=== PATIENT | female | born 1935 | race Caucasian/White ===

== ENCOUNTER 2016-11-14 15:38 | Emergency (ER) | payer MEDICARE ==
[2016-11-14] MEDS ORDERED: NS 0.9% 1000 ML* 1,000 ML IV SCH (16:15)
--- NOTE | 2016-11-14 16:54 | RAD ---
Indication: Speech disturbance. Code shrestha. Comparison: No relevant prior exams available on the [facility] PACS for comparison. Technique: Noncontrast CT vertex of skull through foramen magnum. Report: The sulci, ventricles, and basal cisterns are mildly prominent reflecting involutional change. Lambert matter white matter differentiation is preserved without evidence for edema. Decreased density in the periventricular and subcortical white matter while non-specific is most likely due to chronic microangiopathy. No intra or extra axial hemorrhage, mass, or fluid collection detected. Unremarkable visualized orbital contents. Unremarkable calvarium and skull base. Unremarkable scalp. Mild mucosal thickening at the partially visualized LEFT maxillary sinus. Complete opacification of the LEFT sphenoid sinus. Clear mastoid air spaces. IMPRESSION: 1. Mild involutional change and stigmata of chronic small vessel ischemic disease. 2. No acute intracranial process evident. 3. Paranasal sinus disease without compelling stigmata of acute sinusitis. Results discussed with Dr. Kowalski 11/14/2016 4:50 PM EDT
[2016-11-14] MEDS: Aspirin TAB* 325 MG PO ONE ×2 (16:58→17:00)
[2016-11-14 17:05] LABS: Hematocrit 45 % (35-47); Hemoglobin 14.8 g/dl (12.0-16.0); Mean Corpuscular HGB Conc 33 g/dl (31-36); Mean Corpuscular Hemoglobin 30 pg (27-31); Mean Corpuscular Volume 92 fL (80-97); Mean Platelet Volume 9 um3 (7.4-10.4); Red Blood Count 4.86 10^6/ul (4.0-5.4); Red Cell Distribution Width 13 % (10.5-15)
[2016-11-14 17:19] LABS: Albumin 3.9 g/dL (3.2-5.2); BUN/Creatinine Ratio 15.5 (8-20); C Reactive Protein 4.82 mg/L (< 5.00); Calcium 9.3 mg/dL (8.6-10.3); EGFR African American 65.8 (>60); EGFR Non-African American 51.2 (>60); Globulin 3.4 g/dL (2-4); Magnesium 2.2 mg/dL (1.9-2.7); Potassium 3.7 mmol/L (3.5-5.0); Total Bilirubin 0.8 mg/dL (0.2-1.0); Total Protein 7.3 g/dL (6.4-8.9)
[2016-11-14 17:21] LABS: Troponin I 0.01 ng/mL (<0.04)
[2016-11-14] MEDS ORDERED: Labetalol IV* 5 MG/ML 20 ML VIAL IV PUSH ONE (17:50)
--- NOTE | 2016-11-14 18:30 | RAD ---
Indication: Altered mental status. Code shrestha. Hypertensive. Comparison: No relevant prior exams available on the [facility] [place] for comparison. Technique: Upright AP 1735 hours Report: Accounting for superimposed soft tissues with large body habitus the lungs and pleural spaces are clear. Negative for pneumothorax. Upper normal heart size accounting for AP technique. Unremarkable central pulmonary vasculature. Mildly tortuous descending thoracic aorta. IMPRESSION: No evidence for acute intrathoracic disease.
--- NOTE | 2016-11-14 20:42 | ED ---
Vijay Dennis Auryana, scribed for Guzman Kowalski MD on 11/14/16 at 1618 . Neurological HPI - HPI Summary HPI Summary: 81 year old female presents with head discomfort starting at 03:30 today. Patient reports that she was with her friends, sitting when her symptoms started : friends state that her face became red and she had difficulty with speech lasting 2-3 minutes. Patient reports that she has discomfort around the occipital lobe/posterior head and reports that she felt like there was a "gloss over both eyes". She currently c/o a pressure at the roof of her mouth. She denies any chest pain, confusion, or any problems with extremity problems or movement. She has had similar episodes of head pain over the last month but denies any previous episodes of difficult with speech. Also over the last month , she reports blurriness in the left eye, and bilateral ear pressure. PMHx is significant for HTN, and HLD. FHx is significant for stoke and cancer. - History of Current Complaint Chief Complaint: EDGeneral Stated Complaint: HIGH BLOOD PRESSURE/UPSET STOMACH Time Seen by Provider: 11/14/16 16:03 Hx Obtained From: Patient Hx Last Menstrual Period: N/A Onset/Duration: Sudden Onset Timing: Intermittent Episodes Lasting: Onset Severity: Moderate Current Severity: None Headache Location: Occipital (Right), Occipital (Left) Pain Intensity: 0 Pain Scale Used: 0-10 Numeric Character: Impaired Speech, Visual Changes - " felt like a gloss over both eyes " Associated Signs and Symptoms: Positive: Visual Changes, Headache. Negative: Confusion, Fever - Allergy/Home Medications Allergies/Adverse Reactions: Allergies Allergy/AdvReac Type Severity Reaction Status Date / Time Aspirin Allergy Abdominal Verified 11/14/16 16:58 Pain Home Medications: Home Medications Acetaminophen TAB* [Tylenol TAB*] 325 mg PO Q6H PRN 11/14/16 [History Confirmed 11/14/16] Atenolol TAB* [Tenormin TAB* 50 MG] 50 mg PO DAILY 11/14/16 [History Confirmed 11/14/16] Calcium Carbonate CHEW TAB* [Tums*] 500 mg PO BID PRN 11/14/16 [History Confirmed 11/14/16] Cholecalciferol [Vitamin D3] 50,000 unit PO WEEKLY 11/14/16 [History Confirmed 11/14/16] amLODIPine TAB* [Norvasc 5 mg TAB*] 2.5 mg PO DAILY 11/14/16 [History Confirmed 11/14/16] PMH/Surg Hx/FS Hx/Imm Hx Cardiovascular History: Reports: Hx Coronary Artery Disease - CHOLESTEROL CONTROL WITH MEDICATION, Hx Hypertension - CONTROL WITH MEDICATION GI History: Reports: Hx Gastroesophageal Reflux Disease - ACID REFLUX OCCASIONALLY, USES TUMS Musculoskeletal History: Reports: Hx Arthritis - GENERALIZED Sensory History: Reports: Hx Cataracts - BILATERAL, Hx Contacts or Glasses - GLASSES - READING Denies: Hx Hearing Aid Opthamlomology History: Reports: Hx Cataracts - BILATERAL, Hx Contacts or Glasses - GLASSES - READING - Cancer History Hx Chemotherapy: No Hx Radiation Therapy: No Infectious Disease History: No Infectious Disease History: Denies: Traveled Outside the [place] in Last 30 Days - Family History Known Family History: Positive: Other - stroke and cancer - Social History Alcohol Use: None Substance Use Type: Reports: None Review of Systems Constitutional: Negative Negative: Fever Positive: Other - "gloss go over both eyes" Positive: Other - pressure at roof of mouth Cardiovascular: Negative Negative: Chest Pain Respiratory: Negative Gastrointestinal: Negative Genitourinary: Negative Positive: Other - head discomfort Skin: Negative Neurological: Other - speech trouble Psychological: Normal All Other Systems Reviewed And Are Negative: Yes Physical Exam - Summary Physical Exam Summary: General: well-appearing, no pain distress Skin: warm, color reflects adequate perfusion, dry Head: normal Eyes: EOMI, RADHA ENT: normal Neck: supple, nontender Respiratory: CTA, breath sounds present Cardiovascular: RRR Abdomen: soft, nontender Bowel: present Musculoskeletal: normal, strength/ROM intact Neurological: normal, sensory/motor intact, A&O x3; GCS 15. Psychological: affect/mood appropriate Triage Information Reviewed: Yes Vital Signs On Initial Exam: Initial Vitals Temp Pulse Resp BP Pulse Ox 97.4 F 64 20 214/72 94 11/14/16 15:44 11/14/16 15:44 11/14/16 15:44 11/14/16 15:44 11/14/16 15:44 Vital Signs Reviewed: Yes Diagnostics - Vital Signs Vital Signs Temp Pulse Resp BP Pulse Ox 11/14/16 16:05 97.3 F 60 20 167/96 92 11/14/16 15:44 97.4 F 64 20 214/72 94 - Laboratory Lab Results: Lab Results 11/14/16 11/14/16 11/14/16 Range/Units 16:43 16:46 16:46 WBC (3.5-10.8) 10^3/ul RBC (4.0-5.4) 10^6/ul Hgb (12.0-16.0) g/dl Hct (35-47) % MCV (80-97) fL MCH (27-31) pg MCHC (31-36) g/dl RDW (10.5-15) % Plt Count (150-450) 10^3/ul MPV (7.4-10.4) um3 Neut % (Auto) (38-83) % Lymph % (Auto) (25-47) % [place] % (Auto) (1-9) % Eos % (Auto) (0-6) % Baso % (Auto) (0-2) % Absolute Neuts (auto) (1.5-7.7) 10^3/ul Absolute Lymphs (auto) (1.0-4.8) 10^3/ul Absolute Monos (auto) (0-0.8) 10^3/ul Absolute Eos (auto) (0-0.6) 10^3/ul Absolute Basos (auto) (0-0.2) 10^3/ul Absolute Nucleated RBC 10^3/ul Nucleated RBC % INR (Anticoag Therapy) 0.92 (0.89-1.11) APTT 25.8 L (26.0-36.3) seconds Sodium 136 (133-145) mmol/L Potassium 3.7 (3.5-5.0) mmol/L Chloride 103 (101-111) mmol/L Carbon Dioxide 23 (22-32) mmol/L Anion Gap 10 (2-11) mmol/L BUN 16 (6-24) mg/dL Creatinine 1.03 H (0.51-0.95) mg/dL Est GFR ( Amer) 65.8 (>60) Est GFR (Non-Af Amer) 51.2 (>60) BUN/Creatinine Ratio 15.5 (8-20) Glucose 126 H (70-100) mg/dL POC Glucose (mg/dL) 119 H (74-106) mg/dL Lactic Acid (0.5-2.0) mmol/L Calcium 9.3 (8.6-10.3) mg/dL Magnesium 2.2 (1.9-2.7) mg/dL Total Bilirubin 0.80 (0.2-1.0) mg/dL AST 23 (13-39) U/L ALT 14 (7-52) U/L Alkaline Phosphatase 64 (34-104) U/L Troponin I 0.01 (<0.04) ng/mL C-Reactive Protein 4.82 (< 5.00) mg/L Total Protein 7.3 (6.4-8.9) g/dL Albumin 3.9 (3.2-5.2) g/dL Globulin 3.4 (2-4) g/dL Albumin/Globulin Ratio 1.1 (1-3) TSH (0.34-5.60) mcIU/mL 11/14/16 11/14/16 11/14/16 Range/Units 17:00 17:00 17:00 WBC 11.0 H (3.5-10.8) 10^3/ul RBC 4.86 (4.0-5.4) 10^6/ul Hgb 14.8 (12.0-16.0) g/dl Hct 45 (35-47) % MCV 92 (80-97) fL MCH 30 (27-31) pg MCHC 33 (31-36) g/dl RDW 13 (10.5-15) % Plt Count 254 (150-450) 10^3/ul MPV 9 (7.4-10.4) um3 Neut % (Auto) 62.8 (38-83) % Lymph % (Auto) 26.4 (25-47) % [place] % (Auto) 8.1 (1-9) % Eos % (Auto) 1.8 (0-6) % Baso % (Auto) 0.9 (0-2) % Absolute Neuts (auto) 6.9 (1.5-7.7) 10^3/ul Absolute Lymphs (auto) 2.9 (1.0-4.8) 10^3/ul Absolute Monos (auto) 0.9 H (0-0.8) 10^3/ul Absolute Eos (auto) 0.2 (0-0.6) 10^3/ul Absolute Basos (auto) 0.1 (0-0.2) 10^3/ul Absolute Nucleated RBC 0.01 10^3/ul Nucleated RBC % 0.1 INR (Anticoag Therapy) (0.89-1.11) APTT (26.0-36.3) seconds Sodium (133-145) mmol/L Potassium (3.5-5.0) mmol/L Chloride (101-111) mmol/L Carbon Dioxide (22-32) mmol/L Anion Gap (2-11) mmol/L BUN (6-24) mg/dL Creatinine (0.51-0.95) mg/dL Est GFR ( Amer) (>60) Est GFR (Non-Af Amer) (>60) BUN/Creatinine Ratio (8-20) Glucose (70-100) mg/dL POC Glucose (mg/dL) (74-106) mg/dL Lactic Acid 2.6 H* (0.5-2.0) mmol/L Calcium (8.6-10.3) mg/dL Magnesium (1.9-2.7) mg/dL Total Bilirubin (0.2-1.0) mg/dL AST (13-39) U/L ALT (7-52) U/L Alkaline Phosphatase (34-104) U/L Troponin I (<0.04) ng/mL C-Reactive Protein (< 5.00) mg/L Total Protein (6.4-8.9) g/dL Albumin (3.2-5.2) g/dL Globulin (2-4) g/dL Albumin/Globulin Ratio (1-3) TSH 6.53 H (0.34-5.60) mcIU/mL Result Diagrams: 11/14/16 17:00 11/14/16 16:46 Lab Statement: Any lab studies that have been ordered have been reviewed, and results considered in the medical decision making process. - Radiology CXR Xray Interpretation: No Acute Changes Radiology Interpretation Completed By: Radiologist - CT BRAIN CT Interpretation: Positive (See Comments) - IMPRESSION: 1. Mild involutional change and stigmata of chronic small vessel ischemic disease. 2. No acute intracranial process evident. 3. Paranasal sinus disease without compelling stigmata of acute sinusitis. Results discussed with Dr. Kowalski 4:[address] Interpretation Completed By: Radiologist - EKG 16:46 Ectopy: None EKG Interpretation: nsr @ 61 BPM, ST depressions in the anteriolateral leads. no ectopy NIH Scale - NIH Scale Level of Consciousness: Alert/Keenly Responsive Ask Patient the Month and His/Her Age: Both Correct Ask Pt to Open/Close Eyes and Fan Mail Clerk/Release Non-Paretic Hand: Both Correctly Best Gaze (Only Horizontal Eye Movement): Normal Visual Field Testing: No Visual Loss Facial Paresis-Pt to Smile & Close Eyes or Grimace Symmetry: Normal/Symmetrical Motor Function - Right Arm: No Drift-Holds 10 Seconds Motor Function - Left Arm: No Drift-Holds 10 Seconds Motor Function - Right Leg: No Drift-Holds 10 Seconds Motor Function - Left Leg: No Drift-Holds 10 Seconds Limb Ataxia-Must be out of Proportion to Weakness Present: Absent Sensory (Use Pinprick to Test Arms/Legs/Trunk/Face): Normal Best Language (Describe Picture, Name Items): No Aphasia Dysarthria (Read Several Words): Normal Course/Dx - Course Course Of Treatment: NO CRITICAL CARE TIME. PATIENT SEEN BY NEUROLOGY, DR ORELLANA, IN ED. AMS EPISODE MOST PROBABLY DUE TO HYPERTENSION. PATIENT HAS A NEW BP RX HER DOCTOR HAS PRESCRIBED. IT IS AT THE PHARMACY NOW AND CAN BE PICKED UP TOMORROW. DISCUSSED RESULTS WITH PT. NO AMS IN ED. BP IMPROVED IN ED. - Diagnoses Provider Diagnoses: Altered mental status, Hypertension During the Visit The Following Alert/Code Occurred: Code Lambert - 16:18 - Physician Notifications Discussed Care Of Patient With: Lucas Orellana Time Discussed With Above Provider: 17:14 Discharge - Discharge Plan Condition: Stable Disposition: HOME Patient Education Materials: Hypertension (ED), Altered Mental Status (ED) Referrals: Yadi Cline MD [Primary Care Provider] - Additional Instructions: FOLLOW UP WITH YOUR DOCTOR. START YOUR NEW BLOOD PRESSURE MEDICATION DIRECTED TOMORROW. RETURN TO THE EMERGENCY DEPARTMENT FOR ANY WORSENING OF YOUR CONDITION OR QUESTIONS OR CONCERNS. The documentation as recorded by the Vijay mosley Auryana accurately reflects the service I personally performed and the decisions made by me, Guzman Kowalski MD.
[2016-11-14 20:53] VITALS: BP 157/66
--- NOTE | 2016-11-14 22:36 | CONS ---
NEUROLOGY CONSULTATION: DATE OF CONSULTATION: 11/14/16 REFERRING PHYSICIAN: Dr. Kowalski. PRIMARY CARE PHYSICIAN: Dr. Rivas. LOCATION: She is in the emergency room. CHIEF COMPLAINT: Headache, sweats, confusion. HISTORY OF PRESENT ILLNESS: Bronwyn Tan is an 81-year-old right-handed woman accompanied by her daughter and her niece. She has been having some headaches on and off for a couple of weeks. They went to a [employer] lunch today and she drove the first time in about a month. When she came out, she "just didn't feel well" and asked her daughter to drive home. She went home and rested. After that, she was with her daughter and said again that she did not feel well and then became very flushed and sweaty and said that "I am hot" and started to take off her sweater. Her daughter and niece said that she looked "beet red." She started to mumble a bit and did not make any sense for perhaps a minute or less. She was like that for a couple of minutes and decided she should be evaluated and brought her to the emergency room. In the emergency room, she was hypertensive with initial blood pressure 214/72. She at this point feels better. She still has a dull bifrontal and bioccipital headache, which is mild. She had some nausea earlier when she felt ill and reported that to her daughters, but did not vomit. She has not been feeling well for some time and has had what sounds to be uncontrolled hypertension. She has been to Dr. Rivas and was supposed to increase her atenolol, but failed to do so as she felt that it was "too much." She has had another medicine called in for her blood pressure that she has not filled yet. Checking pharmacy records, there is a prescription apparently for amlodipine as well as atenolol 50 mg a day. She states the only medicine she takes is vitamin D3 and atenolol. PAST MEDICAL HISTORY: Basically notable for hypertension, hyperlipidemia, low back pain, cataract extractions. MEDICATIONS: The only medications that she states she is taking is atenolol 50 mg tablet once per day and vitamin D. ALLERGIES: She is listed as having an ASPIRIN allergy. Computer records indicate that it was abdominal pain rather than an allergy. REVIEW OF SYSTEMS: Notable for episodic blurring of vision. She feels episodically unsteady on her feet but no falls. She has not had any problems eating or swallowing. Up to today, she did not have any problems with confusion or speech and currently, she feels that is cleared. She had some nausea and some belly pain earlier today, which resolved. She denies any history of diabetes or heart disease. SOCIAL HISTORY: She is a nonsmoker and does not drink alcohol. FAMILY HISTORY: Noncontributory. PHYSICAL EXAMINATION: She is obese. Most recent blood pressure on the monitor is 209/107, heart rate is in the 70's and sinus on the monitor and respirations 16. Oxygen saturation is 96% on room air. Lungs are clear bilaterally. Heart is in a regular rhythm with a grade 2/6 early systolic murmur second right interspace. Carotid pulses are weakly felt. There are no bruits. Oral mucosa is moist and atraumatic. Neck is supple. Neurological exam: Pupils react equally from 3 to 2 mm. Eye movements are normal. Funduscopic exam revealed sharp discs with arterial narrowing and silver wiring, but no hemorrhages. Visual veloz are full to confrontation. There is no ptosis. Facial musculature is symmetric. Facial sensation to light touch is intact. She is hearing impaired and has a hearing aid in the left ear. Neck strength is normal for age. Motor exam reveals normal muscle tone and strength in the limbs for age and overall condition. There is no drift of any of the limbs. [id number] maneuver is normal bilaterally. Finger taps are normal bilaterally. Sensory exam to vibration and light touch is intact in upper and lower extremities. Reflexes are intact and could not trace ankle reflexes. Left plantar flexor and right is equivocal. She is alert and a pretty good historian. Memory seems preserved other than for perhaps a moment or two around when she felt ill. Language is fluent. Attention, concentration, and fund of knowledge are all adequate. DIAGNOSTIC STUDIES/LABORATORY DATA: Includes a CT scan of the brain, which I reviewed and reveals patchy hypodensity in the deep white matter consistent with chronic ischemic changes. There is no evidence of hemorrhages or acute infarctions. Other laboratory data is notable for CBC with borderline elevated white blood count at 11.0 and otherwise a normal CBC. INR is normal and PTT is borderline low at 25.8. Chemistry profile is normal but lactic acid is mildly elevated at 2.6. Nonfasting glucose is elevated at 126 and looking at prior glucoses, she has had several elevations over the years. The rest of her chemistry profile is unremarkable. Troponin is 0.01. Cholesterol measured last March was 256 , LDL 154. IMPRESSION: Hypertensive urgency. She does not really describe any focal signs or symptoms, but headache and nausea and some brief confusion. Her blood pressure was quite elevated when she presented and is still elevated. It sounds as though she has been somewhat less than compliant with recommendations regarding treatment of her hypertension. I recommend treating her hypertension at this point. Recommend adding hemoglobin A1c given her blood glucose and complaints of polyuria. Unless she has further neurological symptoms and provided that her blood pressure is brought under control, I do not think she needs further workup for cerebrovascular disease. [id number]/[facility] #: [id number] [place]
== END 2016-11-14 20:53 | disposition home or self-care (01) ==
LOC: ED 15:38
DX: R41.82 Altered mental status, unspecified (principal); I10 Essential (primary) hypertension
CPT/HCPCS: 36415; 70450; 71010; 80053; 83605; 83735; 84443; 84484; 85025; 85610; 85730; 86140; 93005; 96374; 99285

== ENCOUNTER 2017-08-04 00:38 | Emergency (ER) | payer MEDICARE ==
[2017-08-04] MEDS ORDERED: hydrALAZINE IV* 20 MG/ML VIAL IV SLOW PU ONE (01:32)
[2017-08-04 02:49] LABS: ABS Basophils 0.1 10^3/ul (0-0.2); ABS Eosinophils 0.2 10^3/ul (0-0.6); ABS Lymphocytes 2.6 10^3/ul (1.0-4.8); ABS Monocytes 0.9 10^3/ul (0-0.8); ABS Neutrophils 7.8 10^3/ul (1.5-7.7); ABS Nucleated RBC 0 10^3/ul; Eosinophil % 1.4 % (0-6); Hematocrit 44 % (35-47); Lymphocyte % 22.5 % (25-47); Mean Corpuscular HGB Conc 34 g/dl (31-36); Mean Corpuscular Hemoglobin 31 pg (27-31); Mean Corpuscular Volume 89 fL (80-97); Nucleated Red Blood Cells % 0.1; Platelet Count 281 10^3/ul (150-450); Red Blood Count 4.89 10^6/ul (4.0-5.4); Red Cell Distribution Width 14 % (10.5-15); White Blood Count 11.5 10^3/ul (3.5-10.8)
[2017-08-04 03:01] LABS: EGFR Non-African American 58.9 (>60)
[2017-08-04 03:02] LABS: INR 0.98 (0.77-1.02)
[2017-08-04 03:25] LABS: Urine Appearance Clear; Urine Blood 1+ (Negative); Urine Color Straw; Urine Ketones Negative (Negative); Urine Protein Negative (Negative); Urine Specific Gravity 1.005 (1.010-1.030); Urine Urobilinogen Negative (Negative)
[2017-08-04] MEDS ORDERED: diPHENhydraMINE IV* 50 MG/ML 1 ml VIAL (BENADRYL) IV ONE (03:40)
[2017-08-04 04:44] VITALS: BP 160/78
--- NOTE | 2017-08-04 08:13 | RAD ---
INDICATION: Ataxia and hypertension COMPARISON: CT of the brain November 14, 2016 TECHNIQUE: Contiguous axial sections of the brain were obtained from the skull base to the vertex without contrast. FINDINGS: The ventricles, cisterns and sulci exhibit symmetrical involutional changes similar in appearance to the previous CT of the brain. There is stable encephalomalacia at the posterior right parietal lobe. There is mild to moderate periventricular and subcortical white matter hypoattenuation most consistent with chronic microvascular disease that is also similar in appearance to the previous CT of the brain. Otherwise the shrestha-white matter differentiation is adequately maintained and there is no sulcal effacement. No significant focal abnormality or mass effect is present. There is no evidence for intracranial hemorrhage. No significant focal osseous abnormality is present. There is complete opacification of the dominant left sphenoid sinus unchanged from the previous CT the brain. The mastoid air cells are well aerated bilaterally. IMPRESSION: No CT apparent acute intracranial abnormality.
--- NOTE | 2017-08-05 10:52 | ED ---
Donaldo Dennis Rebecca, scribed for Nirmal Thompson MD on 08/04/17 at 0121 . Complex/Multi-Sys Presentation - HPI Summary HPI Summary: Pt is an 82 y/o F BIBA who presents to ED c/o elevated BP. Reports that her BP is usually about 180 systolic, though it was elevated tonight and she became concerned about a stroke. Additionally c/o bilateral LE numbness which is acute on chronic. Denies CP, SOB, fever. PMHx HTN - has tried multiple medications to lower her BP and is currently taking atenolol. - History Of Current Complaint Chief Complaint: EDHypertension Hx Obtained From: Patient, Family/Industrial Controller - Daughter Onset/Duration: Still Present Severity Initially: Mild - 2/10 Aggravating Factor(s): Nothing Alleviating Factor(s): Nothing Associated Signs And Symptoms: Positive: Other - Elevated BP - Allergies/Home Medications Allergies/Adverse Reactions: Allergies Allergy/AdvReac Type Severity Reaction Status Date / Time MS Aspirin Allergy Abdominal Verified 12/05/16 08:44 Pain MS Lisinopril [Lisinopril] Allergy SEVERE Verified 12/05/16 08:44 HORSE COUGH Home Medications: Home Medications Losartan TAB* [Cozaar TAB*] 25 mg PO DAILY 08/04/17 [History Confirmed 08/04/17] PMH/Surg Hx/FS Hx/Imm Hx Endocrine/Hematology History: Denies: Hx Diabetes Cardiovascular History: Reports: Hx Coronary Artery Disease - CHOLESTEROL CONTROL WITH MEDICATION, Hx Hypertension - CONTROL WITH MEDICATION Denies: Hx Pacemaker/ICD GI History: Reports: Hx Gastroesophageal Reflux Disease - ACID REFLUX OCCASIONALLY, USES TUMS History: Denies: Hx Renal Disease Musculoskeletal History: Reports: Hx Arthritis - GENERALIZED Sensory History: Reports: Hx Cataracts - BILATERAL, Hx Contacts or Glasses - GLASSES - READING Denies: Hx Hearing Aid - DOESN'T WEAR Opthamlomology History: Reports: Hx Cataracts - BILATERAL, Hx Contacts or Glasses - GLASSES - READING Psychiatric History: Denies: Hx Panic Disorder - Cancer History Hx Chemotherapy: No Hx Radiation Therapy: No - Surgical History Surgery Procedure, Year, and Place: CATARACTS - [facility] Infectious Disease History: No Infectious Disease History: Denies: Traveled Outside the [place] in Last 30 Days - Family History Known Family History: Positive: Other - stroke and cancer - Social History Alcohol Use: None Substance Use Type: Reports: None Smoking Status (MU): Never Smoked Tobacco Review of Systems Positive: Other - Elevated BP. Negative: Fever Negative: Chest Pain Negative: Shortness Of Breath Positive: Numbness - Bilateral LE numbness All Other Systems Reviewed And Are Negative: Yes Physical Exam - Summary Physical Exam Summary: Appearance: Well appearing, no pain distress Skin: warm, dry, reflects adequate perfusion Head/face: normal Eyes: EOMI, RADHA ENT: normal Neck: supple, non-tender Respiratory: CTA, breath sounds present Cardiovascular: RRR, pulses symmetrical Abdomen: non-tender, soft Bowel Sounds: present Musculoskeletal: normal, strength/ROM intact Neuro: normal, sensory motor intact, A&Ox3, CN II-XII intact GCS: 15 Triage Information Reviewed: Yes Vital Signs On Initial Exam: Initial Vitals Temp Pulse Resp BP Pulse Ox 97.8 F 73 20 192/100 95 08/04/17 00:54 08/04/17 00:54 08/04/17 00:54 08/04/17 00:54 08/04/17 00:54 Vital Signs Reviewed: Yes Diagnostics - Vital Signs Vital Signs Temp Pulse Resp BP Pulse Ox 08/04/17 00:54 97.8 F 73 20 192/100 95 - Laboratory Lab Results: Lab Results 08/04/17 08/04/17 08/04/17 Range/Units 02:35 02:35 02:35 WBC 11.5 H (3.5-10.8) 10^3/ul RBC 4.89 (4.0-5.4) 10^6/ul Hgb 15.0 (12.0-16.0) g/dl Hct 44 (35-47) % MCV 89 (80-97) fL MCH 31 (27-31) pg MCHC 34 (31-36) g/dl RDW 14 (10.5-15) % Plt Count 281 (150-450) 10^3/ul MPV 9.0 (7.4-10.4) um3 Neut % (Auto) 67.4 (38-83) % Lymph % (Auto) 22.5 L (25-47) % [place] % (Auto) 7.9 H (0-7) % Eos % (Auto) 1.4 (0-6) % Baso % (Auto) 0.8 (0-2) % Absolute Neuts (auto) 7.8 H (1.5-7.7) 10^3/ul Absolute Lymphs (auto) 2.6 (1.0-4.8) 10^3/ul Absolute Monos (auto) 0.9 H (0-0.8) 10^3/ul Absolute Eos (auto) 0.2 (0-0.6) 10^3/ul Absolute Basos (auto) 0.1 (0-0.2) 10^3/ul Absolute Nucleated RBC 0 10^3/ul Nucleated RBC % 0.1 INR (Anticoag Therapy) 0.98 (0.77-1.02) Sodium 140 (139-145) mmol/L Potassium 3.8 (3.5-5.0) mmol/L Chloride 105 (101-111) mmol/L Carbon Dioxide 25 (22-32) mmol/L Anion Gap 10 (2-11) mmol/L BUN 12 (6-24) mg/dL Creatinine 0.91 (0.51-0.95) mg/dL Est GFR ( Amer) 75.7 (>60) Est GFR (Non-Af Amer) 58.9 (>60) BUN/Creatinine Ratio 13.2 (8-20) Glucose 110 H (70-100) mg/dL Calcium 9.8 (8.6-10.3) mg/dL Total Bilirubin 0.80 (0.2-1.0) mg/dL AST 15 (13-39) U/L ALT 12 (7-52) U/L Alkaline Phosphatase 70 (34-104) U/L Troponin I 0.02 (<0.04) ng/mL C-Reactive Protein 6.21 H (< 5.00) mg/L Total Protein 7.7 (6.4-8.9) g/dL Albumin 4.2 (3.2-5.2) g/dL Globulin 3.5 (2-4) g/dL Albumin/Globulin Ratio 1.2 (1-3) Urine Color Urine Appearance Urine pH (5-9) Ur Specific [place] (1.010-1.030) Urine Protein (Negative) Urine Ketones (Negative) Urine Blood (Negative) Urine Nitrate (Negative) Urine Bilirubin (Negative) Urine Urobilinogen (Negative) Ur Leukocyte Esterase (Negative) Urine WBC (Auto) (Absent) Urine RBC (Auto) (Absent) Urine Bacteria (Absent) Urine Glucose (Negative) 08/04/17 Range/Units 03:00 WBC (3.5-10.8) 10^3/ul RBC (4.0-5.4) 10^6/ul Hgb (12.0-16.0) g/dl Hct (35-47) % MCV (80-97) fL MCH (27-31) pg MCHC (31-36) g/dl RDW (10.5-15) % Plt Count (150-450) 10^3/ul MPV (7.4-10.4) um3 Neut % (Auto) (38-83) % Lymph % (Auto) (25-47) % [place] % (Auto) (0-7) % Eos % (Auto) (0-6) % Baso % (Auto) (0-2) % Absolute Neuts (auto) (1.5-7.7) 10^3/ul Absolute Lymphs (auto) (1.0-4.8) 10^3/ul Absolute Monos (auto) (0-0.8) 10^3/ul Absolute Eos (auto) (0-0.6) 10^3/ul Absolute Basos (auto) (0-0.2) 10^3/ul Absolute Nucleated RBC 10^3/ul Nucleated RBC % INR (Anticoag Therapy) (0.77-1.02) Sodium (139-145) mmol/L Potassium (3.5-5.0) mmol/L Chloride (101-111) mmol/L Carbon Dioxide (22-32) mmol/L Anion Gap (2-11) mmol/L BUN (6-24) mg/dL Creatinine (0.51-0.95) mg/dL Est GFR ( Amer) (>60) Est GFR (Non-Af Amer) (>60) BUN/Creatinine Ratio (8-20) Glucose (70-100) mg/dL Calcium (8.6-10.3) mg/dL Total Bilirubin (0.2-1.0) mg/dL AST (13-39) U/L ALT (7-52) U/L Alkaline Phosphatase (34-104) U/L Troponin I (<0.04) ng/mL C-Reactive Protein (< 5.00) mg/L Total Protein (6.4-8.9) g/dL Albumin (3.2-5.2) g/dL Globulin (2-4) g/dL Albumin/Globulin Ratio (1-3) Urine Color Straw Urine Appearance Clear Urine pH 8.0 (5-9) Ur Specific [place] 1.005 L (1.010-1.030) Urine Protein Negative (Negative) Urine Ketones Negative (Negative) Urine Blood 1+ A (Negative) Urine Nitrate Negative (Negative) Urine Bilirubin Negative (Negative) Urine Urobilinogen Negative (Negative) Ur Leukocyte Esterase 3+ A (Negative) Urine WBC (Auto) 3+(>20/hpf) A (Absent) Urine RBC (Auto) Trace(0-2/hpf) (Absent) Urine Bacteria Absent (Absent) Urine Glucose Negative (Negative) Result Diagrams: 08/04/17 02:35 08/04/17 02:35 Lab Statement: Any lab studies that have been ordered have been reviewed, and results considered in the medical decision making process. - CT Brain CT CT Interpretation: No Acute Changes - No evidence of acute pathology. ED physician reviewed this radiology report. CT Interpretation Completed By: Radiologist - EKG 0136 Cardiac Rate: NL - [address] Segment: Non-Specific EKG Interpretation: 1st degree AVB, normal axis, LVH criteria, Q waves in V2-V5 National Institutes Of Health - NIH Scale Level of Consciousness: Alert/Keenly Responsive Ask Patient the Month and His/Her Age: Both Correct Ask Pt to Open/Close Eyes and Telephone Clerks Supervisor/Release Non-Paretic Hand: Both Correctly Best Gaze (Only Horizontal Eye Movement): Normal Visual Field Testing: No Visual Loss Facial Paresis-Pt to Smile & Close Eyes or Grimace Symmetry: Normal/Symmetrical Motor Function - Right Arm: No Drift-Holds 10 Seconds Motor Function - Left Arm: No Drift-Holds 10 Seconds Motor Function - Right Leg: No Drift-Holds 10 Seconds Motor Function - Left Leg: No Drift-Holds 10 Seconds Limb Ataxia-Must be out of Proportion to Weakness Present: Absent Sensory (Use Pinprick to Test Arms/Legs/Trunk/Face): Normal Best Language (Describe Picture, Name Items): No Aphasia Dysarthria (Read Several Words): Normal Extinction and Inattention: No Abnormality Total Score: 0 Re-Evaluation - Re-Evaluation First Eval Re-Evaluation Time: 03:08 Comment: Walked well with walker, BP now 163 and she wishes to go home. Second Eval Re-Evaluation Time: 04:17 Comment: Talked with pt and her daughter, as the pt is now unsure whether she would like to be D/C Complex Multi-Symp Course/Dx Course Of Treatment: Pt presents for exacerbation of her chronically uncontrolled HTN and for her chronic numbness/restlessness of her legs. She has no focal deficit or weakness. Its unknown if she took her BP med stonight. Her "normal" is approximately 180 systolic. BPs were controlled into the 160s with IV hydralazine. Head CT, labs showed no acute findings. Pt was up and walking with a walker independently. She seemed hesitant to go home despite acute findings -- I offered her admission but she wished to go home. She then had restlessness of her legs and began acting strangely including stuttering speech and refusal to weight bear. She seemed to be focused on the possibility of having a stroke, so I explained that there was no evidence of this today. As she calmed she again got up and walked well and her other symptoms seemed to amie. I wrote for a home walker, oral hydralazine and put in a consult for home health/PT. - Diagnoses Provider Diagnoses: Malignant hypertension, Gait instability, Leg numbness Discharge - Sign-Out/Discharge Documenting (check all that apply): Discharge - Discharge - Discharge Plan Condition: Improved Disposition: HOME Prescriptions: hydrALAZINE TAB* [Apresoline TAB*] 100 mg PO BID #60 tab Patient Education Materials: Chronic Hypertension (ED), Paresthesia (ED) Referrals: Yadi Cline MD [Primary Care Provider] - Additional Instructions: Call your doctor to be seen tomorrow. You may need MRI of your back for the numbness in your legs. Use walker. Return if worse or other concerns. - Billing Disposition and Condition Condition: IMPROVED Disposition: HOME The documentation as recorded by the Donaldo mosley Rebecca accurately reflects the service I personally performed and the decisions made by me, Nirmal Thompson MD.
--- NOTE | 2017-08-08 09:00 | PN ---
Progress Note - Progress Note Date of Service: 08/04/17 Note: Pt. seen in the ER 08/04/17 for high blood pressure. Urine culture was obtained at that time. Urine culture 08/07/17 is growing 75-100,000 enterobacter. I called and spoke with pt. today at 0855 and informed her of results. Pt. states she has not been having any urinary symptoms or fever. She has a scheduled apt. with her PCP tomorrow. Recommend repeat u/a and culture. Will not treat at this time. Pt. understands and agrees with plan.
== END 2017-08-04 04:44 | disposition home or self-care (01) ==
LOC: ED 00:38
DX: I10 Essential (primary) hypertension (principal); R26.81 Unsteadiness on feet; R20.0 Anesthesia of skin; I44.0 Atrioventricular block, first degree; I25.10 Atherosclerotic heart disease of native coronary artery without angina pectoris; K21.9 Gastro-esophageal reflux disease without esophagitis; Z88.6 Allergy status to analgesic agent; Z88.8 Allergy status to other drugs, medicaments and biological substances
CPT/HCPCS: 36415; 70450; 80053; 81003; 81015; 84484; 85025; 85610; 86140; 87077; 87086; 87186; 93005; 96374; 96375; 99283; J0360; J1200

== ENCOUNTER 2017-09-08 15:02 | Inpatient (IN) | payer MEDICARE ==
[2017-09-08] MEDS ORDERED: Albuterol/Ipratropium NEB.SOL* Albuterol 2.5 MG/Ipratropium 0.5 MG 3 ML INH ONE (15:26)
[2017-09-08] MEDS ORDERED: methylPREDNISolone 125 MG* 2 ML VIAL IV ONE (15:26)
[2017-09-08 16:12] LABS: ABS Basophils 0.1 10^3/ul (0-0.2); ABS Eosinophils 0.3 10^3/ul (0-0.6); ABS Lymphocytes 2.1 10^3/ul (1.0-4.8); ABS Monocytes 1.3 10^3/ul (0-0.8); ABS Neutrophils 10.6 10^3/ul (1.5-7.7); ABS Nucleated RBC 0 10^3/ul; Eosinophil % 2.3 % (0-6); Hematocrit 37 % (35-47); Hemoglobin 12.5 g/dl (12.0-16.0); Lymphocyte % 14.5 % (25-47); Mean Corpuscular HGB Conc 34 g/dl (31-36); Mean Corpuscular Hemoglobin 30 pg (27-31); Mean Corpuscular Volume 90 fL (80-97); Mean Platelet Volume 9.7 um3 (7.4-10.4); Nucleated Red Blood Cells % 0.1; Platelet Count 304 10^3/ul (150-450); Red Blood Count 4.11 10^6/ul (4.0-5.4); Red Cell Distribution Width 14 % (10.5-15); White Blood Count 14.5 10^3/ul (3.5-10.8)
[2017-09-08 16:23] LABS: EGFR Non-African American 50.5 (>60)
[2017-09-08] MEDS ORDERED: Levofloxacin 750 MG IVPREMIX(* 750 MG/150 ML BAG IVPB ONE (16:30)
--- NOTE | 2017-09-08 16:48 | RAD ---
HISTORY: Productive cough COMPARISONS: November 14, 2016 VIEWS: 2: Frontal and lateral views of the chest. FINDINGS: CARDIOMEDIASTINAL SILHOUETTE: There is a vascular shadow overlying the right upper chest. This is stable from previous examination. DARREL: The darrel are normal. PLEURA: The costophrenic angles are sharp. No pleural abnormalities are noted. LUNG PARENCHYMA: The lung volumes are low. There is patchy ABDOMEN: The upper abdomen is clear. There is no subphrenic gas. BONES AND SOFT TISSUES: Degenerative changes are noted of the shoulders and spine. OTHER: None. IMPRESSION: LOW LUNG VOLUMES. NO ACTIVE CARDIOPULMONARY DISEASE.
[2017-09-08] MEDS ORDERED: Albuterol 2.5 MG/3 ML NEB.SOL* (0.083%) INH PRN (17:41)
[2017-09-08] MEDS ORDERED: Benzonatate CAP* 100 MG PO PRN (18:03)
[2017-09-08] MEDS ORDERED: Acetaminophen TAB* 325 MG PO PRN (18:05)
[2017-09-08] MEDS ORDERED: NS 0.9% 500 ML* 500 ML IV ONE (18:05)
--- NOTE | 2017-09-08 18:19 | ED ---
Eriberto Dennis Gabriel, scribed for Figueroa Martell MD on 09/08/17 at 1528 . Shortness of Breath - HPI Summary HPI Summary: This patient is a 82 year old F BIBA to [facility] accompanied by her family with a chief complaint of intermittent SOB that began a week ago and is worse today. The patient rates the pain 0/10 in severity. Symptoms aggravated by movement. Patient reports cough. Pt was 87% on room air for EMS and was given duoneb which alleviated symptoms. - History of Current Complaint Chief Complaint: EDShortnessOfBreath Time Seen by Provider: 09/08/17 15:23 Hx Obtained From: Patient Onset/Duration: Lasting Weeks, Still Present, Worse Since Timing: Constant Current Severity: Moderate Dyspnea At: Rest Associated Signs & Symptoms: Cough (Productive) - Allergy/Home Medications Allergies/Adverse Reactions: Allergies Allergy/AdvReac Type Severity Reaction Status Date / Time aspirin Allergy Abdominal Verified 09/08/17 15:23 Pain lisinopril Allergy Coughing Verified 09/08/17 15:23 Home Medications: Home Medications Atenolol TAB* [Tenormin TAB* 50 MG] 50 mg PO DAILY 09/08/17 [History Confirmed 09/08/17] Cholecalciferol (Vitamin D3) [Vitamin D3] 1,000 unit PO DAILY 09/08/17 [History Confirmed 09/08/17] Clopidogrel TAB* [Plavix TAB*] 75 mg PO DAILY 09/08/17 [History Confirmed ] Losartan TAB* [Cozaar TAB*] 50 mg PO BID 09/08/17 [History Confirmed 09/08/17] PMH/Surg Hx/FS Hx/Imm Hx Endocrine/Hematology History: Denies: Hx Diabetes Cardiovascular History: Reports: Hx Coronary Artery Disease - CHOLESTEROL CONTROL WITH MEDICATION, Hx Hypertension - CONTROL WITH MEDICATION Denies: Hx Pacemaker/ICD GI History: Reports: Hx Gastroesophageal Reflux Disease - ACID REFLUX OCCASIONALLY, USES TUMS History: Denies: Hx Renal Disease Musculoskeletal History: Reports: Hx Arthritis - GENERALIZED Sensory History: Reports: Hx Cataracts - BILATERAL, Hx Contacts or Glasses - GLASSES - READING Denies: Hx Hearing Aid - DOESN'T WEAR Opthamlomology History: Reports: Hx Cataracts - BILATERAL, Hx Contacts or Glasses - GLASSES - READING Psychiatric History: Denies: Hx Panic Disorder - Cancer History Hx Chemotherapy: No Hx Radiation Therapy: No - Surgical History Surgery Procedure, Year, and Place: CATARACTS - [facility] Infectious Disease History: No Infectious Disease History: Denies: Traveled Outside the [place] in Last 30 Days - Family History Known Family History: Positive: Other - stroke and cancer - Social History Alcohol Use: None Substance Use Type: Reports: None Smoking Status (MU): Never Smoked Tobacco Review of Systems All Other Systems Reviewed And Are Negative: Yes Physical Exam - Summary Physical Exam Summary: VITAL SIGNS: Reviewed. GENERAL: Patient is a well-developed and nourished female who is lying comfortable in the stretcher. Patient is not in any acute respiratory distress. HEAD AND FACE: No signs of trauma. No ecchymosis, hematomas or skull depressions. No sinus tenderness. EYES: PERRLA, EOMI x 2, No injected conjunctiva, no nystagmus. EARS: Hearing grossly intact. Ear canals and tympanic membranes are within normal limits. MOUTH: Oropharynx within normal limits. NECK: Supple, trachea is midline, no adenopathy, no JVD, no carotid bruit, no c- spine tenderness, neck with full ROM. CHEST: Symmetric, no tenderness at palpation LUNGS: bilateral wheeze and decreased breath sounds CVS: Regular rate and rhythm, S1 and S2 present, no murmurs or gallops appreciated. ABDOMEN: Soft, non-tender. No signs of distention. No rebound no guarding, and no masses palpated. Bowel sounds are normal. EXTREMITIES: FROM in all major joints, no edema, no cyanosis or clubbing. NEURO: Alert and oriented x 3. No acute neurological deficits. Speech is normal and follows commands. SKIN: Dry and warm Triage Information Reviewed: Yes Vital Signs On Initial Exam: Initial Vitals Temp Pulse Resp BP Pulse Ox 99.4 F 80 26 117/81 97 09/08/17 15:18 09/08/17 15:18 09/08/17 15:18 09/08/17 15:18 09/08/17 15:18 Vital Signs Reviewed: Yes Diagnostics - Vital Signs Vital Signs Temp Pulse Resp BP Pulse Ox 09/08/17 15:18 99.4 F 80 26 117/81 97 - Laboratory Lab Results: Lab Results 09/08/17 09/08/17 09/08/17 Range/Units 15:53 15:53 15:53 WBC 14.5 H (3.5-10.8) 10^3/ul RBC 4.11 (4.0-5.4) 10^6/ul Hgb 12.5 (12.0-16.0) g/dl Hct 37 (35-47) % MCV 90 (80-97) fL MCH 30 (27-31) pg MCHC 34 (31-36) g/dl RDW 14 (10.5-15) % Plt Count 304 (150-450) 10^3/ul MPV 9.7 (7.4-10.4) um3 Neut % (Auto) 73.5 (38-83) % Lymph % (Auto) 14.5 L (25-47) % [place] % (Auto) 8.8 H (0-7) % Eos % (Auto) 2.3 (0-6) % Baso % (Auto) 0.9 (0-2) % Absolute Neuts (auto) 10.6 H (1.5-7.7) 10^3/ul Absolute Lymphs (auto) 2.1 (1.0-4.8) 10^3/ul Absolute Monos (auto) 1.3 H (0-0.8) 10^3/ul Absolute Eos (auto) 0.3 (0-0.6) 10^3/ul Absolute Basos (auto) 0.1 (0-0.2) 10^3/ul Absolute Nucleated RBC 0 10^3/ul Nucleated RBC % 0.1 Sodium 134 L (139-145) mmol/L Potassium TNP Chloride 101 (101-111) mmol/L Carbon Dioxide 25 (22-32) mmol/L Anion Gap 8 (2-11) mmol/L BUN 16 (6-24) mg/dL Creatinine 1.04 H (0.51-0.95) mg/dL Est GFR ( Amer) 64.9 (>60) Est GFR (Non-Af Amer) 50.5 (>60) BUN/Creatinine Ratio 15.4 (8-20) Glucose 104 H (70-100) mg/dL Lactic Acid 1.0 (0.5-2.0) mmol/L Calcium 9.2 (8.6-10.3) mg/dL Total Bilirubin 0.80 (0.2-1.0) mg/dL AST TNP ALT 27 (7-52) U/L Alkaline Phosphatase 124 H (34-104) U/L Total Creatine Kinase 239 H (10-223) U/L Troponin I 0.01 (<0.04) ng/mL C-Reactive Protein 125.84 H (< 5.00) mg/L B-Natriuretic Peptide ( - 100) pg/mL Total Protein 7.3 (6.4-8.9) g/dL Albumin 3.7 (3.2-5.2) g/dL Globulin 3.6 (2-4) g/dL Albumin/Globulin Ratio 1.0 (1-3) 09/08/17 09/08/17 Range/Units 15:53 17:09 WBC (3.5-10.8) 10^3/ul RBC (4.0-5.4) 10^6/ul Hgb (12.0-16.0) g/dl Hct (35-47) % MCV (80-97) fL MCH (27-31) pg MCHC (31-36) g/dl RDW (10.5-15) % Plt Count (150-450) 10^3/ul MPV (7.4-10.4) um3 Neut % (Auto) (38-83) % Lymph % (Auto) (25-47) % [place] % (Auto) (0-7) % Eos % (Auto) (0-6) % Baso % (Auto) (0-2) % Absolute Neuts (auto) (1.5-7.7) 10^3/ul Absolute Lymphs (auto) (1.0-4.8) 10^3/ul Absolute Monos (auto) (0-0.8) 10^3/ul Absolute Eos (auto) (0-0.6) 10^3/ul Absolute Basos (auto) (0-0.2) 10^3/ul Absolute Nucleated RBC 10^3/ul Nucleated RBC % Sodium (139-145) mmol/L Potassium 4.1 Chloride (101-111) mmol/L Carbon Dioxide (22-32) mmol/L Anion Gap (2-11) mmol/L BUN (6-24) mg/dL Creatinine (0.51-0.95) mg/dL Est GFR ( Amer) (>60) Est GFR (Non-Af Amer) (>60) BUN/Creatinine Ratio (8-20) Glucose (70-100) mg/dL Lactic Acid (0.5-2.0) mmol/L Calcium (8.6-10.3) mg/dL Total Bilirubin (0.2-1.0) mg/dL AST 28 ALT (7-52) U/L Alkaline Phosphatase (34-104) U/L Total Creatine Kinase (10-223) U/L Troponin I (<0.04) ng/mL C-Reactive Protein (< 5.00) mg/L B-Natriuretic Peptide 221 H ( - 100) pg/mL Total Protein (6.4-8.9) g/dL Albumin (3.2-5.2) g/dL Globulin (2-4) g/dL Albumin/Globulin Ratio (1-3) Result Diagrams: 09/08/17 15:53 09/08/17 17:09 Lab Statement: Any lab studies that have been ordered have been reviewed, and results considered in the medical decision making process. - Radiology CXR Radiology Interpretation Completed By: Radiologist - LOW LUNG VOLUMES. NO ACTIVE CARDIOPULMONARY DISEASE. ED physician has reviewed this radiology report. - EKG 1545 Cardiac Rate: NL EKG Rhythm: Sinus Rhythm - at 62 BPM EKG Interpretation: No ST elevations Course/Dx - Course Assessment/Plan: Patient is an 82-year-old female who presents to the emergency room complaining of shortness of breath for the last couple days. The patient also has productive cough and she denies any history of COPD or asthma. She denies any chest pain, denies any palpitations, denies any headache, denies any fevers or chills. Results shows what also count of 14.5, sodium 134, creatinine 1.04, glucose 104,. CPK 239, CRP of 125 and BMP 21. Chest x-ray is read as no pneumonia however the patient has clinical pneumonia with fever wheezing and productive cough with yellowish and greenish phlegm. Therefore the patient was given Levaquin. The patient also was given 2 nebs and Solu-Medrol for the wheezing and decreased breath sounds. At this time I discussed my physical exam findings with Dr. Rice from the hospitalist services and she agreed to admit. The patient desaturates when she is out of oxygen. Otherwise the patient is hemodynamically stable. - Diagnoses Differential Diagnosis/HQI/PQRI: Positive: Asthma, Bronchitis, CHF, COPD Exacerbation, Pneumonia Provider Diagnoses: Pneumonia, Hypoxia, Wheezing - Physician Notifications Discussed Care of Patient With: Annabella Rice Time Discussed With Above Provider: 17:30 Instructed by Provider To: Admit As Inpatient Discharge - Sign-Out/Discharge Documenting (check all that apply): Discharge/Admit/Transfer - admitted to Dr. Rice - Discharge Plan Condition: Fair Disposition: ADMITTED TO [facility] Referrals: Yadi Cline MD [Primary Care Provider] - - Billing Disposition and Condition Condition: FAIR Disposition: [facility] [place] The documentation as recorded by the Eriberto mosley Gabriel accurately reflects the service I personally performed and the decisions made by Jasbir eaton Walter, MD.
--- NOTE | 2017-09-08 20:41 | HP ---
CC: Dr. Rivas * ADMISSION HISTORY AND PHYSICAL: DATE OF ADMISSION: 09/08/17 PRIMARY CARE PHYSICIAN: Dr. Yadi Rivas. MY ATTENDING FOR TODAY: Dr. Annabella Rice.* (DICTATED BY ANGELIC MENJIVAR NP) HISTORY OF PRESENT ILLNESS: This is a very pleasant 82-year-old female patient , who was brought in by her family with a report of 2 days of general malaise, some upper respiratory symptoms, productive cough, feeling fatigued, and then started having some shortness of breath today. The patient states she had taken Tylenol last night and again about 3 o'clock in the morning, was not feeling any better and then when she became short of breath, family brought her into the emergency department for evaluation. In the ER, the patient had a chest x-ray, which does not reveal any infiltrate or any COPD, so her chest x- ray looks clear. She does on her lab work though has some leukocytosis and does appear to be intravascularly dry. Her creatinine is mildly elevated as well as her CRP. The patient had several breathing treatments and a dose of Solu-Medrol. Initially, she was feeling much improved. However, when they retested her oxygen saturation off O2, she de- sated to approximately 87% at rest. For these reasons, emergency department requested us to evaluate the patient for admission for her persistent hypoxemia. PAST MEDICAL HISTORY: Significant for hypertension, urinary tract infection, and history of CVA/TIA x2. PAST SURGICAL HISTORY: None. MEDICATIONS AT HOME: Include: 1. Atenolol 50 mg daily. 2. Vitamin D3 1000 units daily. 3. Plavix 75 mg daily. 4. Losartan 50 mg 2 times a day. 5. Hydralazine 100 mg 2 times daily. ALLERGIES: The patient has allergy to ASPIRIN and LISINOPRIL. SOCIAL HISTORY: The patient does not smoke, does not drink alcohol, and denies any illicit drug use. Her healthcare proxy is her daughter, who is at the bedside. REVIEW OF SYSTEMS: Ten-point review of systems is negative except as noted in the HPI. PHYSICAL EXAMINATION GENERAL: The patient is awake, alert, well appearing. VITAL SIGNS: Currently blood pressure 117/81, heart rate 80, temperature 99.4, respiratory rate 26, O2 saturation 97% on 3 L nasal cannula. HEENT: The patient is atraumatic, normocephalic. She has PERRLA with nonicteric sclerae. She has a significant amount of yellow green discharge from the right eye, both in the inner canthus and the lateral canthus. Does not appear that her sclera is reddened. The patient states the drainage started when she woke up this morning with her concurrent upper respiratory symptoms. NECK: Supple. Nontender. No JVD noted. No carotid bruit auscultated. No thyromegaly appreciated. LUNGS: Clear bilaterally to auscultation. She does have some decreased air entry. However, I do not appreciate any rhonchi or rales or wheezing at this time. CARDIOVASCULAR: S1, S2 are present. Rate and rhythm are regular. No murmurs, gallops, or rubs. ABDOMEN: Soft, nontender, nondistended. No organomegaly noted. : Deferred. MUSCULOSKELETAL: There is no clubbing and no cyanosis. She has trace bipedal edema, very mild +1. She has good pulses, brisk cap refill. The patient's family states she is steady on her feet; however, I did not examine her while she was ambulating. NEUROLOGIC: She is grossly intact with no focal deficits. She is alert and oriented x3. PSYCHIATRIC: She is cooperative and appropriate. DIAGNOSTIC STUDIES/LAB DATA: WBCs 14.5, RBCs 4.11, hemoglobin 12.5, hematocrit 37, platelets 304, lymphocytes 14.5, monocytes 8.8, absolute neutrophils 10.6, absolute monos 1.3. Sodium 134, potassium 4.1, chloride 101, CO2 25, BUN 16, creatinine 1.04, GFR 50.5, glucose 104, lactic acid 1.0, calcium 9.2. Total bilirubin 0.80, AST 28, ALT 27, alk phos 124. Total creatine kinase 239. Troponin is negative at 0.01. CRP is 125.84. BNP is 221. Albumin 3.7, globulin 3.6. Chest x-ray shows low lung volumes with no active cardiopulmonary disease. Her EKG shows sinus rhythm with some mild left ventricular hypertrophy, no acute ST- segment changes or ectopy noted. IMPRESSION: This is an 82-year-old female patient with a 2-day history of upper respiratory symptoms, some cough, shortness of breath, and exertional dyspnea, brought to the emergency room by family, found to have persistent hypoxemia despite nebulizers and oxygen treatment. PLAN: The patient has been admitted to medical service. DIAGNOSES: 1. Shortness of breath with hypoxemia, likely viral in nature. At this point, her chest x-ray is not impressive for any kind of pneumonia; however, given her advanced age, it could be that she is having some viral illness that may have some underlying pneumonia brewing. She has already received 1 dose of Levaquin in the emergency department and some breathing treatments. She currently is on 3 L oxygen. I think I am going to switch her to ceftriaxone given her advanced age and her elevated renal function and take her off Levaquin and see how she tolerates this. If her leukocytosis begins to resolve and she remains afebrile , we may be able to discontinue antibiotics. 2. Urinary tract infection. So, the patient has had persistent urinary tract infections in the past. Her most recent culture shows Enterobacter cloacae with susceptibility also to ceftriaxone. Again, this is part of my choice for giving her ceftriaxone for her chest as well, which should cover her urinary tract infection too. She does appear to be pretty intravascularly dry right now and with the infection, she has received some fluids in the ER, we will give her another gentle bonus of 500 mL now and then continue her on normal saline at maintenance after. 3. For her hypertension, we will continue her atenolol, losartan, and her hydralazine. Her blood pressure is currently a little on the low side right now , so this would be with holding parameters. 4. For her history of cerebrovascular accident, the patient has no overt deficits. Her cerebrovascular accident/transient ischemic attacks were mild in nature, one in December and one in earlier this year. She does see Dr. Aguilar for this and was due to see him on Saturday. We will continue her on her Plavix. She does not take aspirin as she was not able to tolerate it. Again, we will keep her with supportive care with oxygen, try to wean the oxygen as we can. Keep her hydrated. 5. She also has a bit of infection in the eye. This is probably secondary to her viral illness right now. She does not seem to have any issues with vision and she does not appear to have conjunctivitis. Again, supportive care with some saline washes and wipes to keep her eye clear. We will check her labs in the morning to make sure her kidney function is coming back to baseline and her white cell count is resolving. The rest of patient's course would be determined by further diagnostics, laboratories, and any other input from other providers as warranted during this admission. We will continue to watch the patient closely and update Dr. Rivas on any acute changes. 6. DVT prophylaxis. Heparin subcutaneously. 7. The patient is a full code. TIME SPENT: I have spent approximately 60 minutes interviewing the patient and her family, examining the patient, and reviewing previous records. ANGELIC MENJIVAR, OFFICE EMPLOYEE [id number]/[facility] #: [id number] [place]
[2017-09-08] MEDS: Losartan TAB* 25 MG PO SCH (21:39)
[2017-09-08] MEDS: cefTRIAXone(*) 1 GM in NS 0.9% 50 ML* 50 ML IVPB SCH (21:39)
[2017-09-08] MEDS: Heparin VIAL(*) 5000 UNITS/ML VIAL (FIVE THOUSAND) SUBCUT SCH (21:40)
[2017-09-08] MEDS: hydrALAZINE TAB* 100 MG ** ONE HUNDRED PO SCH (21:40)
[2017-09-08] MEDS: guaiFENesin ER TAB 600 MG PO SCH (21:40)
[2017-09-09 05:40] LABS: ABS Basophils 0 10^3/ul (0-0.2); ABS Eosinophils 0 10^3/ul (0-0.6); ABS Lymphocytes 0.9 10^3/ul (1.0-4.8); ABS Monocytes 0.1 10^3/ul (0-0.8); ABS Neutrophils 8.8 10^3/ul (1.5-7.7); ABS Nucleated RBC 0 10^3/ul; Eosinophil % 0.1 % (0-6); Hematocrit 36 % (35-47); Lymphocyte % 8.7 % (25-47); Mean Corpuscular HGB Conc 34 g/dl (31-36); Mean Corpuscular Hemoglobin 30 pg (27-31); Mean Corpuscular Volume 90 fL (80-97); Mean Platelet Volume 9.5 um3 (7.4-10.4); Nucleated Red Blood Cells % 0; Platelet Count 290 10^3/ul (150-450); Red Cell Distribution Width 14 % (10.5-15); White Blood Count 9.8 10^3/ul (3.5-10.8)
[2017-09-09 05:56] LABS: EGFR Non-African American 54.7 (>60)
[2017-09-09] MEDS ORDERED: Azithromycin IV(*) 500 MG in NS 0.9% 250 ML* 250 ML IVPB SCH ×2 (06:00→19:30)
[2017-09-09] MEDS: Heparin VIAL(*) 5000 UNITS/ML VIAL (FIVE THOUSAND) SUBCUT SCH ×3 (06:24→21:12)
[2017-09-09] MEDS: Clopidogrel TAB* 75 MG PO SCH (08:51)
[2017-09-09] MEDS: Losartan TAB* 25 MG PO SCH ×2 (08:51→21:11)
[2017-09-09] MEDS: Cholecalciferol TAB* 1000 UNITS PO SCH (08:51)
[2017-09-09] MEDS: guaiFENesin ER TAB 600 MG PO SCH ×2 (08:51→21:12)
[2017-09-09] MEDS: Atenolol TAB* 50 MG PO SCH (08:51)
[2017-09-09] MEDS: hydrALAZINE TAB* 100 MG ** ONE HUNDRED PO SCH ×2 (08:51→21:12)
--- NOTE | 2017-09-09 11:15 | PN ---
Subjective Date of Service: 09/09/17 Interval History: Patient was seen and examined at bedside. Reports feeling better this AM. Still has a little dyspnea with minimal exertion, however, able to ambulate with her walker and using the bathroom. Denies chest pain, dyspnea at rest, wheezing, fever or chills. No headaches, dizziness, weakness or visual changes. She has no new complaints today. Family History: Unchanged from Admission Social History: Unchanged from Admission Past Medical History: Unchanged from Admission Objective Active Medications: Acetaminophen (Tylenol Tab*) 650 mg PO Q6H PRN PRN Reason: FEVER/HEADACHE Albuterol (Ventolin 2.5 Mg/3 Ml Neb.Taylor*) 2.5 mg INH Q4H PRN PRN Reason: SOB/WHEEZING Last Admin: 09/09/17 00:33 Dose: 2.5 mg Atenolol (Tenormin Tab*) 50 mg PO DAILY [facility] Last Admin: 09/09/17 08:51 Dose: 50 mg Benzonatate (Tessalon Cap*) 100 mg PO BID PRN PRN Reason: COUGH Cholecalciferol (Vitamin D Tab*) 1,000 units PO DAILY [facility] Last Admin: 09/09/17 08:51 Dose: 1,000 units Clopidogrel Bisulfate (Plavix Tab*) 75 mg PO DAILY [facility] Last Admin: 09/09/17 08:51 Dose: 75 mg Guaifenesin (Mucinex*) 600 mg PO BID [facility] Last Admin: 09/09/17 08:51 Dose: 600 mg Heparin Sodium (Porcine) (Heparin Vial(*)) 5,000 units SUBCUT Q8HR [facility] Last Admin: 09/09/17 06:24 Dose: 5,000 units Hydralazine HCl (Apresoline Tab*) 100 mg PO BID [facility] Last Admin: 09/09/17 08:51 Dose: 100 mg Ceftriaxone Sodium 1 gm/ (Sodium Chloride) 50 mls @ 200 mls/hr IVPB Q24H [facility] Last Admin: 09/08/17 21:39 Dose: 200 mls/hr Losartan Potassium (Cozaar Tab*) 50 mg PO BID [facility] Last Admin: 09/09/17 08:51 Dose: 50 mg Vital Signs - 8 hr 09/09/17 09/09/17 09/09/17 03:41 07:27 07:58 Temperature 98.6 F 97.9 F Pulse Rate 92 82 Respiratory 16 16 20 Rate Blood Pressure 136/66 154/69 (mmHg) O2 Sat by Pulse 92 91 Oximetry Oxygen Devices in Use Now: None Appearance: Appears tired, but comfortable on her chair and in NAD Eyes: No Scleral Icterus, PERRLA Ears/Nose/Mouth/Throat: Clear Oropharnyx, Mucous Membranes Moist Neck: NL Appearance and Movements; NL JVP, Trachea Midline Respiratory: Symmetrical Chest Expansion and Respiratory Effort, - - Mild bibasilar wheezes noted. No rales. Cardiovascular: NL Sounds; No Murmurs; No JVD, RRR Abdominal: NL Sounds; No Tenderness; No Distention Extremities: No Edema, No Clubbing, Cyanosis Skin: No Rash or Ulcers Neurological: Alert and Oriented x 3, NL Sensation, NL Muscle Strength and Tone Nutrition: Taking PO's Result Diagrams: 09/09/17 05:19 09/09/17 05:19 Additional Lab and Data: Lab Results 09/08/17 09/08/17 09/08/17 Range/Units 15:53 15:53 15:53 WBC 14.5 H (3.5-10.8) 10^3/ul RBC 4.11 (4.0-5.4) 10^6/ul Hgb 12.5 (12.0-16.0) g/dl Hct 37 (35-47) % MCV 90 (80-97) fL MCH 30 (27-31) pg MCHC 34 (31-36) g/dl RDW 14 (10.5-15) % Plt Count 304 (150-450) 10^3/ul MPV 9.7 (7.4-10.4) um3 Neut % (Auto) 73.5 (38-83) % Lymph % (Auto) 14.5 L (25-47) % [place] % (Auto) 8.8 H (0-7) % Eos % (Auto) 2.3 (0-6) % Baso % (Auto) 0.9 (0-2) % Absolute Neuts (auto) 10.6 H (1.5-7.7) 10^3/ul Absolute Lymphs (auto) 2.1 (1.0-4.8) 10^3/ul Absolute Monos (auto) 1.3 H (0-0.8) 10^3/ul Absolute Eos (auto) 0.3 (0-0.6) 10^3/ul Absolute Basos (auto) 0.1 (0-0.2) 10^3/ul Absolute Nucleated RBC 0 10^3/ul Nucleated RBC % 0.1 Sodium 134 L (139-145) mmol/L Potassium TNP Chloride 101 (101-111) mmol/L Carbon Dioxide 25 (22-32) mmol/L Anion Gap 8 (2-11) mmol/L BUN 16 (6-24) mg/dL Creatinine 1.04 H (0.51-0.95) mg/dL Est GFR ( Amer) 64.9 (>60) Est GFR (Non-Af Amer) 50.5 (>60) BUN/Creatinine Ratio 15.4 (8-20) Glucose 104 H (70-100) mg/dL Lactic Acid 1.0 (0.5-2.0) mmol/L Calcium 9.2 (8.6-10.3) mg/dL Total Bilirubin 0.80 (0.2-1.0) mg/dL AST TNP ALT 27 (7-52) U/L Alkaline Phosphatase 124 H (34-104) U/L Total Creatine Kinase 239 H (10-223) U/L Troponin I 0.01 (<0.04) ng/mL C-Reactive Protein 125.84 H (< 5.00) mg/L B-Natriuretic Peptide ( - 100) pg/mL Total Protein 7.3 (6.4-8.9) g/dL Albumin 3.7 (3.2-5.2) g/dL Globulin 3.6 (2-4) g/dL Albumin/Globulin Ratio 1.0 (1-3) 09/08/17 09/08/17 Range/Units 15:53 17:09 WBC (3.5-10.8) 10^3/ul RBC (4.0-5.4) 10^6/ul Hgb (12.0-16.0) g/dl Hct (35-47) % MCV (80-97) fL MCH (27-31) pg MCHC (31-36) g/dl RDW (10.5-15) % Plt Count (150-450) 10^3/ul MPV (7.4-10.4) um3 Neut % (Auto) (38-83) % Lymph % (Auto) (25-47) % [place] % (Auto) (0-7) % Eos % (Auto) (0-6) % Baso % (Auto) (0-2) % Absolute Neuts (auto) (1.5-7.7) 10^3/ul Absolute Lymphs (auto) (1.0-4.8) 10^3/ul Absolute Monos (auto) (0-0.8) 10^3/ul Absolute Eos (auto) (0-0.6) 10^3/ul Absolute Basos (auto) (0-0.2) 10^3/ul Absolute Nucleated RBC 10^3/ul Nucleated RBC % Sodium (139-145) mmol/L Potassium 4.1 Chloride (101-111) mmol/L Carbon Dioxide (22-32) mmol/L Anion Gap (2-11) mmol/L BUN (6-24) mg/dL Creatinine (0.51-0.95) mg/dL Est GFR ( Amer) (>60) Est GFR (Non-Af Amer) (>60) BUN/Creatinine Ratio (8-20) Glucose (70-100) mg/dL Lactic Acid (0.5-2.0) mmol/L Calcium (8.6-10.3) mg/dL Total Bilirubin (0.2-1.0) mg/dL AST 28 ALT (7-52) U/L Alkaline Phosphatase (34-104) U/L Total Creatine Kinase (10-223) U/L Troponin I (<0.04) ng/mL C-Reactive Protein (< 5.00) mg/L B-Natriuretic Peptide 221 H ( - 100) pg/mL Total Protein (6.4-8.9) g/dL Albumin (3.2-5.2) g/dL Globulin (2-4) g/dL Albumin/Globulin Ratio (1-3) Microbiology and Other Data: Microbiology 09/09/17 00:00 Nasal Screen MRSA (PCR)(FRANCHESKA) - Final Nasal Mrsa Not Detected RUN DATE: 09/09/17 [facility] LAB LIVE PAGE 1 RUN TIME: [id number], [place], [place] [address] Specimen Inquiry Name: JAVIER BOBO : [address]: Robin Fritz MD Acct: [id number] Unit: [id number] AGE: 82 Location: [place] [address] Re09/08/17 SEX: F Status: ADM IN SPEC: [id number] WILDA: 09/08/[address]: Figueroa Martell MD REQ: [id number] RECD: 09/08/17 _ STATUS: RES OTHR DR: Yadi Rivas MD SOURCE: SPUTUM SPDESC: ORDERED: Sputum Cult/GS Procedure Result Reported Site Sputum Smear Final 09/09/17- 0654 ML 4+ Neutrophils 2+ Epithelial Cells 4+ Gram Positive Cocci in Clusters, resembling Staph 3+ Gram Negative Coccobacilli Sputum Culture PENDING * ML - Main Lab Diagnostic Imaging: Patient Name: JAVIER BOBO Medical Record#: [id number] Ordering Physician: Figueroa Martell MD Acct.#: [id number] : 1935 Age: 82 Sex: F Location: EMERGENCY DEPARTMENT Exam Date: 09/08/17 1526 ADM Status: REG ER Order Information: CHEST PA & LAT 2 VWS Accession Number: [id number] CPT: 56529 HISTORY: Productive cough COMPARISONS: November 14, 2016 VIEWS: 2: Frontal and lateral views of the chest. IMPRESSION: LOW LUNG VOLUMES. NO ACTIVE CARDIOPULMONARY DISEASE. <Electronically signed by Thompson Camacho MD in OV> 09/08/171644 Dictated By: Thompson Camacho MD Dictated Date/Time: 09/08/171644 EKG Data: EKG INTERPRETATION ECG Report Patient Name JAVIER BOBO Birthdate 1935 Sex F Order Number [id number] Date of ECG 09/08/2017 15:45:09 Interpretation Sinus rhythm.normal P axis, V-rate 60- 99 RSR' in V1 or V2, probably normal variant.small R' only Left ventricular hypertrophy.multiple voltage criteria - ABNORMAL ECG - ECG NEEDS E-SIGNING Assess/Plan/Problems-Billing Assessment: An 82 y/o female with brought to ED by family, with 2-days hx worsening upper respiratory symptoms, including cough and dyspnea with minimal exertion, who continued to be hypoxic despite nebulizers and oxygen supplementation. - Patient Problems (1) Shortness of breath Current Visit: Yes Status: Acute Priority: High Comment: - Likely viral in nature - CXR with no evidence of pneumonia; however, given her age and persistent hypoxia, she will be covered with IV Ceftriaxone. - Nebulizer treatments as needed - Supplemental oxygen (2) Hypoxia Current Visit: Yes Status: Acute Comment: - Appear to be comfortable at rest, gets SOB with exertion - Oxygen and nebs as above - Tele monitoring (3) UTI (urinary tract infection) Current Visit: Yes Status: Chronic Comment: - Apperars to a chronic issue - Last cultures grew Enterobacter, should have a good coverage with Ceftriaxone on borad (4) Hypertension Current Visit: Yes Status: Acute Comment: - Continue Atenolol, Losartan and Hydralazine (5) History of CVA (cerebrovascular accident) Current Visit: Yes Status: Chronic Comment: - No acute issues - Scheduled to F/U with Dr. Aguilar this Saturday, will call him if patient still in hospital. - Continue Plavix (6) DVT prophylaxis Current Visit: Yes Status: Acute Comment: - SubQ Heparin (7) DNR (do not resuscitate) Current Visit: Yes Status: Acute Status and Disposition: Inpatient. Anticipate discharge when medically stable.
[2017-09-09] MEDS ORDERED: Albuterol/Ipratropium NEB.SOL* Albuterol 2.5 MG/Ipratropium 0.5 MG 3 ML INH ONE (14:21)
[2017-09-09] MEDS: cefTRIAXone(*) 1 GM in NS 0.9% 50 ML* 50 ML IVPB SCH (18:36)
[2017-09-09] MEDS: SYSTANE ULTRA BOTH EYES PRN (21:12)
[2017-09-10] MEDS: Heparin VIAL(*) 5000 UNITS/ML VIAL (FIVE THOUSAND) SUBCUT SCH ×2 (06:12→13:39)
[2017-09-10] MEDS: Atenolol TAB* 50 MG PO SCH (08:56)
[2017-09-10] MEDS: guaiFENesin ER TAB 600 MG PO SCH (08:56)
[2017-09-10] MEDS: Cholecalciferol TAB* 1000 UNITS PO SCH (08:56)
[2017-09-10] MEDS: hydrALAZINE TAB* 100 MG ** ONE HUNDRED PO SCH (08:56)
[2017-09-10] MEDS: Clopidogrel TAB* 75 MG PO SCH (08:56)
[2017-09-10] MEDS: Losartan TAB* 25 MG PO SCH (08:56)
[2017-09-10] MEDS ORDERED: predniSONE TAB* 50 MG PO SCH (09:00)
[2017-09-10] MEDS: SYSTANE ULTRA BOTH EYES PRN (10:35)
[2017-09-10 16:19] VITALS: BP 144/70
--- NOTE | 2017-09-11 08:10 | DS ---
CC: Dr. Yadi Rivas * DISCHARGE SUMMARY: DATE OF ADMISSION: 09/08/17 DATE OF DISCHARGE: 09/10/17 ADMITTING PHYSICIAN: Dr. Annabella Rice. ATTENDING HOSPITALIST: Dr. Chevy Walker.* (DICTATED BY NO SAM) ADMISSION DIAGNOSES: 1. Shortness of breath. 2. Dry cough. 3. Hypertension. 4. Urinary tract infection. 5. History of cerebrovascular accident and transient ischemic attacks x2. DISCHARGE DIAGNOSES: 1. Shortness of breath. 2. Dry cough. 3. Hypertension. 4. Urinary tract infection. 5. History of cerebrovascular accident and transient ischemic attacks x2. 6. Acute bronchitis and upper respiratory tract infection. CONSULTATIONS: None. PROCEDURES: None. HISTORY OF PRESENT ILLNESS: Ms. Tan is a pleasant 82-year-old female who was brought to the emergency room by her family members with complaints of 2 days' history of generalized malaise, upper respiratory symptoms, productive cough, and feeling fatigued. The patient notes that she started having some shortness of breath today, it felt like she was having a normal cold and progressively has gotten worse. She had taken some Tylenol at home about 3 o' clock last night, but she was not feeling any better this morning. She became increasingly short of breath when she was trying to go to the bathroom, she was brought to the emergency room for further evaluation. During her ER visit, she had a chest x-ray that did not reveal any significant infiltrates or COPD exacerbations. She had laboratory workup that revealed a very mild leukocytosis. She also appeared to have some mild dehydration with her creatinine being mildly elevated as well as her CRP. The patient had nebulizer treatment and a dose of Solu-Medrol in the ED and when she was re-tested for oxygen saturation, she desatted to approximately 87% at rest with some audible wheezing. Given her ongoing symptoms, a decision was made for her to be admitted to the telemetry unit for observation. HOSPITAL COURSE: The patient was admitted on 09/08/17 under hospitalist services. She was started prophylactically on Rocephin and then azithromycin was added on the following day. She had some improvement of her respiratory distress and she was able to maintain good oxygen saturation on room air. She experienced some episode of wheezing on the following day that was resolved with DuoNeb treatment. She continued to improve slowly and as a routine, her blood culture and sputum culture was obtained. Her sputum culture grew some Haemophilus influenzae that likely could be mucosal césar contaminant; however, we will plan on discharging her home with antibiotic. The patient was afebrile during her stay in the telemetry unit. She was ambulatory, out of bed. On exam today, she was comfortable and breathing with no use of accessory external muscles. Her lungs were clear to auscultation with no wheezing, rales , or rhonchi. Her heart was regular rate and rhythm without gallops, rubs, or murmurs. She was stable to be discharged home and able to maintain oxygen saturation on room air and with exertion. She is going to plan to follow up with her primary care physician next week. DISCHARGE MEDICATIONS: Include: 1. Tylenol 650 mg p.o. q.6 hours as needed for fever or pain. 2. Albuterol inhaler MDI 2 puffs inhaled q.4 hours as needed for shortness of breath. 3. Amoxicillin 500 mg b.i.d. x7 days. 4. Atenolol 50 mg p.o. daily. 5. Tessalon tabs 100 mg p.o. b.i.d. as needed for cough. 6. Calcium with vitamin D3 1000 units p.o. daily. 7. Plavix 75 mg p.o. daily. 8. Hydralazine tablets 100 mg p.o. b.i.d. 9. Cozaar 50 mg p.o. b.i.d. 10. Prednisone 40 mg p.o. daily x5 days. NO SAM [id number]/[facility] #: [id number] MTDGregory
== END 2017-09-10 17:10 | disposition home or self-care (01) | DRG 202 ==
LOC: ED 15:02 → MEDTELE 17:39
PROVIDERS: ADMIT Internal Medicine; ATTEND Internal Medicine
DX: J20.9 Acute bronchitis, unspecified (principal); N39.0 Urinary tract infection, site not specified; H44.001 Unspecified purulent endophthalmitis, right eye; I25.10 Atherosclerotic heart disease of native coronary artery without angina pectoris; I10 Essential (primary) hypertension; K21.9 Gastro-esophageal reflux disease without esophagitis; R09.02 Hypoxemia; E78.00 Pure hypercholesterolemia, unspecified; M15.0 Primary generalized (osteo)arthritis; J06.9 Acute upper respiratory infection, unspecified; E86.0 Dehydration; Z66 Do not resuscitate; Z88.6 Allergy status to analgesic agent; Z88.8 Allergy status to other drugs, medicaments and biological substances; Z98.42 Cataract extraction status, left eye; Z98.41 Cataract extraction status, right eye; Z82.3 Family history of stroke; Z80.9 Family history of malignant neoplasm, unspecified; Z86.73 Personal history of transient ischemic attack (TIA), and cerebral infarction without residual deficits; Z79.02 Long term (current) use of antithrombotics/antiplatelets; Z79.52 Long term (current) use of systemic steroids
CPT/HCPCS: 36415; 71046; 80048; 80053; 82550; 83605; 83880; 84484; 85025; 86140; 87040; 87070; 87077; 87185; 87205; 87641; 93005; 94640; 99283; A9270-GY; J0456; J0696; J1644; J2930; J7512

== ENCOUNTER 2018-05-11 17:31 | Observation (INO) | payer MEDICARE ==
--- OUTSIDE RECORDS SUMMARY | 2018-05-11 17:54 | XMS REPORT | Continuity of Care Document ---
:1935 External Reference #:[id number] Author Name Fransisco Sanchez MD Address [address] [place] [address] Care Team Providers Name Role Phone Yadi Rivas M.D., R.D. Care Team Information Paid Search Analyst Unavailable Payers Type Date Identification Numbers Payment Provider Subscriber Expires: Policy Number: [id number] Medicare - [facility] Javier Del Rio Dominick 2012 PayID: [id number] [address] [place] [address] Effective: 2006 Policy Number: [facility] Javier Bobo [id number] Options Expires: 2012 [address] [place] [address] Expires: 2006 Policy Number: [id number] [facility] Javier Bobo Group Number: [id number] [address] [place] [address] Effective: 2012 Policy Number: [facility] [employer] Javier Del Rio Dominick [id number] [employer] Group Number: [id number] [address] [address] PayID: [id number] [place] [address] Advance Directives Description No Information Available Problems Date Description Provider Status Onset: 04/11/2011 Pure hypercholesterolemia Yadi Rivas M.D., R.D. Active Onset: 04/11/2011 Essential hypertension Yadi Rivas M.D., R.D. Active Onset: 04/11/2011 Urinary incontinence Yadi Rivas M.D., R.D. Active Onset: 04/11/2011 Obesity Yadi Rivas M.D., R.Gregory. Active Onset: 04/11/2011 Lichen Yadi Rivas M.D., RAlcides. Active Onset: 04/11/2011 Carpal tunnel syndrome Yadi Rivas M.D., R.Gregory. Active Onset: 04/11/2011 Low back pain Yadi Rivas M.D., R.Gregory. Active Onset: 04/11/2011 Gastroesophageal reflux disease Yadi Rivas M.D., R.Gregory. Active Onset: 04/11/2011 Midline cystocele Tito Bee M.D. Active Onset: 08/05/2017 Osteoarthritis of multiple joints Yadi Rivas M.D., R.Gregory. Active Family History Date Family Member(s) Problem(s) Comments First Daughter Diabetes Second Daughter Diabetes : (2013) First Sister due to age 93 Social History Type Date Description Comments Sex Unknown Diet Healthy, Well Balanced Diet . Weakness for sweets Eats well during the so tries to stay away week. Cereal and from these. banana and OJ/coffee of bkfst. Lunch has fruit and an Ensure. Dinner is whatever she finds b/c too tired to get a proper dinner after working. As of 03/2012, she is eating better. Her daughter has been diagnosed with borderline DM so they are both trying to eat more healthy. Dtr. lives next door so they eat together often. As of 03/2013, eats same bkfst, lunch varies and eats with dtr at night. As of 2013, one Pepsi daily and one cup of coffee. Some chocolate. Has cut down. 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 Walks. Used to have No exercise as of Type/Frequency treadmill but it broke. 03/2012. As of 03/2013, does stretching in AM b/c stiff. Busy with work. Allergies, Adverse Reactions, Alerts Date Description Reaction Status Severity Comments 01/23/2017 Aspirin Active GI distress 04/29/2017 Amlodipine Active rash, ankle swelling 04/29/2017 Lisinopril Active Cough 06/05/2017 Atorvastatin Active 06/05/2017 Statins Active 06/29/2004 NKDA Inactive Medications Medication Date Status Form Strength Qnty SIG Indications Ordering Provider Tramadol HCL 05/09 Active Tablets 50mg 14tab 1 tab by M54.5 s mouth Heetderks MD alanna times a day as needed pain Nystatin 04/07 Active Cream [id number] 30gm apply R10.2 t/GM three Rob times a M.DBisi, day to R.D. affected area for 2 weeks Macrobid 01/20 Active Capsules 100mg 20cap please s fill jocelyne Rivas M.D., y 1 by R.DBisi mouth twice a day for 10 days Fluticasone 01/14 Active Suspension 50mcg/Act 16uni inhale two J30.9 ts sprays in Rob, eri Green, nostril R.D. every day Losartan 08/16 Active Tablets 50mg 180ta 1 by mouth I10 Yadi bs bid Peter Rivas, R.D. Plavix 08/09 Active Tablets 75mg 90tab 1 by mouth s every day Peter Rivas, R.D. Hydralazine HCL 08/09 Active Tablets 100mg 120ta /2 by bs mouth in Claritza Rivas, morning R.D. and 1/2 pill at night Atenolol 03/11 Active Tablets 50mg 90tab Take 1 s Tablet By Rohith Rivas M.D., Daily R.D. Tylenol 04/13 Active Capsules 325mg prn Peter Rivas, R.D. Eye Drops 04/13 Active Solution Peter Rivas, R.D. Vitamin D 400 04/02 Active Chewtabs 400Unit 2 po qd Peter Rivas, R.D. Amoxicillin 02/26 Hx Tablets 875mg 10tab 1 by mouth s twice a Rob, - bryan Flowers.Yodit, 04/07 R.D. /2018 Sulfamethoxazole/ 10/01 Hx Tablets 800-160mg 14tab 1 by mouth N39.0 Hardeep Trimethoprim s twice a [place] - day x 7 III, 10/15 days [employer] Ventolin HFA 09/13 Hx Aerosol 108(90Bas 54uni inhale two e) ts puffs by Rob, Anne mcg/Act mouth M.DBisi, 09/23 every 4 R.D. /2017 hours as needed Hydrochlorothiazi 06/21 Hx Tablets 25mg 30tab 1 by mouth Yadi de s every day Anne Rivas M.D., 08/09 R.D. Diflucan 06/20 Hx Tablets 150mg 1tabs 1 by mouth Yadi x 1 Anne iRvas M.D., 09/23 R.D. /2017 Losartan 06/05 Hx Tablets 25mg 90tab 2 by mouth I10 Yadi Potassium s every day Anne Rivas M.D., 08/16 R.D. /2017 Atorvastatin 04/17 Hx Tablets 10mg 90tab 1 by mouth E78.00 Yadi Calcium s at at [facility], - bedtime M.D., 06/05 R.D. /2017 Lipitor 04/08 Hx Tablets 10mg 90tab 1 by mouth E78.00 Yadi s at at [facility], - bedtime M.D., 04/17 R.D. /2016 Synthroid 01/24 Hx Tablets 25mcg 30tab take one s tablet by Rob, - mouth M.DBisi, 04/05 every day R.D. take 2 hours before eating or before taking other pills Metoprolol 12/29 Hx Tablets ER 50mg 30tab 1 by mouth Yadi Succinate ER 24HR s every day Anne Rivas M.D., 04/29 R.D. Aspirin 11/29 Hx Chewtabs 81mg 1 by mouth Kendal every day P. - with food Blegen, 12/03 for stroke M.D. /2016 prevention Amlodipine 11/21 Hx Tablets 5mg 30tab 1 by mouth Yadi Besylate s every day Rob, - for blood M.D., 04/29 pressure R.D. /2017 Amlodipine 11/12 Hx Tablets 2.5mg 30tab 2 by mouth Yadi s every day Anne Rivas.DBisi, 11/21 R.D. Cipro 04/20 Hx Tablets 250mg 10tab 1 by mouth s twice a Rob, - day M.D., 05/07 R.D. Vitamin D3 04/20 Hx Capsules [id number] 12cap 1 by mouth s every week Rob, - for 12 M.D., 01/23 weeks R.D. /2016 Hydrochlorothiazi 11/24 Hx Capsules 12.5mg 90cap 1 by mouth Yadi s every day Anne Rivas.DBisi, 04/13 R.D. Levofloxacin 04/01 Hx Tablets 250mg 6tabs 1 po bid N39.0 Anne Rivas M.D., 09/11 R.D. Prednisone 01/28 Hx Tablets 2.5mg 30tab 1 by mouth s every Rob, - other day M.D., 04/13 (alternate R.D. /2015 with 2 tabs by mouth every other day) Prednisone 10/07 Hx Tablets 5mg 90tab 1.5 pills s by mouth Rob, - every M.D., 01/28 other day R.D. or as directed Prednisone 07/26 Hx Tablets 20mg 20tab take 1 po s qd for 5 Rob, - days, then M.D., 07/26 as R.D. /2014 directed Prednisone 07/26 Hx Tablets 10mg 60tab 2 by mouth s every day Rob, - for 5 M.D., 10/07 days, then R.D. as directed Cipro HC 02/09 Hx Suspension 0.2-1% QS 5 drops in 380. each ear Rob, - bid for M.D., 02/09 5-7 days R.D. Cortisporin-TC 02/09 Hx Suspension 3.3-3-10- 10ml 5 drops to 0.5mg/ml left ear Anne Rivas tid for 1 M.DBisi, 04/02 week R.D. /2012 Bactrim DS 05/07 Hx Tablets 800-160mg 14tab 1 po bid s Anne Rivas M.D., 02/09 R.D. Ciprofloxacin HCL 04/07 Hx Tablets 250mg 14tab 1 bid x 7 599.0 s Anne Gibson M.D., 02/09 R.D. Tums 04/02 Hx Chewtabs 500mg bid for Calcium Anne Rivas M.D., 03/22 R.D. /2013 Azithromycin 08/01 Hx Tablets 250mg 6tabs 2 po today 466.0 then 1 po Jay. Santino, - daily for [employer] 08/11 4 Albuterol HFA 08/01 Hx 90mcg/Inh 1Inhl 2 inh q4-6 466.0 r hrs prn RBisi De, - shortness [employer] 05/05 of breath, cough, wheeze Lipitor 04/05 Hx Tablets 20mg 90tab 1 po qhs s Anne Rivas M.D., 09/11 R.D. /2015 Atenolol 04/05 Hx Tablets 50mg 90tab Take 1 s tablet by Anne Rivas M.D., 12/31 every day R.D. /2016 shortage, switched to metoprolol 12/29/16 Ciprofloxacin HCL 08/15 Hx Tablets 250mg 28tab 1 bid x 14 599.0 s Anne Gibson M.D., 04/05 R.D. Oxytrol 04/05 Hx Patches 3.9mg/24H 1 patch Biweek R Anne Dewitt weekly Peter, 04/02 R.D. /2010 Oxybutynin 06/22 Hx Tablets ER 5mg 20tab 1 qd Tito Chloride 24HR divya Rodríguez M.D. 04/05 Premarin 05/19 Hx Cream 0.625mg/G 1Tube Apply Tito W/Applicator /2007 M Externally Cristal - With , MAmanda 04/05 Daily Clobetasol 05/19 Hx Cream 0.05% 45gm apply qd Yadi prn Anne RivasDBisi, 04/02 R.D. /2012 Vitamin D 03/31 Hx Capsules 400Unit 1 qd Tito Cristal Rodríguez M.D. 04/05 Albuterol 06/24 Hx Aerosol 90mcg/Dos 1unit 2 Puffs Q Tito e s 4HRS prn Cristal - Wheezing , MBisiDBisi 07/24 Or Cough Medical Clearance 04/03 Hx She Is Tito Medically Lessinger - Clear For , M.D. 03/31 Hearing Eval Physical Therapy 06/29 Hx Evaluate 724.5 Tito And Rx as Lessinger - Indicated , MBisiDBisi 03/31 For Left Arm And Shoulder Strain. Modalities as Indicated, Up To 8 Visits. Flexeril 06/29 Hx Tablets 10mg 20tab 1 po tid 724.5 Fide /2004 s A. - Elizabeth, 06/29 [facility] Bextra 06/29 Hx Tablets 10mg 30tab I PO qd 724.5 Fide /2004 s A. - Elizabeth, 07/11 [facility] Physical Therapy 04/21 Hx low back Tito pain--eval Cristal - and rx as , MBisiDBisi 03/31 indicated up to 8 visits Atenolol 02/10 Hx Tablets 25mg 90tab take one s tablet Anne Rivas daily M.DBisi, 04/05 R.D. /2009 Lipitor 11/06 Hx Tablets 10mg 90tab one qd s Anne RivasDBisi, 04/05 R.D. /2009 Prempro 03/25 Hx Tablets .625/2.5 5tabs One Daily Tito Cristal Rodríguez M.D. 07/30 Lisinopril Hx Tablets 10mg Unknown /0000 - 09/11 Amlodipine 00/00 Hx Tablets 10mg Unknown Besylate /0000 - 09/11 Ciprofloxacin HCL 00/00 Hx Tablets 500mg Unknown /0000 - 04/01 Oxybutynin 00/00 Hx Tablets ER 5mg Unknown Chloride ER /0000 24HR - 04/01 Ciprofloxacin HCL 00/00 Hx Tablets 500mg Unknown /0000 - 09/11 Oxybutynin 00/00 Hx Tablets ER 5mg Unknown Chloride ER /0000 24HR - 09/11 Amoxicillin /00 Hx Capsules 500mg Unknown / - 09/23 Prednisone 00/00 Hx Tablets 20mg Unknown /0000 - 09/23 Proair HFA / Hx Aerosol 108(90Bas Unknown /0000 e) - mcg/Act 09/13 Immunizations CPT Code Status Date Vaccine Lot # [id number] Given 08/03/2009 Td Age 7 to adult Decavac, Tenivac, [employer] [id number] Refused 11/16/2016 Influenza Virus Vaccine, Quadrivalent, 3 Yr > Quad , Preserv Free Vital Signs Date Vital Result Comment 05/09/2018 4:05pm Weight 163.00 lb Weight 73.937 kg BP Systolic 148 mmHg BP Diastolic 86 mmHg Heart Rate 66 /min Body Temperature 99.0 F Respiratory Rate 18 /min Height 57.5 inches 4'9.50" BMI (Body Mass Index) 34.7 kg/m2 O2 % BldC Oximetry 94 % 04/07/2018 1:50pm Weight 165.00 lb Weight 74.844 kg BP Systolic 130 mmHg BP Diastolic 60 mmHg Heart Rate 61 /min Body Temperature 97.2 F Height 58 inches 4'10" BMI (Body Mass Index) 34.5 kg/m2 O2 % BldC Oximetry 94 % 02/24/2018 3:17pm Weight 167.00 lb Weight 75.751 kg BP Systolic 118 mmHg BP Diastolic 64 mmHg Heart Rate 55 /min Body Temperature 98.6 F Respiratory Rate 16 /min Height 58.5 inches 4'10.50" BMI (Body Mass Index) 34.3 kg/m2 O2 % BldC Oximetry 95 % 01/14/2018 2:29pm Weight 167.00 lb Weight 75.751 kg BP Systolic 142 mmHg BP Diastolic 80 mmHg Heart Rate 56 /min Body Temperature 98.0 F Respiratory Rate 16 /min 10/14/2017 10:25am Weight 163.00 lb Weight 73.937 kg BP Systolic 140 mmHg BP Diastolic 64 mmHg Heart Rate 56 /min Body Temperature 97.1 F Respiratory Rate 20 /min Height 59 inches 4'11" BMI (Body Mass Index) 32.9 kg/m2 O2 % BldC Oximetry 93 % 10/01/2017 11:20am Weight 165.00 lb Weight 74.844 kg BP Systolic 180 mmHg recheck 140/78 BP Diastolic 92 mmHg recheck 140/78 Heart Rate 62 /min Body Temperature 98.2 F Respiratory Rate 20 /min O2 % BldC Oximetry 95 % 09/23/2017 10:21am Weight 162.00 lb Weight 73.483 kg BP Systolic 132 mmHg BP Diastolic 64 mmHg Heart Rate 53 /min Body Temperature 96.5 F Respiratory Rate 18 /min O2 % BldC Oximetry 96 % 09/13/2017 11:12am Weight 165.12 lb Weight 74.901 kg BP Systolic 155 mmHg BP Diastolic 80 mmHg Heart Rate 68 /min Body Temperature 98.8 F O2 % BldC Oximetry 93 % 08/16/2017 10:32am Weight 164.00 lb Weight 74.390 kg BP Systolic 142 mmHg BP Diastolic 76 mmHg Heart Rate 56 /min Body Temperature 97.1 F Respiratory Rate 18 /min O2 % BldC Oximetry 96 % 08/09/2017 11:02am BP Systolic 190 mmHg BP Diastolic 82 mmHg Heart Rate 58 /min Body Temperature 97.1 F Respiratory Rate 18 /min 08/05/2017 3:47pm Weight 163.00 lb Weight 73.937 kg BP Systolic 200 mmHg BP Diastolic 100 mmHg Heart Rate 56 /min Body Temperature 97.3 F Respiratory Rate 20 /min O2 % BldC Oximetry 93 % 06/05/2017 3:57pm Weight 163.00 lb Weight 73.937 kg BP Systolic 166 mmHg BP Diastolic 88 mmHg Heart Rate 50 /min Body Temperature 97.9 F Respiratory Rate 19 /min O2 % BldC Oximetry 96 % 04/05/2017 10:43am Weight 165.00 lb Weight 74.844 kg BP Systolic 130 mmHg BP Diastolic 70 mmHg Body Temperature 97.1 F Respiratory Rate 16 /min Height 58 inches 4'10" BMI (Body Mass Index) 34.5 kg/m2 03/02/2017 9:12am Weight 163.00 lb Weight 73.937 kg BP Systolic 140 mmHg BP Diastolic 66 mmHg Heart Rate 73 /min Body Temperature 98.2 F 01/23/2017 11:19am Weight 162.00 lb Weight 73.483 kg BP Systolic 132 mmHg BP Diastolic 78 mmHg Heart Rate 68 /min Body Temperature 97.4 F Respiratory Rate 20 /min Height 58 inches 4'10" BMI (Body Mass Index) 33.9 kg/m2 11/21/2016 3:42pm Weight 162.00 lb Weight 73.483 kg BP Systolic 142 mmHg BP Diastolic 70 mmHg Heart Rate 64 /min Body Temperature 98.0 F Respiratory Rate 20 /min 11/16/2016 2:06pm Weight 162.00 lb Weight 73.483 kg BP Systolic 174 mmHg BP Diastolic 94 mmHg Heart Rate 60 /min Body Temperature 98.4 F Respiratory Rate 20 /min O2 % BldC Oximetry 95 % 10/22/2016 11:53am Weight 162.00 lb Weight 73.483 kg BP Systolic 200 mmHg BP Diastolic 100 mmHg Heart Rate 56 /min 05/07/2016 4:40pm Weight 163.00 lb Weight 73.937 kg BP Systolic 142 mmHg BP Diastolic 90 mmHg Heart Rate 52 /min O2 % BldC Oximetry 94 % 04/13/2016 9:28am Weight 161.00 lb Weight 73.030 kg BP Systolic 152 mmHg BP Diastolic 94 mmHg Heart Rate 53 /min Body Temperature 98.7 F Respiratory Rate 16 /min Height 58.5 inches 4'10.50" BMI (Body Mass Index) 33.1 kg/m2 O2 % BldC Oximetry 94 % 09/12/2015 10:39am Weight 159.00 lb Weight 72.122 kg BP Systolic 140 mmHg BP Diastolic 72 mmHg Heart Rate 54 /min O2 % BldC Oximetry 96 % 04/01/2015 10:33am Weight 156.00 lb Weight 70.762 kg BP Systolic 148 mmHg BP Diastolic 72 mmHg Heart Rate 64 /min Height 59 inches 4'11" BMI (Body Mass Index) 31.5 kg/m2 03/23/2015 3:56pm Weight 155.00 lb Weight 70.308 kg BP Systolic 140 mmHg BP Diastolic 70 mmHg Heart Rate 60 /min 02/17/2015 10:50am Weight 157.00 lb Weight 71.215 kg BP Systolic 120 mmHg BP Diastolic 70 mmHg Heart Rate 62 /min Body Temperature 98.7 F 11/08/2014 1:40pm Weight 154.00 lb Weight 69.854 kg BP Systolic 130 mmHg BP Diastolic 62 mmHg Heart Rate 56 /min 09/22/2014 10:34am Weight 151.00 lb Weight 68.494 kg BP Systolic 160 mmHg BP Diastolic 80 mmHg Heart Rate 52 /min 08/09/2014 10:31am Weight 149.00 lb Weight 67.586 kg BP Systolic 120 mmHg BP Diastolic 60 mmHg Heart Rate 52 /min 07/21/2014 3:18pm Weight 149.00 lb Weight 67.586 kg BP Systolic 140 mmHg BP Diastolic 70 mmHg Heart Rate 52 /min 03/22/2014 12:55pm Weight 153.00 lb Weight 69.401 kg BP Systolic 150 mmHg BP Diastolic 70 mmHg Heart Rate 88 /min Height 59 inches 4'11" BMI (Body Mass Index) 30.9 kg/m2 05/06/2013 12:00pm Weight 167.00 lb Weight 75.751 kg BP Systolic 150 mmHg BP Diastolic 84 mmHg Heart Rate 62 /min Body Temperature 97.5 F 04/02/2013 11:38am Weight 166.00 lb Weight 75.298 kg BP Systolic 126 mmHg BP Diastolic 76 mmHg Heart Rate 64 /min Height 57.25 inches 4'9.25" BMI (Body Mass Index) 35.6 kg/m2 02/09/2013 3:02pm Weight 166.00 lb Weight 75.298 kg BP Systolic 140 mmHg BP Diastolic 88 mmHg Heart Rate 60 /min Body Temperature 97.5 F 05/05/2012 2:48pm Weight 164.00 lb Weight 74.390 kg BP Systolic 146 mmHg BP Diastolic 72 mmHg Heart Rate 60 /min Height 59 inches 4'11" BMI (Body Mass Index) 33.1 kg/m2 04/07/2012 1:54pm Weight 166.00 lb Weight 75.298 kg BP Systolic 144 mmHg BP Diastolic 74 mmHg Heart Rate 76 /min Height 59 inches 4'11" BMI (Body Mass Index) 33.5 kg/m2 04/02/2011 3:30pm Weight 161.00 lb Weight 73.030 kg BP Systolic 140 mmHg BP Diastolic 86 mmHg Heart Rate 64 /min Height 58.5 inches 4'10.50" BMI (Body Mass Index) 33.1 kg/m2 10/09/2010 3:01pm Weight 160.00 lb Weight 72.576 kg BP Systolic 120 mmHg BP Diastolic 68 mmHg Heart Rate 64 /min 09/06/2010 8:05am BP Systolic 172 mmHg BP Diastolic 88 mmHg 08/01/2010 8:09am Weight 158.00 lb Weight 71.669 kg BP Systolic 144 mmHg BP Diastolic 84 mmHg Heart Rate 60 /min Body Temperature 96.6 F O2 % BldC Oximetry 93 % 07/05/2010 8:03am BP Systolic 132 mmHg BP Diastolic 86 mmHg 04/05/2010 8:28am Weight 160.00 lb Weight 72.576 kg BP Systolic 174 mmHg BP Diastolic 80 mmHg Heart Rate 66 /min Height 59 inches 4'11" BMI (Body Mass Index) 32.3 kg/m2 O2 % BldC Oximetry 97 % 08/15/2009 3:09pm Weight 154.00 lb Weight 69.854 kg BP Systolic 160 mmHg BP Diastolic 90 mmHg Heart Rate 68 /min 04/06/2009 8:25am Weight 159.00 lb Weight 72.122 kg BP Systolic 150 mmHg BP Diastolic 86 mmHg Heart Rate 72 /min Height 58.75 inches 4'10.75" BMI (Body Mass Index) 32.4 kg/m2 04/05/2008 1:46pm Weight 152.00 lb Weight 68.947 kg BP Systolic 122 mmHg BP Diastolic 70 mmHg Heart Rate 64 /min Height 59. inches 4'11" BMI (Body Mass Index) 30.7 kg/m2 06/23/2007 4:18pm Weight 151.00 lb Weight 68.494 kg BP Systolic 146 mmHg BP Diastolic 66 mmHg Heart Rate 56 /min Body Temperature 97.1 F Height 59. inches 4'11" BMI (Body Mass Index) 30.5 kg/m2 05/19/2007 2:38pm Weight 151.00 lb Weight 68.494 kg BP Systolic 152 mmHg BP Diastolic 80 mmHg Heart Rate 60 /min Body Temperature 97.0 F Height 59. inches 4'11" BMI (Body Mass Index) 30.5 kg/m2 03/31/2007 1:40pm Weight 148.00 lb Weight 67.133 kg BP Systolic 120 mmHg BP Diastolic 56 mmHg Heart Rate 50 /min Height 59. inches 4'11" BMI (Body Mass Index) 29.9 kg/m2 06/24/2006 1:55pm Weight 162.00 lb Weight 73.483 kg BP Systolic 150 mmHg BP Diastolic 90 mmHg Heart Rate 60 /min Body Temperature 97.1 F Height 59. inches 4'11" BMI (Body Mass Index) 32.7 kg/m2 04/03/2006 12:35pm Weight 162.00 lb Weight 73.483 kg BP Systolic 134 mmHg BP Diastolic 74 mmHg Heart Rate 72 /min Height 59. inches 4'11" BMI (Body Mass Index) 32.7 kg/m2 08/27/2005 2:47pm Weight 153.00 lb Weight 69.401 kg BP Systolic 118 mmHg BP Diastolic 80 mmHg Height 59.5 inches 4'11.50" BMI (Body Mass Index) 30.4 kg/m2 03/28/2005 1:56pm Weight 159.00 lb Weight 72.122 kg BP Systolic 130 mmHg BP Diastolic 80 mmHg Heart Rate 82 /min Respiratory Rate 18 /min Height 59.5 inches 4'11.50" BMI (Body Mass Index) 31.6 kg/m2 06/29/2004 12:26pm Weight 155.00 lb Weight 70.308 kg BP Systolic 130 mmHg BP Diastolic 78 mmHg Heart Rate 72 /min Body Temperature 98.2 F Height 59.5 inches 4'11.50" BMI (Body Mass Index) 30.8 kg/m2 03/22/2004 3:05pm Weight 153.00 lb Weight 69.401 kg BP Systolic 130 mmHg BP Diastolic 80 mmHg Heart Rate 76 /min Respiratory Rate 18 /min Height 59.5 inches 4'11.50" BMI (Body Mass Index) 30.4 kg/m2 04/21/2003 2:34pm Weight 152.00 lb Weight 68.947 kg BP Systolic 108 mmHg BP Diastolic 70 mmHg Heart Rate 64 /min Height 59.5 inches BMI (Body Mass Index) 30.2 kg/m2 07/30/2002 12:46pm Weight 151.00 lb Weight 68.494 kg BP Systolic 126 mmHg BP Diastolic 84 mmHg Heart Rate 68 /min 03/02/2002 1:40pm Weight 153.00 lb Weight 69.400 kg BP Systolic 120 mmHg BP Diastolic 80 mmHg Heart Rate 76 /min Respiratory Rate 18 /min Height 58.5 inches BMI (Body Mass Index) 31.4 kg/m2 08/26/2001 9:30am Weight 153.00 lb BP Systolic 110 mmHg BP Diastolic 80 mmHg Heart Rate 68 /min Respiratory Rate 18 /min Results Test Date Facility Test Result H/L Range Note Urine Culture And 04/09/2018 [facility] Urine Culture SEE RESULT 1 Sensitivities [phone] BELOW Urine DIP 04/09/2018 [facility] Leukocytes ++ Neg (607)- - Urine Nitrites pos Neg Urobilinogen neg Norm Total Protein, Urine ++ Neg Urine pH 8 High 5-6 Urine Blood trace Neg Specific [place] 1.005 Low 1.01-1.02 Urine Ketones neg Neg Urine Bilirubin neg Neg Urine Glucose neg Norm Lipid Profile 04/07/2018 [facility] Triglycerides 459 mg/dL 2 (Trig/Chol/HDL) [phone] Cholesterol 243 mg/dL 3 HDL Cholesterol 37.1 mg/dL 4 Laboratory test 04/07/2018 [facility] LDL Cholesterol 139 mg/dL 5 finding [phone] Direct Urine Culture And 02/24/2018 [facility] Urine Culture SEE RESULT 6 Sensitivities [phone] BELOW Urine DIP 02/24/2018 [facility] Leukocytes 1+ High Neg (607)- - Urine Nitrites NEG Neg Urobilinogen NEG Norm Total Protein, Urine TRACE Neg Urine pH 6 5-6 Urine Blood TRACE Neg Specific [place] 1.015 1.01-1.02 Urine Ketones NEG Neg Urine Bilirubin NEG Neg Urine Glucose NORM Norm Urine Culture And 01/14/2018 [facility] Urine Culture SEE RESULT 7 Sensitivities [phone] BELOW Urine DIP 01/14/2018 [facility] Leukocytes ++ Neg (607)- - Urine Nitrites Neg Neg Urobilinogen Norm Norm Total Protein, Urine + Neg Urine pH 6 5-6 Urine Blood 50 High Neg Specific [place] 1.005 Low 1.01-1.02 Urine Ketones Neg Neg Urine Bilirubin Neg Neg Urine Glucose Norm Norm Urine Culture And 10/01/2017 [facility] Urine Culture SEE RESULT 8 Sensitivities [phone] BELOW Urine DIP 10/01/2017 [facility] House Lab Leukocytes ++ Neg (607)- - Urine Nitrites pos Neg Urobilinogen norm Norm Total Protein, Urine trace Neg Urine pH 7 High 5-6 Urine Blood neg Neg Specific [place] 1.005 Low 1.01-1.02 Urine Ketones neg Neg Urine Bilirubin neg Neg Urine Glucose norm Norm Sputum Culture & 09/08/2017 [facility] Sputum Culture SEE RESULT 9 Sensitiv [phone] Gram Stain BELOW Laboratory test 09/08/2017 [facility] Potassium 4.1 mmol/L N 3.5-5. 10 finding [phone] Redraw 0 Ast Redraw 28 U/L N 13-39 CBC Auto 09/08/2017 [facility] White Blood 14.5 10^3/ uL High 3.5-10.8 Diff [phone] Count Red Blood Count 4.11 10^6/uL N 4.0-5.4 Hemoglobin 12.5 g/dL N 12.0-16.0 Hematocrit 37 % N 35-47 Mean Corpuscular Volume 90 fL N 80-97 Mean Corpuscular Hemoglobin 30 pg N 27-31 Mean Corpuscular HGB Conc 34 g/dL N 31-36 Red Cell Distribution Width 14 % N 10.5-15 Platelet Count 304 10^3/uL N 150-450 Mean Platelet Volume 9.7 um3 N 7.4-10.4 Abs Neutrophils 10.6 10^3/uL High 1.5-7.7 Abs Lymphocytes 2.1 10^3/uL N 1.0-4.8 Abs Monocytes 1.3 10^3/uL High 0-0.8 Abs Eosinophils 0.3 10^3/uL N 0-0.6 Abs Basophils 0.1 10^3/uL N 0-0.2 Abs Nucleated RBC 0 10^3/uL Granulocyte % 73.5 % N 38-83 Lymphocyte % 14.5 % Low 25-47 Monocyte % 8.8 % High 0-7 Eosinophil % 2.3 % N 0-6 Basophil % 0.9 % N 0-2 Nucleated Red Blood Cells % 0.1 Laboratory test 09/08/2017 [facility] B-Type 221 pg/ mL High 11 finding [phone] Natriuretic Peptide BNP Comp Metabolic 09/08/2017 [facility] Sodium 134 mmol/ L Low 139-1 Panel [phone] Chloride 101 mmol/L N 101-111 Co2 Carbon Dioxide 25 mmol/L N 22-32 Glucose 104 mg/dL High 70-100 Blood Urea Nitrogen 16 mg/dL N 6-24 Creatinine 1.04 mg/dL High 0.51-0.95 BUN/Creatinine Ratio 15.4 N 8-20 Calcium 9.2 mg/dL N 8.6-10.3 Total Protein 7.3 g/dL N 6.4-8.9 Albumin 3.7 g/dL N 3.2-5.2 Globulin 3.6 g/dL N 2-4 Albumin/Globulin Ratio 1.0 N 1-3 Total Bilirubin 0.80 mg/dL N 0.2-1.0 Alkaline Phosphatase 124 U/L High 34-104 Alt 27 U/L N 7-52 Egfr Non- 50.5 >60 Egfr 64.9 >60 12 Potassium TNP mmol/L 3.5-5.0 13 Anion Gap 8 mmol/L N 2-11 Ast TNP U/L 13-39 14 Laboratory test 09/08/2017 [facility] Creatine 239 U/ L High 10-223 finding [phone] Kinase C Reactive Protein 125.84 mg/L High < 5.00 15 Troponin-I (TnI) 0.01 ng/mL <0.04 Lactic Acid 1.0 mmol/L N 0.5-2.0 16 Blood Culture SEE RESULT BELOW 17 Urinalysis Profile 08/04/2017 [facility] Urine Color Straw [phone] Urine Appearance Clear Urine Specific [place] 1.005 Low 1.010-1.030 Urine pH 8.0 N 5-9 Urine Urobilinogen Negative Negative Urine Ketones Negative Negative Urine Protein Negative Negative Urine Leukocytes 3+ Abnormal Negative Urine Blood 1+ Abnormal Negative Urine Nitrite Negative Negative Urine Bilirubin Negative Negative Urine Glucose Negative Negative Urine White Blood Cell 3+(>20/hpf) Abnormal Absent Urine Red Blood Cell Trace(0-2/hpf) Absent Urine Bacteria Absent Absent Urine Culture And 08/04/2017 [facility] Urine SEE RESULT 18 Sensitivities [phone] Culture BELOW CBC Auto Diff 08/04/2017 [facility] White Blood 11.5 High 3.5-7 [phone] Count 10^3/uL 0.8 Red Blood Count 4.89 10^6/uL N 4.0-5.4 Hemoglobin 15.0 g/dL N 12.0-16.0 Hematocrit 44 % N 35-47 Mean Corpuscular Volume 89 fL N 80-97 Mean Corpuscular Hemoglobin 31 pg N 27-31 Mean Corpuscular HGB Conc 34 g/dL N 31-36 Red Cell Distribution Width 14 % N 10.5-15 Platelet Count 281 10^3/uL N 150-450 Mean Platelet Volume 9.0 um3 N 7.4-10.4 Abs Neutrophils 7.8 10^3/uL High 1.5-7.7 Abs Lymphocytes 2.6 10^3/uL N 1.0-4.8 Abs Monocytes 0.9 10^3/uL High 0-0.8 Abs Eosinophils 0.2 10^3/uL N 0-0.6 Abs Basophils 0.1 10^3/uL N 0-0.2 Abs Nucleated RBC 0 10^3/uL Granulocyte % 67.4 % N 38-83 Lymphocyte % 22.5 % Low 25-47 Monocyte % 7.9 % High 0-7 Eosinophil % 1.4 % N 0-6 Basophil % 0.8 % N 0-2 Nucleated Red Blood Cells % 0.1 Inr/Protime 08/04/2017 [facility] Inr 0.98 N 0.77- 1.02 [phone] Comp Metabolic Panel 08/04/2017 [facility] Sodium 140 mmol/L N 139-145 [phone] Potassium 3.8 mmol/L N 3.5-5.0 Chloride 105 mmol/L N 101-111 Co2 Carbon Dioxide 25 mmol/L N 22-32 Anion Gap 10 mmol/L N 2-11 Glucose 110 mg/dL High 70-100 Blood Urea Nitrogen 12 mg/dL N 6-24 Creatinine 0.91 mg/dL N 0.51-0.95 BUN/Creatinine Ratio 13.2 N 8-20 Calcium 9.8 mg/dL N 8.6-10.3 Total Protein 7.7 g/dL N 6.4-8.9 Albumin 4.2 g/dL N 3.2-5.2 Globulin 3.5 g/dL N 2-4 Albumin/Globulin Ratio 1.2 N 1-3 Total Bilirubin 0.80 mg/dL N 0.2-1.0 Alkaline Phosphatase 70 U/L N 34-104 Alt 12 U/L N 7-52 Ast 15 U/L N 13-39 Egfr Non- 58.9 >60 Egfr 75.7 >60 19 Laboratory test 08/04/2017 [facility] C Reactive 6.21 mg/L High < 5.00 20 finding [phone] Protein Troponin-I (TnI) 0.02 ng/mL <0.04 Laboratory test 04/05/2017 [facility] TSH (Thyroid 3.77 mcIU/mL N 0.34-5.60 21 finding [phone] Stim Horm) T3 Total 0.86 ng/mL Low 0.87-1.78 22 Free T4 (Free Thyroxine) 0.77 ng/dL N 0.61-1.12 23 Lipid Profile 04/05/2017 [facility] Triglycerides 338 mg/dL 24 (Trig/Chol/HDL) [phone] Cholesterol 255 mg/dL 25 HDL Cholesterol 41.6 mg/dL 26 LDL Cholesterol 146 mg/dL 27 Laboratory test 01/23/2017 [facility] Vitamin D 26.8 ng/mL N 20-50 28 finding [phone] Total 25(Oh) TSH (Thyroid Stim Horm) 8.52 mcIU/mL High 0.34-5.60 29 T3 Total 0.98 ng/mL N 0.87-1.78 30 Free T4 (Free Thyroxine) 0.74 ng/dL N 0.61-1.12 31 Laboratory test 11/21/2016 [facility] C Reactive 4.07 mg/L N < 5.00 32 finding [phone] Protein Erythrocyte Sed Rate 31 mm/Hr N 0-40 33 Laboratory 11/16/2016 [facility] TSH (Thyroid 5.22 N 0.34-5.60 34, 35 test finding [phone] Stim Horm) mcIU/mL T3 Total 0.83 ng/mL Low 0.87-1.78 36 Free T4 (Free Thyroxine) 0.79 ng/dL N 0.61-1.12 37 Laboratory test 10/22/2016 [facility] Vitamin D 26.6 ng/mL Low 30-50 38 finding [phone] Total 25(Oh) Erythrocyte Sed Rate 40 mm/Hr N 0-40 39 TSH (Thyroid Stim Horm) 4.48 mcIU/mL N 0.34-5.60 40 Comp Metabolic Panel 10/22/2016 [facility] Sodium 140 mmol/L N 133-145 [phone] Potassium 4.8 mmol/L N 3.5-5.0 Chloride 104 mmol/L N 101-111 Co2 Carbon Dioxide 30 mmol/L N 22-32 Anion Gap 6 mmol/L N 2-11 Glucose 101 mg/dL High 70-100 Blood Urea Nitrogen 13 mg/dL N 6-24 Creatinine 1.03 mg/dL High 0.51-0.95 BUN/Creatinine Ratio 12.6 N 8-20 Calcium 9.7 mg/dL N 8.6-10.3 Total Protein 7.0 g/dL N 6.4-8.9 Albumin 3.9 g/dL N 3.2-5.2 Globulin 3.1 g/dL N 2-4 Albumin/Globulin Ratio 1.3 N 1-3 Total Bilirubin 0.70 mg/dL N 0.2-1.0 Alkaline Phosphatase 79 U/L N 34-104 Alt 10 U/L N 7-52 Ast 14 U/L N 13-39 Egfr Non- 51.2 N >60 Egfr 65.8 N >60 41 CBC Auto Diff 10/22/2016 [facility] White Blood 9.5 10^3/uL N 3.5-10.8 [phone] Count Red Blood Count 4.85 10^6/uL N 4.0-5.4 Hemoglobin 14.9 g/dL N 12.0-16.0 Hematocrit 45 % N 35-47 Mean Corpuscular Volume 93 fL N 80-97 Mean Corpuscular Hemoglobin 31 pg N 27-31 Mean Corpuscular HGB Conc 33 g/dL N 31-36 Red Cell Distribution Width 14 % N 10.5-15 Platelet Count 272 10^3/uL N 150-450 Mean Platelet Volume 9 um3 N 7.4-10.4 Abs Neutrophils 5.6 10^3/uL N 1.5-7.7 Abs Lymphocytes 2.9 10^3/uL N 1.0-4.8 Abs Monocytes 0.7 10^3/uL N 0-0.8 Abs Eosinophils 0.2 10^3/uL N 0-0.6 Abs Basophils 0.1 10^3/uL N 0-0.2 Abs Nucleated RBC 0.02 10^3/uL N Granulocyte % 58.9 % N 38-83 Lymphocyte % 30.5 % N 25-47 Monocyte % 7.8 % N 1-9 Eosinophil % 2.2 % N 0-6 Basophil % 0.6 % N 0-2 Nucleated Red Blood Cells % 0.2 N Laboratory test 07/11/2016 [facility] Vitamin D 37.4 ng/mL N 30-50 42 finding [phone] Total 25(Oh) Hemoccult 04/26/2016 [facility] House [facility] Stool-Occult NEG 04/22/16 Neg (607)- - Blood #1 Stool-Occult Blood #2 NEG 04/23/16 Neg Stool-Occult Blood #3 NEG 04/25/16 Neg Laboratory test 04/13/2016 [facility] Urine Culture And SEE RESULT 43 finding [phone] Sensitivities BELOW Urine DIP 04/13/2016 [facility] House [facility] Leukocytes ++ Neg (607)- - Urine Nitrites POS Neg Urobilinogen NORM Norm Total Protein, Urine 30 High Neg Urine pH 6 5-6 Urine Blood 250 High Neg Specific [place] 1.02 1.01-1.02 Urine Ketones NEG Neg Urine Bilirubin NEG Neg Urine Glucose NORM Norm Laboratory test 04/13/2016 [facility] Vitamin D Total 23.8 Low 30-50 44 finding [phone] 25(Oh) ng/mL Lipid Profile 04/13/2016 [facility] Triglycerides 333 mg/dL N 45 (Trig/Chol/HDL) [phone] Cholesterol 256 mg/dL N 46 HDL Cholesterol 35.5 mg/dL N 47 LDL Cholesterol 154 mg/dL N 48 Comp Metabolic Panel 04/13/2016 [facility] Sodium 136 mmol/L N 133-145 [phone] Potassium 4.7 mmol/L N 3.5-5.0 Chloride 105 mmol/L N 101-111 Co2 Carbon Dioxide 25 mmol/L N 22-32 Anion Gap 6 mmol/L N 2-11 Glucose 88 mg/dL N 70-100 Blood Urea Nitrogen 16 mg/dL N 6-24 Creatinine 0.98 mg/dL High 0.51-0.95 BUN/Creatinine Ratio 16.3 N 8-20 Calcium 10.1 mg/dL N 8.6-10.3 Total Protein 7.4 g/dL N 6.4-8.9 Albumin 4.2 g/dL N 3.2-5.2 Globulin 3.2 g/dL N 2-4 Albumin/Globulin Ratio 1.3 N 1-3 Total Bilirubin 1.00 mg/dL N 0.2-1.0 Alkaline Phosphatase 81 U/L N 34-104 Alt 10 U/L N 7-52 Ast 15 U/L N 13-39 Egfr Non- 54.3 N >60 Egfr 69.9 N >60 49 Laboratory test 09/12/2015 [facility] Cyclic <15.6 U N 50 finding [phone] Citrullinated Pep Igg Lyme Western 09/12/2015 [facility] Lyme Disease IgG Negative N Negative Blot [phone] Ab WB Lyme Disease IgG Bands Present p41, kDa N Lyme Disease IgM Ab WB Negative N Negative Lyme Disease IgM Bands Present No bands detecte <SEE NOTE> kDa N 51 Lyme Disease Interpretation See Comment N 52 Laboratory test 09/12/2015 [facility] Rheumatoid Factor <15 IU/mL N <15 53 finding [phone] Erythrocyte Sed Rate 83 mm/Hr High 0-40 54 C Reactive Protein 15.09 mg/L High < 5.00 55 CBC Auto Diff 09/12/2015 [facility] White Blood 8.6 10^3/uL N 3.5-10.8 [phone] Count Red Blood Count 4.78 10^6/uL N 4.0-5.4 Hemoglobin 13.9 g/dL N 12.0-16.0 Hematocrit 42 % N 35-47 Mean Corpuscular Volume 88 fL N 80-97 Mean Corpuscular Hemoglobin 29 pg N 27-31 Mean Corpuscular HGB Conc 33 g/dL N 31-36 Red Cell Distribution Width 15 % N 10.5-15 Platelet Count 326 10^3/uL N 150-450 Mean Platelet Volume 10 um3 N 7.4-10.4 Abs Neutrophils 4.8 10^3/uL N 1.5-7.7 Abs Lymphocytes 2.7 10^3/uL N 1.0-4.8 Abs Monocytes 0.8 10^3/uL N 0-0.8 Abs Eosinophils 0.2 10^3/uL N 0-0.6 Abs Basophils 0.1 10^3/uL N 0-0.2 Abs Nucleated RBC 0.01 10^3/uL N Granulocyte % 55.8 % N 38-83 Lymphocyte % 31.4 % N 25-47 Monocyte % 9.8 % High 1-9 Eosinophil % 2.3 % N 0-6 Basophil % 0.7 % N 0-2 Nucleated Red Blood Cells % 0.1 N Comp Metabolic Panel 04/25/2015 [facility] Sodium 135 mmol/L N 133-145 [phone] Potassium 4.1 mmol/L N 3.5-5.0 Chloride 101 mmol/L N 101-111 Co2 Carbon Dioxide 25 mmol/L N 22-32 Anion Gap 9 mmol/L N 2-11 Glucose 126 mg/dL High 70-100 Blood Urea Nitrogen 14 mg/dL N 6-24 Creatinine 0.88 mg/dL N 0.51-0.95 BUN/Creatinine Ratio 15.9 N 8-20 Calcium 9.5 mg/dL N 8.6-10.3 Total Protein 6.7 g/dL N 6.4-8.9 Albumin 3.6 g/dL N 3.2-5.2 Globulin 3.1 g/dL N 2-4 Albumin/Globulin Ratio 1.2 N 1-3 Total Bilirubin 0.70 mg/dL N 0.2-1.0 Alkaline Phosphatase 87 U/L N 34-104 Alt 8 U/L N 7-52 Ast 11 U/L Low 13-39 Egfr Non- 61.7 N >60 Egfr 79.3 N >60 56 CBC Auto Diff 04/25/2015 [facility] White Blood 9.8 10^3/uL N 3.5-10.8 [phone] Count Red Blood Count 4.41 10^6/uL N 4.0-5.4 Hemoglobin 12.6 g/dL N 12.0-16.0 Hematocrit 39 % N 35-47 Mean Corpuscular Volume 88 fL N 80-97 Mean Corpuscular Hemoglobin 29 pg N 27-31 Mean Corpuscular HGB Conc 33 g/dL N 31-36 Red Cell Distribution Width 15 % N 10.5-15 Platelet Count 354 10^3/uL N 150-450 Mean Platelet Volume 9 um3 N 7.4-10.4 Abs Neutrophils 6.7 10^3/uL N 1.5-7.7 Abs Lymphocytes 2.1 10^3/uL N 1.0-4.8 Abs Monocytes 0.9 10^3/uL High 0-0.8 Abs Eosinophils 0.2 10^3/uL N 0-0.6 Abs Basophils 0.1 10^3/uL N 0-0.2 Abs Nucleated RBC 0 10^3/uL N Granulocyte % 67.6 % N 38-83 Lymphocyte % 21.3 % Low 25-47 Monocyte % 8.9 % N 1-9 Eosinophil % 1.6 % N 0-6 Basophil % 0.6 % N 0-2 Nucleated Red Blood Cells % 0 N Laboratory test 04/25/2015 [facility] C Reactive 33.96 mg/L High < 5.00 57 finding [phone] Protein Erythrocyte Sed Rate 100 mm/Hr High 0-40 Laboratory test 04/01/2015 [facility] Urine Culture And SEE RESULT 58 finding [phone] Sensitivities BELOW Comp Metabolic 04/01/2015 [facility] Sodium 136 mmol/ L N 133-1 Panel [phone] Potassium 4.7 mmol/L N 3.5-5.0 Chloride 100 mmol/L Low 101-111 Co2 Carbon Dioxide 28 mmol/L N 22-32 Anion Gap 8 mmol/L N 2-11 Glucose 84 mg/dL N 70-100 Blood Urea Nitrogen 16 mg/dL N 6-24 Creatinine 0.89 mg/dL N 0.51-0.95 BUN/Creatinine Ratio 18.0 N 8-20 Calcium 10.0 mg/dL N 8.6-10.3 Total Protein 7.1 g/dL N 6.4-8.9 Albumin 3.5 g/dL N 3.2-5.2 Globulin 3.6 g/dL N 2-4 Albumin/Globulin Ratio 1.0 N 1-3 Total Bilirubin 0.70 mg/dL N 0.2-1.0 Alkaline Phosphatase 86 U/L N 34-104 Alt 7 U/L N 7-52 Ast 10 U/L Low 13-39 Egfr Non- 60.9 N >60 Egfr 78.3 N >60 59 Lipid Profile 04/01/2015 [facility] Triglycerides 145 mg/dL N 60 (Trig/Chol/HDL) [phone] Cholesterol 202 mg/dL N 61 HDL Cholesterol 36.2 mg/dL N 62 LDL Cholesterol 137 mg/dL N 63 Laboratory test 04/01/2015 [facility] CRP High 64.90 mg/L N 64 finding [phone] Sensitivity Erythrocyte Sed Rate 110 mm/Hr High 0-40 Urine DIP 04/01/2015 [facility] House [facility] Leukocytes 500 High Neg (607)- - Urine Nitrites + Neg Urobilinogen NEG Norm Total Protein, Urine 30 High Neg Urine pH 6.5 High 5-6 Urine Blood ++ Neg Specific [place] 1.020 1.01-1.02 Urine Ketones NEG Neg Urine Bilirubin 1 High Neg Urine Glucose NORM Norm Laboratory test 09/22/2014 [facility] Erythrocyte Sed 48 mm/Hr High 0-40 finding [phone] Rate C Reactive Protein 16.81 mg/L High < 5.00 65 Rheumatoid Factor <15 IU/mL N <15 66 Jazmin (Antinuclear Antibodies) Negative N Negative Laboratory test 08/09/2014 [facility] Erythrocyte Sed 38 mm/Hr N 0-40 finding [phone] Rate Laboratory test 07/21/2014 [facility] TSH (Thyroid 3.46 IU/mL N 0.34-5.60 finding [phone] Stimulating Horm) Rheumatoid Factor <15 IU/mL N <15 67 Jazmin (Anti-Nuclear AB) Screen Negative N Negative Erythrocyte Sed Rate 104 mm/Hr High 0-40 C Reactive Protein 72.48 mg/L High < 5.00 68 Creatine Kinase 37 U/L N 10-223 Urine Culture And 07/21/2014 [facility] Urine Culture (SEE NOTE) 69 Sensitivities [phone] Urine Culture And 03/22/2014 [facility] Urine Culture (SEE NOTE) 70 Sensitivities [phone] Urine DIP 03/22/2014 [facility] House Lab Specific 1.015 1.01- (607)- - [place] 1.02 Urine pH 5 5-6 Leukocytes ++ High Neg Urine Nitrites POS High Neg Total Protein, Urine 30+ High Neg Urine Glucose NORM Norm Urine Ketones NEG Neg Urobilinogen NORM Norm Urine Bilirubin NEG Neg Urine Blood 50 High Neg Lipid Profile 03/16/2014 [facility] Triglycerides 207 mg/dL N 71, 72 (Trig/Chol/HDL) [phone] Cholesterol 151 mg/dL N 73 HDL Cholesterol 38.7 mg/dL N 74 LDL Cholesterol 71 mg/dL N 75 Comp Metabolic Panel 03/16/2014 [facility] Sodium 139 mmol/L N 133-145 [phone] Potassium 3.9 mmol/L N 3.5-5.0 76 Chloride 104 mmol/L N 101-111 Co2 Carbon Dioxide 29 mmol/L N 22-32 Anion Gap 6 mmol/L N 2-11 Glucose 94 mg/dL N 70-100 Blood Urea Nitrogen 15 mg/dL N 6-24 Creatinine 0.93 mg/dL N 0.51-0.95 BUN/Creatinine Ratio 16.1 N 8-20 Calcium 9.3 mg/dL N 8.6-10.3 Total Protein 6.9 g/dL N 6.4-8.9 Albumin 4.1 g/dL N 3.2-5.2 Globulin 2.8 g/dL N 2-4 Albumin/Globulin Ratio 1.5 N 1-3 Total Bilirubin 1.30 mg/dL High 0.2-1.0 Alkaline Phosphatase 80 U/L N 34-104 Alt 12 U/L N 7-52 Ast 14 U/L N 13-39 Egfr Non- 58.0 N >60 Egfr 74.6 N >60 77 CBC Auto 03/16/2014 [facility] White Blood 11.1 10^3/ uL High 4.8-10.8 Diff [phone] Count Red Blood Count 4.86 10^6/uL N 4.0-5.4 Hemoglobin 14.7 g/dL N 12.0-16.0 Hematocrit 44 % N 35-47 Mean Corpuscular Volume 91 fL N 80-97 Mean Corpuscular Hemoglobin 30 pg N 27-31 Mean Corpuscular HGB Conc 33 g/dL N 31-36 Red Cell Distribution Width 13 % N 10.5-15 Platelet Count 253 10^3/uL N 150-450 Mean Platelet Volume 10 um3 N 7.4-10.4 Abs Neutrophils 7.3 10^3/uL N 1.5-7.7 Abs Lymphocytes 2.7 10^3/uL N 1.0-4.8 Abs Monocytes 0.8 10^3/uL N 0-0.8 Abs Eosinophils 0.2 10^3/uL N 0-0.6 Abs Basophils 0.1 10^3/uL N 0-0.2 Abs Nucleated RBC 0 10^3/uL N Granulocyte % 65.5 % N 38-83 Lymphocyte % 24.3 % Low 25-47 Monocyte % 7.3 % N 1-9 Eosinophil % 2.0 % N 0-6 Basophil % 0.9 % N 0-2 Nucleated Red Blood Cells % 0 N Laboratory test 03/16/2014 [facility] Creatine Kinase 67 U/L N 10-223 78 finding [phone] Vitamin D, 25 03/16/2014 [facility] 25-Hydroxy <4.0 N Hydroxy [phone] Vitamin D2 ng/mL 25-Hydroxy Vitamin D3 25 ng/mL N 25-Hydroxy Vitamin D Total 25 ng/mL N 79 Urine DIP 04/02/2013 [facility] House Lab Leukocytes NEG Neg (607)- - Urine Nitrites NEG Neg Urine pH 5 5-6 Total Protein, Urine NEG Neg Urine Glucose NORM Norm Urine Ketones NEG Neg Urobilinogen NORM Norm Urine Bilirubin NEG Neg Urine Blood NEG Neg Specific [place] 1.000 Low 1.01-1.02 Lipid Profile 03/26/2013 [facility] Triglycerides 279 mg/dL High 40-200 (Trig/Chol/HDL) [phone] Cholesterol 183 mg/dL Less than 200 HDL Cholesterol 40 mg/dL 40-60 80 Cholesterol/HDL Ratio 4.6 Average High 1-4.44 LDL Cholesterol 87.2 Less Than 100 81 Vitamin D, 25 03/26/2013 [facility] 25-Hydroxy Vitamin <4.0 ng/mL Hydroxy [phone] D2 25-Hydroxy Vitamin D3 28 ng/mL 25-Hydroxy Vitamin D Total 28 ng/mL 82 Laboratory test 03/26/2013 [facility] Creatine 81 U/ L 0-200 83 finding [phone] Kinase Comp Metabolic 03/26/2013 [facility] Sodium 138 133-145 Panel [phone] mmol/L Potassium 4.4 mmol/L 3.5-5.0 Chloride 103 mmol/L 101-111 Co2 Carbon Dioxide 26.0 mmol/L 22-32 Anion Gap 9.0 mmol/L 2-11 Glucose 104 mg/dL High 70-100 Blood Urea Nitrogen 15 mg/dL 6-24 Creatinine 1.00 mg/dL 0.50-1.40 BUN/Creatinine Ratio 15.0 8-20 Calcium 9.7 mg/dL 8.1-9.9 Total Protein 6.9 g/dL 6.2-8.1 Albumin 4.0 g/dL 3.2-5.2 Globulin 2.9 g/dL 2-4 Albumin/Globulin Ratio 1.4 1-3 Total Bilirubin 1.3 mg/dL 0.4-1.5 Alkaline Phosphatase 94 U/L 30-110 Alt 20 U/L 14-54 Ast 26 U/L 12-42 Egfr Non- 53.5 >60 Egfr 68.8 >60 84 Wound Culture/Sensi 02/09/2013 [facility] Wound/Misc (SEE NOTE) 85 [phone] Culture-Gram Stain Urine Culture And 05/05/2012 [facility] Urine Culture (SEE NOTE) 86 Sensitivities [phone] Urine DIP 04/07/2012 [facility] House Lab Leukocytes ++ Neg (607)- - Urine Nitrites POS Neg Urine pH 5 5-6 Total Protein, Urine TRACE Neg Urine Glucose NORM Norm Urine Ketones NEG Neg Urobilinogen NORM Norm Urine Bilirubin NEG Neg Urine Blood TRACE Neg Specific [place] N/A Low 1.01-1.02 Urine Culture And 04/07/2012 [facility] Urine Culture (SEE NOTE) 87 Sensitivities [phone] Vitamin D, 25 03/31/2012 [facility] 25-Hydroxy <4.0 ng/mL Hydroxy [phone] Vitamin D2 25-Hydroxy Vitamin D3 23 ng/mL 25-Hydroxy Vitamin D Total 23 ng/mL Abnormal 88 Laboratory test 03/31/2012 [facility] Creatine 96 U/ L 0-200 89 finding [phone] Kinase Comp Metabolic 03/31/2012 [facility] Sodium 138 133-145 Panel [phone] mmol/L Potassium 4.1 mmol/L 3.5-5.0 Chloride 104 mmol/L 101-111 Co2 Carbon Dioxide 26.0 mmol/L 22-32 Anion Gap 8.0 mmol/L 2-11 Glucose 93 mg/dL 70-100 Blood Urea Nitrogen 14 mg/dL 6-24 Creatinine 0.90 mg/dL 0.50-1.40 BUN/Creatinine Ratio 15.6 8-20 Calcium 9.4 mg/dL 8.1-9.9 Total Protein 6.4 g/dL 6.2-8.1 Albumin 3.9 g/dL 3.2-5.2 Globulin 2.5 g/dL 2-4 Albumin/Globulin Ratio 1.6 1-3 Total Bilirubin 1.4 mg/dL 0.4-1.5 Alkaline Phosphatase 82 U/L 30-110 Alt 22 U/L 14-54 Ast 22 U/L 12-42 Egfr Non- 60.6 >60 Egfr 77.9 >60 90 Lipid Profile 03/31/2012 [facility] Triglycerides 202 mg/dL High 40-200 (Trig/Chol/HDL) [phone] Cholesterol 156 mg/dL Less than 200 HDL Cholesterol 35 mg/dL Low 40-60 91 Cholesterol/HDL Ratio 4.5 Average High 1-4.44 LDL Cholesterol 80.6 mg/dL Less Than 100 92 Urine DIP 04/02/2011 [facility] House Lab Leukocytes ++ Neg (607)- - Urine Nitrites POS Neg Urine pH 6 5-6 Total Protein, Urine TRACE Neg Urine Glucose NORM Norm Urine Ketones NEG Neg Urobilinogen NORM Norm Urine Bilirubin NEG Neg Urine Blood TRACE Neg Specific [place] NA Low 1.01-1.02 Urine Culture 04/02/2011 [facility] M - 93 & Sensitivi [phone] <SEE NOTE> Lipid Profile 03/26/2011 [facility] Triglyceride 271 mg/dL High 40- (Trig/Chol/HD [phone] 200 L) Cholesterol 165 mg/dL Less Than 200 94 High Density Lipoprotein 37 mg/dL Low 40-60 95 Cholesterol/HDL Ratio 4.46 AVERAGE High 1-4.44 Low Density Lipoprotein 74 mg/dL Less Than 100 96 Laboratory test 03/26/2011 [facility] CPK (Creatine 82 U/L 0-170 finding [phone] Kinase) Comp Metabolic 03/26/2011 [facility] Sodium 138 135-145 Panel [phone] mmol/L Potassium 4.3 mmol/L 3.5-5.0 Chloride 102 mmol/L 101-111 Co2 (Carbon Dioxide) 30.0 mmol/L 22-32 Anion Gap 6.0 mmol/L 2-11 97 Glucose 99 mg/dL 70-100 BUN 13 mg/dL 6-24 Creatinine 1.0 mg/dL 0.50-1.40 One Over Creatinine 1.00 BUN/Creatinine Ratio 13.0 8-20 Calcium 9.4 mg/dL 8.1-9.9 Total Protein 6.8 GM/DL 6.2-8.1 Albumin 3.9 GM/DL 3.2-5.2 Globulin 2.9 GM/DL 2-4 Albumin/Globulin Ratio 1.3 1-3 Bilirubin Total 1.4 mg/dL 0.4-1.5 98 Alkaline Phosphatase 89 U/L 30-110 Alt (SGPT) 26 U/L 14-54 Ast (Sgot) 28 U/L 12-42 eGFR Non- 53.8 > 60 eGFR 69.1 > 60 99 Vitamin D, 25 03/26/2011 [facility] 25-Hydroxy Vitamin <4.0 ng/mL () Hydroxy [phone] D2 25-Hydroxy Vitamin D3 28 ng/mL () 25-Hydroxy Vitamin D Total 28 ng/mL () 100 Laboratory test 03/26/2011 [facility] TSH 2.97 0.34-5.60 finding [phone] MIU/ML Lipid Profile 09/06/2010 [facility] Triglyceride 309 mg/dL High 40-200 (Trig/Chol/HDL) [phone] Cholesterol 172 mg/dL Less Than 200 101 High Density Lipoprotein 37 mg/dL Low 40-60 102 Cholesterol/HDL Ratio 4.65 AVERAGE High 1-4.44 Low Density Lipoprotein 73 mg/dL Less Than 100 103 Liver Function 09/06/2010 [facility] Total Protein 6.6 GM/DL 6.2-8.1 Panel [phone] Albumin 3.9 GM/DL 3.2-5.2 Globulin 2.7 GM/DL 2-4 Albumin/Globulin Ratio 1.4 1-3 Bilirubin Total 2.0 mg/dL High 0.4-1.5 104 Bilirubin Direct 0.2 mg/dL 0.1-0.5 Indirect Bilirubin 1.8 mg/dL High 0.3-1.0 105 Alkaline Phosphatase 77 U/L 30-110 Alt (SGPT) 32 U/L 14-54 Ast (Sgot) 34 U/L 12- Laboratory test 09/06/2010 [facility] CPK (Creatine 109 U/L 0-170 finding [phone] Kinase) Lipid Profile 07/05/2010 [facility] Triglyceride 271 High 40-200 (Trig/Chol/HDL) [phone] mg/dL Cholesterol 173 mg/dL Less Than 200 106 High Density Lipoprotein 38 mg/dL Low 40-60 107 Cholesterol/HDL Ratio 4.55 AVERAGE High 1-4.44 Low Density Lipoprotein 81 mg/dL Less Than 100 108 Urine DIP 04/05/2010 [facility] House Lab Leukocytes 2+ High Neg (607)- - Urine Nitrites NEG Neg Urine pH 5 5-6 Total Protein, Urine NEG Neg Urine Glucose NORM Norm Urine Ketones NEG Neg Urobilinogen NORM Norm Urine Bilirubin NEG Neg Urine Blood NEG Neg Specific [place] NA Low 1.01-1.02 Comp Metabolic Panel 03/29/2010 [facility] Sodium 136 mmol/L 135-145 [phone] Potassium 4.4 mmol/L 3.5-5.0 Chloride 103 mmol/L 101-111 Co2 (Carbon Dioxide) 27.0 mmol/L 22-32 Anion Gap 6.0 mmol/L 2-11 109 Glucose 99 mg/dL 70-100 110 BUN 11 mg/dL 6-24 Creatinine 1.00 mg/dL 0.50-1.40 One Over Creatinine 1.00 BUN/Creatinine Ratio 11.0 8-20 Calcium 9.9 mg/dL 8.1-9.9 Total Protein 7.0 GM/DL 6.2-8.1 Albumin 4.0 GM/DL 3.2-5.2 Globulin 3.0 GM/DL 2-4 Albumin/Globulin Ratio 1.3 1-3 Bilirubin Total 1.5 mg/dL 0.4-1.5 111 Alkaline Phosphatase 75 U/L 30-110 Alt (SGPT) 23 U/L 14-54 Ast (Sgot) 27 U/L 12-42 eGFR Non- 57.3 > 60 eGFR 69.3 > 60 112 Lipid Profile 03/29/2010 [facility] Triglyceride 260 mg/dL High 40-200 (Trig/Chol/HDL) [phone] Cholesterol 187 mg/dL Less Than 200 113 High Density Lipoprotein 38 mg/dL Low 40-60 114 Cholesterol/HDL Ratio 4.92 AVERAGE High 1-4.44 Low Density Lipoprotein 97 mg/dL Less Than 100 115 Laboratory test 03/29/2010 [facility] CPK (Creatine 138 U/L 0-170 finding [phone] Kinase) Hemoglobin A1c 5.8 % Less Than 6.0 116 Laboratory test 08/15/2009 [facility] Urine Culture Escherichia coli 117 finding [phone] Urine DIP 08/15/2009 [facility] Leukocytes ++ Neg (607)- - Urine Nitrites POS Neg Urine pH 5 5-6 Total Protein, Urine NEG Neg Urine Glucose NORM Norm Urine Ketones NEG Neg Urobilinogen NORM Norm Urine Bilirubin NEG Neg Urine Blood 50 High Neg Specific [place] NA Low 1.01-1.02 Urine DIP 04/06/2009 In House Lab Leukocytes ++ Neg (607)- - Urine Nitrites NEG Neg Urine pH 5 5-6 Total Protein, Urine NEG Neg Urine Glucose NORM Norm Urine Ketones NEG Neg Urobilinogen NORM Norm Urine Bilirubin NEG Neg Urine Blood NEG Neg Specific [place] N/A Low 1.01-1.02 Comp Metabolic Panel 03/30/2009 [facility] Sodium 137 mmol/L 135-145 [phone] Potassium 4.5 mmol/L 3.5-5.0 Chloride 100 mmol/L Low 101-111 Co2 (Carbon Dioxide) 30.0 mmol/L 22-32 Anion Gap 7.0 mmol/L 2-11 118 Glucose 104 mg/dL High 70-100 119 BUN 11 mg/dL 6-24 Creatinine 0.90 mg/dL 0.50-1.40 One Over Creatinine 1.10 BUN/Creatinine Ratio 12.2 8-20 Calcium 10.2 mg/dL High 8.1-9.9 120 Total Protein 6.5 GM/DL 6.2-8.1 Albumin 4.1 GM/DL 3.2-5.2 Globulin 2.4 GM/DL 2-4 Albumin/Globulin Ratio 1.7 1-3 Bilirubin Total 1.8 mg/dL High 0.4-1.5 121 Alkaline Phosphatase 84 U/L 30-110 Alt (SGPT) 28 U/L 14-54 Ast (Sgot) 24 U/L 12-42 eGFR Non- 64.9 > 60 eGFR 78.5 > 60 122 CBC With 03/30/2009 [facility] White Blood 8.4 CUMM 4.8-10.8 Electronic Diff [phone] Count Red Cell Count 4.90 CUMM 4.2-5.4 Hemoglobin 15.0 g/dL 12.0-16.0 Hematocrit 44 % 35-47 Mean Corpuscular Volume 90 um3 79-97 Mean Corpuscular Hemoglob 31 pg 27-31 Mean Corpuscular HGB [place] 34 g/dL 32-36 Redcell Distribution WDTH 13 % 10.5-15 Platelet Count 277 CUMM 150-450 Mean Platelet Volume 9.2 um3 7.4-10.4 Gran % 56.2 % 38-83 Lymph % 31.3 % 25-47 Mononuclear % 10.3 % High 1-9 Eosinophil % 1.7 % 0-6 Basophil % 0.5 % 0-2 Abs Lymphs 2.6 1.0-4.8 Abs Mononuclear 0.9 High 0-0.8 Absolute Neutrophil Count 4.7 1.5-7.7 Abs Eosinophils 0.1 0-0.6 Abs Basophils 0 0-0.2 Lipid Profile 03/30/2009 [facility] Triglyceride 272 mg/dL High 40-200 (Trig/Chol/HDL) [phone] Cholesterol 187 mg/dL Less Than 200 123 High Density Lipoprotein 35 mg/dL Low 40-60 124 Cholesterol/HDL Ratio 5.34 AVERAGE High 1-4.44 Low Density Lipoprotein 98 mg/dL Less Than 100 125 Urine DIP 04/05/2008 In House Lab Leukocytes ++ Neg (607)- - Urine Nitrites neg Neg Urine pH 5 5-6 Total Protein, Urine neg Neg Urine Glucose norm Norm Urine Ketones neg Neg Urobilinogen norm Norm Urine Bilirubin neg Neg Urine Blood neg Neg Specific [place] n/a Low 1.01-1.02 CBC With 03/26/2008 [facility] White Blood 8.1 CUMM 4.8-10.8 Electronic Diff [phone] Count Red Cell Count 4.78 CUMM 4.2-5.4 Hemoglobin 14.8 g/dL 12.0-16.0 Hematocrit 43 % 35-47 Mean Corpuscular Volume 89 um3 79-97 Mean Corpuscular Hemoglob 31 pg 27-31 Mean Corpuscular HGB Cone 35 g/dL 32-36 Redcell Distribution WDTH 12 % 10.5-15 Platelet Count 264 CUMM 150-450 Mean Platelet Volume 9.2 um3 7.4-10.4 Gran % 56.4 % 38-83 Lymph % 29.7 % 25-47 Mononuclear % 11.0 % High 1-9 Eosinophil % 2.4 % 0-6 Basophil % 0.5 % 0-2 Abs Lymphs 2.4 1.0-4.8 Abs Mononuclear 0.9 High 0-0.8 Absolute Neutrophil Count 4.6 1.5-7.7 Abs Eosinophils 0.2 0-0.6 Abs Basophils 0 0-0.2 Lipid Profile 03/26/2008 [facility] Triglyceride 236 mg/dL High 40-200 (Trig/Chol/HDL) [phone] Cholesterol 159 mg/dL Less Than 200 126 High Density Lipoprotein 37 mg/dL Low 40-60 127 Cholesterol/HDL Ratio 4.30 AVERAGE 1-4.44 Low Density Lipoprotein 75 mg/dL Less Than 100 128 Comp Metabolic Panel 03/26/2008 [facility] Sodium 140 mmol/L 135-145 [phone] Potassium 4.9 mmol/L 3.5-5.0 Chloride 104 mmol/L 101-111 Co2 (Carbon Dioxide) 32.0 mmol/L 22-32 Anion Gap 4.0 mmol/L 2-11 129 Glucose 90 mg/dL 70-100 130 BUN 14 mg/dL 6-24 Creatinine 0.85 mg/dL 0.50-1.40 One Over Creatinine 1.10 BUN/Creatinine Ratio 16.5 8-20 Calcium 10.0 mg/dL High 8.1-9.9 131 Total Protein 6.9 GM/DL 6.2-8.1 Albumin 4.0 GM/DL 3.2-5.2 Globulin 2.9 GM/DL 2-4 Albumin/Globulin Ratio 1.4 1-3 Bilirubin Total 1.6 mg/dL High 0.4-1.5 Alkaline Phosphatase 73 U/L 30-110 Alt (SGPT) 21 U/L 14-54 Ast (Sgot) 21 U/L 12-42 Laboratory test 03/26/2008 [facility] CPK (Creatine 72 U/L 0-170 finding [phone] Kinase) Urine DIP 06/23/2007 In House Lab Leukocytes 1+ High Neg (607)- - Urine Nitrites NEG Neg Urine pH 5 5-6 Total Protein, Urine NEG Neg Urine Glucose NORM Norm Urine Ketones NEG Neg Urobilinogen NORM Norm Urine Bilirubin NEG Neg Urine Blood NEG Neg Specific [place] NA Low 1.01-1.02 Urine DIP 05/19/2007 In House Lab Leukocytes ++ Neg (607)- - Urine Nitrites NEG Neg Urine pH 5 5-6 Total Protein, Urine NEG Neg Urine Glucose NORM Norm Urine Ketones NEG Neg Urobilinogen NORM Norm Urine Bilirubin NEG Neg Urine Blood ABOUT 50 Neg Specific [place] N/A Low 1.01-1.02 [facility] 03/21/2007 [facility] Lab at [address] Albumin 4.0 Metabolic [address] [place], [place] [id number] [phone] SGPT (Alt) 21 Calcium 9.5 Carbon Dioxide 30.0 Chloride 106 Creatinine 1.1 Glucose 94 Alkaline Phosphatase 74 Potassium 4.5 Protien, Total 6.8 Sodium 140 Sgot (Ast) 21 BUN - Urea Nitrogen 17 Bilirubin Total 1.6 High Lipid Panel 03/21/2007 [facility] Lab at [address] Cholesterol, Total 167 [address] [place], [place] [id number] [phone] Cholesterol/HDL Ratio 4.91 High HDL 34 Low Low Density Lipoprotein 99 Triglycerides 172 [facility] 03/21/2007 [facility] Lab at [address] Creatine Kinase 145 [address] [place], [place] [id number] [phone] Surgical Pathology 05/06/2006 [facility] Surgical --- ------ 132 [phone] Pathology ------- <SEE NOTE> Urine DIP 04/03/2006 In House Lab Leukocytes + Neg (607)- - Urine Nitrites NEG Neg Urine pH 5 5-6 Total Protein, Urine NEG Neg Urine Glucose NORM Norm Urine Ketones NEG Neg Urobilinogen NORM Norm Urine Bilirubin NEG Neg Urine Blood NEG Neg Specific [place] N/A Low 1.01-1.02 Comp Metabolic 03/27/2006 [facility] One Over Creatinine 0.90 Panel [phone] Anion Gap 4.0 mmol/L 2-11 133 Albumin/Globulin Ratio 1.4 1-3 Albumin 4.2 GM/DL 3.2-5.2 Alkaline Phosphatase 87 U/L 30-110 Alt (SGPT) 26 U/L 14-54 Ast (Sgot) 20 U/L 12-42 BUN 19 mg/dL 6-24 Calcium 9.7 mg/dL 8.7-10.2 Chloride 102 mmol/L 101-111 Co2 (Carbon Dioxide) 31.0 mmol/L 22-32 Globulin 2.9 GM/DL 2-4 Glucose 99 mg/dL 70-105 Potassium 4.9 mmol/L 3.5-5.0 Sodium 137 mmol/L 135-145 Bilirubin Total 1.3 mg/dL 0.4-1.5 Total Protein 7.1 GM/DL 6.2-8.1 BUN/Creatinine Ratio 17.3 8-20 Creatinine 1.1 mg/dL 0.5-1.4 Lipid Profile 03/27/2006 [facility] Cholesterol/HDL 5.26 High 1-4.44 (Trig/Chol/HDL) [phone] Ratio AVERAGE Cholesterol 184 mg/dL Less Than 200 134 Triglyceride 231 mg/dL High 40-200 High Density Lipoprotein 35 mg/dL Low 40-60 135 Low Density Lipoprotein 103 mg/dL High Less Than 100 136 Laboratory test 03/27/2006 [facility] CPK (Creatine 107 U/L 0-170 finding [phone] Kinase) CBC With 03/19/2005 [facility] White Blood 8.1 CUMM 4.8-10.8 Electronic Diff [phone] Count Abs Basophils 0 0-0.2 Abs Eosinophils 0.2 0-0.6 Absolute Neutrophil Count 4.9 1.5-7.7 Abs Lymphs 2.3 1.0-4.8 Abs Mononuclear 0.7 0-0.8 Basophil % 0.3 % 0-2 Hematocrit 45 % 35-47 Hemoglobin 15.1 g/dL 12.0-16.0 Eosinophil % 2.0 % 0-6 Gran % 60.8 % 38-83 Lymph % 28.2 % 20-45 Mean Corpuscular HGB Cone 34 g/dL 32-36 Mean Corpuscular Hemoglob 30 pg 27-31 Mean Corpuscular Volume 90 um3 79-97 Mean Platelet Volume 9.6 um3 7.4-10.4 Mononuclear % 8.7 % 1-9 Platelet Count 290 CUMM 150-450 Red Cell Count 4.97 CUMM 4.2-5.4 Redcell Distribution WDTH 13 % 10.5-15 Comp Metabolic 03/19/2005 [facility] One Over Creatinine 1.00 Panel [phone] Anion Gap 7.0 mmol/L 2-11 137 Albumin/Globulin Ratio 1.5 1-3 Albumin 4.1 GM/DL 3.2-5.2 Alkaline Phosphatase 87 U/L 30-110 Alt (SGPT) 27 U/L 14-54 Ast (Sgot) 22 U/L 12-42 BUN 16 mg/dL 6-24 Calcium 10.2 mg/dL 8.7-10.2 Chloride 105 mmol/L 101-111 Co2 (Carbon Dioxide) 27.0 mmol/L 22-32 Globulin 2.8 GM/DL 2-4 Glucose 98 mg/dL 70-105 Potassium 4.4 mmol/L 3.5-5.0 Sodium 139 mmol/L 135-145 Bilirubin Total 1.3 mg/dL 0.4-1.5 Total Protein 6.9 GM/DL 6.2-8.1 BUN/Creatinine Ratio 16.0 8-20 Creatinine 1.0 mg/dL 0.5-1.4 Lipid Profile 03/19/2005 [facility] Cholesterol 178 mg/dL Less 138 (Trig/Chol/HDL) [phone] Than 200 Triglyceride 202 mg/dL High 40-200 High Density Lipoprotein 43 mg/dL 40-60 Low Density Lipoprotein 95 mg/dL Less Than 100 139 Cholesterol/HDL Ratio 4.14 AVERAGE 1-4.44 Urine DIP 06/29/2004 In House Lab Leukocytes 1= High Neg (607)- - Urine Nitrites neg Neg Urine pH 5 5-6 Total Protein, Urine neg Neg Urine Glucose norm Norm Urine Ketones eng Neg Urobolinogen norm Norm Urine Bilirubin neg Neg Urine Blood neg Neg Specific [place] na Low 1.01-1.02 Urine DIP 03/22/2004 In House Lab Leukocytes NEG Neg (607)- - Urine Nitrites NEG Neg Urine pH 5 5-6 Total Protein, Urine NL Neg Urine Glucose NL Norm Urine Ketones NL Neg Urobolinogen NL Norm Urine Bilirubin NL Neg Urine Blood NL Neg Specific [place] N/A Low 1.01-1.02 Urine DIP 04/21/2003 In House Lab Leukocytes 2+ High Neg (607)- - Urine Nitrites NEG Neg Urine pH 5 5-6 Total Protein, Urine NEG Neg Urine Glucose NORM Norm Urine Ketones NEG Neg Urobolinogen NORM Norm Urine Bilirubin NEG Neg Urine Blood 50 High Neg Specific [place] NA Low 1.01-1.02 Urine DIP 03/02/2002 In House Lab Leukocytes NEG Neg (607)- - Urine Nitrites NEG Neg Urine pH 5 5-6 Total Protein, Urine NL Neg Urine Glucose NL Norm Urine Ketones NL Neg Urobolinogen NL Norm Urine Bilirubin NL Neg Urine Blood NL Neg Specific [place] N/A Low 1.01-1.02 1 SEE RESULT BELOW Name: JAVIER BOBO : [address]: Yadi Rivas MD Acct: [id number] Unit: [id number] AGE: 82 Location: [facility] Re04/09/18 SEX: F Status: REG REF SPEC: [id number] WILDA: 04/09/18-1433 [facility] DR: Yadi Rivas MD REQ: [id number] RECD: 04/09/18 STATUS: COMP _ SOURCE: URINE [facility]: ORDERED: Urine Culture COMMENTS: [id number] LBI Urine Source: Random Procedure Result Reported Site Urine Culture Final 04/11/18- 0855 ML Organism 1 KLEBSIELLA OZAENAE [place] Count >100,000 (Many) CFU/ML 1. KLEBSIELLA OZAENAE [facility] RX --------- ------ Ampicillin R Cefazolin <=4 S Cefepime <=1 S Ceftriaxone <=1 S Ciprofloxacin <=0.25 S Gentamicin <=1 S Levofloxacin <=0.12 S Meropenem <=0.25 S Nitrofurantoin 32 S Tetracycline <=1 S Pipercillin/Tazobactam <=4 S Trimethoprim/Sulfamethoxazole <=20 S Amoxicillin/Clavulanic Acid <=2 S Aztreonam <=1 S Contact the Microbiology Department for any additional antibiotic reporting. * ML - Main Lab . END OF REPORT DEPARTMENT OF PATHOLOGY, [address] [place] [address] David Argueta M.D. Director [facility] # [id number] 2 Desirable: <150 Borderline High: 150-199 High: 200-499 Very High: >500 3 Desirable: <200 Borderline High: 200-239 High: >239 4 Low: <40 Desirable: 40-60 High: >60 5 Desirable: <100 Near Optimal: 100-129 Borderline High: 130-159 High: 160-189 Very High: >189 6 SEE RESULT BELOW Name: JAVIER BOBO : [address]: Yadi Rivas MD Acct: [id number] Unit: [id number] AGE: 82 Location: [facility] Re02/24/18 SEX: F Status: REG REF SPEC: [id number] WILDA: 02/24/[address]: Yadi Rivas MD REQ: [id number] RECD: 02/25/18 STATUS: COMP _ SOURCE: URINE SPDESC: ORDERED: Urine Culture Procedure Result Reported Site Urine Culture Final 02/26/18- 1152 ML Organism 1 STREP DYSGALACTIAE (GRP C) [place] Count >100,000 (Many) CFU/ML 1. STREP DYSGALACTIAE (GRP C) [facility].I.[facility]. RX --------- ------ Ampicillin <=0.06 S Penicillin <=0.03 S Cefepime <=0.25 S * Cefotaxime <=0.25 S Ceftriaxone <=0.25 S Levofloxacin 0.5 S Tetracycline <=0.50 S Vancomycin 0.5 S * ML - Main Lab . END OF REPORT DEPARTMENT OF PATHOLOGY, [address] [place] [address] David Argueta M.D. Director [facility] # [id number] 7 SEE RESULT BELOW Name: JAVIER BOBO : [address]: Yadi Rivas MD Acct: [id number] Unit: [id number] AGE: 82 Location: [facility] Re01/14/18 SEX: F Status: REG REF SPEC: [id number] WILDA: 01/14/18-1624 [facility] DR: Yadi Rivas MD REQ: [id number] RECD: 01/15/18 STATUS: COMP _ SOURCE: URINE SPDESC: ORDERED: Urine Culture COMMENTS: [id number] LBI Urine Source: Random Procedure Result Reported Site Urine Culture Final 01/16/18- 820 ML Organism 1 KLEBSIELLA OXYTOCA [place] Count >100,000 (Many) CFU/ML 1. KLEBSIELLA OXYTOCA [facility].I[facility] RX --------- ------ Ampicillin R Cefazolin <=4 S Cefepime <=1 S Ceftriaxone <=1 S Ciprofloxacin <=0.25 S Gentamicin <=1 S Levofloxacin <=0.12 S Meropenem <=0.25 S Nitrofurantoin 32 S Tetracycline <=1 S Pipercillin/Tazobactam <=4 S Trimethoprim/Sulfamethoxazole <=20 S Amoxicillin/Clavulanic Acid <=2 S Aztreonam <=1 S Contact the Microbiology Department for any additional antibiotic reporting. * ML - Main Lab . END OF REPORT DEPARTMENT OF PATHOLOGY, [address] [place] [address] David Argueta M.D. Director [facility] # [id number] 8 SEE RESULT BELOW Name: JAVIER BOBO : [address]: Hardeep Mueller III, NP Acct: [id number] Unit: [id number] AGE: 82 Location: [facility] Re10/01/17 SEX: F Status: REG REF SPEC: [id number] WILDA: 10/01/17-1144 [facility] DR: Hardeep Mueller III, NP REQ: [id number] RECD: 10/01/17 STATUS: COMP _ SOURCE: URINE SPDESC: ORDERED: Urine Culture Procedure Result Reported Site Urine Culture Final 10/03/17- 0807 ML Organism 1 KLEBSIELLA OXYTOCA [place] Count >100,000 (Many) CFU/ML 1. KLEBSIELLA OXYTOCA [facility].I[facility] RX --------- ------ Ampicillin >=32 R Cefazolin 8 S Cefepime <=1 S Ceftriaxone <=1 S Ciprofloxacin <=0.25 S Gentamicin <=1 S Levofloxacin <=0.12 S Meropenem <=0.25 S Nitrofurantoin <=16 S Tetracycline <=1 S Pipercillin/Tazobactam <=4 S Trimethoprim/Sulfamethoxazole <=20 S Amoxicillin/Clavulanic Acid 4 S Aztreonam <=1 S Contact the Microbiology Department for any additional antibiotic reporting. * - Main Lab . END OF REPORT DEPARTMENT OF PATHOLOGY, [address] [place] [address] David Argueta M.D. Director [facility] # [id number] 9 SEE RESULT BELOW Name: JAVIER BOBO Eliane : [address]: Robin Fritz MD Acct: [id number] Unit: [id number] AGE: 82 Location: [place] [address] Re09/08/17 SEX: F Status: ADM IN SPEC: [id number] WILDA: 09/08/17 [facility] DR: Figueroa Martell MD REQ: [id number] RECD: 09/08/17 STATUS: COMP DOUG DR: Yadi Rivas MD _ SOURCE: SPUTUM SPDESC: ORDERED: Sputum Cult/GS Procedure Result Reported Site Sputum Smear Final 09/09/17- 0654 ML 4+ Neutrophils 2+ Epithelial Cells 4+ Gram Positive Cocci in Clusters, resembling Staph 3+ Gram Negative Coccobacilli Sputum Culture Final 09/10/17- 1329 ML Organism 1 HAEMOPHILUS INFLUENZAE Quantity 3+ Beta Lactamase Negative Organism 2 NORMAL MARIJA Quantity 3+ * ML - Main Lab . END OF REPORT DEPARTMENT OF PATHOLOGY, [address] [place] [address] David Argueta M.D. Director [facility] # [id number] 10 REDRAW REQUESTED TO LAUREN IN ED AT 0595 - [id number] 11 >100 to <200 pg/mL: likely compensated congestive heart failure (CHF) 200 to 400 pg/mL: likely moderate CHF >400 pg/mL: likely moderate to severe CHF 12 Because ethnic data is not always readily available, this report includes an eGFR for both -Americans and non- Americans. The National Kidney Disease Education Program (NKDEP) does not endorse the use of the MDRD equation for patients that are not between the ages of 18 and 70, are , have extremes of body size, muscle mass, or nutritional status, or are non- or non-. According to the National Kidney Foundation, irrespective of diagnosis, the stage of the disease is based on the level of kidney function: Stage Description GFR(mL/min/1.73 m(2)) 1 Kidney damage with normal or decreased GFR 90 2 Kidney damage with mild decrease in GFR 60-89 3 Moderate decrease in GFR 30-59 4 Severe decrease in GFR 15-29 5 Kidney failure <15 (or dialysis) 13 Specimen Hemolyzed. Result may not be valid. Unable to report test result due to hemolysis. 14 Unable to report test result due to hemolysis. 15 Acute inflammation: >10.[address] [facility] Severe Sepsis and Septic Shock Management Bundle Measure requires all lactic acids initially measuring >2.0 mmol/L be repeated. 17 SEE RESULT BELOW Name: JAVIER BOBO : [address]: Chevy Walker MD Acct: [id number] Unit: [id number] AGE: 82 Location: [place] [address] Re09/08/17 Dis: 09/10/17 SEX: F Status: DIS IN SPEC: [id number] WILDA: 09/08/17 [facility] DR: Figueroa Martell MD REQ: [id number] RECD: 09/08/17 STATUS: DAVID CAMACHO DR: Yaid Rivas MD _ SOURCE: BLOOD,VENO SPDESC: ORDERED: Blood Cult Procedure Result Reported Site Aerobic Culture Bottle Final 09/13/17- 7 ML No Growth Day 5 Anaerobic Culture Bottle Final 09/13/17- 1627 ML No Growth Day 5 * ML - [facility] . END OF REPORT DEPARTMENT OF PATHOLOGY, [address] [place] [address] David Argueta M.D. Director [facility] # [id number] 18 SEE RESULT BELOW Name: JAVIER BOBO : [address]: Nirmal Thompson MD Acct: [id number] Unit: [id number] AGE: 82 Location: ED Re08/04/17 SEX: F Status: DEP ER SPEC: [id number] WILDA: 08/04/17 [facility] DR: Nirmal Thompson MD REQ: [id number] RECD: 08/04/17 STATUS: DAVID CAMACHO DR: Yadi Rivas MD _ [facility] ORDERED: Urine Culture Procedure Result Reported Site Urine Culture Final 08/06/17- 0750 ML Organism 1 ENTEROBACTER CLOACAE [place] Count 75-100,000 (Many) CFU/ML 1. ENTEROBACTER CLOACAE M.I.C. RX --------- ------ Cefazolin R Cefepime <=1 S Ceftriaxone <=1 S Ciprofloxacin <=0.25 S Gentamicin <=1 S Levofloxacin <=0.12 S Meropenem <=0.25 S Nitrofurantoin 64 I Tetracycline 2 S Trimethoprim/Sulfamethoxazole <=20 S Amoxicillin/Clavulanic Acid R Aztreonam <=1 S Contact the Microbiology Department for any additional antibiotic reporting. * ML - Main Lab . END OF REPORT DEPARTMENT OF PATHOLOGY, [address] [place] [address] David Argueta M.D. Director [facility] # [id number] 19 Because ethnic data is not always readily available, this report includes an eGFR for both -Americans and non- Americans. The National Kidney Disease Education Program (NKDEP) does not endorse the use of the MDRD equation for patients that are not between the ages of 18 and 70, are , have extremes of body size, muscle mass, or nutritional status, or are non- or non-. According to the National Kidney Foundation, irrespective of diagnosis, the stage of the disease is based on the level of kidney function: Stage Description GFR(mL/min/1.73 m(2)) 1 Kidney damage with normal or decreased GFR 90 2 Kidney damage with mild decrease in GFR 60-89 3 Moderate decrease in GFR 30-59 4 Severe decrease in GFR 15-29 5 Kidney failure <15 (or dialysis) 20 Acute inflammation: >10.00 21 [id number] 22 [id number] 23 [id number] 24 Desirable: <150 Borderline High: 150-199 High: 200-499 Very High: >500 25 Desirable: <200 Borderline High: 200-239 High: >239 26 Low: <40 Desirable: 40-60 High: >60 27 Desirable: <100 Near Optimal: 100-129 Borderline High: 130-159 High: 160-189 Very High: >189 28 [id number] 29 [id number] 30 [id number] 31 [id number] 32 Acute inflammation: >10.00 33 [id number] 34 Sed rate done on 11/21. 35 [id number] 36 [id number] 37 [id number] 38 [id number] 39 [id number] 40 [id number] 41 Because ethnic data is not always readily available, this report includes an eGFR for both -Americans and non- Americans. The National Kidney Disease Education Program (NKDEP) does not endorse the use of the MDRD equation for patients that are not between the ages of 18 and 70, are , have extremes of body size, muscle mass, or nutritional status, or are non- or non-. According to the National Kidney Foundation, irrespective of diagnosis, the stage of the disease is based on the level of kidney function: Stage Description GFR(mL/min/1.73 m(2)) 1 Kidney damage with normal or decreased GFR 90 2 Kidney damage with mild decrease in GFR 60-89 3 Moderate decrease in GFR 30-59 4 Severe decrease in GFR 15-29 5 Kidney failure <15 (or dialysis) 42 [id number] 43 SEE RESULT BELOW Name: JAVIER BOBO Eliane : [address]: Yadi Rivas MD Acct: [id number] Unit: [id number] AGE: 80 Location: [facility] Re04/13/16 SEX: F Status: REG REF SPEC: [id number] WILDA: 04/13/16-1218 [facility] DR: Yadi Rivas MD REQ: [id number] RECD: 04/13/164 STATUS: COMP _ SOURCE: URINE [facility]: ORDERED: Urine Culture COMMENTS: [id number] Urine Source: Random Procedure Result Reported Site Urine Culture Final 04/15/16- 1005 ML Organism 1 CITROBACTER FREUNDII [place] Count >100,000 (Many) CFU/ML 1. CITROBACTER FREUNDII M.I.C. RX --------- ------ Cefazolin >=64 R Cefepime <=1 S Ceftriaxone <=1 S Ciprofloxacin <=0.25 S Gentamicin <=1 S Levofloxacin <=0.12 S Meropenem <=0.25 S Nitrofurantoin <=16 S Tetracycline <=1 S Pipercillin/Tazobactam <=4 S Trimethoprim/Sulfamethoxazole <=20 S Amoxicillin/Clavulanic Acid R Aztreonam <=1 S Contact the Microbiology Department for any additional antibiotic reporting. * ML - MAIN LAB ([facility]) . END OF REPORT * ML=Testing performed at Main Lab DEPARTMENT OF PATHOLOGY, [address] [place] [address] David Argueta M.D. Director [facility] # [id number] 45 Desirable <150 Borderline high 150-199 High 200-499 Very High >500 46 Desirable <200 Borderline high 200-239 High >239 47 Low <40 Desirable: 40-60 High: >60 48 Desirable: <100 mg/dL Near Optimal: 100-129 mg/dL Borderline High: 130-159 mg/dL High: 160-189 mg/dL Very High: >189 mg/dL 49 Because ethnic data is not always readily available, this report includes an eGFR for both -Americans and non- Americans. The National Kidney Disease Education Program (NKDEP) does not endorse the use of the MDRD equation for patients that are not between the ages of 18 and 70, are , have extremes of body size, muscle mass, or nutritional status, or are non- or non-. According to the National Kidney Foundation, irrespective of diagnosis, the stage of the disease is based on the level of kidney function: Stage Description GFR(mL/min/1.73 m(2)) 1 Kidney damage with normal or decreased GFR 90 2 Kidney damage with mild decrease in GFR 60-89 3 Moderate decrease in GFR 30-59 4 Severe decrease in GFR 15-29 5 Kidney failure <15 (or dialysis) 50 REFERENCE VALUE <20.0 (Negative) Test Performed by: [place] [address] Patient Service Specialist: Guzman Ivory II, M.D., Ph.D. 51 No bands detected 52 Specific serologic response to B. burgdorferi infection is not detected, but cannot rule out early infection during which low or undetectable antibody levels to B. burgdorferi may be present. If clinically indicated, a new serum specimen should be submitted in 7-14 days. ADDITIONAL INFORMATION CDC criteria require >=5 bands for IgG or >=2 bands for IgM for the Immunoblot to be considered positive. Bands (e.g.,p41) may be detected in patients without Lyme disease, and patterns not meeting the CDC criteria should be interpreted with caution. Immunoblot should be ordered only on specimens that are positive or equivocal by a FDA-licensed Lyme disease antibody screening test (e.g., EIA). Test Performed by: [place] [address] Patient Service Specialist: Guzman Ivory II, M.D., Ph.D. 53 Test Performed by: [place] [address] Patient Service Specialist: Guzman Ivory II, M.D., Ph.D. 54 [id number] 55 Acute inflammation: >10.00 56 Because ethnic data is not always readily available, this report includes an eGFR for both -Americans and non- Americans. The National Kidney Disease Education Program (NKDEP) does not endorse the use of the MDRD equation for patients that are not between the ages of 18 and 70, are , have extremes of body size, muscle mass, or nutritional status, or are non- or non-. According to the National Kidney Foundation, irrespective of diagnosis, the stage of the disease is based on the level of kidney function: Stage Description GFR(mL/min/1.73 m(2)) 1 Kidney damage with normal or decreased GFR 90 2 Kidney damage with mild decrease in GFR 60-89 3 Moderate decrease in GFR 30-59 4 Severe decrease in GFR 15-29 5 Kidney failure <15 (or dialysis) 57 Acute inflammation: >10.00 58 SEE RESULT BELOW Name: JAVIER BBOO : [address]: Yadi Rivas MD Acct: [id number] Unit: [id number] AGE: 79 Location: [facility] Re04/01/15 SEX: F Status: REG REF SPEC: [id number] WILDA: 04/01/15-1157 [facility] DR: Yadi Rivas MD REQ: [id number] RECD: 04/01/15 STATUS: COMP _ SOURCE: URINE SPDESC: ORDERED: Urine Culture Procedure Result Reported Site Urine Culture Final 04/04/15- 818 ML Organism 1 KLEBSIELLA PNEUMONIAE [place] Count >100,000 (Many) CFU/ML 1. KLEBSIELLA PNEUMONIAE [facility].I.C. RX --------- ------ Ampicillin R Cefazolin <=4 S Cefepime <=1 S Ceftriaxone <=1 S Ciprofloxacin <=0.25 S Gentamicin <=1 S Levofloxacin <=0.12 S Meropenem <=0.25 S Nitrofurantoin 32 S Tetracycline <=1 S Pipercillin/Tazobactam <=4 S Trimethoprim/Sulfamethoxazole <=20 S Amoxicillin/Clavulanic Acid <=2 S Aztreonam <=1 S Contact the Microbiology Department for any additional antibiotic reporting. * ML - MAIN LAB ([facility]) . END OF REPORT * ML=Testing performed at Main Lab DEPARTMENT OF PATHOLOGY, [address] [place] [address] David Argueta M.D. Director [facility] # [id number] 59 Because ethnic data is not always readily available, this report includes an eGFR for both -Americans and non- Americans. The National Kidney Disease Education Program (NKDEP) does not endorse the use of the MDRD equation for patients that are not between the ages of 18 and 70, are , have extremes of body size, muscle mass, or nutritional status, or are non- or non-. According to the National Kidney Foundation, irrespective of diagnosis, the stage of the disease is based on the level of kidney function: Stage Description GFR(mL/min/1.73 m(2)) 1 Kidney damage with normal or decreased GFR 90 2 Kidney damage with mild decrease in GFR 60-89 3 Moderate decrease in GFR 30-59 4 Severe decrease in GFR 15-29 5 Kidney failure <15 (or dialysis) 60 Desirable <150 Borderline high 150-199 High 200-499 Very High >500 61 Desirable <200 Borderline high 200-239 High >239 62 Low <40 Desirable: 40-60 High: >60 63 Desirable: <100 mg/dL Near Optimal: 100-129 mg/dL Borderline High: 130-159 mg/dL High: 160-189 mg/dL Very High: >189 mg/dL 64 Low risk: <1.00 Average risk: 1.00-3.00 High risk: >3.00 65 Acute inflammation: >10.00 66 Test Performed by: [address] [address] Patient Service Specialist: Guzman Ivory II, M.D., Ph.D. 67 Test Performed by: [address] [address] Patient Service Specialist: Guzman Ivory II, M.D., Ph.D. 68 Acute inflammation: >10.00 69 RUN DATE: 07/23/14 [facility] LAB LIVE PAGE 1 RUN TIME: [address] [place] [address] Specimen Inquiry Name: JAVIER BOBO : [address]: Yadi Rivas MD Acct: [id number] Unit: [id number] AGE: 79 Location: [facility] Re07/21/14 SEX: F Status: REG REF SPEC: [id number] WILDA: 07/21/14-[address]: Yadi Rivas MD REQ: [id number] RECD: 07/21/14 STATUS: COMP _ SOURCE: URINE SPDESC: ORDERED: Urine Culture QUERIES: Provider Requisition # [id number] Procedure Result Verified Site Urine Culture Final 07/23/14- 841 ML Organism 1 NORMAL MARIJA [place] Count 1-10,000 (Few) CFU/ML * ML - MAIN LAB ([facility]) . END OF REPORT * ML=Testing performed at Main Lab DEPARTMENT OF PATHOLOGY, [facility] [place], [place] [address] David Argueta M.D. Director [facility] # [id number] RUN DATE: 03/24/14 [facility] LAB LIVE PAGE 1 RUN TIME: [address] [facility] [employer] [place], [place] [address] Specimen Inquiry Name: JAVIER BOBO : [address]: Yadi Rivas MD Acct: [id number] Unit: [id number] AGE: 78 Location: [facility] Re03/22/14 SEX: F Status: REG REF SPEC: [id number] WILDA: 03/22/14-[address]: Yadi Rivas MD REQ: [id number] RECD: 03/22/14 STATUS: COMP _ SOURCE: URINE SPDESC: ORDERED: Urine Culture QUERIES: Medent Number [id number] Procedure Result Verified Site Urine Culture Final 03/24/14- 0843 ML Organism 1 ESCHERICHIA COLI [place] Count >100,000 (Many) CFU/ML Organism 2 STREP GROUP B [place] Count 10-25,000 (Moderate) CFU/ML Susceptibility testing of penicillins and other B-lactams approved by FDA for treatment of Streptococcus pyogenes (Group A Strep) and Streptococcus agalactiae (Group B Strep) is not necessary for clinical purposes and need not be done routinely, since as with vancomycin, resistant strains have not been recognized. (CLSI C298-C65;p.66) Positive isolates will be saved for one week. Please call the Microbiology Laboratory if further susceptibility testing is needed. 1. ESCHERICHIA COLI M.I.C. RX --------- ------ Ampicillin <=2 S Cefazolin <=4 S Cefepime <=1 S Ceftriaxone <=1 S Ciprofloxacin <=0.25 S Gentamicin <=1 S Levofloxacin <=0.12 S Meropenem <=0.25 S Nitrofurantoin 32 S Tetracycline <=1 S CONTINUED ON NEXT PAGE * ML=Testing performed at Main Lab DEPARTMENT OF PATHOLOGY, [facility] [place], [place] [address] David Argueta M.D. Director [facility] # [id number] RUN DATE: 03/24/14 [facility] LAB LIVE PAGE 2 RUN TIME: [address] [place] [address] Specimen Inquiry Patient: JAVIER BOBO [id number] (Continued) Specimen: [id number] Collected: 03/22/14 Received: 03/22/14 (Continued) Procedure Result Verified Site Urine Culture Final (continued) 03/24/14842 1. ESCHERICHIA COLI (continued) M.I.C. RX --------- ------ Pipercillin/Tazobactam <=4 S Trimethoprim/Sulfamethoxazole <=20 S Amoxicillin/Clavulanic Acid <=2 S Aztreonam <=1 S Contact the Microbiology Department for any additional antibiotic reporting. END OF REPORT * ML=Testing performed at Main Lab DEPARTMENT OF PATHOLOGY, [address] [place] [address] David Argueta M.D. Director [facility] # [id number] 71 FASTING 72 Desirable <150 Borderline high 150-199 High 200-499 Very High >500 73 Desirable <200 Borderline high 200-239 High >239 74 Low <40 Desirable: 40-60 High: >60 75 Desirable <100 Near Optimal 100-129 Borderline high 130-159 High 160-189 Very High >189 76 Potassium reference range changed effective 02/21/14 77 Because ethnic data is not always readily available, this report includes an eGFR for both -Americans and non- Americans. The National Kidney Disease Education Program (NKDEP) does not endorse the use of the MDRD equation for patients that are not between the ages of 18 and 70, are , have extremes of body size, muscle mass, or nutritional status, or are non- or non-. According to the National Kidney Foundation, irrespective of diagnosis, the stage of the disease is based on the level of kidney function: Stage Description GFR(mL/min/1.73 m(2)) 1 Kidney damage with normal or decreased GFR 90 2 Kidney damage with mild decrease in GFR 60-89 3 Moderate decrease in GFR 30-59 4 Severe decrease in GFR 15-29 5 Kidney failure <15 (or dialysis) 78 FASTING 79 REFERENCE VALUE 25-HYDROXY D TOTAL (D2+D3) Optimum levels in the healthy population are 20-50, patients with bone disease may benefit from higher levels within this range. Test Performed by: [place] [address] Patient Service Specialist: Ezra Connor M.D. 80 HDL Interpretation: Undesirable: High Risk: Less than 40 mg/dL Desirable: Low Risk: Greater than 60 mg/dL 81 LDL Interpretation: Low Risk Optimal Level: LDL Less than 100 mg/dL Near or Above Optimal: LDL 100-129 mg/dL Borderline High Risk: LDL 130-159 mg/dL High Risk: LDL 160-189 mg/dL Very High Risk: LDL Greater than 189 mg/dL 82 -- REFERENCE VALUE -- 25-HYDROXY D TOTAL (D2+D3) Optimum levels in the healthy population are 20-50, patients with bone disease may benefit from higher levels within this range. Test Performed by: [place] [address] Patient Service Specialist: Milo Sinha III, M.D. 83 FASTING 84 Because ethnic data is not always readily available, this report includes an eGFR for both -Americans and non- Americans. The National Kidney Disease Education Program (NKDEP) does not endorse the use of the MDRD equation for patients that are not between the ages of 18 and 70, are , have extremes of body size, muscle mass, or nutritional status, or are non- or non-. According to the National Kidney Foundation, irrespective of diagnosis, the stage of the disease is based on the level of kidney function: Stage Description GFR(mL/min/1.73 m(2)) 1 Kidney damage with normal or decreased GFR 90 2 Kidney damage with mild decrease in GFR 60-89 3 Moderate decrease in GFR 30-59 4 Severe decrease in GFR 15-29 5 Kidney failure <15 (or dialysis) 85 RUN DATE: 02/11/13 [facility] LAB LIVE PAGE 1 RUN TIME: [address] [place], [place] [address] Specimen Inquiry Name: JAVIER BOBO : [address]: Yadi Rivas MD Acct: [id number] Unit: [id number] AGE: 77 Location: [facility] Re02/09/13 SEX: F Status: REG REF SPEC: [id number] WILDA: 02/09/13-[address]: Yadi Rivas MD REQ: [id number] RECD: 02/09/13 STATUS: COMP _ SOURCE: MISC SOURC SPDESC:OTHER ORDERED: Culture Stain COMMENTS: LEFT INNER EAR QUERIES: Medent Number [id number] Specimen Description LEFT INNER EAR Procedure Result Verified Site Wound/Misc Gram Stain Final 02/10/13- 0741 ML 3+ Epithelial Cells No Polys Observed No Organisms Seen Wound/Misc Culture Final 02/11/13- 1209 ML Organism 1 MRSA Quantity 2+ MRSA: Consistent with previous results. 1. MRSA M.I.C. RX --------- ------ Penicillin >=0.5 R Clindamycin <=0.25 S Erythromycin >=8 R Gentamicin <=0.5 S Linezolid 2 S Nitrofurantoin <=16 S Oxacillin >=4 R * Quinupristin/Dalfopristin <=0.25 S Rifampin <=0.5 S Tetracycline <=1 S Doxycycline - Deduced S * Minocycline - Deduced S CONTINUED ON NEXT PAGE * ML=Testing performed at Main Lab DEPARTMENT OF PATHOLOGY, [address] [place] [address] David Argueta M.D. Director [facility] Permit #[id number] RUN DATE: 02/11/13 [facility] LAB LIVE PAGE 2 RUN TIME: [address] [place], [place] [address] Specimen Inquiry Patient: JAVIER BOBO [id number] (Continued) Specimen: [id number] Collected: 02/09/13 Received: 02/09/13 (Continued) Procedure Result Verified Site Wound/Misc Culture Final (continued) 02/11/13- 1203 1. MRSA (continued) M.I.C. RX --------- ------ Trimethoprim/Sulfamethoxazole <=10 S Vancomycin <=0.5 S Imipenem-Deduced R * Ampicillin/Sulbactam-Deduced R Cefazolin-Deduced R * These antibiotics are not available in the [facility] Formulary Contact the Microbiology Department for any additional antibiotic reporting. END OF REPORT * ML=Testing performed at Main Lab DEPARTMENT OF PATHOLOGY, [facility] [place], [place] [address] David Argueta M.D. Director [facility] Permit #[id number] RUN DATE: 05/07/12 [facility] LAB LIVE PAGE 1 RUN TIME: [address] [facility] [employer] [place], [place] [address] Specimen Inquiry Name: JAVIER BOBO : [address]: Rob MILLS,Yadi Jordan Acct: [id number] Unit: [id number] AGE: 77 Location: [facility] Re05/05/12 SEX: F Status: REG REF SPEC: [id number] WILDA: 05/05/12-154 [facility] DR: Rob MILLS, Yadi Jordan REQ: [id number] RECD: 05/05/12 STATUS: COMP _ SOURCE: URINE SPDESC: ORDERED: Urine Culture QUERIES: Medent Number [id number] Procedure Result Verified Site Urine Culture Final 05/07/12- 0943 ML Organism 1 MRSA [place] Count >100,000 (Many) CFU/ML 1. MRSA M.I.C. RX --------- ------ Penicillin >=0.5 R Gentamicin <=0.5 S Linezolid 2 S * Moxifloxacin 1 S Nitrofurantoin <=16 S Oxacillin >=4 R * Quinupristin/Dalfopristin <=0.25 S Rifampin <=0.5 S Tetracycline <=1 S Doxycycline - Deduced S * Minocycline - Deduced S Trimethoprim/Sulfamethoxazole <=10 S Vancomycin 1 S Imipenem-Deduced R Ampicillin/Sulbactam-Deduced R Cefazolin-Deduced R * These antibiotics are not available in the [facility] Formulary Contact the Microbiology Department for any additional antibiotic reporting. END OF REPORT * ML=Testing performed at Main Lab DEPARTMENT OF PATHOLOGY, [facility] [place], [place] [address] David Argueta M.D. Health System Permit #[id number] RUN DATE: 04/09/12 [facility] LAB LIVE PAGE 1 RUN TIME: [address] [facility] [employer] [place], [place] [address] Specimen Inquiry Name: JAVIER BOBO Eliane : [address]: Rob MILLS,Yadi Jordan Acct: [id number] Unit: [id number] AGE: 76 Location: [facility] Re04/07/12 SEX: F Status: REG REF SPEC: [id number] WILDA: 04/07/12-[address]: Rob MILLS, Yadi Jordan REQ: [id number] RECD: 04/07/12 STATUS: COMP _ SOURCE: URINE SPDESC: ORDERED: Urine Culture QUERIES: Medent Number [id number] Procedure Result Verified Site Urine Culture Final 04/09/12- 1027 ML Organism 1 ESCHERICHIA COLI [place] Count >100,000 (Many) CFU/ML 1. ESCHERICHIA COLI M.I.C. RX --------- ------ Amikacin 4 S Ampicillin 4 S * Ampicillin/Sublactam 4 S Cefazolin <=4 S Cefepime <=1 S Cefoxitin <=4 S Ceftazidime <=1 S Ceftriaxone <=1 S Ciprofloxacin <=0.25 S Gentamicin <=1 S Imipenem <=1 S Levofloxacin <=0.12 S Nitrofurantoin <=16 S Piperacillin <=4 S Tigecycline <=0.5 S Trimethoprim/Sulfamethoxazole <=20 S * These antibiotics are not available in the [facility] Formulary Contact the Microbiology Department for any additional antibiotic reporting. END OF REPORT * ML=Testing performed at Main Lab DEPARTMENT OF PATHOLOGY, [address] [place] [address] David Argueta M.D. Director [facility] Permit #[id number] Interpretation: 10-24 (mild to moderate deficiency) -- REFERENCE VALUE -- 25-HYDROXY D TOTAL (D2+D3) Optimum levels in the normal population are 25-80 Test Performed by: [address] [address] Patient Service Specialist: Milo Sinha III, M.D. 89 FASTING 90 Because ethnic data is not always readily available, this report includes an eGFR for both -Americans and non- Americans. The National Kidney Disease Education Program (NKDEP) does not endorse the use of the MDRD equation for patients that are not between the ages of 18 and 70, are , have extremes of body size, muscle mass, or nutritional status, or are non- or non-. According to the National Kidney Foundation, irrespective of diagnosis, the stage of the disease is based on the level of kidney function: Stage Description GFR(mL/min/1.73 m(2)) 1 Kidney damage with normal or decreased GFR 90 2 Kidney damage with mild decrease in GFR 60-89 3 Moderate decrease in GFR 30-59 4 Severe decrease in GFR 15-29 5 Kidney failure <15 (or dialysis) 91 HDL Interpretation: Undesirable: High Risk: Less than 40 MG/DL Desirable: Low Risk: Greater than 60 MG/DL 92 LDL Interpretation: Low Risk Optimal Level: LDL Less than 100 MG/DL Near or Above Optimal: LDL 100-129 MG/DL Borderline High Risk: LDL 130-159 MG/DL High Risk: LDL 160-189 MG/DL Very High Risk: LDL Greater than 189 MG/DL 93 RUN DATE: 04/04/11 [facility] NMI LIVE PAGE 1 RUN TIME: 1035 Specimen Inquiry RUN USER: INTERFACE Name: JAVIER BOBO Status: REG REF Re04/02/11 Age/Sex: 75/F Unit#: [id number] Location: [facility] : [birth year] SPEC #: [id number] WILDA: 04/02/11 STATUS: DAVID REQ #: [id number] RECD: 04/02/11 [facility] DR: Rob MILLS,Yadi Jordan SOURCE: URINE ENTR: 04/02/[address]: ROSY: ORDERED: URINE C S QUERIES: MEDENT REQUISITION # [id number] SPECIMEN DESCRIPTION: URINE, CLEAN CATCH Procedure Result Verified Site > URINE CULTURE SENSITIVI Final 04/04/11- 1034 ML Organism 1 ESCHERICHIA COLI [place] COUNT >100,000 ORGANISMS/ML (MANY) 1. ESCHERICHIA COLI RX M.I.C. ------ --------- AMIKACIN S <=2 LEVOFLOXACIN S <=0.12 AMPICILLIN S 8 CEFAZOLIN S <=4 CEFTRIAXONE S <=1 CIPROFLOXACIN S <=0.25 GENTAMICIN S <=1 TIGECYCLINE S <=0.5 CEFTAZIDIME S <=1 IMIPENEM S <=1 NITROFURANTOIN S <=16 TRIMETH-SULFA S <=20 *These antibiotics are not available in the [facility] Formulary. Contact the Microbiology Department for any additional antibiotic reporting. - [facility] Permit #[id number] [facility] [employer] [place] [address] DEPARTMENT OF PATHOLOGY, [facility] [place] [address] [facility] Permit #[id number] David Argueta M.D. Director Domingo Alva M.D. Helminthologist 94 CHOLESTEROL INTERPRETATION: Desirable: Less than 200 MG/DL Borderline-High Risk: 200-239 MG/DL High-Risk: 240 MG/DL and over 95 HDL INTERPRETATION: Undesirable: High Risk: Less than 40 MG/DL Desirable: Low Risk: Greater than 60 MG/DL 96 LDL INTERPRETATION: Low Risk Optimal Level: LDL Less than 100 MG/DL Near or Above Optimal: LDL 100-129 MG/DL Borderline High Risk: LDL 130-159 MG/DL High Risk: LDL 160-189 MG/DL Very High Risk: LDL Greater than 189 MG/DL 97 Anion gap measurement may be of limited value in the presence of any alkalosis, especially in a combined acid base disorder. . 98 A metabolite of Naproxen, O-desmethylnaproxen, has been shown to interfere with the Jendrassik-Sublimity method for measuring total bilirubin. Samples from patients who have taken Naproxen have shown spurious elevation in total bilirubin levels. 99 Because ethnic data is not always readily available, this report includes an eGFR for both -Americans and non- Americans. The National Kidney Disease Education Program (NKDEP) does not endorse the use of the MDRD equation for patients that are not between the ages of 18 and 70, are , have extremes of body size, muscle mass, or nutritional status, or are non- or non-. According to the National Kidney Foundation, irrespective of diagnosis, the stage of the disease is based on the level of kidney function: Stage Description GFR(mL/min/1.73 m(2)) 1 Kidney damage with normal or decreased GFR 90 2 Kidney damage with mild decrease in GFR 60-89 3 Moderate decrease in GFR 30-59 4 Severe decrease in GFR 15-29 5 Kidney failure <15 (or dialysis) 10 -- REFERENCE VALUE -- 0 25-HYDROXY D TOTAL (D2+D3) Optimum levels in the normal population are 25-80 Test Performed by: [facility] Dpt of Lab Med and Pathology [address] [place], [place] [id number] Patient Service Specialist: Milo Sinha III, M.D. 10 CHOLESTEROL INTERPRETATION: 1 Desirable: Less than 200 MG/DL Borderline-High Risk: 200-239 MG/DL High-Risk: 240 MG/DL and over 10 HDL INTERPRETATION: 2 Undesirable: High Risk: Less than 40 MG/DL Desirable: Low Risk: Greater than 60 MG/DL 10 LDL INTERPRETATION: 3 Low Risk Optimal Level: LDL Less than 100 MG/DL Near or Above Optimal: LDL 100-129 MG/DL Borderline High Risk: LDL 130-159 MG/DL High Risk: LDL 160-189 MG/DL Very High Risk: LDL Greater than 189 MG/DL 10 A metabolite of Naproxen, O-desmethylnaproxen, has been 4 shown to interfere with the Jendrassik-Leah method for measuring total bilirubin. Samples from patients who have taken Naproxen have shown spurious elevation in total bilirubin levels. 10 Please note updated reference range, effective 11/10/09 5 10 CHOLESTEROL INTERPRETATION: 6 Desirable: Less than 200 MG/DL Borderline-High Risk: 200-239 MG/DL High-Risk: 240 MG/DL and over 10 HDL INTERPRETATION: 7 Undesirable: High Risk: Less than 40 MG/DL Desirable: Low Risk: Greater than 60 MG/DL 10 LDL INTERPRETATION: 8 Low Risk Optimal Level: LDL Less than 100 MG/DL Near or Above Optimal: LDL 100-129 MG/DL Borderline High Risk: LDL 130-159 MG/DL High Risk: LDL 160-189 MG/DL Very High Risk: LDL Greater than 189 MG/DL 10 Anion gap measurement may be of limited value in the 9 presence of any alkalosis, especially in a combined acid base disorder. . 11 Note change in reference range as of 12/11/07. The 0 change was based on recommendations from the [place] [employer]. 11 A metabolite of Naproxen, O-desmethylnaproxen, has been 1 shown to interfere with the Jendrassik-Sublimity method for measuring total bilirubin. Samples from patients who have taken Naproxen have shown spurious elevation in total bilirubin levels. 11 Because ethnic data is not always readily available, 2 this report includes an eGFR for both -Americans and non- Americans. The National Kidney Disease Education Program (NKDEP) does not endorse the use of the MDRD equation for patients that are not between the ages of 18 and 70, are , have extremes of body size, muscle mass, or nutritional status, or are non- or non-. According to the National Kidney Foundation, irrespective of diagnosis, the stage of the disease is based on the level of kidney function: Stage Description GFR(mL/min/1.73 m(2)) 1 Kidney damage with normal or decreased GFR 90 2 Kidney damage with mild decrease in GFR 60-89 3 Moderate decrease in GFR 30-59 4 Severe decrease in GFR 15-29 5 Kidney failure <15 (or dialysis) 11 CHOLESTEROL INTERPRETATION: 3 Desirable: Less than 200 MG/DL Borderline-High Risk: 200-239 MG/DL High-Risk: 240 MG/DL and over 11 HDL INTERPRETATION: 4 Undesirable: High Risk: Less than 40 MG/DL Desirable: Low Risk: Greater than 60 MG/DL 11 LDL INTERPRETATION: 5 Low Risk Optimal Level: LDL Less than 100 MG/DL Near or Above Optimal: LDL 100-129 MG/DL Borderline High Risk: LDL 130-159 MG/DL High Risk: LDL 160-189 MG/DL Very High Risk: LDL Greater than 189 MG/DL 11 THERAPEUTIC TARGET FOR THE TREATMENT OF DIABETES 6 MELLITUS PATIENTS IS <7% HBA1C, AND IN SELECTIVE PATIENTS <6.0%. PLEASE REFER TO [place] [employer] DIABETIC CARE GUIDELINES FOR FURTHER INFORMATION. 11 Escherichia coli 7 >100,000 col/ml URINE CULTURE organism 1 Escherichia coli >100,000 col/ml Ertapenem <=0.5 mcg/mL Susceptible Amikacin <=2 mcg/mL Susceptible Amoxicillin/CA 4 mcg/mL Susceptible Ampicillin 8 mcg/mL Susceptible Aztreonam <=1 mcg/mL Susceptible Cefazolin <=4 mcg/mL Susceptible Ciprofloxacin <=0.25 mcg/mL Susceptible Gentamicin <=1 mcg/mL Susceptible Levofloxacin <=0.12 mcg/mL Susceptible Nitrofurantoin 32 mcg/mL Susceptible Piperacillin/tazobactam <=4 mcg/mL Susceptible Tetracycline <=1 mcg/mL Susceptible Trimethoprim/Sulfa <=20 mcg/mL Susceptible 11 Anion gap measurement may be of limited value in the 8 presence of any alkalosis, especially in a combined acid base disorder. . 11 Note change in reference range as of 12/11/07. The 9 change was based on recommendations from the [place] [employer]. 12 Please note change in reference range effective 07 0 . 12 A metabolite of Naproxen, O-desmethylnaproxen, has been 1 shown to interfere with the Jendrassik-Sublimity method for measuring total bilirubin. Samples from patients who have taken Naproxen have shown spurious elevation in total bilirubin levels. 12 Because ethnic data is not always readily available, 2 this report includes an eGFR for both -Americans and non- Americans. The National Kidney Disease Education Program (NKDEP) does not endorse the use of the MDRD equation for patients that are not between the ages of 18 and 70, are , have extremes of body size, muscle mass, or nutritional status, or are non- or non-. According to the National Kidney Foundation, irrespective of diagnosis, the stage of the disease is based on the level of kidney function: Stage Description GFR(mL/min/1.73 m(2)) 1 Kidney damage with normal or decreased GFR 90 2 Kidney damage with mild decrease in GFR 60-89 3 Moderate decrease in GFR 30-59 4 Severe decrease in GFR 15-29 5 Kidney failure <15 (or dialysis) 12 CHOLESTEROL INTERPRETATION: 3 Desirable: Less than 200 MG/DL Borderline-High Risk: 200-239 MG/DL High-Risk: 240 MG/DL and over 12 HDL INTERPRETATION: 4 Undesirable: High Risk: Less than 40 MG/DL Desirable: Low Risk: Greater than 60 MG/DL 12 LDL INTERPRETATION: 5 Low Risk Optimal Level: LDL Less than 100 MG/DL Near or Above Optimal: LDL 100-129 MG/DL Borderline High Risk: LDL 130-159 MG/DL High Risk: LDL 160-189 MG/DL Very High Risk: LDL Greater than 189 MG/DL 12 CHOLESTEROL INTERPRETATION: 6 Desirable: Less than 200 MG/DL Borderline-High Risk: 200-239 MG/DL High-Risk: 240 MG/DL and over 12 HDL INTERPRETATION: 7 Undesirable: High Risk: Less than 40 MG/DL Desirable: Low Risk: Greater than 60 MG/DL 12 LDL INTERPRETATION: 8 Low Risk Optimal Level: LDL Less than 100 MG/DL Near or Above Optimal: LDL 100-129 MG/DL Borderline High Risk: LDL 130-159 MG/DL High Risk: LDL 160-189 MG/DL Very High Risk: LDL Greater than 189 MG/DL 12 Anion gap measurement may be of limited value in the 9 presence of any alkalosis, especially in a combined acid base disorder. . 13 Note change in reference range as of 12/11/07. The 0 change was based on recommendations from the [place] [employer]. 13 Please note change in reference range effective 07 1 . 13 ---- 2 RUN DATE: 05/07/06 [facility] LIVE PAGE 1 RUN TIME: 1450 Specimen Inquiry RUN USER: INTERFACE [id number] JAVIER BOBO 71/F <REG REF 05/03> ([id number]) ERIN Kumar MD, Rajesh sanchez JBisi -- Specimen: [id number] Spec Date: 05/06/[address]: Dwaine Flowers Spec Type: SURGICAL P Received: 05/06/06-1122 Copies to: Tito Bee MD SPECIMEN 1) PERINEUM SKIN BIOPSY 2) VAGINA/INTROITUS SKIN BIOPSY HISTORY PRE-OP DIAGNOSIS: 1) Sebaceous cyst 2) vulvar rash CLINICAL INFORMATION: [age] year old patient with vulvar and alycia neum burning and itching, whitish discoloration of skin GROSS DESCRIPTION 1) The specimen is received in formalin labelled Javier Bobo, Perineum Sebaceous, and consists of skin fragments and long-martinez, soft tissue measuring 0.6 x 0.4 x 0.2 cm. Submitted entirely, one cassette. 2) The specimen is received in formalin labelled Javier Bobo, Vaginal Biopsy, and consists of a long, soft tissue fragment measuring 0.3 x 0.2 x 0.1 cm. Submitted entirely, one cassette. DIAGNOSIS 1) Skin, perineum, biopsy - Epidermal inclusion cyst. 2) Skin, vagina/introitus, biopsy - Lichen sclerosis. Signed Electronically signed DAVID ARGUETA MD 05/07/06 -- -- DEPARTMENT OF PATHOLOGY, [address] [place] [address] [facility] Permit #[id number] Guzman Sands II, M.D. Director Peter Gaspar irector -- 13 Anion gap measurement may be of limited value in the 3 presence of any alkalosis, especially in a combined acid base disorder. . 13 Classification: Desirable 4 . 13 Classification: Low 5 . 13 6 CALCULATED LDL APPROXIMATES THE VALUE OF A DIRECT LDL MEASUREMENT. Classification: Near or above optimal . 13 Anion gap measurement may be of limited value in the 7 presence of any alkalosis, especially in a combined acid base disorder. . 13 Classification: Desirable 8 . 13 9 CALCULATED LDL APPROXIMATES THE VALUE OF A DIRECT LDL MEASUREMENT. Classification: Optimal Level . Procedures Date Code Description Status 11/08/2014 07321 EKG, at Least 12 Leads w/Interpretation and Report Completed 03/28/2005 69166 EKG, at Least 12 Leads w/Interpretation and Report Completed Encounters Type Date Location Provider Dx Diagnosis Office Visit 04/07/2018 Main Office Yadi Rivas, Z00.00 Encntr for general 2:00p Peter, R.DBisi adult medical exam w/o abnormal findings I10 Essential (primary) hypertension R10.2 Pelvic and perineal pain Office Visit 02/24/2018 3:15p Main Office Katiana Kovacs Essential ( primary) Peter, R.DBisi hypertension J30.9 Allergic rhinitis, unspecified R35.0 Frequency of micturition Z86.73 Prsnl hx of TIA (TIA), and cereb infrc w/o resid deficits Office Visit 01/14/2018 2:15p Main Office Yadi Rivas J30.9 Allergic rhinitis, M.Gregory., R.D. unspecified I10 Essential (primary) hypertension M79.603 Pain in arm, unspecified R35.0 Frequency of micturition Office Visit 10/14/2017 10:30a Main Office Katiana Kovacs Essential ( primary) Peter, R.D. hypertension I63.9 Cerebral infarction, unspecified Office Visit 10/01/2017 11:30a [facility] Hardeep Mueller N39.0 Urinary tract III, GMAT INSTRUCTOR-C infection, site not specified I10 Essential (primary) hypertension Office Visit 09/23/2017 10:15a Main Office Corey Kovacs0 Essential ( primary) Peter, R.D. hypertension J18.8 Other pneumonia, unspecified organism K59.00 Constipation, unspecified Office Visit 09/13/2017 11:00a [facility] Katiana Kovacs Essential Peter, R.D. (primary) hypertension J18.8 Other pneumonia, unspecified organism R19.7 Diarrhea, unspecified Office Visit 08/16/2017 10:30a Main Office Corey Kovacs0 Essential ( primary) Peter, R.D. hypertension I63.9 Cerebral infarction, unspecified Office Visit 08/09/2017 11:15a Main Office Corey Kovacs0 Essential ( primary) Peter, R.D. hypertension I63.9 Cerebral infarction, unspecified Office Visit 08/05/2017 3:30p Main Office Yadi Rivas, R20.2 Paresthesia of skin Peter, R.D. I10 Essential (primary) hypertension Office Visit 06/05/2017 4:00p Main Office Corey Kovacs0 Essential ( primary) Peter, R.D. hypertension E78.00 Pure hypercholesterolemia, unspecified G45.9 Transient cerebral ischemic attack, unspecified H53.9 Unspecified visual disturbance K59.00 Constipation, unspecified R32 Unspecified urinary incontinence Office Visit 04/05/2017 10:30a Main Office Yadi Rivas, Z00.00 Encntr for Peter, R.D. general adult medical exam w/o abnormal findings I10 Essential (primary) hypertension E78.00 Pure hypercholesterolemia, unspecified E03.9 Hypothyroidism, unspecified Office Visit 03/02/2017 9:00a Main Office Lucio Gonzalez E03.9 Hypothyroidism, M.DBisi unspecified Office Visit 01/23/2017 11:30a Main Office Yadi Saab Essential (primary) keith Rivas M.D., R.D. G45.9 Transient cerebral ischemic attack,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
--- OUTSIDE RECORDS SUMMARY | 2018-05-11 17:55 | XMS REPORT | Continuity of Care Document ---
:1935 External Reference #:[id number] Author Name Kathleen Yanez O.D. Address [address] [place] [address] Care Team Providers Name Role Phone Yadi Rivas M.D. Primary Care Physician Unavailable Payers Type Date Identification Numbers Payment Provider Subscriber Policy Number: [id number] [employer] Taylor Bronwyn Tan Group Number: [id number] [address] [address] PayID: [id number] [place] [address] Advance Directives Description No Information Available Problems Date Description Provider Status Onset: Decreased hearing Active Onset: Essential hypertension Active Onset: Arthritis Active Onset: Hypercholesterolemia Active Onset: 05/06/2018 Angular blepharoconjunctivitis Kathleen Yanez O.D. Active Onset: 05/01/2017 Abnormal gait Kathleen Yanez O.D. Active Onset: 05/01/2017 Pseudophakia Kathleen Yanez O.D. Active Onset: 10/06/2016 Internal hordeolum Kathleen Yanez O.D. Active Onset: 04/30/2016 Presbyopia Kathleen Yanez O.D. Active Onset: 04/30/2016 Myopia Kathleen Yanez O.D. Active Onset: 04/30/2016 Vitreous degeneration Kathleen Yanez O.D. Active Onset: 10/10/2015 Tear film insufficiency Kathleen Yanez O.D. Active Onset: 09/26/2015 Headache Kathleen Yanez O.D. 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 Atenolol /00/ Active Tablets 50mg Unknown 0000 Vitamin D 00/ Active Tablets 1000Unit every day Unknown 0000 Atorvastatin / Active Tablets 10mg Unknown Calcium 0000 Fluticasone / Active Suspension 50mcg/Act Long Key Two Unknown Propionate 0000 Sprays In Each Nostril Every Day Hydralazine HCL / Active Tablets 100mg Unknown 0000 Clopidogrel / Active Tablets 75mg Unknown Bisulfate 0000 Vitamin D3 / Active Tablets Unknown Complete 0000 Vitamin D2 04/30/ Hx Tablets 1.25mg Kathleen Bartlett 2017 - Beau, 10/05/ O.D. 2017 Prednisone 00/00/ Hx Tablets 5mg take one Unknown 0000 - tab po 02/28/ every 2015 other day, take one half a tab on opposite days Amlodipine // Hx Tablets 5mg Unknown Besylate 0000 - 2017 Levothyroxine / Hx Tablets 25mcg Unknown Sodium 0000 - 2017 Metoprolol /00/ Hx Tablets ER 50mg Unknown Succinate ER 0000 - 24HR 2017 Immunizations Description No Information Available Vital Signs Description No Information Available Results Description No Information Available Procedures Date Code Description Status 05/01/2017 49299 Est Patient Comprehensive Exam Completed 04/30/2016 00301 Determination Of Refractive State Completed 04/30/2016 07128 Est Patient Comprehensive Exam Completed 09/26/2015 92369 Est Patient Intermediate Exam Completed 05/11/2014 40977 Est Patient Comprehensive Exam Completed 05/21/2012 31691 Extracapsular Cataract Extraction W/Intraocular Lens Completed 05/14/2012 03455 Extracapsular Cataract Extraction W/Intraocular Lens Completed 05/06/2012 27020 Ophthalmic Biometry Completed 05/06/2012 74547 Ophthalmic Biometry Completed 04/17/2012 27477 Est Patient Comprehensive Exam Completed Encounters Type Date Location Provider Dx Diagnosis Office Visit 10/06/2016 Kathleen Barron, H04.123 Dry eye syndrome 11:15a , eve Montelongo of bilateral lacrimal glands H00.024 Hordeolum internum left upper eyelid H00.021 Hordeolum internum right upper eyelid Office Visit 10/10/2015 1:45p Brent Campos MD, Kathleen Yanez O.D. 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 If you are a smoker, we strongly recommend that you quit.If you are not a smoker, we strongly recommend that you do not start. You have a Posterior Vitreous Detachment. If you have any changes in your floaters or flashing lights, please contact this office.H04.123 Dry eye syndrome of bilateral lacrimal glandsComments:Both of your eyes appear to be dry. Use artificial tears as directed. You can use the tears more often if you are reading a book or are on the computer, as we tend to blink less, making our eyes dry out more.[facility] offers a few items in our optical department to help alleviate dry eye symptoms.H52.4 PresbyopiaComments:You have presbyopia. This is when the lens in your eye loses the ability to change focus , and happens as we age. A pair of reading glasses will help you see up close.
[2018-05-11] MEDS ORDERED: oxyCODONE/Acetamin 5/325 MG* TAB ONE (18:03)
[2018-05-11] MEDS ORDERED: oxyCODONE/Acetamin 5/325 MG* TAB PO ONE ×2 (18:05)
--- NOTE | 2018-05-11 18:54 | ED ---
Lower Extremity - HPI Summary HPI Summary: A 83 y/o female brought in by ambulance who is accompanied by a friend presents to the ED c/o right hip pain radiating down her legs. As per triage, "BIB EMS due to right hip pain and legs spasms since a fall on 05/07/2018.Pt was seen at this facility yesterday and reports senthomeon painmeds but has had no improvement of pain or spasms. Pt reports inability to lay flat or stay sitted for long since". According to the patient, she fell on Saturday (05/07/18) on her back at her MD's office. The MD's looked at her and stated that she didn't need too much attention and that she was fine. The patient stated that she has been ambulating for 30 minutes after that which led to the pain in her lower back that is radiating down her legs, more so on the right. She stated that she has some hip pain on the right, none on the left. She stated that she walks around her house lots because she lives by herself and she is doing things all day. Patient is moaning in pain distress in the ED room. - History of Current Complaint Chief Complaint: EDExtremityLower Stated Complaint: RT HIP PAIN Time Seen by Provider: 05/11/18 17:52 Hx Obtained From: Patient Hx Last Menstrual Period: N/A Mechanism Of Injury: Fall From A Standing Position Onset of Pain: Minutes - 30 MINUTES Onset/Duration: Still Present Severity Initially: Severe Severity Currently: Severe Pain Intensity: 9 Pain Scale Used: 0-10 Numeric Timing: Constant Location: Radiates To - RIGHT HIP DOWN LEGS, MORE SO ON THE RIGHT Character Of Pain: Aching Associated Signs And Symptoms: Positive: Knee Pain - RIGHT Aggravating Factor(s): Standing, Movement Alleviating Factor(s): Nothing Able to Bear Weight: No - DUE TO PAIN - Allergies/Home Medications Allergies/Adverse Reactions: Allergies Allergy/AdvReac Type Severity Reaction Status Date / Time aspirin Allergy Abdominal Verified 05/11/18 18:25 Pain lisinopril Allergy Coughing Verified 05/11/18 18:25 PMH/Surg Hx/FS Hx/Imm Hx Endocrine/Hematology History: Denies: Hx Diabetes Cardiovascular History: Reports: Hx Coronary Artery Disease - CHOLESTEROL CONTROL WITH MEDICATION, Hx Hypertension - CONTROL WITH MEDICATION Denies: Hx Pacemaker/ICD Respiratory History: Denies: Hx Asthma, Hx Chronic Obstructive Pulmonary Disease (COPD) GI History: Reports: Hx Gastroesophageal Reflux Disease - ACID REFLUX OCCASIONALLY, USES TUMS History: Denies: Hx Renal Disease Musculoskeletal History: Reports: Hx Arthritis - GENERALIZED Sensory History: Reports: Hx Cataracts - BILATERAL, Hx Contacts or Glasses Denies: Hx Hearing Aid Opthamlomology History: Reports: Hx Cataracts - BILATERAL, Hx Contacts or Glasses Psychiatric History: Denies: Hx Panic Disorder - Cancer History Hx Chemotherapy: No Hx Radiation Therapy: No - Surgical History Surgery Procedure, Year, and Place: CATARACTS - [facility] Infectious Disease History: No Infectious Disease History: Denies: Traveled Outside the [place] in Last 30 Days - Family History Known Family History: Positive: Other - stroke and cancer - Social History Alcohol Use: None Substance Use Type: Reports: None Smoking Status (MU): Never Smoked Tobacco Review of Systems Negative: Fever Positive: Other - POSITIVE: RIGHT HIP PAIN RADIATING DOWN HER LEGS, MORE SO RIGHT LEG All Other Systems Reviewed And Are Negative: Yes Physical Exam - Summary Physical Exam Summary: Appearance: Well appearing, Skin: warm, dry, reflects adequate perfusion Head/face: normal Eyes: EOMI, RADHA ENT: normal Neck: supple, non-tender Respiratory: CTA, breath sounds present Cardiovascular: RRR, pulses symmetrical Abdomen: non-tender, soft Musculoskeletal: Spasms in the lumbar spine, tenderness of the right hip and ROM limited secondary to pain. Neuro: A&Ox3 Triage Information Reviewed: Yes Vital Signs On Initial Exam: Initial Vitals Temp Pulse Resp BP Pulse Ox 98.2 F 67 16 155/105 92 05/11/18 17:34 05/11/18 17:34 05/11/18 17:34 05/11/18 17:34 05/11/18 17:34 Vital Signs Reviewed: Yes Diagnostics - Vital Signs Vital Signs Temp Pulse Resp BP Pulse Ox 05/11/18 18:05 22 05/11/18 17:34 98.2 F 67 16 155/105 92 - Laboratory Lab Statement: Any lab studies that have been ordered have been reviewed, and results considered in the medical decision making process. - CT LUMBAR SPINE CT CT Interpretation Completed By: Radiologist Summary of CT Findings: 1. Acute mild compression fracture at superior end plate of L1 vertebral body. 2. Chronic mild compression deformities at T12 and L2 3. Numerous sigmoid diverticula. No diverticulitis. 4. Left renal cyst. ED PHYSICIAN REVIEWED THIS RADIOLOGY REPORT. PELVIS CT CT Interpretation Completed By: Radiologist Summary of CT Findings: 1. No acute fracture. 2. Degenerative change of the hips bilaterally. 3. Sigmoid diverticulosis. No evidence of diverticulitis. ED PHYSICIAN REVIEWED THIS RADIOLOGY REPORT. Lower Extremity Course/Dx - Course Course Of Treatment: A 83 y/o female brought in by ambulance who is accompanied by a friend presents to the ED c/o right hip pain radiating down her legs. According to the patient, she fell on Saturday (05/07/18) on her back at her MD' s office. The MD's looked at her and stated that she didn't need too much attention and that she was fine. The patient stated that she has been ambulating for 30 minutes after that which led to the pain in her lower back that is radiating down her legs, more so on the right. She stated that she has some hip pain on the right, none on the left. Physical examination findings significant for spasms in the lumbar spine, tenderness of the right hip and ROM limited secondary to pain. A Pelvic CT revealed 1. No acute fracture. 2. Degenerative change of the hips bilaterally. 3. Sigmoid diverticulosis. No evidence of diverticulitis. A Lumbar Spine CT revealed 1. Acute mild compression fracture at superior end plate of L1 vertebral body. 2. Chronic mild compression deformities at T12 and L2 3. Numerous sigmoid diverticula. No diverticulitis. 4. Left renal cyst. No laboratory screens were done. In the ED course, the patient received Percocet. Patient care was discussed with hospitalist, Dr. Karla Gilman, who accepts patient for admission. Patient will be admitted with a diagnosis of back pain and unable to ambulate. Patient is agreeable with this plan. - Diagnoses Differential Diagnosis/HQI/PQRI: Positive: Arthritis, Fracture (Closed), Sciatica, Strain Provider Diagnoses: Back pain, Unable to ambulate - Physician Notifications Discussed Care Of Patient With: Karla Gilman Time Discussed With Above Provider: 19:48 Instructed by Provider To: Other - ACCEPTS PATIENT FOR ADMISSION. Discharge - Sign-Out/Discharge Documenting (check all that apply): Patient Departure - ADMIT, Sign-Out Patient - MOVVA Signing out patient TO: Karla Raova Receiving patient FROM: Kg Duran - Discharge Plan Condition: Stable Disposition: ADMITTED TO [facility] Referrals: Blair Sidhu MD [Primary Care Provider] - - Billing Disposition and Condition Condition: STABLE Disposition: Admitted to [facility] - Attestation Statements Document Initiated by Scribe: Yes Documenting Scribe: Ralph Arboleda Provider For Whom Yoandyibzofia is Documenting (Include Credential): Kg Duran MD Scribe Attestation: Ralph Dennis, scribed for Kg Duran MD on 05/11/18 at 2026. Scribe Documentation Reviewed: Yes Provider Attestation: The documentation as recorded by the Ralph mosley accurately reflects the service I personally performed and the decisions made by Kg eaton MD Status of Scribe Document: Viewed
[2018-05-11] MEDS ORDERED: Acetaminophen TAB* 325 MG PO PRN (20:36)
[2018-05-11] MEDS ORDERED: Albuterol HFA INHALER* 8 gm MDI INH PRN (20:57)
[2018-05-11] MEDS ORDERED: hydrALAZINE TAB* 100 MG ** ONE HUNDRED PO SCH ×2 (21:00→22:41)
[2018-05-11] MEDS: Cyclobenzaprine TAB* 10 MG PO PRN (22:20)
[2018-05-11] MEDS: traMADol TAB* 50 MG PO PRN (22:21)
[2018-05-11] MEDS: hydrALAZINE TAB* 25 MG PO SCH (22:53)
[2018-05-11] MEDS: Losartan TAB* 25 MG PO SCH (22:53)
[2018-05-11] MEDS: Morphine VIAL* 4 MG/ML VIAL (1 ml vial) IV PRN (23:24)
--- NOTE | 2018-05-11 23:34 | HP ---
CC: Dr. Valdovinos; Dr. Yadi Rivas * HISTORY AND PHYSICAL: DATE OF ADMISSION: 05/11/18 PRIMARY CARE PROVIDER: Dr. Yadi Rivas. ATTENDING PHYSICIAN WHILE IN THE HOSPITAL: Dr. Gilman * (report dictated by Efraín Mccann NP). CHIEF COMPLAINT: 1. Fall. 2. Back pain. HISTORY OF PRESENT ILLNESS: Ms. Tan is an 83-year-old female patient, has a history of hypertension, history of UTI, history of CVA, and history of TIA x2. She comes into the ER today stating that Saturday last week on 05/07/18, she was at a doctor's appointment office. She says she sustained a fall walking out. She said her leg got caught up on the rug and she fell. She landed on her sacrum and then she fell backwards. She denied any loss of consciousness. She denied having any chest pain with this fall. She denied having any shortness of breath. No recent fevers or chills. No abdominal pain, no vomiting or diarrhea. No recent change in medications. She said that she was evaluated by her primary in the office after the fall. She had an x-ray on , which showed no fracture. However, today, she noted that the pain was getting worse particularly if she lied flat, if she turned in bed, she was having discomfort particularly in the lower spine down the right hip and into the anterior portion of her right hip down into her groin, described as a sharp stabbing pain and also having spasm. She denied any numbness or tingling. She denied any bladder incontinence. She said she always has issues with her bladder because of the frequent UTIs. She denied having any bowel incontinence. She says that she had no new weakness, but she is just concerned because of the pain. She came into the ED today, she underwent a lumbar spine CT, which ultimately showed an acute mild compression fracture of the superior endplate of L1 vertebral body. She also had a pelvis CT, which showed no fractures. There was concern because of the increasing pain; in fact, anytime she went to go stand up, she was having worsening pain and because of this, we were asked to evaluate for admission. PAST MEDICAL HISTORY: Significant for: 1. Hypertension. 2. Frequent UTIs. 3. History of CVA. 4. History of TIA x2. PAST SURGICAL HISTORY: Denied. MEDICATIONS: Home medications include: 1. Hydralazine 100 mg p.o. b.i.d. 2. Cozaar 50 mg p.o. b.i.d. 3. Plavix 75 mg daily. 4. Vitamin D3 1000 units p.o. daily. 5. Tessalon 100 mg p.o. b.i.d. as needed. 6. Atenolol 50 mg p.o. daily. 7. Ventolin 2 puffs inhaled every 4 hours as needed. 8. Tylenol 650 mg every 6 hours as needed. ALLERGIES TO MEDICATIONS: Include ASPIRIN and LISINOPRIL. FAMILY HISTORY: She said her father had a history of throat cancer. SOCIAL HISTORY: She does not smoke, she does not drink. Surrogate decision maker is her daughter. REVIEW OF SYSTEMS: There is no documented fever. She denied having any significant weight change. There was no double vision. There was no ear discharge. She denied having any rhinorrhea. There was no sore throat. No thyroid enlargement. She denied having any chest pain. There is no orthopnea. There was no nocturnal dyspnea. She denied having any abdominal pain. There was no nausea, no vomiting. No dysuria, no frequency. She denied having any seizure, no loss of consciousness. No pruritus and no skin ulceration. Review of 14 systems completed, all others negative. PHYSICAL EXAMINATION GENERAL: At this time, Ms. Tan is an 83-year-old female patient, she is sitting in the ED stretcher. She does not appear to be in any acute distress. She appears to be well-nourished and well-developed. VITAL SIGNS: Blood pressure 160/89, pulse 60, respirations 16, O2 saturation was % on room air, and temperature was 98.2. HEENT: Head: Atraumatic. Eyes: EOMs intact. Sclerae anicteric and not pale. Throat: Oral mucosa appears to be moist, no oropharyngeal erythema. NECK: Supple. LUNGS: Clear to auscultation. There were no wheezes, rales, or rhonchi. HEART: Sounds S1 and S2. She had a regular rate and rhythm. There were no murmurs, rubs, or gallops. ABDOMEN: Soft, flat, and nontender. Bowel sounds were present. EXTREMITIES: She had 5/5 strength in plantar and dorsiflexion at the ankle. She had 5/5 strength at flexion and extension of the knee and she was able to perform hip flexion bilaterally with 5/5 strength. On the right side though flexion was resistant. She was eliciting pain along the L1 dermatome and into her back. NEUROLOGIC: She is awake, she is alert, she is oriented x3. Her speech is clear. Tongue midline. Induction Coordination Engineer are equal. She has proprioception to her big toe bilaterally. She also has pinpoint discrimination along the L1 dermatomes bilaterally and along the dorsi and plantar aspects of her feet. She is able to discriminate between pinpoint and dull sensation, so that is intact. She had good rectal tone as well on exam. No gross focal deficits. She had 2+ reflexes to the patella and ankle. Babinski was not present. SKIN: Intact. DIAGNOSTIC STUDIES/LAB DATA: Labs are pending for today. She did have a pelvic CT obtained today as well, which showed no acute fracture , degenerative changes of the hips bilaterally, sigmoid diverticulosis, no evidence for diverticulitis. CT spine, lumbar, showed acute mild compression fracture at the superior endplate of L1 vertebral body, chronic mild compression deformities at T12 and L2, numerous sigmoid diverticula, no diverticulitis, left renal cyst. Old medical records reviewed. ASSESSMENT AND PLAN: Ms. Tan is an 83-year-old female patient coming into the hospital today with complaints of a fall last week, now found to have an L1 compression fracture. She will be admitted under observation status for: 1. L1 compression fracture. I did touch base with Dr. Valdovinos. He will be evaluating the patient tomorrow. The plan for now will be Lidoderm patch p.r.n. , tramadol p.r.n., Flexeril for spasm. I have left her on bed rest until Neurosurgery sees her tomorrow. Plan though most likely will be to get her moving tomorrow possibly with a brace. We will defer further recommendations to Dr. Valdovinos with PT and OT evaluation. I will continue to follow her for any new symptoms. I will place her on SCDs tonight and will continue to follow. 2. Hypertension. Continue meds as prescribed. 3. History of cerebrovascular accident and transient ischemic attack. Continue secondary prevention. 4. History of urinary tract infection. She has been complaining of having some pressure and she did have some loss of urine before the fall, so I am checking a urinalysis to look for urinary tract infection, so we will continue to follow. 5. DVT prophylaxis. I have ordered SCDs for tonight. Could consider starting heparin tomorrow but we will touch base with Neurosurgery about this. Will have SCDs tonight with possible heparin subcu starting tomorrow. 6. Fluids, electrolytes, and nutrition. She can have a regular diet. TIME SPENT: On the admission is 60 minutes, greater than half the time was spent [id number] with the patient obtaining my history and physical, the other half the time spent going over the plan of care with the patient, implementing the plan of care. I did discuss the plan of care with my attending, Dr. Gilman; she is in agreement. EFRAÍN MCCANN, JAYMIE [id number]/[facility] #: [id number] KAMRON
[2018-05-12 01:12] LABS: Hematocrit 35 % (35-47); Hemoglobin 11.7 g/dl (12.0-16.0); Mean Corpuscular HGB Conc 34 g/dl (31-36); Mean Corpuscular Hemoglobin 30 pg (27-31); Mean Corpuscular Volume 88 fL (80-97); Mean Platelet Volume 9.2 fL (7.4-10.4); Platelet Count 267 10^3/ul (150-450); Red Blood Count 3.95 10^6/ul (4.00-5.40); Red Cell Distribution Width 13 % (10.5-15); White Blood Count 12.1 10^3/ul (3.5-10.8)
[2018-05-12 01:23] LABS: Activated Partial Thrombo Time 29.4 seconds (26.0-36.3); INR 1.08 (0.77-1.02)
[2018-05-12 01:29] LABS: Albumin 3.3 g/dL (3.2-5.2); BUN/Creatinine Ratio 18.5 (8-20); Calcium 9.1 mg/dL (8.6-10.3); EGFR African American 70.2 (>60); Globulin 3.2 g/dL (2-4); Potassium 3.8 mmol/L (3.5-5.0); Total Bilirubin 1.3 mg/dL (0.2-1.0); Total Protein 6.5 g/dL (6.4-8.9)
[2018-05-12 01:41] LABS: ABS Basophils 0.1 10^3/ul (0-0.2); ABS Eosinophils 0.2 10^3/ul (0-0.6); ABS Lymphocytes 1.6 10^3/ul (1.0-4.8); ABS Monocytes 1.6 10^3/ul (0-0.8); ABS Neutrophils 8.7 10^3/ul (1.5-7.7); ABS Nucleated RBC 0 10^3/ul; Eosinophil % 1.7 %; Lymphocyte % 12.9 %; Nucleated Red Blood Cells % 0
[2018-05-12] MEDS: Morphine VIAL* 4 MG/ML VIAL (1 ml vial) IV PRN (05:43)
[2018-05-12 06:02] LABS: ABS Basophils 0.1 10^3/ul (0-0.2); ABS Eosinophils 0.2 10^3/ul (0-0.6); ABS Lymphocytes 1.9 10^3/ul (1.0-4.8); ABS Monocytes 1.4 10^3/ul (0-0.8); ABS Neutrophils 5.1 10^3/ul (1.5-7.7); ABS Nucleated RBC 0 10^3/ul; Eosinophil % 2.6 %; Hematocrit 35 % (35-47); Hemoglobin 11.9 g/dl (12.0-16.0); Lymphocyte % 21.4 %; Mean Corpuscular HGB Conc 34 g/dl (31-36); Mean Corpuscular Hemoglobin 30 pg (27-31); Mean Corpuscular Volume 88 fL (80-97); Mean Platelet Volume 9.1 fL (7.4-10.4); Nucleated Red Blood Cells % 0; Platelet Count 264 10^3/ul (150-450); Red Blood Count 3.98 10^6/ul (4.00-5.40); Red Cell Distribution Width 13 % (10.5-15); White Blood Count 8.6 10^3/ul (3.5-10.8)
[2018-05-12 06:14] LABS: INR 1.1 (0.77-1.02)
[2018-05-12 06:20] LABS: BUN/Creatinine Ratio 17.5 (8-20); Calcium 9.2 mg/dL (8.6-10.3); EGFR Non-African American 54.6 (>60)
--- NOTE | 2018-05-12 08:02 | PN ---
Progress Note - Progress Note Date of Service: 05/12/18 SOAP: Subjective: []Asked to see patient with fall last week Yesterday c/o back pain more severe. Seen in ER where CT suggested compression [id number],L1,L2 Patient has hx of intermittent RLE pain Objective: []Neuro intact CT as above Assessment: [] Stable lumbar compression fractures Plan: []No additional treatment needed from NS standpoint
--- NOTE | 2018-05-12 08:49 | PN ---
Subjective Date of Service: 05/12/18 Interval History: HD #2 on 05/12/18 79 yo F PMH HTN, hx of CVA/TIA who presents with new compression frxr L1 ( chronic at T12), admitted after mechanical fall, no further NS interventions planned Overnight no acute events, neurosurg evaluated without further recommendations. VS 112/90, HR in tyhe 50s, afebrile, satting well This afternoon, still having some back pain, tolerating diet, voiding large amount of urine without any BM at this point. Attempted to work with PT though will need lumbar core support brace. Objective Active Medications: Acetaminophen (Tylenol Tab*) 650 mg PO Q6H PRN PRN Reason: FEVER/HEADACHE Albuterol (Ventolin Hfa Inhaler*) 2 puff INH Q4H PRN PRN Reason: SHORTNESS OF BREATH Atenolol (Tenormin Tab*) 50 mg PO DAILY [facility] Calcitonin [place] (Fortical(Nr)) 200 units ALT NARE DAILY KATIE; Protocol Clopidogrel Bisulfate (Plavix Tab*) 75 mg PO DAILY [facility] Cyclobenzaprine HCl (Flexeril Tab*) 5 mg PO BID PRN PRN Reason: SPASMS Last Admin: 05/11/18 22:20 Dose: 5 mg Hydralazine HCl (Apresoline Tab*) 50 mg PO BID [facility] Last Admin: 05/11/18 22:53 Dose: 50 mg Lidocaine (Lidoderm 5% Patch*) 1 patch TRANSDERM DAILY [facility] Losartan Potassium (Cozaar Tab*) 50 mg PO BID [facility] Last Admin: 05/11/18 22:53 Dose: 50 mg Morphine Sulfate (Morphine Vial*) 1 mg IV Q6H PRN PRN Reason: PAIN Last Admin: 05/12/18 05:43 Dose: 1 mg Pharmacy Profile Note (Lidocaine Patch Remove*) 1 note PATCH OFF 2100 [facility] Tramadol HCl (Ultram*) 50 mg PO Q8H PRN PRN Reason: PAIN Last Admin: 05/11/18 22:21 Dose: 50 mg Vital Signs - 8 hr 05/12/18 05/12/18 05/12/18 03:59 05:43 07:08 Temperature 97.7 F Pulse Rate 66 Respiratory 18 17 16 Rate Blood Pressure 149/62 (mmHg) O2 Sat by Pulse 98 Oximetry 05/12/18 07:55 Temperature 97.1 F Pulse Rate 58 Respiratory 18 Rate Blood Pressure 138/57 (mmHg) O2 Sat by Pulse 94 Oximetry Oxygen Devices in Use Now: Nasal Cannula Appearance: Woman in bed in NAD Ears/Nose/Mouth/Throat: NL Teeth, Lips, Gums, Mucous Membranes Moist Neck: NL Appearance and Movements; NL JVP Respiratory: Symmetrical Chest Expansion and Respiratory Effort, Clear to Auscultation, - - Mild E wheeze Cardiovascular: RRR, - - 3/6 JANICE heard across precordium Abdominal: NL Sounds; No Tenderness; No Distention Lymphatic: No Cervical Adenopathy Extremities: No Edema, - Skin: No Rash or Ulcers Neurological: Alert and Oriented x 3, - - TTP at paraspinal muscels Result Diagrams: 05/12/18 05:27 05/12/18 05:27 Diagnostic Imaging: Lumbar Spine CT: L1 Compression acute, T12 chronic Pelvic CT: No acute fracture, incidental diverticulosis seen Assess/Plan/Problems-Billing Assessment: 79 yo F PMH HTN, hx of CVA/TIA who presents with new compression frxr L1 ( chronic at T12), admitted after mechanical fall, no further NS interventions planned, working on pain control. - Patient Problems (1) Compression fracture of L1 lumbar vertebra Current Visit: Yes Status: Acute Code(s): S32.010A - WEDGE COMPRESSION FRACTURE OF FIRST LUMBAR VERTEBRA, INIT SNOMED Code(s): 859558072 Comment: Acute, chronic T12 -Will need DEXA as outpt, will start Vit D, Calcium -Tramadol/Tylenol/Calcitonin nasal spray/Cyclobenzaprine/Lidocaine for pain control -Lumbar Core Support Brace, discussed with Dr. Valdovinos (2) Right hip pain Current Visit: No Status: Acute Code(s): M25.551 - PAIN IN RIGHT HIP SNOMED Code(s): 02766099 Comment: -S/p fall with no e/o acute fracture, continue MSK pain control (3) Hypertension Current Visit: No Status: Acute Code(s): I10 - ESSENTIAL (PRIMARY) HYPERTENSION SNOMED Code(s): 22609190 Comment: - Continue Atenolol, Losartan and Hydralazine (4) History of CVA (cerebrovascular accident) Current Visit: No Status: Chronic Code(s): Z86.73 - PRSNL HX OF TIA (TIA), AND CEREB INFRC W/O RESID DEFICITS SNOMED Code(s): 925124278 Comment: - Continue Plavix (5) Hyponatremia Current Visit: Yes Status: Acute Code(s): E87.1 - HYPO-OSMOLALITY AND HYPONATREMIA SNOMED Code(s): 66486831 Comment: Hypovolemic, hypoNA -Continue to monitor (6) DVT prophylaxis Current Visit: No Status: Acute Code(s): ABI2026 - SNOMED Code(s): 627624800 Comment: -SQH, start today Status and Disposition: Currently awaiting PT OT for formal recommendations
[2018-05-12] MEDS: Clopidogrel TAB* 75 MG PO SCH (09:10)
[2018-05-12] MEDS: Losartan TAB* 25 MG PO SCH ×2 (09:10→20:58)
[2018-05-12] MEDS: hydrALAZINE TAB* 25 MG PO SCH ×2 (09:11→20:57)
[2018-05-12] MEDS: Cyclobenzaprine TAB* 10 MG PO PRN ×2 (09:11→20:57)
[2018-05-12] MEDS: Atenolol TAB* 50 MG PO SCH (09:12)
[2018-05-12] MEDS: Lidocaine PATCH 5%* 1 PATCH TRANSDERM SCH (09:12)
[2018-05-12] MEDS: Calcitonin NASAL(NF) 200 UNITS/SPRAY NASAL.SPR ALT NARE SCH (10:33)
[2018-05-12] MEDS: traMADol TAB* 50 MG PO PRN ×2 (11:55→20:58)
[2018-05-12] MEDS: Acetaminophen TAB* 325 MG PO PRN (16:28)
--- NOTE | 2018-05-12 17:18 | CONS ---
CONSULTATION REPORT: DATE OF CONSULT: 05/12/18 PRIMARY CARE PHYSICIAN: Dr. Yadi Rivas. ATTENDING ORTHOPEDIC PROVIDER: Dr. Blair Sidhu. CHIEF COMPLAINT: Right hip pain. HISTORY OF PRESENT ILLNESS: Ms. Tan is an 83-year-old female patient with a history of hypertension, UTI, CVA, TIA. She came into the ER on 05/11/18 after sustaining a fall on 05/07/18 as she was exiting her doctor's appointment. She tripped over a rug, landed on her buttock. She was able to immediately get up and bear weight through bilateral lower extremities without any severe pain. X- ray from 05/10/18 reportedly showed no fracture though this image is not currently available to me. Due to worsening pain, the patient presented to the emergency room. She has described pain of her lower spine as well as the right hip. She has since had a CT scan of her pelvis, which showed no acute fracture. Today, the patient states that she has had intermittent right hip pain for 5 years. She has been diagnosed with osteoarthritis. Her pain is no worse than it has been intermittently over the past 5 years. She does at times get sharp pain into her right hip without radiation distally. Since arrival to the hospital, she has been instructed to remain on bedrest. She feels that she could walk if she were allowed. Pain while in the hospital of the right hip has been intermittent, sharp in nature with rolling onto the right hip, relieved by lying still. The patient is otherwise able to move the right hip without any pain whatsoever. She has no numbness or tingling into her right lower extremity. She does have a known mild compression fracture of the superior endplate of L1 vertebral body. PAST MEDICAL HISTORY: Hypertension, frequent UTIs, history of CVA, history of TIA x2. During this hospital stay, identification of superior endplate of L1 vertebral body. PAST SURGICAL HISTORY: No past surgical history. HOME MEDICATIONS: 1. Hydralazine 100 mg p.o. b.i.d. 2. Clopidogrel 75 mg p.o. daily. 3. Losartan 50 mg p.o. b.i.d. 4. Atenolol 50 mg p.o. daily. 5. Cholecalciferol 1000 units p.o. daily. 6. Acetaminophen 650 mg p.o. q.6 hours p.r.n. 7. Tessalon 100 mg p.o. b.i.d. p.r.n. 8. Albuterol (Ventolin) inhaler 2 puffs inhaled q.4 hours p.r.n. ALLERGIES TO MEDICATIONS: Include ASPIRIN and LISINOPRIL. FAMILY HISTORY: Father, history of throat cancer. SOCIAL HISTORY: Does not smoke. Does not drink. The patient does ambulate at baseline. Surrogate decision maker is her daughter. REVIEW OF SYSTEMS: General: Negative for fever, chills. HEENT: Negative for acute change in vision, headache, head trauma. Cardio: Negative for chest pain or irregular beats. Respiratory: Negative for shortness of breath or cough. Abdomen: Denies abdominal pain, nausea, vomiting, diarrhea. : Denies dysuria. Positive for urinary incontinence. Musculoskeletal: Positive for low back pain; intermittent right hip pain, no worse than she has experienced in the past 5 years. Neuro: Sensation intact throughout all extremities without numbness or paresthesias. Hematology: No history of blood clots. Skin: No reported rash or lesions. PHYSICAL EXAM: Vital Signs: Temperature 98.4, pulse rate 55, respiratory rate 18, blood pressure 112/52. General: Well appearing, in no acute distress. HEENT: Normocephalic, atraumatic. Extraocular movements intact. Cardio: S1, S2. Regular rate and rhythm. Respiratory: Clear to auscultation bilaterally. Abdomen: Bowel sounds normoactive. Nontender to palpation. No guarding. No rigidity. Musculoskeletal: Upper extremities: Skin envelope intact. No obvious deformity. Nontender to palpation. Active flexion and extension of digits, wrists, elbows without associated pain. Shoulders with nonpainful active forward flexion and abduction. Lower extremities: Left lower extremity , skin envelope intact. No obvious deformity. Nontender to palpation. Active nonpainful flexion and extension of digits, ankle, hip, and knee. Negative logroll at the hip. Right lower extremity: Skin envelope intact. No obvious bony deformity. No rotation of the leg. Nontender to palpation. Active nonpainful flexion and extension of digits, ankle, knee, and hip. Able to range the hip from 0 to 110 degrees flexion without pain, also able to internally and externally rotate without pain. Negative logroll. No pain with heel strike. Neuro: Sensation is intact to light touch throughout bilateral upper and lower extremities. Vascular: Radial pulse 2+ bilaterally, DP pulse 2 + bilaterally. Psych: Appropriate affect. Skin: No rash, lesions. DIAGNOSTIC STUDIES: Pelvis CT: No acute fracture. Degenerative change of hips bilaterally. Lumbar spine CT: Acute mild compression fracture, superior endplate L1 vertebral body. ASSESSMENT: Right hip osteoarthritis without evidence of acute fracture. PLAN: The patient may be weightbearing as tolerated on the right hip. If she remains unable to bear weight or if she has increased pain or any new symptoms, then it would be appropriate to order an MRI; though at this time, her exam is not concerning for acute fracture. Please contact orthopedics with any continued or worsening pain for further evaluation Case was discussed with Dr. Blair Sidhu. NO NARANJO [id number]/[facility] #: [id number] [place]
[2018-05-12] MEDS: Lidocaine Patch REMOVE* 1 NOTE MISC PATCH OFF SCH (21:03)
[2018-05-12] MEDS: Heparin VIAL(*) 5000 UNITS/ML VIAL (FIVE THOUSAND) SUBCUT SCH (21:43)
[2018-05-13] MEDS: traMADol TAB* 50 MG PO PRN ×3 (05:37→23:20)
[2018-05-13] MEDS: Heparin VIAL(*) 5000 UNITS/ML VIAL (FIVE THOUSAND) SUBCUT SCH ×3 (05:38→20:32)
[2018-05-13 06:52] LABS: ABS Basophils 0.1 10^3/ul (0-0.2); ABS Eosinophils 0.3 10^3/ul (0-0.6); ABS Lymphocytes 2.5 10^3/ul (1.0-4.8); ABS Monocytes 1.4 10^3/ul (0-0.8); ABS Neutrophils 4.6 10^3/ul (1.5-7.7); ABS Nucleated RBC 0 10^3/ul; Eosinophil % 3.9 %; Hematocrit 35 % (35-47); Hemoglobin 11.8 g/dl (12.0-16.0); Lymphocyte % 27.9 %; Mean Corpuscular HGB Conc 34 g/dl (31-36); Mean Corpuscular Hemoglobin 30 pg (27-31); Mean Corpuscular Volume 89 fL (80-97); Mean Platelet Volume 8.9 fL (7.4-10.4); Nucleated Red Blood Cells % 0.1; Platelet Count 275 10^3/ul (150-450); Red Cell Distribution Width 14 % (10.5-15); White Blood Count 8.9 10^3/ul (3.5-10.8)
[2018-05-13 07:06] LABS: BUN/Creatinine Ratio 20.4 (8-20); Calcium 8.7 mg/dL (8.6-10.3); EGFR African American 55.4 (>60); EGFR Non-African American 45.8 (>60); Potassium 4.1 mmol/L (3.5-5.0)
[2018-05-13] MEDS: Losartan TAB* 25 MG PO SCH ×2 (09:29→20:32)
[2018-05-13] MEDS: Atenolol TAB* 50 MG PO SCH (09:29)
[2018-05-13] MEDS: Calcitonin NASAL(NF) 200 UNITS/SPRAY NASAL.SPR ALT NARE SCH (09:30)
[2018-05-13] MEDS: Clopidogrel TAB* 75 MG PO SCH (09:30)
[2018-05-13] MEDS: hydrALAZINE TAB* 25 MG PO SCH ×2 (09:30→20:32)
[2018-05-13] MEDS: Lidocaine PATCH 5%* 1 PATCH TRANSDERM SCH (09:32)
--- NOTE | 2018-05-13 14:54 | PN ---
Subjective Date of Service: 05/13/18 Interval History: HD #3 on 05/13/18 79 yo F PMH HTN, hx of CVA/TIA who presents with new compression frxr L1 ( chronic at T12), admitted after mechanical fall, no further NS interventions planned Overnight no acute events. VS 142/56, HR in the 50s, afebrile, satting well This afternoon, still having some back pain, tolerating diet, voiding large amount of urine without any BM at this point. Attempted to work with PT and is off baseline, now considering STR. No other acute complaints Objective Active Medications: Acetaminophen (Tylenol Tab*) 650 mg PO Q6H PRN PRN Reason: FEVER/HEADACHE Last Admin: 05/12/18 16:28 Dose: 650 mg Albuterol (Ventolin Hfa Inhaler*) 2 puff INH Q4H PRN PRN Reason: SHORTNESS OF BREATH Atenolol (Tenormin Tab*) 50 mg PO DAILY [facility] Last Admin: 05/13/18 09:29 Dose: 50 mg Calcitonin [place] (Fortical(Nr)) 200 units ALT NARE DAILY [facility]; Protocol Last Admin: 05/13/18 09:30 Dose: 200 units Clopidogrel Bisulfate (Plavix Tab*) 75 mg PO DAILY [facility] Last Admin: 05/13/18 09:30 Dose: 75 mg Cyclobenzaprine HCl (Flexeril Tab*) 5 mg PO BID PRN PRN Reason: SPASMS Last Admin: 05/12/18 20:57 Dose: 5 mg Heparin Sodium (Porcine) (Heparin Vial(*)) 5,000 units SUBCUT Q8HR [facility] Last Admin: 05/13/18 13:53 Dose: 5,000 units Hydralazine HCl (Apresoline Tab*) 50 mg PO BID [facility] Last Admin: 05/13/18 09:30 Dose: 50 mg Lidocaine (Lidoderm 5% Patch*) 1 patch TRANSDERM DAILY [facility] Last Admin: 05/13/18 09:32 Dose: 1 patch Losartan Potassium (Cozaar Tab*) 50 mg PO BID [facility] Last Admin: 05/13/18 09:29 Dose: 50 mg Pharmacy Profile Note (Lidocaine Patch Remove*) 1 note PATCH OFF 2100 [facility] Last Admin: 05/12/18 21:03 Dose: 1 note Polyvinyl Alcohol (Polyvinyl Alcohol 1.4% Opth*) 1 drop BOTH EYES Q2H PRN PRN Reason: DRY EYE Tramadol HCl (Ultram*) 50 mg PO Q8H PRN PRN Reason: PAIN Last Admin: 05/13/18 13:52 Dose: 50 mg Vital Signs - 8 hr 05/13/18 05/13/18 05/13/18 07:46 07:50 08:31 Temperature 97.7 F Pulse Rate 50 Respiratory 16 16 16 Rate Blood Pressure 126/44 (mmHg) O2 Sat by Pulse 96 Oximetry 05/13/18 05/13/18 11:31 13:52 Temperature Pulse Rate 50 Respiratory 16 16 Rate Blood Pressure 142/56 (mmHg) O2 Sat by Pulse 94 Oximetry Oxygen Devices in Use Now: Nasal Cannula Appearance: Pleasant woman in NAD, daughter at bedside Eyes: No Scleral Icterus, PERRLA Ears/Nose/Mouth/Throat: NL Teeth, Lips, Gums, Mucous Membranes Moist Neck: NL Appearance and Movements; NL JVP Respiratory: Symmetrical Chest Expansion and Respiratory Effort, Clear to Auscultation Cardiovascular: NL Sounds; No Murmurs; No JVD, RRR Abdominal: NL Sounds; No Tenderness; No Distention, No Hepatosplenomegaly Lymphatic: No Cervical Adenopathy Extremities: No Edema Skin: No Rash or Ulcers Neurological: Alert and Oriented x 3 Result Diagrams: 05/13/18 06:33 05/13/18 06:33 Diagnostic Imaging: Lumbar Spine CT: L1 Compression acute, T12 chronic Pelvic CT: No acute fracture, incidental diverticulosis seen Assess/Plan/Problems-Billing Assessment: 79 yo F PMH HTN, hx of CVA/TIA who presents with new compression frxr L1 ( chronic at T12), admitted after mechanical fall, no further NS interventions planned, working on pain control. - Patient Problems (1) Compression fracture of L1 lumbar vertebra Current Visit: Yes Status: Acute Code(s): S32.010A - WEDGE COMPRESSION FRACTURE OF FIRST LUMBAR VERTEBRA, INIT SNOMED Code(s): 901196016 Comment: Acute, chronic T12 -Will need DEXA as outpt, will start Vit D, Calcium -Tramadol/Tylenol/Calcitonin nasal spray/Cyclobenzaprine/Lidocaine for pain control -Lumbar Core Support Brace, discussed with Dr. Valdovinos (2) Right hip pain Current Visit: No Status: Acute Code(s): M25.551 - PAIN IN RIGHT HIP SNOMED Code(s): 71958455 Comment: -S/p fall with no e/o acute fracture, continue MSK pain control (3) Hypertension Current Visit: No Status: Acute Code(s): I10 - ESSENTIAL (PRIMARY) HYPERTENSION SNOMED Code(s): 55679802 Comment: - Continue Atenolol, Losartan and Hydralazine (4) History of CVA (cerebrovascular accident) Current Visit: No Status: Chronic Code(s): Z86.73 - PRSNL HX OF TIA (TIA), AND CEREB INFRC W/O RESID DEFICITS SNOMED Code(s): 270416501 Comment: - Continue Plavix (5) Hyponatremia Current Visit: Yes Status: Acute Code(s): E87.1 - HYPO-OSMOLALITY AND HYPONATREMIA SNOMED Code(s): 75208674 Comment: Hypovolemic, hypoNA, improved with PO intake -Continue to monitor (6) DVT prophylaxis Current Visit: No Status: Acute Code(s): CSS7585 - SNOMED Code(s): 830437068 Comment: -SQH Status and Disposition: Consider STR on d/c, [facility] beds at the [facility]
--- NOTE | 2018-05-13 16:10 | PN ---
Hospitalist Progress Note Date of Service: 05/13/18 Completed MOLST form at the bedside with patient, she is clearly DNR/DNI, would want other interventions like BiPAP and CPAP and ultimately says in her own words that she would not want to interfere with a natural .
[2018-05-13] MEDS: Artificial Tears* 15 ML BTL BOTH EYES PRN (20:33)
[2018-05-13] MEDS: Lidocaine Patch REMOVE* 1 NOTE MISC PATCH OFF SCH (20:34)
[2018-05-14] MEDS: Heparin VIAL(*) 5000 UNITS/ML VIAL (FIVE THOUSAND) SUBCUT SCH ×2 (05:57→13:59)
[2018-05-14] MEDS: Clopidogrel TAB* 75 MG PO SCH (07:51)
[2018-05-14] MEDS: Artificial Tears* 15 ML BTL BOTH EYES PRN (07:52)
[2018-05-14] MEDS: hydrALAZINE TAB* 25 MG PO SCH (07:52)
[2018-05-14] MEDS: Atenolol TAB* 50 MG PO SCH (07:52)
[2018-05-14] MEDS: Lidocaine PATCH 5%* 1 PATCH TRANSDERM SCH (07:52)
[2018-05-14] MEDS: Losartan TAB* 25 MG PO SCH (07:52)
--- NOTE | 2018-05-14 08:21 | PN ---
Subjective Date of Service: 05/14/18 Interval History: HD #4 on 05/14/18 79 yo F PMH HTN, hx of CVA/TIA who presents with new compression frxr L1 ( chronic at T12), admitted after mechanical fall, no further NS interventions planned Overnight no acute events. VS 154/52, HR in the 50s, afebrile, satting well. got Tramadol 50 QHS last night. This morning, still having some back pain, tolerating diet, voiding large amount of urine without any BM at this point, would like to start BR. Attempted to work with PT and is off baseline, now considering STR. No other acute complaints Objective Active Medications: Acetaminophen (Tylenol Tab*) 650 mg PO Q6H PRN PRN Reason: FEVER/HEADACHE Last Admin: 05/12/18 16:28 Dose: 650 mg Albuterol (Ventolin Hfa Inhaler*) 2 puff INH Q4H PRN PRN Reason: SHORTNESS OF BREATH Atenolol (Tenormin Tab*) 50 mg PO DAILY [facility] Last Admin: 05/14/18 07:52 Dose: 50 mg Calcitonin Arabi (Fortical(Nr)) 200 units ALT NARE DAILY [facility]; Protocol Last Admin: 05/13/18 09:30 Dose: 200 units Calcium Citrate (Citracal Tab*) 200 mg PO DAILY [facility] Last Admin: 05/14/18 07:52 Dose: 200 mg Cholecalciferol (Vitamin D Tab*) 2,000 units PO DAILY [facility] Last Admin: 05/14/18 07:52 Dose: 2,000 units Clopidogrel Bisulfate (Plavix Tab*) 75 mg PO DAILY [facility] Last Admin: 05/14/18 07:51 Dose: 75 mg Cyclobenzaprine HCl (Flexeril Tab*) 5 mg PO BID PRN PRN Reason: SPASMS Last Admin: 05/12/18 20:57 Dose: 5 mg Heparin Sodium (Porcine) (Heparin Vial(*)) 5,000 units SUBCUT Q8HR [facility] Last Admin: 05/14/18 05:57 Dose: 5,000 units Hydralazine HCl (Apresoline Tab*) 50 mg PO BID [facility] Last Admin: 05/14/18 07:52 Dose: 50 mg Lidocaine (Lidoderm 5% Patch*) 1 patch TRANSDERM DAILY [facility] Last Admin: 05/14/18 07:52 Dose: 1 patch Losartan Potassium (Cozaar Tab*) 50 mg PO BID [facility] Last Admin: 05/14/18 07:52 Dose: 50 mg Pharmacy Profile Note (Lidocaine Patch Remove*) 1 note PATCH OFF 2100 [facility] Last Admin: 05/13/18 20:34 Dose: 1 note Polyvinyl Alcohol (Polyvinyl Alcohol 1.4% Opth*) 1 drop BOTH EYES Q2H PRN PRN Reason: DRY EYE Last Admin: 05/14/18 07:52 Dose: 1 drop Tramadol HCl (Ultram*) 50 mg PO Q8H PRN PRN Reason: PAIN Last Admin: 05/13/18 23:20 Dose: 50 mg Vital Signs - 8 hr 05/14/18 05/14/18 05/14/18 04:06 05:59 07:36 Temperature 97.4 F 98.0 F Pulse Rate 55 51 Respiratory 18 18 16 Rate Blood Pressure 158/61 154/52 (mmHg) O2 Sat by Pulse 94 95 Oximetry 05/14/18 08:00 Temperature Pulse Rate Respiratory 16 Rate Blood Pressure (mmHg) O2 Sat by Pulse Oximetry Oxygen Devices in Use Now: Nasal Cannula Appearance: Well woman in NAD Ears/Nose/Mouth/Throat: NL Teeth, Lips, Gums, Mucous Membranes Moist Neck: NL Appearance and Movements; NL JVP, Trachea Midline Respiratory: Symmetrical Chest Expansion and Respiratory Effort, Clear to Auscultation Cardiovascular: NL Sounds; No Murmurs; No JVD, RRR Abdominal: NL Sounds; No Tenderness; No Distention Lymphatic: No Cervical Adenopathy Extremities: No Edema Skin: No Rash or Ulcers Neurological: Alert and Oriented x 3 Result Diagrams: 05/13/18 06:33 05/13/18 06:33 Diagnostic Imaging: Lumbar Spine CT: L1 Compression acute, T12 chronic Pelvic CT: No acute fracture, incidental diverticulosis seen Assess/Plan/Problems-Billing Assessment: 79 yo F PMH HTN, hx of CVA/TIA who presents with new compression frxr L1 ( chronic at T12), admitted after mechanical fall, no further NS interventions planned, working on pain control and awaiting STR given she has decompensated from her baseline. - Patient Problems (1) Compression fracture of L1 lumbar vertebra Current Visit: Yes Status: Acute Code(s): S32.010A - WEDGE COMPRESSION FRACTURE OF FIRST LUMBAR VERTEBRA, INIT SNOMED Code(s): 293810585 Comment: Acute, chronic T12 -Will need DEXA as outpt, will start Vit D, Calcium -Tramadol/Tylenol/Calcitonin nasal spray/Cyclobenzaprine/Lidocaine for pain control -Lumbar Core Support Brace, discussed with Dr. Valdovinos, this not necessary to ambulate thus has not been provided (2) Right hip pain Current Visit: No Status: Acute Code(s): M25.551 - PAIN IN RIGHT HIP SNOMED Code(s): 14682811 Comment: -S/p fall with no e/o acute fracture, continue MSK pain control (3) Hypertension Current Visit: No Status: Acute Code(s): I10 - ESSENTIAL (PRIMARY) HYPERTENSION SNOMED Code(s): 48443698 Comment: - Continue Atenolol, Losartan and Hydralazine (4) History of CVA (cerebrovascular accident) Current Visit: No Status: Chronic Code(s): Z86.73 - PRSNL HX OF TIA (TIA), AND CEREB INFRC W/O RESID DEFICITS SNOMED Code(s): 767743391 Comment: - Continue Plavix (5) Hyponatremia Current Visit: Yes Status: Acute Code(s): E87.1 - HYPO-OSMOLALITY AND HYPONATREMIA SNOMED Code(s): 23355860 Comment: Hypovolemic, hypoNA, improved with PO intake -Continue to monitor (6) DVT prophylaxis Current Visit: No Status: Acute Code(s): XNT7664 - SNOMED Code(s): 089823784 Comment: -SQH Status and Disposition: Consider STR on d/c, [place] [facility] [place]
[2018-05-14] MEDS ORDERED: Cholecalciferol TAB* 1000 UNITS PO SCH (09:00)
[2018-05-14] MEDS ORDERED: Calcium Citrate TAB* 200 MG PO SCH (09:00)
--- NOTE | 2018-05-14 09:33 | PN ---
Progress Note - Progress Note Date of Service: 05/14/18 SOAP: Subjective: []Pt seen and examined at bedside. She feels well without any right hip or leg pain. She ambulate with PT yesterday again with no pain in the hip or right leg. Objective: []General: NAD RLE: skin envelope intact, hip and leg nontender to palpation. Hip ROM flexion 0 -110 without pain, no pain with internal or external rotation, no pain with log roll. No pain with knee, ankle, MTP ROM Assessment: []Right hip pain osteoarthritis, unlikely that she has any hip fracture as she moves the hip very well without pain and ambulates without pain Plan: []WBAT RLE Patient aware that should she experience any hip pain, hip pain with weight bearing, decreased ROM she needs urgent eval with MRI. At this time she is pain free in her hip and no further orthopedic evaluation is needed
[2018-05-14] MEDS: Calcitonin NASAL(NF) 200 UNITS/SPRAY NASAL.SPR ALT NARE SCH (11:11)
[2018-05-14] MEDS ORDERED: Docusate CAP* 100 MG PO PRN (11:30)
[2018-05-14] MEDS ORDERED: Senna TAB PO PRN (11:31)
[2018-05-14 16:16] VITALS: BP 175/61
[2018-05-14] MEDS ORDERED: Losartan TAB* 25 MG PO ONE (16:23)
[2018-05-14] MEDS: Acetaminophen TAB* 325 MG PO PRN (17:40)
--- NOTE | 2018-05-14 20:53 | DS ---
DISCHARGE SUMMARY: DATE OF ADMISSION: 05/11/18 DATE OF DISCHARGE: 05/14/18 PRIMARY DIAGNOSIS: Compression fracture of L1, T12. SECONDARY DIAGNOSES: 1. History of CVA. 2. History of transient ischemic attack. 3. History of hypertension. MEDICATIONS ON DISCHARGE: As follows: 1. Atenolol 50 mg p.o. daily. 2. Cholecalciferol 1000 mg p.o. daily. 3. Clopidogrel 75 mg p.o. daily. 4. Losartan 50 mg p.o. b.i.d., that is her home dose. 5. Acetaminophen 650 mg p.o. q.6 hours. 6. Albuterol 2 puffs inhaled q.4 hours p.r.n. for shortness of breath. 7. Artificial tears 1 drop both eyes daily. 8. Benzonatate 100 mg p.o. b.i.d. p.r.n. for cough. 9. Calcitonin nasal spray 200 units alternating nares spray daily. 10. Calcium citrate tab 200 mg p.o. daily. 11. Cyclobenzaprine 5 mg p.o. b.i.d. p.r.n. for pain. 12. Hydralazine 100 mg p.o. b.i.d. 13. Lidocaine patch 5%, apply 1 patch to low back daily and remove in 12 hours. The medication changes on this hospitalization include: 1. The addition of a lidocaine patch. 2. The addition of cyclobenzaprine. 3. The addition of calcitonin nasal spray. HISTORY OF PRESENT ILLNESS AND HOSPITAL COURSE: As follows: An 83-year-old lady with above past medical history, who presented to the emergency room on the evening of 05/11/18 saying that 1 week prior to admission, she had a fall while walking out of her doctor's office. She continued to have progressively worse pain, particularly when turning in bed and denied any active bladder or bowel incontinence, but was concerned, so she wanted to come to the emergency room. In the emergency room, her vital signs were stable. She was noted to have no new weakness. Her neurologic exam was unremarkable. She had a CT scan that showed a compression fracture to the superior endplate of the L1 vertebral body as well as mild compression deformity at T12 and L2 that appeared chronic and old. She also had a pelvic CT that did not show an acute fracture. Secondary to being unable to ambulate at her baseline, she was admitted to the medical service on observation. While on the medical service, her hospital course by problem is as follows: 1. New compression fracture. She was started on Tylenol, cyclobenzaprine, and tramadol. After 2 days, her pain improved considerably. She was evaluated by the neurosurgical team who felt that there was no further evaluation. She was also started on calcitonin nasal spray as well as vitamin D and calcium to assist in the healing of this compression fracture. As an outpatient, she will need a DEXA scan to determine if she has osteoporosis. On day of discharge, she is able to ambulate to the bathroom by herself. Physical Therapy evaluated the patient and initially felt short-term rehab was an appropriate placement, although they felt that she improved and would be able to go home with physical therapy and referral for [facility] was made. The plan was discussed with her and her daughter who felt comfortable to trial at home and also have increased presence of family. 2. Hypertension. We continued her home medications. 3. She has history of CVA and TIA. She is on secondary prevention with beta- otoniel, Plavix and we continued these medications. 4. She has history of UTIs. She had a negative UA and urine culture on this hospitalization. No evidence of this contributing to her fall. Overall, she was ambulating to the bathroom by herself and appeared at baseline. She felt comfortable and safe to go home and the plan was discussed with her and her daughter. Vital signs on the day of discharge are blood pressure 123/60, heart rate 50, respiration rate 16, saturating 95% on room air, and temperature of 97. Her labs on day of discharge are notable for an H and H of 11.8 and 35, white blood cell count of 8.9, platelets of 275. BMP notable for sodium of 135, potassium 4.1, chloride 104, CO2 24, BUN 23, and creatinine 1.13, glucose of 91. Imaging done during this hospitalization included a lumbar spine CT with the above- mentioned results including chronic T12 and L2 compression deformities and a new acute mild compression fracture at superior endplate of L1 vertebral body. She also is noted to have numerous sigmoid diverticula and a left renal cyst that appears chronic. She also had a pelvic CT done that showed no acute fracture, DJD of the hips bilaterally, and as noted sigmoid diverticulosis. Review of systems was done on day of discharge and was notable only for mild persistent low back pain and no new weakness, no numbness or paresthesias, and no bladder or bowel incontinence. Her primary care provider, who is listed as Dr. Blair Sidhu, was recommended to follow up with within 4 to 7 days. Furthermore, we have made recommendation for [facility] to provide and to be assessed for home PT and OT. Thirty-five minutes were spent in the planning of this discharge, with over half of that spent at the bedside counseling the patient and her family. They had no further questions on day of discharge and anticipate returning to home with increased family presence in the home and addition of services of VNA, PT, and OT. We recommend following up with primary care to help assist in continuing to secure resources as needed. We also encourage her to return to the hospital if she is unable to complete her activities of daily living or if there are additional falls in the home. They have no further questions. ACTIVE ISSUES TO FOLLOW UP ON POST DISCHARGE: Compression fracture. Ensure that calcitonin nasal spray, vitamin D and calcium, as well as adequate pain control with Tylenol, cyclobenzaprine, and lidocaine patches are offered. Would not recommend opiates in this patient secondary to her tendency to have constipation. Consider lumbar support brace for comfort if tolerable. Would recommend a DEXA scan for this elderly woman with new compression fracture and to determine her degree of osteopenia versus osteoporosis. Otherwise, there were no active problems managed in this hospitalization. Please do not hesitate to contact us if there are any questions regarding the care of this patient. [id number]/[facility] #: [id number] MTDD
== END 2018-05-14 18:45 | disposition home or self-care (01) ==
LOC: ED 17:31 → SSU 20:47
PROVIDERS: ADMIT Internal Medicine; ATTEND Internal Medicine
DX: S32.010A Wedge compression fracture of first lumbar vertebra, initial encounter for closed fracture (principal); M25.551 Pain in right hip; I10 Essential (primary) hypertension; M48.54XA Collapsed vertebra, not elsewhere classified, thoracic region, initial encounter for fracture; M54.9 Dorsalgia, unspecified; Z91.81 History of falling; I25.10 Atherosclerotic heart disease of native coronary artery without angina pectoris; K21.9 Gastro-esophageal reflux disease without esophagitis; K57.90 Diverticulosis of intestine, part unspecified, without perforation or abscess without bleeding; M16.11 Unilateral primary osteoarthritis, right hip; E87.1 Hypo-osmolality and hyponatremia; Z86.73 Personal history of transient ischemic attack (TIA), and cerebral infarction without residual deficits
CPT/HCPCS: 36415; 72131; 72192; 80048; 80053; 85025; 85610; 85730; 96374; 99283; A9270-GY; G0378; G8978-GP-CJ; G8979-GP-CI; G8987-GO-CJ; G8988-GO-CI; J1644; J2270

== ENCOUNTER 2018-06-27 18:44 | Inpatient (IN) | payer MEDICARE ==
[2018-06-27] MEDS ORDERED: diPHENhydraMINE IV* 50 MG/ML 1 ml VIAL (BENADRYL) IM ONE (19:13)
--- NOTE | 2018-06-27 19:14 | ED ---
Complex/Multi-Sys Presentation - HPI Summary HPI Summary: This patient is an 83 year old F brought in by ambulance to [facility] with a chief complaint of lethargy that began at 1100 today. The patient rates the pain 5/10 in severity. Symptoms aggravated by nothing. Symptoms alleviated by nothing. Patient reports back pain and feeling twitchy. Per EMS, the patients daughter called for an ambulance for the patient experiencing increasing lethargy. Patient states she began a new medication this morning, and since 1100 she has been not feeling well. - History Of Current Complaint Chief Complaint: EDGeneral Time Seen by Provider: 06/27/18 19:01 Hx Obtained From: Patient, EMS Onset/Duration: Sudden Onset, Lasting Hours, Still Present Timing: Constant Severity Currently: Moderate Severity Initially: Moderate Aggravating Factor(s): Nothing Alleviating Factor(s): Nothing Associated Signs And Symptoms: Positive: Other - Positive back pain and feeling "twitchy" - Allergies/Home Medications Allergies/Adverse Reactions: Allergies Allergy/AdvReac Type Severity Reaction Status Date / Time aspirin Allergy Abdominal Verified 05/11/18 18:25 Pain lisinopril Allergy Coughing Verified 05/11/18 18:25 Home Medications: Home Medications Atorvastatin* [Lipitor 10 MG*] 1 tab PO DAILY 06/27/18 [History Confirmed ] Sulfamethox/Trimethoprim DS* 1 tab PO DAILY WITH MEAL 06/27/18 [History Confirmed 06/27/18] hydrALAZINE TAB* [Apresoline TAB*] 50 mg PO BID 06/27/18 [History Confirmed 12/08] PMH/Surg Hx/FS Hx/Imm Hx Previously Healthy: No Endocrine/Hematology History: Denies: Hx Diabetes Cardiovascular History: Reports: Hx Coronary Artery Disease - CHOLESTEROL CONTROL WITH MEDICATION, Hx Hypertension Denies: Hx Pacemaker/ICD Respiratory History: Denies: Hx Asthma, Hx Chronic Obstructive Pulmonary Disease (COPD) GI History: Reports: Hx Gastroesophageal Reflux Disease - ACID REFLUX OCCASIONALLY, USES TUMS History: Denies: Hx Renal Disease Musculoskeletal History: Reports: Hx Arthritis - GENERALIZED Denies: Hx Osteoporosis Sensory History: Reports: Hx Cataracts - BILATERAL, Hx Contacts or Glasses, Hx Hearing Aid - pt does not wear them Opthamlomology History: Reports: Hx Cataracts - BILATERAL, Hx Contacts or Glasses Psychiatric History: Denies: Hx Panic Disorder - Cancer History Hx Chemotherapy: No Hx Radiation Therapy: No - Surgical History Surgery Procedure, Year, and Place: CATARACTS - [facility] Infectious Disease History: Unable to Obtain/Confirm Infectious Disease History: Denies: Traveled Outside the [place] in Last 30 Days - Family History Known Family History: Positive: Other - stroke and cancer - Social History Lives: Alone Alcohol Use: None Hx Substance Use: No Substance Use Type: Reports: None Hx Tobacco Use: No Smoking Status (MU): Never Smoked Tobacco Review of Systems Positive: Other - Positive lethargy Musculoskeletal: Other - Positive back pain Neurological: Other - Positive feeling "twitchy" All Other Systems Reviewed And Are Negative: Yes Physical Exam - Summary Physical Exam Summary: VITAL SIGNS: Reviewed. GENERAL: Patient is a well-developed and nourished female who is lying in the stretcher. Patient is not in any acute respiratory distress. Patient keeps moving on the stretcher. She has some involuntary movement. HEAD AND FACE: No signs of trauma. No ecchymosis, hematomas or skull depressions. No sinus tenderness. EYES: PERRLA, EOMI x 2, No injected conjunctiva, no nystagmus. EARS: Hearing grossly intact. Ear canals and tympanic membranes are within normal limits. MOUTH: Oropharynx within normal limits. NECK: Supple, trachea is midline, no adenopathy, no JVD, no carotid bruit, no c- spine tenderness, neck with full ROM. CHEST: Symmetric, no tenderness at palpation LUNGS: Clear to auscultation bilaterally. No wheezing or crackles. CVS: Regular rate and rhythm, S1 and S2 present, no murmurs or gallops appreciated. ABDOMEN: Soft, non-tender. No signs of distention. No rebound no guarding, and no masses palpated. Bowel sounds are normal. EXTREMITIES: FROM in all major joints, no edema, no cyanosis or clubbing. NEURO: Alert and oriented x 3. No acute neurological deficits. Speech is normal and follows commands. SKIN: Dry and warm Triage Information Reviewed: Yes Vital Signs On Initial Exam: Initial Vitals Temp Pulse Resp BP Pulse Ox 98.8 F 83 18 148/80 92 06/27/18 18:55 06/27/18 18:55 06/27/18 18:55 06/27/18 18:55 06/27/18 18:55 Vital Signs Reviewed: Yes Diagnostics - Vital Signs Vital Signs Temp Pulse Resp BP Pulse Ox 06/27/18 18:55 98.8 F 83 18 148/80 92 - Laboratory Result Diagrams: 06/27/18 20:01 06/27/18 20:01 Lab Statement: Any lab studies that have been ordered have been reviewed, and results considered in the medical decision making process. - Radiology Chest XR Radiology Interpretation Completed By: ED Physician Summary of Radiographic Findings: CXR reveals, per ED physician, no acute process. - CT CT Abdomen and Pelvis CT Interpretation Completed By: Radiologist Summary of CT Findings: CT abdomen and pelvis reveals, per radiologist, 1. Findings of cystitis. 2. Bosniak type 1 renal cysts. No followup indicated. 3. Distal colonic diverticulosis. ED physician has reviewed this radiology report. Re-Evaluation - Re-Evaluation First Eval Re-Evaluation Time: 19:32 Change: Unchanged Comment: The patients niece and daughter are now in the room. The daughter stated that at approximately 1200, the patient communicated that she was very cold and did not feel well. Daughter states the patient began to go through these episodes where her legs would spasm. Daughter states that the patient fell in April of 2018, and fractured a vertebra; but the patient has been doing well since. The daughter was able to speak to the patient; the patient then communicated that she was very tired and she has back pain. Patient has a rectal temp of 100.9F Complex Multi-Symp Course/Dx Course Of Treatment: This patient is an 83 year old F brought in by ambulance to [facility] with a chief complaint of lethargy that began at 1100 today. Patient states she began a new medication this morning, and since 1100 she has been not feeling well. The nurse communicated the medication was Bactrim. But it is unclear why this medication was begun based on the history. Physical Exam Findings: Patient keeps moving on the stretcher. She has some involuntary movement. Patient has a rectal temp of 100.9. CXR reveals, per ED physician, no acute process. CT abdomen and pelvis reveals, per radiologist, 1. Findings of cystitis. 2. Bosniak type 1 renal cysts. No followup indicated. 3. Distal colonic diverticulosis. Bloodwork and UA obtained. In the ED course the patient was given acetaminophen, fluids, Benadryl, and Zosyn. Consult with Dr. Ramirez ( hospitalist) at [id number]. She agrees to admit the patient for further evaluation. The patient is agreeable with this plan. - Diagnoses Provider Diagnoses: UTI (urinary tract infection) Discharge - Sign-Out/Discharge Documenting (check all that apply): Patient Departure - [place] [facility] [place] Received Moderate/Deep Sedation with Procedure: No - Discharge Plan Condition: Stable Disposition: ADMITTED TO [facility] Referrals: Yadi Cline MD [Primary Care Provider] - - Attestation Statements Document Initiated by Scribe: Yes Documenting Scribe: Kimmie Gorman Provider For Whom Scribe is Documenting (Include Credential): Dr. Kellee Iyer MD Scribe Attestation: I, Kimmie Gorman, scribed for Dr. Kellee Iyer MD on 06/28/18 at 0009. Status of Scribe Document: Ready
[2018-06-27] MEDS ORDERED: NS 0.9% 1000 ML** 2,000 ML IV ONE (19:37)
[2018-06-27] MEDS ORDERED: Acetaminophen SUPP* 325 MG SUPP PR ONE (19:37)
[2018-06-27] MEDS ORDERED: Piperacillin/Tazobac ADVAN(*) 3.375 GM in NS 0.9% 100 ML* 100 ML IVPB ONE (19:38)
--- OUTSIDE RECORDS SUMMARY | 2018-06-27 19:48 | XMS REPORT | Continuity of Care Document ---
:1935 External Reference #:[id number] Author Name Yadi Rivas M.D., R.D. 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 [place] [address] Expires: 2006 Policy Number: [id number] [facility] Javier Bobo Group Number: [id number] [address] [place] [address] Effective: 2012 Policy Number: [employer] Javier Bobo [id number] Group Number: [id number] [address] [address] PayID: [id number] [place] [address] Advance Directives Description No Information Available Problems Date Description Provider Status Onset: 04/11/2011 Pure hypercholesterolemia Yadi Rivas M.D., R.DBisi Active Onset: 04/11/2011 Essential hypertension Yadi Rivas M.D., R.DBisi Active Onset: 04/11/2011 Urinary incontinence Yadi Rivas M.D., R.DBisi Active Onset: 04/11/2011 Obesity Yadi Rivas M.D., R.DBisi Active Onset: 04/11/2011 Lichen Yadi Rivas M.D., RAlcides. Active Onset: 04/11/2011 Carpal tunnel syndrome Yadi Rivas M.D., RAlcides. Active Onset: 04/11/2011 Low back pain Yadi Rivas M.D., RAlcides. Active Onset: 04/11/2011 Gastroesophageal reflux disease Yadi Rivas M.D., RAlcides. Active Onset: 04/11/2011 Midline cystocele Tito Bee M.D. Active Onset: 08/05/2017 Osteoarthritis of multiple joints Yadi Rivas M.D., RAlcides. Active Family History Date Family Member(s) Observation Comments First Daughter Diabetes Second Daughter Diabetes [...] Form Strength Qnty SIG Indications Ordering Provider Acetaminophen 05/28 Active Tablets 500mg 500mg by Yadi Extra Strength mouth [facility], every 6 M.D., hours as R.D. needed for pain Artificial Tears 05/28 Active Solution 1-0.3% one drop in each [facility], eye every M.D., 2 hours R.D. Tramadol HCL 05/09 Active Tablets 50mg 14tab 1 tab by M54.5 Fransisco s mouth Laura mondragon MD times a day as needed pain Nystatin 04/07 Active Cream [id number] 30gm apply R10.2 t/GM three [facility], times a M.D., day to R.D. affected area for 2 weeks Fluticasone 01/14 Active Suspension 50mcg/Act 16uni inhale two J30.9 Propionate ts sprays in [facility], each M.D., nostril R.D. every day Losartan 08/16 Active Tablets 50mg 180ta 1 by mouth I10 Potassium bs bid Peter Rivas, R.D. Plavix 08/09 Active Tablets 75mg 90tab 1 by mouth s every day Peter Rivas, R.D. Hydralazine HCL 08/09 Active Tablets 100mg 120ta 1/2 by bs mouth in [facility], the M.D., morning R.D. and 1/2 pill at night Atorvastatin 04/17 Active Tablets 10mg 90tab 1 by mouth E78.00 Yadi s at at [facility], bedtime M.D., R.D. Atenolol 03/11 Active Tablets 50mg 90tab Take 1 s Tablet By [facility], Mouth M.D., Daily R.D. Calcitonin 00 Active Solution 200Unit/A Unknown ([facility]) / ct Cyclobenzaprine Active Tablets 10mg Unknown HCL /0000 Calcium Citrate + Active Tablets 200mg 1 by mouth Unknown every day Lidocaine Active Patches 5% 5unit apply one s patch Rob topicalsommer Green, to back R.D. every morning and remove 12 hours later Docusate Sodium 00 Active Capsules 100mg 1 by mouth Unknown /0000 everyday as needed for constipati on Vitamin D 00 Active Capsules 1000Unit 1 by mouth Unknown (Cholecalciferol) / every day Metamucil (With Active 1 Gram Unknown Sugar) 3.4 Gram/ daily as Gram Oral Powder needed for constipati on Vitamin E High Active Capsules 400Unit Daily Unknown Potency /0000 Amoxicillin 02/26 Hx Tablets 875mg 10tab 1 by mouth s twice a Rob - bryan Green, 04/07 R.D. 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 /2017 hours as needed Hydrochlorothiazi 06/21 Hx Tablets 25mg 30tab 1 by mouth s every day Anne Rivas M.D., 08/09 R.D. /2017 Diflucan 06/20 Hx Tablets 150mg 1tabs 1 by mouth x 1 Anne Rivas M.D., 09/23 R.D. /2017 Losartan 06/05 Hx Tablets 25mg 90tab 2 by mouth I10 Yadi Potassium s every day Anne Rivas M.D., 08/16 R.D. /2017 Lipitor 04/08 Hx Tablets 10mg 90tab 1 by mouth E78.00 s at at Rob, - bedtime Peter, 04/17 R.D. /2016 Synthroid 01/24 Hx Tablets 25mcg 30tab take one s tablet by Anne Rivas.DBisi, 04/05 every day R.D. /2016 take 2 hours before eating or before [...] by mouth Yadi Besylate s every day Anne Rivas for blood M.D., 04/29 pressure R.D. /2017 Amlodipine 11/12 Hx Tablets 2.5mg 30tab 2 by mouth Yadi Besylate s every day Anne Rivas M.D., 11/21 R.D. Cipro 04/20 Hx Tablets 250mg 10tab 1 by mouth s twice a Anne Rivas.DBisi, 05/07 R.D. Vitamin D3 04/20 Hx Capsules [id number] 12cap 1 by mouth s every week Anne Rivas 12 M.DBisi, 01/23 weeks R.D. /2016 Tylenol 04/13 Hx Capsules 325mg prn Anne Rivas M.D., 05/28 R.D. /2018 Eye Drops 04/13 Hx Solution Anne Rivas M.D., 05/28 R.D. Hydrochlorothiazi 11/24 Hx Capsules 12.5mg 90cap 1 by mouth Yadi s every day Anne Rivas M.D., 04/13 R.D. Levofloxacin 04/01 Hx Tablets 250mg 6tabs 1 po bid N39.0 Anne Rivas M.D., 09/11 R.D. /2015 Prednisone 01/28 Hx Tablets 2.5mg 30tab 1 by mouth Yadi s every Anne Rivas other day Lionel.DBisi, 04/13 (alternate R.D. /2015 with 2 tabs by mouth every other day) Prednisone 10/07 Hx Tablets 5mg 90tab 1.5 pills s by mouth Rob - every M.D., 01/28 other day R.D. or as directed Prednisone 07/26 Hx Tablets 20mg 20tab take 1 po s qd for 5 Rob - days, then M.D., 07/26 as R.D. /2014 directed Prednisone 07/26 Hx Tablets 10mg 60tab 2 by mouth s every day Rob - for 5 M.D., 10/07 days, then R.D. as directed Cipro HC 02/09 Hx Suspension 0.2-1% QS 5 drops in 380. each ear Rob - bid for M.D., 02/09 5-7 days R.D. Cortisporin-TC 02/09 Hx Suspension 3.3-3-10- 10ml 5 drops to 0.5mg/ml left ear Rob - tid for 1 M.D., 04/02 week R.D. /2012 Bactrim DS 05/07 Hx Tablets 800-160mg 14tab 1 po bid s Anne Rivas M.D., 02/09 R.D. Ciprofloxacin HCL 04/07 Hx Tablets 250mg 14tab 1 bid x 7 599.0 s days Anne Rivas M.D., 02/09 R.D. Vitamin D 400 04/02 Hx Chewtabs 400Unit 2 po qd Anne Rivas M.D., 05/28 R.D. /2018 Tums 04/02 Hx Chewtabs 500mg bid for Calcium Anne Rivas M.D., 03/22 R.D. /2013 Azithromycin 08/01 Hx Tablets 250mg 6tabs 2 po today 466.0 then 1 po R. 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 /2015 Atenolol 04/05 Hx Tablets 50mg 90tab Take 1 s tablet by Anne Rivas mouth Peter, 12/31 every day R.D. /2016 shortage, switched to metoprolol 12/29/16 Ciprofloxacin HCL 08/15 Hx Tablets 250mg 28tab 1 bid x 14 599.0 s days Anne Rivas M.D., 04/05 R.D. Oxytrol 04/05 Hx Patches 3.9mg/24H 1 patch Biweek R Anne Dewitt weekly Peter, 04/02 R.D. /2010 Oxybutynin 06/22 Hx Tablets ER 5mg 20tab 1 qd Tito Chloride ER /2007 24HR s Cristal Rodríguez M.D. 04/05 Premarin 05/19 Hx Cream 0.625mg/G 1Tube Apply Tito W/Applicator /2007 M Chasity Bee - With Peter 04/05 Daily Clobetasol 05/19 Hx Cream 0.05% 45gm apply qd Yadi Propionate prn Anne Rivas M.D., 04/02 R.D. Vitamin D 03/31 Hx Capsules 400Unit 1 qd Tito Cristal Rodríguez M.D. 04/05 Albuterol 06/24 Hx Aerosol 90mcg/Dos 1unit 2 Puffs Q Tito e s 4HRS prn Cristal - Wheezing MichaelDBisi 07/24 Or Cough /2006 Medical Clearance 04/03 Hx She Is Tito /2005 Medically Lessinger - Clear For , M.D. 03/31 Hearing /2006 Eval Physical Therapy 06/29 Hx Evaluate 724.5 Tito /2004 And Rx as Lessinger - Indicated , M.D. 03/31 For Left Arm And Shoulder Strain. Modalities as Indicated, Up To 8 Visits. Flexeril 06/29 Hx Tablets 10mg 20tab 1 po tid 724.5 Fide s Juan Johnson, 06/29 [facility] /2004 Bextra 06/29 Hx Tablets 10mg 30tab I PO qd 724.5 Fide s Juan Alvarezi, 07/11 F.N.P.[facility] Physical Therapy 04/21 Hx low back Tito pain--eval Cristal - and rx Peter mcgovern 03/31 up to 8 visits Atenolol 02/10 Hx Tablets 25mg 90tab take one s tablet Rob, - daily M.DBisi, 04/05 R.D. Lipitor 11/06 Hx Tablets 10mg 90tab one qd s Anne Rivas MBisiDBisi, 04/05 R.D. Prempro 03/25 Hx Tablets .625/2.5 5tabs One Daily Tito Cristal Rodríguez M.D. 07/30 Lisinopril 00/00 Hx Tablets 10mg Unknown /0000 - 09/11 Amlodipine / Hx Tablets 10mg Unknown Besylate /0000 - 09/11 Ciprofloxacin HCL 00/00 Hx Tablets 500mg Unknown /0000 - 04/01 Oxybutynin 00/00 Hx Tablets ER 5mg Unknown Chloride ER /0000 24HR - 04/01 Ciprofloxacin HCL 00/00 Hx Tablets 500mg Unknown /0000 - 09/11 Oxybutynin 00/00 Hx Tablets ER 5mg Unknown Chloride ER /0000 24HR - 09/11 Amoxicillin 00/00 Hx Capsules 500mg Unknown /0000 - 09/23 Prednisone 00/00 Hx Tablets 20mg Unknown /0000 - 09/23 Proair HFA 00/00 Hx Aerosol 108(90Bas Unknown /0000 e) - mcg/Act 09/13 Immunizations CPT Code Status Date Vaccine Lot # [id number] Given 08/03/2009 Td Age 7 to adult Decavac, Tenivac, [employer] [id number] Refused 11/16/2016 Influenza Virus Vaccine, Quadrivalent, 3 Yr > Quad , Preserv Free Vital Signs Date Vital Result Comment 05/28/2018 3:03pm Weight 159.25 lb Weight 72.236 kg BP Systolic 138 mmHg BP Diastolic 78 mmHg Heart Rate 62 /min Body Temperature 98.1 F Respiratory Rate 18 /min Height 57.5 inches 4'9.50" BMI (Body Mass Index) 33.9 kg/m2 O2 % BldC Oximetry 94 % 05/09/2018 4:05pm Weight 163.00 lb Weight 73.937 [...] H/L Range Note Urine Culture And 04/09/2018 [facility] Urine Culture SEE RESULT 1 Sensitivities [phone] BELOW Urine DIP 04/09/2018 In House Lab Leukocytes ++ Neg (607)- - Urine Nitrites pos Neg Urobilinogen neg Norm Total Protein, Urine ++ Neg Urine pH 8 High 5-6 Urine Blood trace Neg Specific [place] 1.005 Low 1.01-1.02 Urine Ketones neg Neg Urine Bilirubin neg Neg Urine Glucose neg Norm Lipid Profile 04/07/2018 [facility] Triglycerides 459 mg/dL 2 (Trig/Chol/HDL) [phone] Cholesterol 243 mg/dL 3 HDL Cholesterol 37.1 mg/dL 4 Laboratory test 04/07/2018 [facility] LDL Cholesterol 139 mg/dL 5 finding [phone] Direct Urine Culture And 02/24/2018 [facility] Urine Culture SEE RESULT 6 Sensitivities [phone] BELOW Urine DIP 02/24/2018 In House Lab Leukocytes 1+ High Neg (607)- - Urine Nitrites NEG Neg Urobilinogen NEG Norm Total Protein, Urine TRACE Neg Urine pH 6 5-6 Urine Blood TRACE Neg Specific [place] 1.015 1.01-1.02 Urine Ketones NEG Neg Urine Bilirubin NEG Neg Urine Glucose NORM Norm Urine Culture And 01/14/2018 [facility] Urine Culture SEE RESULT 7 Sensitivities [phone] BELOW Urine DIP 01/14/2018 In House Lab Leukocytes ++ Neg (607)- - Urine Nitrites Neg Neg Urobilinogen Norm Norm Total Protein, Urine + Neg Urine pH 6 5-6 Urine Blood 50 High Neg Specific [place] 1.005 Low 1.01-1.02 Urine Ketones Neg Neg Urine Bilirubin Neg Neg Urine Glucose Norm Norm Urine Culture And 10/01/2017 [facility] Urine Culture SEE RESULT 8 Sensitivities [phone] BELOW Urine DIP 10/01/2017 In House Lab Leukocytes ++ Neg (607)- - Urine Nitrites pos Neg Urobilinogen norm Norm Total Protein, Urine trace Neg Urine pH 7 High 5-6 Urine Blood neg Neg Specific [place] 1.005 Low 1.01-1.02 Urine Ketones neg Neg Urine Bilirubin neg Neg Urine Glucose norm Norm Sputum Culture & 09/08/2017 [facility] Sputum Culture SEE RESULT 9 Sensitiv [phone] Gram Stain BELOW Laboratory test 09/08/2017 [facility] Potassium 4.1 mmol/L N 3.5-5. 10 finding [phone] Redraw 0 Ast Redraw 28 U/L N 13-39 CBC Auto 09/08/2017 [facility] White Blood 14.5 10^3/ uL High 3.5-10.8 Diff [phone] Count Red Blood Count 4.11 10^6/uL N [...] Blood Cells % 0.1 Laboratory test 09/08/2017 [facility] B-Type 221 pg/ mL High 11 finding [phone] Natriuretic Peptide BNP Comp Metabolic 09/08/2017 [facility] Sodium 134 mmol/ L Low 139-1 Panel [phone] Chloride 101 mmol/L N 101-111 Co2 [...] TNP U/L 13-39 14 Laboratory test 09/08/2017 [facility] Creatine 239 U/ L High 10-223 finding [phone] Kinase C Reactive Protein 125.84 mg/L High < 5.00 15 Troponin-I (TnI) 0.01 ng/mL <0.04 Lactic Acid 1.0 mmol/L N 0.5-2.0 16 Blood Culture SEE RESULT BELOW 17 Urinalysis Profile 08/04/2017 [facility] Urine Color Straw [phone] Urine Appearance Clear Urine Specific [place] 1.005 Low 1.010-1.030 Urine pH 8.0 N 5-9 Urine Urobilinogen Negative Negative Urine Ketones Negative Negative Urine Protein Negative Negative Urine Leukocytes 3+ Abnormal Negative Urine Blood 1+ Abnormal Negative Urine Nitrite Negative Negative Urine Bilirubin Negative Negative Urine Glucose Negative Negative Urine White Blood Cell 3+(>20/hpf) Abnormal Absent Urine Red Blood Cell Trace(0-2/hpf) Absent Urine Bacteria Absent Absent Urine Culture And 08/04/2017 [facility] Urine SEE RESULT 18 Sensitivities [phone] Culture BELOW CBC Auto Diff 08/04/2017 [facility] White Blood 11.5 High 3.5-7 [phone] Count 10^3/uL 0.8 Red Blood Count 4.89 [...] Red Blood Cells % 0.1 Inr/Protime 08/04/2017 [facility] Inr 0.98 N 0.77- 1.02 [phone] Comp Metabolic Panel 08/04/2017 [facility] Sodium 140 mmol/L N 139-145 [phone] Potassium 3.8 mmol/L N 3.5-5.0 Chloride 105 [...] Egfr 75.7 >60 19 Laboratory test 08/04/2017 [facility] C Reactive 6.21 mg/L High < 5.00 20 finding [phone] Protein Troponin-I (TnI) 0.02 ng/mL <0.04 Laboratory test 04/05/2017 [facility] TSH (Thyroid 3.77 mcIU/mL N 0.34-5.60 21 finding [phone] Stim Horm) T3 Total 0.86 ng/mL Low 0.87-1.78 22 Free T4 (Free Thyroxine) 0.77 ng/dL N 0.61-1.12 23 Lipid Profile 04/05/2017 [facility] Triglycerides 338 mg/dL 24 (Trig/Chol/HDL) [phone] Cholesterol 255 mg/dL 25 HDL Cholesterol 41.6 mg/dL 26 LDL Cholesterol 146 mg/dL 27 Laboratory test 01/23/2017 [facility] Vitamin D 26.8 ng/mL N 20-50 28 finding [phone] Total 25(Oh) TSH (Thyroid Stim Horm) 8.52 mcIU/mL High 0.34-5.60 29 T3 Total 0.98 ng/mL N 0.87-1.78 30 Free T4 (Free Thyroxine) 0.74 ng/dL N 0.61-1.12 31 Laboratory test 11/21/2016 [facility] C Reactive 4.07 mg/L N < 5.00 32 finding [phone] Protein Erythrocyte Sed Rate 31 mm/Hr N 0-40 33 Laboratory 11/16/2016 [facility] TSH (Thyroid 5.22 N 0.34-5.60 34, 35 test finding [phone] Stim Horm) mcIU/mL T3 Total 0.83 ng/mL Low 0.87-1.78 36 Free T4 (Free Thyroxine) 0.79 ng/dL N 0.61-1.12 37 Laboratory test 10/22/2016 [facility] Vitamin D 26.6 ng/mL Low 30-50 38 finding [phone] Total 25(Oh) Erythrocyte Sed Rate 40 mm/Hr N 0-40 39 TSH (Thyroid Stim Horm) 4.48 mcIU/mL N 0.34-5.60 40 Comp Metabolic Panel 10/22/2016 [facility] Sodium 140 mmol/L N 133-145 [phone] Potassium 4.8 mmol/L N 3.5-5.0 Chloride 104 [...] N >60 41 CBC Auto Diff 10/22/2016 [facility] White Blood 9.5 10^3/uL N 3.5-10.8 [phone] Count Red Blood Count 4.85 10^6/uL N [...] Cells % 0.2 N Laboratory test 07/11/2016 [facility] Vitamin D 37.4 ng/mL N 30-50 42 finding [phone] Total 25(Oh) Hemoccult 04/26/2016 In House Lab Stool-Occult NEG 04/22/16 Neg ([phone])- - Blood #1 Stool-Occult Blood #2 NEG 04/23/16 Neg Stool-Occult Blood #3 NEG 04/25/16 Neg Laboratory test 04/13/2016 [facility] Urine Culture And SEE RESULT 43 finding [phone] Sensitivities BELOW Urine DIP 04/13/2016 In House Lab Leukocytes ++ Neg (607)- - Urine Nitrites POS Neg Urobilinogen NORM Norm Total Protein, Urine 30 High Neg Urine pH 6 5-6 Urine Blood 250 High Neg Specific [place] 1.02 1.01-1.02 Urine Ketones NEG Neg Urine Bilirubin NEG Neg Urine Glucose NORM Norm Comp Metabolic Panel 04/13/2016 [facility] Sodium 136 mmol/L N 133-145 [phone] Potassium 4.7 mmol/L N 3.5-5.0 Chloride 105 [...] 54.3 N >60 Egfr 69.9 N >60 44 Lipid Profile 04/13/2016 [facility] Triglycerides 333 mg/dL N 45 (Trig/Chol/HDL) [phone] Cholesterol 256 mg/dL N 46 HDL Cholesterol 35.5 mg/dL N 47 LDL Cholesterol 154 mg/dL N 48 Laboratory test 04/13/2016 [facility] Vitamin D 23.8 ng/mL Low 30-50 49 finding [phone] Total 25(Oh) CBC Auto Diff 09/12/2015 [facility] White Blood 8.6 N 3.5-10.8 [phone] Count 10^3/uL Red Blood Count 4.78 10^6/uL N 4.0-5.4 [...] Nucleated Red Blood Cells % 0.1 N Laboratory test 09/12/2015 [facility] Rheumatoid Factor <15 IU/mL N <15 50 finding [phone] Erythrocyte Sed Rate 83 mm/Hr High 0-40 51 C Reactive Protein 15.09 mg/L High < 5.00 52 Lyme Western 09/12/2015 [facility] Lyme Disease Negative N Negative Blot [phone] IgG Ab WB Lyme Disease IgG Bands Present p41, kDa N Lyme Disease IgM Ab WB Negative N Negative Lyme Disease IgM Bands Present No bands detecte <SEE NOTE> kDa N 53 Lyme Disease Interpretation See Comment N 54 Laboratory test 09/12/2015 [facility] Cyclic <15.6 U N 55 finding [phone] Citrullinated Pep Igg Comp Metabolic 04/25/2015 [facility] Sodium 135 mmol/ L N 133-1 Panel [phone] Potassium 4.1 mmol/L N 3.5-5.0 Chloride 101 [...] N >60 56 CBC Auto Diff 04/25/2015 [facility] White Blood 9.8 10^3/uL N 3.5-10.8 [phone] Count Red Blood Count 4.41 10^6/uL N [...] Cells % 0 N Laboratory test 04/25/2015 [facility] C Reactive 33.96 mg/L High < 5.00 57 finding [phone] Protein Erythrocyte Sed Rate 100 mm/Hr High 0-40 Laboratory test 04/01/2015 [facility] Urine Culture And SEE RESULT 58 finding [phone] Sensitivities BELOW Comp Metabolic 04/01/2015 [facility] Sodium 136 mmol/ L N 133-1 Panel [phone] Potassium 4.7 mmol/L N 3.5-5.0 Chloride [...] N >60 Egfr 78.3 N >60 59 Urine DIP 04/01/2015 In House Lab Leukocytes 500 High Neg (607)- - Urine Nitrites + Neg Urobilinogen NEG Norm Total Protein, Urine 30 High Neg Urine pH 6.5 High 5-6 Urine Blood ++ Neg Specific [place] 1.020 1.01-1.02 Urine Ketones NEG Neg Urine Bilirubin 1 High Neg Urine Glucose NORM Norm Laboratory test 04/01/2015 [facility] CRP High 64.90 mg/L N 60 finding [phone] Sensitivity Erythrocyte Sed Rate 110 mm/Hr High 0-40 Lipid Profile 04/01/2015 [facility] Triglycerides 145 mg/dL N 61 (Trig/Chol/HDL) [phone] Cholesterol 202 mg/dL N 62 HDL Cholesterol 36.2 mg/dL N 63 LDL Cholesterol 137 mg/dL N 64 Laboratory test 09/22/2014 [facility] Erythrocyte Sed 48 mm/Hr High 0-40 finding [phone] Rate C Reactive Protein 16.81 mg/L High < 5.00 65 Rheumatoid Factor <15 IU/mL N <15 66 Jazmin (Antinuclear Antibodies) Negative N Negative Laboratory test 08/09/2014 [facility] Erythrocyte Sed 38 mm/Hr N 0-40 finding [phone] Rate Urine Culture And 07/21/2014 [facility] Urine Culture (SEE 67 Sensitivities [phone] NOTE) Laboratory test 07/21/2014 [facility] TSH (Thyroid 3.46 N 0.34-5.6 finding [phone] Stimulating IU/mL 0 Horm) Rheumatoid Factor <15 IU/mL N <15 68 Jazmin (Anti-Nuclear AB) Screen Negative N Negative Erythrocyte Sed Rate 104 mm/Hr High 0-40 C Reactive Protein 72.48 mg/L High < 5.00 69 Creatine Kinase 37 U/L N 10-223 Urine Culture And 03/22/2014 [facility] Urine Culture (SEE NOTE) 70 Sensitivities [phone] Urine DIP 03/22/2014 In House Lab Specific 1.015 1.01- (607)- - [place] 1.02 Urine pH 5 5-6 Leukocytes ++ High Neg Urine Nitrites POS High Neg Total Protein, Urine 30+ High Neg Urine Glucose NORM Norm Urine Ketones NEG Neg Urobilinogen NORM Norm Urine Bilirubin NEG Neg Urine Blood 50 High Neg Vitamin D, 25 03/16/2014 [facility] 25-Hydroxy Vitamin <4.0 ng/mL N 71 Hydroxy [phone] D2 25-Hydroxy Vitamin D3 25 ng/mL N 25-Hydroxy Vitamin D Total 25 ng/mL N 72 Laboratory test 03/16/2014 [facility] Creatine 67 U/ L N 10-223 73 finding [phone] Kinase CBC Auto Diff 03/16/2014 [facility] White Blood 11.1 High 4.8-10.8 [phone] Count 10^3/uL Red Blood Count 4.86 10^6/uL N 4.0-5.4 [...] Nucleated Red Blood Cells % 0 N Comp Metabolic Panel 03/16/2014 [facility] Sodium 139 mmol/L N 133-145 [phone] Potassium 3.9 mmol/L N 3.5-5.0 74 Chloride 104 mmol/L N 101-111 Co2 Carbon [...] 58.0 N >60 Egfr 74.6 N >60 75 Lipid Profile 03/16/2014 [facility] Triglycerides 207 mg/dL N 76 (Trig/Chol/HDL) [phone] Cholesterol 151 mg/dL N 77 HDL Cholesterol 38.7 mg/dL N 78 LDL Cholesterol 71 mg/dL N 79 Urine DIP 04/02/2013 In House Lab Leukocytes NEG Neg (607)- - Urine Nitrites NEG Neg Urine pH 5 5-6 Total Protein, Urine NEG Neg Urine Glucose NORM Norm Urine Ketones NEG Neg Urobilinogen NORM Norm Urine Bilirubin NEG Neg Urine Blood NEG Neg Specific [place] 1.000 Low 1.01-1.02 Lipid Profile 03/26/2013 [facility] Triglycerides 279 mg/dL High 40-200 (Trig/Chol/HDL) [phone] Cholesterol 183 mg/dL Less than 200 HDL Cholesterol 40 mg/dL 40-60 80 Cholesterol/HDL Ratio 4.6 Average High 1-4.44 LDL Cholesterol 87.2 Less Than 100 81 Laboratory test 03/26/2013 [facility] Creatine Kinase 81 U/L 0-200 82 finding [phone] Vitamin D, 25 03/26/2013 [facility] 25-Hydroxy <4.0 ng/mL Hydroxy [phone] Vitamin D2 25-Hydroxy Vitamin D3 28 ng/mL 25-Hydroxy Vitamin D Total 28 ng/mL 83 Comp Metabolic Panel 03/26/2013 [facility] Sodium 138 mmol/L 133-145 [phone] Potassium 4.4 mmol/L 3.5-5.0 Chloride 103 mmol/L [...] Egfr 68.8 >60 84 Wound Culture/Sensi 02/09/2013 [facility] Wound/Misc (SEE NOTE) 85 [phone] Culture-Gram Stain Urine Culture And 05/05/2012 [facility] Urine Culture (SEE NOTE) 86 Sensitivities [phone] Urine Culture And 04/07/2012 [facility] Urine Culture (SEE NOTE) 87 Sensitivities [phone] Urine DIP 04/07/2012 In House Lab Leukocytes ++ Neg (607)- - Urine Nitrites POS Neg Urine pH 5 5-6 Total Protein, Urine TRACE Neg Urine Glucose NORM Norm Urine Ketones NEG Neg Urobilinogen NORM Norm Urine Bilirubin NEG Neg Urine Blood TRACE Neg Specific [place] N/A Low 1.01-1.02 Vitamin D, 25 03/31/2012 [facility] 25-Hydroxy Vitamin <4.0 ng/mL Hydroxy [phone] 25-Hydroxy Vitamin D3 23 ng/mL 25-Hydroxy Vitamin D Total 23 ng/mL Abnormal 88 Laboratory test 03/31/2012 [facility] Creatine 96 U/ L 0-200 89 finding [phone] Kinase Comp Metabolic 03/31/2012 [facility] Sodium 138 133-145 Panel [phone] mmol/L Potassium 4.1 mmol/L 3.5-5.0 Chloride 104 [...] Egfr 77.9 >60 90 Lipid Profile 03/31/2012 [facility] Triglycerides 202 mg/dL High 40-200 (Trig/Chol/HDL) [phone] Cholesterol 156 mg/dL Less than 200 HDL [...] NEG Neg Urine Blood TRACE Neg Specific [place] NA Low 1.01-1.02 Urine Culture 04/02/2011 [facility] M - <SEE 93 & Sensitivi [phone] NOTE> Vitamin D, 25 03/26/2011 [facility] 25-Hydroxy <4.0 ng/mL () Hydroxy [phone] Vitamin D2 25-Hydroxy Vitamin D3 28 ng/mL () 25-Hydroxy Vitamin D Total 28 ng/mL () 94 Comp Metabolic Panel 03/26/2011 [facility] Sodium 138 mmol/L 135-145 [phone] Potassium 4.3 mmol/L 3.5-5.0 Chloride 102 mmol/L 101-111 Co2 (Carbon Dioxide) 30.0 mmol/L 22-32 Anion Gap 6.0 mmol/L 2-11 95 Glucose 99 mg/dL 70-100 BUN 13 mg/dL 6-24 Creatinine 1.0 mg/dL 0.50-1.40 One Over Creatinine 1.00 BUN/Creatinine Ratio 13.0 8-20 Calcium 9.4 mg/dL 8.1-9.9 Total Protein 6.8 GM/DL 6.2-8.1 Albumin 3.9 GM/DL 3.2-5.2 Globulin 2.9 GM/DL 2-4 Albumin/Globulin Ratio 1.3 1-3 Bilirubin Total 1.4 mg/dL 0.4-1.5 96 Alkaline Phosphatase 89 U/L 30-110 Alt (SGPT) 26 U/L 14-54 Ast (Sgot) 28 U/L 12-42 eGFR Non- 53.8 > 60 eGFR 69.1 > 60 97 Laboratory test 03/26/2011 [facility] CPK (Creatine 82 U/L 0-170 finding [phone] Kinase) Lipid Profile 03/26/2011 [facility] Triglyceride 271 High 40-200 (Trig/Chol/HDL) [phone] mg/dL Cholesterol 165 mg/dL Less Than 200 98 High Density Lipoprotein 37 mg/dL Low 40-60 99 Cholesterol/HDL Ratio 4.46 AVERAGE High 1-4.44 Low Density Lipoprotein 74 mg/dL Less Than 100 100 Laboratory test 03/26/2011 [facility] TSH 2.97 0.34-5.60 finding [phone] MIU/ML Lipid Profile 09/06/2010 [facility] Triglyceride 309 mg/dL High 40-200 (Trig/Chol/HDL) [phone] Cholesterol 172 mg/dL Less Than 200 101 High Density Lipoprotein 37 mg/dL Low 40-60 102 Cholesterol/HDL Ratio 4.65 AVERAGE High 1-4.44 Low Density Lipoprotein 73 mg/dL Less Than 100 103 Liver Function 09/06/2010 [facility] Total Protein 6.6 GM/DL 6.2-8.1 Panel [phone] Albumin 3.9 GM/DL 3.2-5.2 Globulin 2.7 GM/DL 2-4 Albumin/Globulin Ratio 1.4 1-3 Bilirubin Total 2.0 mg/dL High 0.4-1.5 104 Bilirubin Direct 0.2 mg/dL 0.1-0.5 Indirect Bilirubin 1.8 mg/dL High 0.3-1.0 105 Alkaline Phosphatase 77 U/L 30-110 Alt (SGPT) 32 U/L 14-54 Ast (Sgot) 34 U/L 12-42 Laboratory test 09/06/2010 [facility] CPK (Creatine 109 U/L 0-170 finding [phone] Kinase) Lipid Profile 07/05/2010 [facility] Triglyceride 271 High 40-200 (Trig/Chol/HDL) [phone] mg/dL Cholesterol 173 mg/dL Less Than 200 [...] NEG Neg Urine Blood NEG Neg Specific [place] NA Low 1.01-1.02 Comp Metabolic Panel 03/29/2010 [facility] Sodium 136 mmol/L 135-145 [phone] Potassium 4.4 mmol/L 3.5-5.0 Chloride 103 mmol/L [...] 69.3 > 60 112 Lipid Profile 03/29/2010 [facility] Triglyceride 260 mg/dL High 40-200 (Trig/Chol/HDL) [phone] Cholesterol 187 mg/dL Less Than 200 113 High Density Lipoprotein 38 mg/dL Low 40-60 114 Cholesterol/HDL Ratio 4.92 AVERAGE High 1-4.44 Low Density Lipoprotein 97 mg/dL Less Than 100 115 Laboratory test 03/29/2010 [facility] CPK (Creatine 138 U/L 0-170 finding [phone] Kinase) Hemoglobin A1c 5.8 % Less Than 6.0 116 Urine DIP 08/15/2009 [facility] House [facility] Leukocytes ++ Neg (607)- - Urine Nitrites POS Neg Urine pH 5 5-6 Total Protein, Urine NEG Neg Urine Glucose NORM Norm Urine Ketones NEG Neg Urobilinogen NORM Norm Urine Bilirubin NEG Neg Urine Blood 50 High Neg Specific [place] NA Low 1.01-1.02 Laboratory test 08/15/2009 [facility] Urine Culture Escherichia coli 117 finding [phone] Urine DIP 04/06/2009 In House Lab Leukocytes ++ Neg (607)- - Urine Nitrites NEG Neg Urine pH 5 5-6 Total Protein, Urine NEG Neg Urine Glucose NORM Norm Urine Ketones NEG Neg Urobilinogen NORM Norm Urine Bilirubin NEG Neg Urine Blood NEG Neg Specific [place] N/A Low 1.01-1.02 Comp Metabolic Panel 03/30/2009 [facility] Sodium 137 mmol/L 135-145 [phone] Potassium 4.5 mmol/L 3.5-5.0 Chloride 100 mmol/L [...] 78.5 > 60 122 CBC With 03/30/2009 [facility] White Blood 8.4 CUMM 4.8-10.8 Electronic Diff [phone] Count Red Cell Count 4.90 CUMM 4.2-5.4 [...] Abs Basophils 0 0-0.2 Lipid Profile 03/30/2009 [facility] Triglyceride 272 mg/dL High 40-200 (Trig/Chol/HDL) [phone] Cholesterol 187 mg/dL Less Than 200 123 [...] neg Neg Urine Blood neg Neg Specific [place] n/a Low 1.01-1.02 Laboratory test 03/26/2008 [facility] CPK (Creatine 72 U/L 0-170 finding [phone] Kinase) Comp Metabolic 03/26/2008 [facility] Sodium 140 135-145 Panel [phone] mmol/L Potassium 4.9 mmol/L 3.5-5.0 Chloride 104 mmol/L 101-111 Co2 (Carbon Dioxide) 32.0 mmol/L 22-32 Anion Gap 4.0 mmol/L 2-11 126 Glucose 90 mg/dL 70-100 127 BUN 14 mg/dL 6-24 Creatinine 0.85 mg/dL 0.50-1.40 One Over Creatinine 1.10 BUN/Creatinine Ratio 16.5 8-20 Calcium 10.0 mg/dL High 8.1-9.9 128 Total Protein 6.9 GM/DL 6.2-8.1 Albumin 4.0 GM/DL 3.2-5.2 Globulin 2.9 GM/DL 2-4 Albumin/Globulin Ratio 1.4 1-3 Bilirubin Total 1.6 mg/dL High 0.4-1.5 Alkaline Phosphatase 73 U/L 30-110 Alt (SGPT) 21 U/L 14-54 Ast (Sgot) 21 U/L 12-42 Lipid Profile 03/26/2008 [facility] Triglyceride 236 mg/dL High 40-200 (Trig/Chol/HDL) [phone] Cholesterol 159 mg/dL Less Than 200 129 High Density Lipoprotein 37 mg/dL Low 40-60 130 Cholesterol/HDL Ratio 4.30 AVERAGE 1-4.44 Low Density Lipoprotein 75 mg/dL Less Than 100 131 CBC With 03/26/2008 [facility] White Blood 8.1 CUMM 4.8-10.8 Electronic Diff [phone] Count Red Cell Count 4.78 CUMM 4.2-5.4 [...] Eosinophils 0.2 0-0.6 Abs Basophils 0 0-0.2 Urine DIP 06/23/2007 In House Lab Leukocytes 1+ High Neg (607)- - Urine Nitrites NEG Neg Urine pH 5 5-6 Total Protein, Urine NEG Neg Urine Glucose NORM Norm Urine Ketones NEG Neg Urobilinogen NORM Norm Urine Bilirubin NEG Neg Urine Blood NEG Neg Specific [place] NA Low 1.01-1.02 Urine DIP 05/19/2007 In House Lab Leukocytes ++ Neg (607)- - Urine Nitrites NEG Neg Urine pH 5 5-6 Total Protein, Urine NEG Neg Urine Glucose NORM Norm Urine Ketones NEG Neg Urobilinogen NORM Norm Urine Bilirubin NEG Neg Urine Blood ABOUT 50 Neg Specific [place] N/A Low 1.01-1.02 [facility] 03/21/2007 [facility] [address] Creatine Kinase [address] [place] [address] [phone] Lipid Panel 03/21/2007 [facility] [address] Cholesterol, Total [address] [facility] [place], [place] [address] [phone] Cholesterol/HDL Ratio 4.91 High HDL 34 Low Low Density Lipoprotein 99 Triglycerides 172 CMP - Comprehensive 03/21/2007 [facility] [address] Albumin 4.0 Metabolic [address] [place] [address] [phone] SGPT (Alt) 21 Calcium 9.5 Carbon Dioxide 30.0 Chloride 106 Creatinine 1.1 Glucose 94 Alkaline Phosphatase 74 Potassium 4.5 Protien, Total 6.8 Sodium 140 Sgot (Ast) 21 BUN - Urea Nitrogen 17 Bilirubin Total 1.6 High Surgical 05/06/2006 [facility] Surgical --- 132 Pathology [phone] Pathology <SEE NOTE> Urine DIP 04/03/2006 In House Lab Leukocytes + Neg (710)- - Urine Nitrites NEG Neg Urine pH 5 5-6 Total Protein, Urine NEG Neg Urine Glucose NORM Norm Urine Ketones NEG Neg Urobilinogen NORM Norm Urine Bilirubin NEG Neg Urine Blood NEG Neg Specific [place] N/A Low 1.01-1.02 Lipid Profile 03/27/2006 [facility] Cholesterol/HDL 5.26 High 1-4.44 (Trig/Chol/HDL) [phone] Ratio AVERAGE Cholesterol 184 mg/dL Less Than 200 133 Triglyceride 231 mg/dL High 40-200 High Density Lipoprotein 35 mg/dL Low 40-60 134 Low Density Lipoprotein 103 mg/dL High Less Than 100 135 Laboratory test 03/27/2006 [facility] CPK (Creatine 107 U/L 0-170 finding [phone] Kinase) Comp Metabolic 03/27/2006 [facility] One Over 0.90 Panel [phone] Creatinine Anion Gap 4.0 mmol/L 2-11 136 Albumin/Globulin Ratio 1.4 1-3 Albumin 4.2 GM/DL [...] Ratio 17.3 8-20 Creatinine 1.1 mg/dL 0.5-1.4 CBC With 03/19/2005 [facility] White Blood 8.1 CUMM 4.8-10.8 Electronic Diff [phone] Count Abs Basophils 0 0-0.2 Abs Eosinophils [...] WDTH 13 % 10.5-15 Comp Metabolic 03/19/2005 [facility] One Over Creatinine 1.00 Panel [phone] Anion Gap 7.0 mmol/L 2-11 137 Albumin/Globulin [...] Creatinine 1.0 mg/dL 0.5-1.4 Lipid Profile 03/19/2005 [facility] Cholesterol 178 mg/dL Less 138 (Trig/Chol/HDL) [phone] Than 200 Triglyceride 202 mg/dL High 40-200 [...] neg Neg Urine Blood neg Neg Specific [place] na Low 1.01-1.02 Urine DIP 03/22/2004 In House Lab Leukocytes NEG Neg (607)- - Urine Nitrites NEG Neg Urine pH 5 5-6 Total Protein, Urine NL Neg Urine Glucose NL Norm Urine Ketones NL Neg Urobolinogen NL Norm Urine Bilirubin NL Neg Urine Blood NL Neg Specific [place] N/A Low 1.01-1.02 Urine DIP 04/21/2003 In House Lab Leukocytes 2+ High Neg (607)- - Urine Nitrites NEG Neg Urine pH 5 5-6 Total Protein, Urine NEG Neg Urine Glucose NORM Norm Urine Ketones NEG Neg Urobolinogen NORM Norm Urine Bilirubin NEG Neg Urine Blood 50 High Neg Specific [place] NA Low 1.01-1.02 Urine DIP 03/02/2002 In House Lab Leukocytes NEG Neg (607)- - Urine Nitrites NEG Neg Urine pH 5 5-6 Total Protein, Urine NL Neg Urine Glucose NL Norm Urine Ketones NL Neg Urobolinogen NL Norm Urine Bilirubin NL Neg Urine Blood NL Neg Specific [place] N/A Low 1.01-1.02 1 SEE RESULT BELOW Name: JAVIER BOBO : [address]: Yadi Rivas MD Acct: [id number] Unit: [id number] AGE: 82 Location: [facility] Re04/09/18 SEX: F Status: REG REF SPEC: [id number] WILDA: 04/09/18-[address] [facility] DR: Yadi Rivas MD REQ: [id number] RECD: 04/09/18 STATUS: COMP _ SOURCE: URINE SPDESC: ORDERED: Urine Culture COMMENTS: [id number] LBI Urine Source: Random Procedure Result Reported Site Urine Culture Final 04/11/18- 0855 ML Organism 1 KLEBSIELLA JANET [place] Count >100,000 (Many) CFU/ML 1. KLEBSIELLA OZAENAE [...] . END OF REPORT DEPARTMENT OF PATHOLOGY, [address] [place] [address] David Argueta M.D. Director [facility] # [id number] Desirable: <150 Borderline High: 150-199 High: 200-499 Very High: >500 3 Desirable: <200 Borderline High: 200-239 High: >239 4 Low: <40 Desirable: 40-60 High: >60 5 Desirable: <100 Near Optimal: 100-129 Borderline High: 130-159 High: 160-189 Very High: >189 6 SEE RESULT BELOW Name: JAVIER BOBO : [address]: Yadi Rivas MD Acct: [id number] Unit: [id number] AGE: 82 Location: [facility] Re02/24/18 SEX: F Status: REG REF SPEC: [id number] WILDA: 02/24/[address] [facility] DR: Yadi Rivas MD REQ: [id number] RECD: 02/25/18 STATUS: COMP _ SOURCE: URINE SPDESC: ORDERED: Urine Culture Procedure Result Reported Site Urine Culture Final 02/26/18- 1152 ML Organism 1 STREP DYSGALACTIAE (GRP C) [place] Count >100,000 (Many) CFU/ML 1. STREP DYSGALACTIAE (GRP C) M.I.C. RX --------- ------ Ampicillin <=0.06 S Penicillin <=0.03 S Cefepime <=0.25 S * Cefotaxime <=0.25 S Ceftriaxone <=0.25 S Levofloxacin 0.5 S Tetracycline <=0.50 S Vancomycin 0.5 S * ML - Main Lab . END OF REPORT DEPARTMENT OF PATHOLOGY, [address] [place] [address] David Argueta M.D. Director [facility] # [id number] 7 SEE RESULT BELOW Name: JAVIER BOBO : [address]: Yadi Rivas MD Acct: [id number] Unit: [id number] AGE: 82 Location: [facility] Re01/14/18 SEX: F Status: REG REF SPEC: [id number] WILDA: 01/14/18-[address] [facility] DR: Yadi Rivas MD REQ: [id number] RECD: 01/15/18 STATUS: COMP _ SOURCE: URINE SPDESC: ORDERED: Urine Culture COMMENTS: [id number] LBI Urine Source: Random Procedure Result Reported Site Urine Culture Final 01/16/18- 0821 ML Organism 1 KLEBSIELLA OXYTOCA [place] Count >100,000 (Many) CFU/ML 1. KLEBSIELLA OXYTOCA [...] . END OF REPORT DEPARTMENT OF PATHOLOGY, [address] [place] [address] David Argueta M.D. Director [facility] # [id number] 8 SEE RESULT BELOW Name: JAVIER BOBO : [address]: Hardeep Mueller III [employer] Acct: [id number] Unit: [id number] AGE: 82 Location: [facility] Re10/01/17 SEX: F Status: REG REF SPEC: [id number] WILDA: 10/01/17-[address] [facility] DR: Hardeep Mueller III [employer] REQ: [id number] RECD: 10/01/17 STATUS: COMP _ SOURCE: URINE SPDESC: ORDERED: Urine Culture Procedure Result Reported Site Urine Culture Final 10/03/17- 08 ML Organism 1 KLEBSIELLA OXYTOCA [place] Count >100,000 (Many) CFU/ML 1. KLEBSIELLA OXYTOCA [...] . END OF REPORT DEPARTMENT OF PATHOLOGY, [address] [place] [address] David Argueta M.D. Director [facility] # [id number] 9 SEE RESULT BELOW Name: JAVIER BOBO : [address]: Robin Fritz MD Acct: [id number] Unit: [id number] AGE: 82 Location: [place] [address] Re09/08/17 SEX: F Status: ADM IN SPEC: [id number] WILDA: 09/08/[address] [facility] DR: Figueroa Martell MD REQ: [id number] RECD: 09/08/17 STATUS: [facility]ID [facility] DR: Yadi Rivas MD _ SOURCE: SPUTUM [...] . END OF REPORT DEPARTMENT OF PATHOLOGY, [address] [place] [address] David Argueta M.D. Director [facility] # [id number] 10 REDRAW REQUESTED TO LAUREN IN ED AT 6267 - [id number] 11 >100 to <200 pg/mL: likely compensated [...] to hemolysis. 15 Acute inflammation: >10.00 16 [facility] Severe Sepsis and Septic Shock Management Bundle Measure requires all lactic acids initially measuring >2.0 mmol/L be repeated. 17 SEE RESULT BELOW Name: JAVIER BOBO : [address]: Chevy Walker MD Acct: [id number] Unit: [id number] AGE: 82 Location: [place] [address] Re09/08/17 Dis: 09/10/17 SEX: F Status: DIS IN SPEC: [id number] WILDA: 09/08/[address]: Figueroa Martell MD REQ: [id number] RECD: 09/08/17 STATUS: DAVID [facility] DR: Yadi Rivas MD _ SOURCE: BLOOD,VENO SPDES: ORDERED: Blood Cult Procedure Result Reported Site Aerobic Culture Bottle Final 09/13/17- 1627 ML No Growth Day 5 Anaerobic Culture Bottle Final 09/13/17- 1627 ML No Growth Day 5 * ML - Main Lab . END OF REPORT DEPARTMENT OF PATHOLOGY, [address] [place] [address] David Argueta M.D. Director [facility] # [id number] 18 SEE RESULT BELOW Name: JAVIER BOBO Eliane : [address]: Nirmal Thompson MD Acct: [id number] Unit: [id number] AGE: 82 Location: ED Re08/04/17 SEX: F Status: DEP ER SPEC: [id number] WILDA: 08/04/[address]: Nirmal Thompson MD REQ: [id number] RECD: 08/04/17 STATUS: COMP ASCENCION DR: Yadi Rivas MD _ SOURCE: URINE SPDESC: ORDERED: Urine Culture Procedure Result Reported Site Urine Culture Final 08/06/17- 0750 ML Organism 1 ENTEROBACTER CLOACAE [place] Count 75-100,000 (Many) CFU/ML 1. ENTEROBACTER CLOACAE [...] . END OF REPORT DEPARTMENT OF PATHOLOGY, [address] [place] [address] David Argueta M.D. Director [facility] # [id number] 19 Because ethnic data is not always [...] (or dialysis) 20 Acute inflammation: >10.00 21 [id number] 22 [id number] 23 [id number] 24 Desirable: <150 Borderline High: 150-199 High: 200-499 Very High: >500 25 Desirable: <200 Borderline High: 200-239 High: >239 26 Low: <40 Desirable: 40-60 High: >60 27 Desirable: <100 Near Optimal: 100-129 Borderline High: 130-159 High: 160-189 Very High: >189 28 [id number] 29 [id number] 30 [id number] 31 [id number] 32 Acute inflammation: >10.00 33 [id number] 34 Sed rate done on 11/21. 35 [id number] 36 [id number] 37 [id number] 38 [id number] 39 [id number] 40 [id number] 41 Because ethnic data is not always [...] 5 Kidney failure <15 (or dialysis) 42 [id number] 43 SEE RESULT BELOW Name: JAVIER BOBO : [address]: Yadi Rivas MD Acct: [id number] Unit: [id number] AGE: 80 Location: [facility] Re04/13/16 SEX: F Status: REG REF SPEC: [id number] WILDA: 04/13/16-[address] [facility] DR: Yadi Rivas MD REQ: [id number] RECD: 04/13/16 STATUS: COMP _ SOURCE: URINE SPDES: ORDERED: Urine Culture COMMENTS: [id number] Urine Source: Random Procedure Result Reported Site Urine Culture Final 04/15/16- 1005 ML Organism 1 CITROBACTER FREUNDII [place] Count >100,000 (Many) CFU/ML 1. CITROBACTER FREUNDII [...] antibiotic reporting. * ML - MAIN LAB ([facility]) . END OF REPORT * ML=Testing performed at Main Lab DEPARTMENT OF PATHOLOGY, [address] [place] [address] David Argueta M.D. Director [facility] # [id number] 44 Because ethnic data is not always readily [...] 15-29 5 Kidney failure <15 (or dialysis) 45 Desirable <150 Borderline high 150-199 High 200-499 Very High >500 46 Desirable <200 Borderline high 200-239 High >239 47 Low <40 Desirable: 40-60 High: >60 48 Desirable: <100 mg/dL Near Optimal: 100-129 mg/dL Borderline High: 130-159 mg/dL High: 160-189 mg/dL Very High: >189 mg/dL 49 [id number] 50 Test Performed by: [address] [address] Rn Endocrinology: Guzman Ivory II, M.D., Ph.D. 51 [id number] 52 Acute inflammation: >10.00 53 No bands detected 54 Specific serologic response to B. burgdorferi infection [...] screening test (e.g., EIA). Test Performed by: [address] [address] Rn Endocrinology: Guzman Ivory II, M.D., Ph.D. 55 REFERENCE VALUE <20.0 (Negative) Test Performed by: [address] [address] Rn Endocrinology: Guzman Ivory II, M.D., Ph.D. 56 Because ethnic data is not always [...] >10.00 58 SEE RESULT BELOW Name: JAVIER BOBO Eliane : [address]: Yadi Rivas MD Acct: [id number] Unit: [id number] AGE: 79 Location: [facility] Re04/01/15 SEX: F Status: REG REF SPEC: [id number] WILDA: 04/01/15-[address]: Yadi Rivas MD REQ: [id number] RECD: 04/01/15 STATUS: COMP _ [facility]: Urine Culture Procedure Result Reported Site Urine Culture Final 04/04/15- 0819 ML Organism 1 KLEBSIELLA PNEUMONIAE [place] Count >100,000 (Many) CFU/ML 1. KLEBSIELLA PNEUMONIAE [...] antibiotic reporting. * ML - MAIN LAB ([facility]) . END OF REPORT * ML=Testing performed at Main Lab DEPARTMENT OF PATHOLOGY, [address] [place] [address] David Argueta M.D. Director [facility] # [id number] 59 Because ethnic data is not always [...] 5 Kidney failure <15 (or dialysis) 60 Low risk: <1.00 Average risk: 1.00-3.00 High risk: >3.00 61 Desirable <150 Borderline high 150-199 High 200-499 Very High >500 62 Desirable <200 Borderline high 200-239 High >239 63 Low <40 Desirable: 40-60 High: >60 64 Desirable: <100 mg/dL Near Optimal: 100-129 mg/dL Borderline High: 130-159 mg/dL High: 160-189 mg/dL Very High: >189 mg/dL 65 Acute inflammation: >10.00 66 Test Performed by: [address] [address] Rn Endocrinology: Guzman Ivory II, M.D., Ph.D. 67 RUN DATE: 07/23/14 [facility] LIVE PAGE 1 RUN TIME: [address] [place] [address] Specimen Inquiry Name: JAVIER BOBO : [address]: Yadi Rivas MD Acct: [id number] Unit: [id number] AGE: 79 Location: [facility] Re07/21/14 SEX: F Status: REG REF SPEC: [id number] WILDA: 07/21/14-[address] [facility] DR: Yadi Rivas MD REQ: [id number] RECD: 07/21/14 STATUS: COMP _ SOURCE: URINE SPDESC: ORDERED: Urine Culture QUERIES: Provider Requisition # [id number] Procedure Result Verified Site Urine Culture Final 07/23/14- 0842 ML Organism 1 NORMAL MARIJA [place] Count 1-10,000 (Few) CFU/ML * ML - [facility] ([facility]) . END OF REPORT * ML=Testing performed at Main Lab DEPARTMENT OF PATHOLOGY, [facility] [employer] [place], [place] [address] David Argueta M.D. Director [facility] # [id number] 68 Test Performed by: [place] [address] Rn Endocrinology: Guzman Ivory II, M.D., Ph.D. 69 Acute inflammation: >10.00 70 RUN DATE: 03/24/14 [facility] LAB LIVE PAGE 1 RUN TIME: 843 [facility] [employer] [place], [place] [address] Specimen Inquiry Name: JAVIER BOBO : [address]: Yadi Rivas MD Acct: [id number] Unit: [id number] AGE: 78 Location: [facility] Re03/22/14 SEX: F Status: REG REF SPEC: [id number] WILDA: 03/22/[address] [facility] DR: Yadi Rivas MD REQ: [id number] RECD: 03/22/14 STATUS: COMP _ SOURCE: URINE SPDESC: ORDERED: Urine Culture QUERIES: [employer] Number [id number] Procedure Result Verified Site Urine Culture Final 03/24/14- 0843 ML Organism 1 ESCHERICHIA COLI [place] Count >100,000 (Many) CFU/ML Organism 2 STREP GROUP B [place] Count 10-25,000 (Moderate) CFU/ML Susceptibility testing of penicillins and other B-lactams approved by FDA for treatment of Streptococcus pyogenes (Group A Strep) and Streptococcus agalactiae (Group B Strep) is not necessary for clinical purposes and need not be done routinely, since as with vancomycin, resistant strains have not been recognized. (CLSI K710-N22;p.66) Positive isolates will be saved for one [...] performed at Main Lab DEPARTMENT OF PATHOLOGY, [facility] [employer] [place] [address] David Argueta M.D. Director [facility] # [id number] RUN DATE: 03/24/14 [facility] LAB LIVE PAGE 2 RUN TIME: 08 [facility] [employer] [place], [place] [address] Specimen Inquiry Patient: JAVIER BOBO [id number] (Continued) Specimen: [id number] Collected: 03/22/14 Received: 03/22/14 (Continued) Procedure Result Verified Site Urine Culture Final (continued) 03/24/14- 0843 1. ESCHERICHIA COLI (continued) M.I.C. RX --------- ------ Pipercillin/Tazobactam <=4 S Trimethoprim/Sulfamethoxazole <=20 S Amoxicillin/Clavulanic Acid <=2 S Aztreonam <=1 S Contact the Microbiology Department for any additional antibiotic reporting. END OF REPORT * ML=Testing performed at Main Lab DEPARTMENT OF PATHOLOGY, [address] [place] [address] David Argueta M.D. Director [facility] # [id number] FASTING 72 REFERENCE VALUE 25-HYDROXY D TOTAL (D2+D3) Optimum levels in the healthy population are 20-50, patients with bone disease may benefit from higher levels within this range. Test Performed by: [facility] [address] [address] Rn Endocrinology: Ezra Connor M.D. 73 FASTING 74 Potassium reference range changed effective 02/21/14 75 Because ethnic data is not always readily [...] 15-29 5 Kidney failure <15 (or dialysis) 76 Desirable <150 Borderline high 150-199 High 200-499 Very High >500 77 Desirable <200 Borderline high 200-239 High >239 78 Low <40 Desirable: 40-60 High: >60 79 Desirable <100 Near Optimal 100-129 Borderline high 130-159 High 160-189 Very High >189 80 HDL Interpretation: Undesirable: High Risk: Less than 40 mg/dL Desirable: Low Risk: Greater than 60 mg/dL 81 LDL Interpretation: Low Risk Optimal Level: LDL Less than 100 mg/dL Near or Above Optimal: LDL 100-129 mg/dL Borderline High Risk: LDL 130-159 mg/dL High Risk: LDL 160-189 mg/dL Very High Risk: LDL Greater than 189 mg/dL 82 FASTING 83 -- REFERENCE VALUE -- 25-HYDROXY D TOTAL (D2+D3) Optimum levels in the healthy population are 20-50, patients with bone disease may benefit from higher levels within this range. Test Performed by: [place] [address] Rn Endocrinology: Milo Sinha III, M.D. 84 Because ethnic data is not always [...] <15 (or dialysis) 85 RUN DATE: 02/11/13 [facility] LAB LIVE PAGE 1 RUN TIME: 120[address] [place], [place] [address] Specimen Inquiry Name: JAVIER BOBO : [address]: Yadi Rivas MD Acct: [id number] Unit: [id number] AGE: 77 Location: [facility] Re02/09/13 SEX: F Status: REG REF SPEC: [id number] WILDA: 02/09/[address] [facility] DR: Yadi Rivas MD REQ: [id number] RECD: 02/09/13 STATUS: COMP _ SOURCE: MISC SOURC SPDESC:OTHER ORDERED: Culture Stain COMMENTS: LEFT INNER EAR QUERIES: Medent Number [id number] Specimen Description LEFT INNER EAR Procedure Result [...] performed at Main Lab DEPARTMENT OF PATHOLOGY, [facility] [employer] [place] [address] David Argueta M.D. Director [facility] Permit #[id number] RUN DATE: 02/11/13 [facility] LAB LIVE PAGE 2 RUN TIME: 1209 [facility] [employer] [place], [place] [address] Specimen Inquiry Patient: JAVIER BOBO [id number] (Continued) Specimen: [id number] Collected: 02/09/13 Received: 02/09/13 (Continued) Procedure Result Verified Site Wound/Misc Culture Final (continued) 02/11/13- 1209 1. MRSA (continued) M.I.C. RX --------- ------ Trimethoprim/Sulfamethoxazole <=10 S Vancomycin <=0.5 S Imipenem-Deduced R * Ampicillin/Sulbactam-Deduced R Cefazolin-Deduced R * These antibiotics are not available in the [facility] Formulary Contact the Microbiology Department for any additional antibiotic reporting. END OF REPORT * ML=Testing performed at Main Lab DEPARTMENT OF PATHOLOGY, [address] [place] [address] David Argueta M.D. Director [facility] Permit #[id number] RUN DATE: 05/07/12 [facility] LAB LIVE PAGE 1 RUN TIME: [address], [place] [address] Specimen Inquiry Name: JAVIER BOBO Eliane : [address]: Rob MILLS,Yadi Jordan Acct: [id number] Unit: [id number] AGE: 77 Location: [facility] Re05/05/12 SEX: F Status: REG REF SPEC: [id number] WILDA: 05/05/12-[address]: Rob MILLS, Yadi Jordan REQ: [id number] RECD: 05/05/12 STATUS: COMP _ SOURCE: URINE SPDESC: ORDERED: Urine Culture QUERIES: Medent Number [id number] Procedure Result Verified Site Urine Culture Final 05/07/12- 0943 ML Organism 1 MRSA [place] Count >100,000 (Many) CFU/ML 1. MRSA M.I.C. [...] These antibiotics are not available in the [facility] Formulary Contact the Microbiology Department for any additional antibiotic reporting. END OF REPORT * ML=Testing performed at Main Lab DEPARTMENT OF PATHOLOGY, [facility] [employer] [place], [place] [address] David Argueta M.D. Director [facility] Permit #[id number] RUN DATE: 04/09/12 [facility] LAB LIVE PAGE 1 RUN TIME: 1027 [address] [employer] [place], [place] [address] Specimen Inquiry Name: JAVIER BOBO : [address]: Rob MILLS,Yadi Jordan Acct: [id number] Unit: [id number] AGE: 76 Location: [facility] Re04/07/12 SEX: F Status: REG REF SPEC: [id number] WILDA: 04/07/12-[address]: Rob MILLS, Yadi Jordan REQ: [id number] RECD: 04/07/12 STATUS: COMP _ SOURCE: URINE SPDESC: ORDERED: Urine Culture QUERIES: Medent Number [id number] Procedure Result Verified Site Urine Culture Final 04/09/12- 1027 ML Organism 1 ESCHERICHIA COLI [place] Count >100,000 (Many) CFU/ML 1. ESCHERICHIA COLI [...] These antibiotics are not available in the [facility] Formulary Contact the Microbiology Department for any additional antibiotic reporting. END OF REPORT * ML=Testing performed at Main Lab DEPARTMENT OF PATHOLOGY, [address] [place] [address] David Argueta M.D. Director [facility] Permit #[id number] Interpretation: 10-24 (mild to moderate deficiency) -- REFERENCE VALUE -- 25-HYDROXY D TOTAL (D2+D3) Optimum levels in the normal population are 25-80 Test Performed by: [address] [address] Rn Endocrinology: Milo Sinha III, M.D. 89 FASTING 90 [...] than 189 MG/DL 93 RUN DATE: 04/04/11 [facility] RUN TIME: 1035 Specimen Inquiry RUN USER: INTERFACE Name: JAVIER BOBO Eliane Status: REG REF Re04/02/11 Age/Sex: 75/F Unit#: [id number] Location: [facility] : [birth year] SPEC #: [id number] WILDA: 04/02/11 STATUS: DAVID RESu #: [id number] RECD: 04/02/[address] [facility] DR: Rob MILLS,Yadi Jordan SOURCE: URINE ENTR: 04/02/[address] [facility] [address]: [facility]: ORDERED: URINE C S QUERIES: MEDENT REQUISITION # [id number] SPECIMEN DESCRIPTION: URINE, CLEAN CATCH Procedure Result [...] *These antibiotics are not available in the [facility] Formulary. Contact the Microbiology Department for any additional antibiotic reporting. [facility] Permit #[id number] [address] [place] [address] DEPARTMENT OF PATHOLOGY, [address] [place] [address] [facility] Permit #[id number] David Argueta M.D. Director Domingo Alva M.D. [employer] 94 -- REFERENCE VALUE -- 25-HYDROXY D TOTAL (D2+D3) Optimum levels in the normal population are 25-80 Test Performed by: [facility] Dpt of Lab Med and Pathology [address] [place] [address] Rn Endocrinology: Milo Sinha III, M.D. 95 Anion gap measurement may be of limited value in the presence of any alkalosis, especially in a combined acid base disorder. . 96 A metabolite of Naproxen, O-desmethylnaproxen, has been shown to interfere with the Jendrfrancoiseik-Burdick method for measuring total bilirubin. Samples from patients who have taken Naproxen have shown spurious elevation in total bilirubin levels. 97 Because ethnic data is not always readily [...] 15-29 5 Kidney failure <15 (or dialysis) 98 CHOLESTEROL INTERPRETATION: Desirable: Less than 200 MG/DL Borderline-High Risk: 200-239 MG/DL High-Risk: 240 MG/DL and over 99 HDL INTERPRETATION: Undesirable: High Risk: Less than 40 MG/DL Desirable: Low Risk: Greater than 60 MG/DL 10 LDL INTERPRETATION: 0 Low Risk Optimal Level: LDL Less than 100 MG/DL Near or Above Optimal: LDL 100-129 MG/DL Borderline High Risk: LDL 130-159 MG/DL High Risk: LDL 160-189 MG/DL Very High Risk: LDL Greater than 189 MG/DL 10 CHOLESTEROL INTERPRETATION: 1 Desirable: Less than [...] change was based on recommendations from the [place] [employer]. 11 A metabolite of Naproxen, O-desmethylnaproxen, has been 1 shown to interfere with the Jendrassik-Leah method [...] IN SELECTIVE PATIENTS <6.0%. PLEASE REFER TO [place] [employer] DIABETIC CARE GUIDELINES FOR FURTHER [...] change was based on recommendations from the [place] [employer]. 12 Please note change in reference range effective 07 0 . 12 A metabolite of Naproxen, O-desmethylnaproxen, has been 1 shown to interfere with the Jendrassik-Leah method [...] may be of limited value in the 6 presence of any alkalosis, especially in a combined acid base disorder. . 12 Note change in reference range as of 12/11/07. The 7 change was based on recommendations from the [place] [employer]. 12 Please note change in reference range effective 07 8 . 12 CHOLESTEROL INTERPRETATION: 9 Desirable: Less than 200 MG/DL Borderline-High Risk: 200-239 MG/DL High-Risk: 240 MG/DL and over 13 HDL INTERPRETATION: 0 Undesirable: High Risk: Less than 40 MG/DL Desirable: Low Risk: Greater than 60 MG/DL 13 LDL INTERPRETATION: 1 Low Risk Optimal Level: LDL Less than 100 MG/DL Near or Above Optimal: LDL 100-129 MG/DL Borderline High Risk: LDL 130-159 MG/DL High Risk: LDL 160-189 MG/DL Very High Risk: LDL Greater than 189 MG/DL 13 ---- 2 RUN DATE: 05/07/06 [facility] NMI LIVE PAGE 1 RUN TIME: 1450 Specimen Inquiry RUN USER: INTERFACE [id number] JAVIER BOBO 71/F <REG REF 05/03> ([id number]) ERIN Kumar MD, Pe laura JBisi -- Specimen: [id number] SOUT Spec Date: 05/06/[address]: Dwaine [...] MD 05/07/06 -- -- DEPARTMENT OF PATHOLOGY, [address] [place] [address] [facility] Permit #[id number] Guzman Sands II, M.D. Director Peter Gaspar irector -- 13 Classification: Desirable 3 . 13 Classification: Low 4 . 13 5 CALCULATED LDL APPROXIMATES THE VALUE OF A DIRECT LDL MEASUREMENT. Classification: Near or above optimal . 13 Anion gap measurement may be of limited value in the 6 presence of any alkalosis, especially in a combined acid base disorder. . 13 Anion gap measurement may be of limited value in the 7 presence of any alkalosis, especially in a combined acid base disorder. . 13 Classification: Desirable 8 . 13 9 CALCULATED LDL APPROXIMATES THE VALUE OF A DIRECT LDL MEASUREMENT. Classification: Optimal Level . Procedures Date Code Description Status 11/08/2014 03597 EKG, at Least 12 Leads w/Interpretation and Report Completed 03/28/2005 35493 EKG, at Least 12 Leads w/Interpretation and Report Completed Encounters Type Date Location Provider Dx Diagnosis Office Visit 05/09/2018 Main Office Fransisco Sanchez M54.5 Low back pain 4:15p Office Visit 04/07/2018 Main Office Yadi Rivas, Z00.00 Encntr for general 2:00p Peter, R.Gregory. adult medical exam w/o abnormal findings I10 Essential (primary) hypertension R10.2 Pelvic and perineal pain Office Visit 02/24/2018 3:15p Main Office Corey Kovacs0 Essential ( primary) Peter, R.D. hypertension J30.9 Allergic rhinitis, unspecified R35.0 Frequency of micturition Z86.73 Prsnl hx of TIA (TIA), and cereb infrc w/o resid deficits Office Visit 01/14/2018 2:15p Main Office Yadi Rivas J30.9 Allergic rhinitis, M.Yodit, R.D. unspecified I10 Essential (primary) hypertension M79.603 Pain in arm, unspecified R35.0 Frequency of micturition Office Visit 10/14/2017 10:30a Main Office Katiana Kovacs Essential ( primary) Peter, R.D. 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 hypertension J18.8 Other pneumonia, unspecified organism K59.00 Constipation, unspecified Office Visit 09/13/2017 11:00a [facility] Katiana Kovacs Essential Peter, R.D. (primary) hypertension J18.8 Other pneumonia, unspecified organism R19.7 Diarrhea, unspecified Office Visit 08/16/2017 10:30a Main Office Katiana Kovacs Essential ( primary) Peter, R.D. hypertension I63.9 Cerebral infarction, unspecified Office Visit 08/09/2017 11:15a Main Office Katiana Kovacs Essential ( primary) Peter, R.D. hypertension I63.9 Cerebral infarction, unspecified Office Visit 08/05/2017 3:30p Main Office Yadi Rivas R20.2 Paresthesia of skin Peter, R.D. I10 Essential (primary) hypertension Office Visit 06/05/2017 4:00p Main Office Corey Kovacs0 Essential ( primary) Peter, R.D. hypertension E78.00 Pure hypercholesterolemia, unspecified G45.9 Transient cerebral ischemic attack, unspecified H53.9 Unspecified visual disturbance K59.00 Constipation, unspecified R32 Unspecified urinary incontinence Office Visit 04/05/2017 10:30a Main Office Yadi Rivas Z00.00 Encntr for Peter, R.D. general adult medical exam w/o abnormal findings I10 Essential (primary) hypertension E78.00 Pure hypercholesterolemia, unspecified E03.9 Hypothyroidism, unspecified Office Visit 03/02/2017 9:00a Main Office Lucio Regane, E03.9 Hypothyroidism, M.D. unspecified Office Visit 01/23/2017 11:30a Main Office [...] Office Visit 04/13/2016 9:30a Main Office Yadi Rivas Z00.00 Encntr for Peter, R.D. general adult medical exam w/o abnormal findings E78.00 Pure hypercholesterolemia, unspecified I10 Essential (primary) hypertension M35.3 Polymyalgia rheumatica R10.30 Lower abdominal pain, unspecified M85.9 Disorder of bone density and structure, unspecified Office Visit 09/12/2015 10:45a Main Office Yadi Rivas M35.3 Polymyalgia M.D., R.D. rheumatica Office Visit 04/01/2015 10:15a Main Office Yadi Rivas, Z00.00 Encntr for general M.D., R.D. adult [...] unspecified Office Visit 02/17/2015 10:45a Main Office Fransisco Sanchez J06.9 Acute upper MD respiratory infection, unspecified Office Visit 11/08/2014 1:45p Main Office Yadi Rivas, 725 Polymyalgia M.D., R.D. Rheumatica 389.9 Hearing Loss Unspec 786.09 Dyspnea & Respiratory Abnormalities Other Office Visit 09/22/2014 10:30a Main Office Yadi Rivas, 725 Polymyalgia M.D., R.D. Rheumatica 723.1 Cervicalgia 724.3 Sciatica Office Visit 08/09/2014 10:30a Main Office Yadi Rivas, 725 Polymyalgia M.D., R.D. Rheumatica Office Visit 07/21/2014 3:30p Main Office Yadi Rivas, 724.5 Backache Unspec M.D., R.D. 726.19 Shoulder Disorders Other Spec 719.46 Pain Joint Lower Leg 788.30 Incontinence Urinary Unspec 729.5 Pain In Limb Office Visit 03/22/2014 1:00p Main Office Yadi Rivas, V70.0 Examination General M.D., R.D. Medical Routine AT Health Care Facility 788.30 Incontinence Urinary Unspec Office Visit 05/06/2013 12:00p Main Office Yadi Rivas 724.5 Backache Unspec M.D., R.D. Office Visit 04/02/2013 11:30a Main Office Yadi Rivas V70.0 Examination General M.D., R.D. Medical Routine AT Health Care Facility 788.30 Incontinence Urinary Unspec 733.90 Bone & Cartilage Disorder Unspec 272.0 Hypercholesterolemia Pure 401.9 Hypertension Unspec Office Visit 02/09/2013 3:00p Main Office Yadi Rivas, 380.22 Otitis Externa Lionel.Yodit, R.D. 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 Medical Routine AT Health Care Facility 726.19 Shoulder Disorders Other Spec 724.2 Lumbago 401.9 Hypertension Unspec 272.0 Hypercholesterolemia Pure 733.90 Bone & Cartilage Disorder Unspec Office Visit 08/15/2009 3:15p Main Office Yadi Rivas, 599.0 UTI Urinary Tract M.D., R.D. Infection Site Not Spec Office Visit 04/06/2009 8:15a Main Office Yadi Richardauley, V70.0 Examination General M.D., R.D. Medical Routine [...] Office Visit 06/23/2007 4:00p Main Office Tito Bee 618.01 Cystocele, M.D. Midline 627.3 Atrophic Vaginitis [...] Office Visit 04/03/2006 12:45p Main Office Tito Bee, 401.9 Hypertension Unspec M.D. 272.0 Hypercholesterolemia Pure 788.30 Incontinence Urinary Unspec 616.89 Other Inflammatory Disease Cervix, Vagina And Vulva 616.8 Inflammatory Diseases Cervix Vagina & Vulva Other V72.[address] Examination V70.0 Examination General Medical Routine AT Health Care Facility Office Visit 08/27/2005 2:45p Main Office Tito Bee, 840.9 Sprains & Strains M.D. Shoulder & Upper Arm Unspec 917.0 Injury Superficial Abrasion Foot & Toes W/O Infection Office Visit 03/28/2005 1:45p Main Office Tito Bee, 401.9 Hypertension Unspec M.D. 272.0 Hypercholesterolemia Pure 530.81 Esophageal Reflux 616.8 Inflammatory Diseases Cervix Vagina & Vulva Other 786.09 Dyspnea & Respiratory Abnormalities Other V76.9 Screening Malignant Neoplasm Unspec V72.[address] Operator Examination Office Visit 06/29/2004 11:45a Main Office Fide Martinez 724.5 Backache Unspec Linda Johnson.P.Julian Office Visit 03/22/2004 3:00p Main Office Tito Bee, 401.9 Hypertension Unspec M.D. 272.0 Hypercholesterolemia Pure 788.30 Incontinence Urinary Unspec 618.01 Cystocele, Midline 278.00 Obesity Unspec 530.81 Esophageal Reflux V76.9 Screening Malignant Neoplasm Unspec V70.0 Examination General Medical Routine AT [facility] Office Visit 04/21/2003 2:15p Main Office Tito Bee 401.9 Hypertension Unspec M.D. 272.0 Hypercholesterolemia Pure 724.2 Lumbago V76.9 Screening Malignant Neoplasm Unspec V70.0 Examination General Medical Routine AT [facility] Facility Office Visit 07/30/2002 12:45p Main Office Tito Bee 401.9 Hypertension Unspec M.D. 272.0 Hypercholesterolemia Pure 724.2 Lumbago Office Visit 03/02/2002 1:45p Tito Bee M.D. 272.0 Hypercholesterolemia Pure 401.9 Hypertension Unspec 788.30 Incontinence Urinary Unspec 733.00 Osteoporosis Unspec Office Visit 08/26/2001 Main Office Tito Bee 272.0 Hypercholesterolemia Pure 9:30a M.D. 401.9 Hypertension Unspec Plan of Treatment Future Appointment(s):06/25/2018 11:15 am - Yadi Rivas M.D., R.D. at Main [id number]/28/2018 - Yadi Rivas M.D., R.D.S22.000A Wedge compression fracture of unspecified thoracic vertebra,I10 Essential (primary) qnyajvcqgahuN89.73 Personal history of transient ischemic attack (TIA), and cerRecommendations:Follow up in one month and as needed.
[2018-06-27 20:10] LABS: Hematocrit 38 % (35-47); Hemoglobin 12.6 g/dl (12.0-16.0); Mean Corpuscular HGB Conc 33 g/dl (31-36); Mean Corpuscular Hemoglobin 30 pg (27-31); Mean Corpuscular Volume 90 fL (80-97); Mean Platelet Volume 9.4 fL (7.4-10.4); Platelet Count 272 10^3/ul (150-450); Red Blood Count 4.23 10^6/ul (4.00-5.40); Red Cell Distribution Width 14 % (10.5-15); White Blood Count 20.8 10^3/ul (3.5-10.8)
[2018-06-27 20:26] LABS: Albumin 4.2 g/dL (3.2-5.2); Albumin/Globulin Ratio 1.4 (1-3); BUN/Creatinine Ratio 12.7 (8-20); C Reactive Protein 29.4 mg/L (<8.01); Calcium 9.5 mg/dL (8.6-10.3); EGFR African American 52.7 (>60); EGFR Non-African American 43.5 (>60); Globulin 2.9 g/dL (2-4); Potassium 4.6 mmol/L (3.5-5.0); Total Bilirubin 1.2 mg/dL (0.2-1.0); Total Protein 7.1 g/dL (6.4-8.9)
[2018-06-27 20:39] LABS: ABS Basophils 0 10^3/ul (0-0.2); ABS Eosinophils 0 10^3/ul (0-0.6); ABS Neutrophils 18.72 10^3/ul (1.5-7.7); Immature Granulocytes 7 % (0-9); Lymphocytes % 5 %; Monocytes % 5 %; Neutrophil % 83 %
[2018-06-27 20:40] LABS: ABS Neutrophils 19.5 10^3/ul (1.5-7.7)
[2018-06-27 20:55] LABS: Urine Appearance Turbid; Urine Bacteria Absent (Absent); Urine Bilirubin Negative (Negative); Urine Blood Negative (Negative); Urine Color Yellow; Urine Glucose Negative (Negative); Urine Ketones Negative (Negative); Urine Nitrite Negative (Negative); Urine Protein 1+(30 mg/dL) (Negative); Urine Red Blood Cell Absent (Absent); Urine Specific Gravity 1.015 (1.010-1.030); Urine Squamous Epithelial Cell Present (Absent); Urine Urobilinogen Negative (Negative); Urine White Blood Cell 3+(>20/hpf) (Absent)
[2018-06-28] MEDS ORDERED: NS 0.9% 1000 ML** 1,000 ML IV ONE (00:27)
[2018-06-28] MEDS ORDERED: NS 0.9% 1000 ML** 1,000 ML IV SCH (00:30)
[2018-06-28] MEDS: Acetaminophen TAB* 325 MG PO PRN (02:22)
--- NOTE | 2018-06-28 05:11 | HP ---
CC: Yadi Rivas MD * HISTORY AND PHYSICAL: DATE OF ADMISSION: 06/28/18 PRIMARY CARE PROVIDER: Yadi Rivas MD CHIEF COMPLAINT: Altered mental status. HISTORY OF PRESENT ILLNESS: Ms. Tan is an 83-year-old female who at this point is sleeping in bed, but does awaken to voice and light touch, is able to tell me that she was diagnosed with a urinary tract infection this past Saturday. She states that she was unable to get to the pharmacy until late afternoon and therefore, did not start taking the antibiotic until the morning of 06/27/18. She states that she believes she went wild with her children and therefore, she was brought in. The patient's family, unfortunately , is not present currently. Nursing notes indicate that the patient was brought in by EMS because she was lethargic. At this point, the patient is able to provide what seems to be adequate history, though she is somewhat sleepy. Her speech is somewhat difficult to understand, though her mouth is very dry. She states that she has not been eating or drinking well recently. She also complains of pain going down her leg and in her low back. She denies any pain in the pelvis. She denies any dysuria. She has had no fevers or chills at home per her report. PAST MEDICAL HISTORY: 1. Hypertension. 2. Frequent UTIs. 3. History of CVA and TIAs. PAST SURGICAL HISTORY: Bilateral cataract extraction. MEDICATIONS: 1. Hydralazine 50 mg p.o. b.i.d. 2. Atenolol 50 mg p.o. daily. 3. Lipitor 10 mg p.o. daily. 4. Calcitonin nasal spray 1 squirt to alternating nostrils daily. 5. Losartan 50 mg p.o. b.i.d. 6. Plavix 75 mg p.o. daily. 7. Bactrim DS 1 tab p.o. daily. ALLERGIES: ASPIRIN and LISINOPRIL. FAMILY HISTORY: Positive for throat cancer in her father. SOCIAL HISTORY: The patient does not smoke. She does not drink alcohol. Her surrogate decision maker is her daughter, Baylee. REVIEW OF SYSTEMS: A complete 11-system review of systems is obtained. Pertinent positives and negatives are as per HPI and, otherwise, negative. PHYSICAL EXAMINATION GENERAL: The patient is a well-developed, obese elderly female, seen lying on the stretcher on her right side sleeping, but awakens to voice and light touch. VITAL SIGNS: Blood pressure 98/33, pulse 70, respirations 24, temp 100, O2 sat 91% on room air. HEENT: Pupils are equal and round. There is evidence of prior cataract extraction. Extraocular muscles are intact. Oral mucosa is very dry. There is no submandibular, cervical or supraclavicular adenopathy. Thyroid is not enlarged. No thyroid nodules noted. PULMONARY: Lungs are clear to auscultation bilaterally. CARDIAC: Normal S1, S2. Regular rate and rhythm. I do not appreciate any murmurs. ABDOMEN: Bowel sounds present. Abdomen is soft, nontender, nondistended. MUSCULOSKELETAL: There is no cyanosis or clubbing at the digits. There is full active range of motion of all 4 extremities. SKIN: Warm and dry. There are no rashes. NEURO: Cranial nerves II through XII appear to be grossly intact. Sensation is intact to light touch throughout. Strength appears to be normal in all 4 extremities. PSYCH: The patient is sleepy, but again alert and oriented x3. Her affect appears appropriate. DIAGNOSTIC STUDIES/LAB DATA: Labs: WBC 20.8, hemoglobin 12.6, hematocrit 38, platelets 272. Sodium 134, potassium 4.6, chloride 101, CO2 of 22, BUN 15, creatinine 1.18, glucose 122, lactic acid 1.0, calcium 9.5, bilirubin 1.2, AST 17, ALT 9, alk phos 87, CRP 29.4, albumin 4.2. Urinalysis reveals turbid urine with specific gravity of 1.015, 1+ protein, 3+ plus leukocyte esterase, 3+ wbc, absent bacteria and positive for hyaline casts. Chest x-ray to my interpretation appears clear. CT abdomen and pelvis reveals findings consistent with cystitis. There are renal cysts. There is distal colonic diverticulosis noted. ASSESSMENT AND PLAN: Ms. Tan is an 83-year-old female who was diagnosed with a urinary tract infection approximately 3 days ago who started antibiotic therapy on the day prior to admission and is brought to the emergency room by EMS for concerns of lethargy and is found to be severely septic secondary to a urinary tract infection. 1. Severe sepsis secondary to urinary tract infection. At this point, the patient is severely septic, verging on septic shock with persistent hypotension. Unfortunately, the patient did not receive the initial 30 mL/kg bolus, but did receive the bulk of that fluid. She will receive 1 more liter of IV fluid bolus followed by 125 mL/hour. I am not starting vasopressors at this point as the patient has not been adequately hydrated. Initial lactic acid level was normal and this will not be followed any further. The patient's urine from 06/25/18 grew Klebsiella pneumoniae. She was initially started on Bactrim, to which this is sensitive; however, as she is now being admitted with severe sepsis, I will start ceftriaxone 1 g IV daily. This will start tomorrow morning as the patient received a dose of Zosyn in the emergency room. We will follow vital signs very closely. Blood cultures have been sent. 2. Hypertension. At this point, as the patient is hypotensive, I am going to hold her atenolol, losartan, and hydralazine. I suspect by tomorrow morning, she will likely need at least one of these agents partially added back. 3. Hyperlipidemia. Continue Lipitor. 4. History of cerebrovascular accident/transient ischemic attack. We will continue Plavix. 5. DVT prophylaxis. According to the Adult Thrombosis Prophylaxis Risk Factor Assessment Guide, the patient has a total risk factor score of 5, making her high risk. Heparin 5000 units subcutaneous q.8 hours will be utilized as DVT prophylaxis. 6. Code status. Full code, DNR. TIME SPENT: Sixty-five minutes were spent admitting this patient. [id number]/CPS #: [id number] [place]
[2018-06-28] MEDS: cefTRIAXone(*) 1 GM in NS 0.9% 50 ML* 50 ML IVPB SCH (06:02)
[2018-06-28] MEDS: Heparin VIAL(*) 5000 UNITS/ML VIAL (FIVE THOUSAND) SUBCUT SCH ×3 (06:02→20:55)
[2018-06-28 07:55] LABS: ABS Basophils 0 10^3/ul (0-0.2); ABS Eosinophils 0.4 10^3/ul (0-0.6); ABS Lymphocytes 1.3 10^3/ul (1.0-4.8); ABS Monocytes 0.9 10^3/ul (0-0.8); ABS Neutrophils 9.8 10^3/ul (1.5-7.7); ABS Nucleated RBC 0 10^3/ul; Eosinophil % 3.3 %; Hematocrit 32 % (35-47); Hemoglobin 10.8 g/dl (12.0-16.0); Lymphocyte % 10.6 %; Mean Corpuscular HGB Conc 33 g/dl (31-36); Mean Corpuscular Hemoglobin 30 pg (27-31); Mean Corpuscular Volume 90 fL (80-97); Nucleated Red Blood Cells % 0; Platelet Count 239 10^3/ul (150-450); Red Blood Count 3.59 10^6/ul (4.00-5.40); Red Cell Distribution Width 14 % (10.5-15); White Blood Count 12.5 10^3/ul (3.5-10.8)
[2018-06-28] MEDS: CMCS:Calcitonin NASAL(NF) 200 UNITS/SPRAY NASAL.SPR ALT NARE SCH (08:33)
[2018-06-28] MEDS: Atorvastatin* 10 MG TAB PO SCH (08:33)
[2018-06-28] MEDS: Clopidogrel TAB* 75 MG PO SCH (08:33)
[2018-06-28] MEDS ORDERED: Furosemide IV* 10 MG/ML VIAL (40 MG) ONE (13:05)
[2018-06-28] MEDS ORDERED: Furosemide IV* 10 MG/ML VIAL (40 MG) IV ONE (13:07)
[2018-06-28] MEDS ORDERED: Albuterol HFA INHALER* 8 gm MDI INH PRN (13:08)
[2018-06-28] MEDS ORDERED: Albuterol/Ipratropium NEB.SOL* Albuterol 2.5 MG/Ipratropium 0.5 MG 3 ML INH PRN (13:09)
--- NOTE | 2018-06-28 13:16 | PN ---
Subjective Date of Service: 06/28/18 Interval History: Pt c/o SOB. [place] pain. Had gotten over 4000 ml of IVF tx since admission Objective Active Medications: Acetaminophen (Tylenol Tab*) 650 mg PO Q4H PRN PRN Reason: PAIN Last Admin: 06/28/18 02:22 Dose: 650 mg Albuterol (Ventolin Hfa Inhaler*) 1 puff INH Q4H PRN PRN Reason: SOB/WHEEZING Albuterol/Ipratropium (Duoneb (Albuterol 2.5 Mg/Ipratropium 0.5 Mg)) 1 neb INH Q4H PRN PRN Reason: SOB/WHEEZING Atorvastatin Calcium (Lipitor*) 10 mg PO DAILY [facility] Last Admin: 06/28/18 08:33 Dose: 10 mg Calcitonin [place] (Fortical(Nr)) 200 units ALT NARE DAILY [facility]; Protocol Last Admin: 06/28/18 08:33 Dose: 200 units Clopidogrel Bisulfate (Plavix Tab*) 75 mg PO DAILY [facility] Last Admin: 06/28/18 08:33 Dose: 75 mg Heparin Sodium (Porcine) (Heparin Vial(*)) 5,000 units SUBCUT Q8HR [facility] Last Admin: 06/28/18 13:07 Dose: 5,000 units Ceftriaxone Sodium 1 gm/ (Sodium Chloride) 50 mls @ 200 mls/hr IVPB Q24H [facility] Last Admin: 06/28/18 06:02 Dose: 200 mls/hr Vital Signs - 8 hr 06/28/18 06/28/18 06/28/18 08:00 08:13 11:55 Temperature 98.4 F 98.9 F Pulse Rate 63 67 Respiratory 20 20 18 Rate Blood Pressure 152/61 149/76 (mmHg) O2 Sat by Pulse 91 96 Oximetry Oxygen Devices in Use Now: None Appearance: 83 yo F in nAD, aAOx3 Eyes: No Scleral Icterus, PERRLA Ears/Nose/Mouth/Throat: NL Teeth, Lips, Gums, Mucous Membranes Moist Neck: Trachea Midline, - - +JVP b/l Respiratory: - - rales b/l Cardiovascular: NL Sounds; No Murmurs; No JVD, No Edema Abdominal: NL Sounds; No Tenderness; No Distention Lymphatic: No Cervical Adenopathy Extremities: No Edema, No Clubbing, Cyanosis Skin: No Rash or Ulcers, No Nodules or Sclerosis Neurological: Alert and Oriented x 3, NL Muscle Strength and Tone Result Diagrams: 06/28/18 07:45 06/27/18 20:01 Assess/Plan/Problems-Billing Assessment: 83 yo F with h/o HTN presented with lethargy and UTI - Patient Problems (1) UTI (urinary tract infection) Comment: cultures grew Klebsiella, cont Ceftriaxone (2) Hypertension Comment: - Continue Atenolol, and Hydralazine, holding losartan for now (3) Hypoxia Comment: pt is fluid overladed from IVF received during sepsis tx. will tx with IV Lasix (4) DANILO (acute kidney injury) Comment: due to UTI, sepsis. will cont to monitor, holding losartan (5) DVT prophylaxis Comment: -SQH Status and Disposition: inpatient
[2018-06-28] MEDS: hydrALAZINE TAB* 25 MG PO SCH (20:56)
--- NOTE | 2018-06-28 21:46 | PN ---
Hospitalist Progress Note Date of Service: 06/28/18 RN reported assymptomatic non-sustained 3 beats of Vtach and some SVTs in the 150s while asleep. Pt is arousable and reported to be A/Ox3, although forgetful at time times.
[2018-06-29] MEDS: cefTRIAXone(*) 1 GM in NS 0.9% 50 ML* 50 ML IVPB SCH (06:39)
[2018-06-29] MEDS: Heparin VIAL(*) 5000 UNITS/ML VIAL (FIVE THOUSAND) SUBCUT SCH ×3 (06:39→21:54)
[2018-06-29 07:49] LABS: Hematocrit 31 % (35-47); Hemoglobin 10.4 g/dl (12.0-16.0); Mean Corpuscular HGB Conc 34 g/dl (31-36); Mean Corpuscular Hemoglobin 30 pg (27-31); Mean Corpuscular Volume 89 fL (80-97); Mean Platelet Volume 9.3 fL (7.4-10.4); Platelet Count 221 10^3/ul (150-450); Red Blood Count 3.45 10^6/ul (4.00-5.40); Red Cell Distribution Width 15 % (10.5-15); White Blood Count 9.1 10^3/ul (3.5-10.8)
[2018-06-29 08:12] LABS: BUN/Creatinine Ratio 15.3 (8-20); Calcium 8.3 mg/dL (8.6-10.3); EGFR African American 65.3 (>60); EGFR Non-African American 53.9 (>60); Potassium 3.5 mmol/L (3.5-5.0)
[2018-06-29] MEDS: CMCS:Calcitonin NASAL(NF) 200 UNITS/SPRAY NASAL.SPR ALT NARE SCH (09:37)
[2018-06-29] MEDS: hydrALAZINE TAB* 25 MG PO SCH ×2 (09:38→21:53)
[2018-06-29] MEDS: Atenolol TAB* 50 MG PO SCH (09:38)
[2018-06-29] MEDS: Clopidogrel TAB* 75 MG PO SCH (09:38)
[2018-06-29] MEDS: Atorvastatin* 10 MG TAB PO SCH (09:39)
[2018-06-29] MEDS ORDERED: Furosemide TAB* 20 MG PO ONE (14:25)
[2018-06-29] MEDS ORDERED: Magnesium Sulfate 1 GM IV* 1 GM/100 ML BAG IV ONE (14:26)
[2018-06-29] MEDS: Acetaminophen TAB* 325 MG PO PRN (14:29)
--- NOTE | 2018-06-29 14:32 | PN ---
Subjective Date of Service: 06/29/18 Interval History: Pt feels well, although still RUFFIN and uses 2 L of 02 which she doesn't at home Objective Active Medications: Acetaminophen (Tylenol Tab*) 650 mg PO Q4H PRN PRN Reason: PAIN Last Admin: 06/28/18 02:22 Dose: 650 mg Albuterol (Ventolin Hfa Inhaler*) 1 puff INH Q4H PRN PRN Reason: SOB/WHEEZING Last Admin: 06/29/18 07:58 Dose: 1 puff Albuterol/Ipratropium (Duoneb (Albuterol 2.5 Mg/Ipratropium 0.5 Mg)) 1 neb INH Q4H PRN PRN Reason: SOB/WHEEZING Atenolol (Tenormin Tab*) 50 mg PO DAILY [facility] Last Admin: 06/29/18 09:38 Dose: 50 mg Atorvastatin Calcium (Lipitor*) 10 mg PO DAILY [facility] Last Admin: 06/29/18 09:39 Dose: 10 mg Calcitonin [place] (Fortical(Nr)) 200 units ALT NARE DAILY [facility]; Protocol Last Admin: 06/29/18 09:37 Dose: 200 units Clopidogrel Bisulfate (Plavix Tab*) 75 mg PO DAILY [facility] Last Admin: 06/29/18 09:38 Dose: 75 mg Furosemide (Lasix Tab*) 20 mg PO ONCE ONE Stop: 06/29/18 14:26 Heparin Sodium (Porcine) (Heparin Vial(*)) 5,000 units SUBCUT Q8HR [facility] Last Admin: 06/29/18 06:39 Dose: 5,000 units Hydralazine HCl (Apresoline Tab*) 50 mg PO BID [facility] Last Admin: 06/29/18 09:38 Dose: 50 mg Ceftriaxone Sodium 1 gm/ (Sodium Chloride) 50 mls @ 200 mls/hr IVPB Q24H [facility] Last Admin: 06/29/18 06:39 Dose: 200 mls/hr Magnesium Sulfate/Dextrose (Magnesium Sulfate 1 Gm Iv*) 1 gm in 100 mls @ 200 mls/hr IV ONCE ONE Stop: 06/29/18 14:55 Vital Signs - 8 hr 06/29/18 06/29/18 06/29/18 07:26 08:00 08:29 Temperature Pulse Rate 65 72 Respiratory 20 14 14 Rate Blood Pressure (mmHg) O2 Sat by Pulse 96 96 Oximetry 06/29/18 08:40 Temperature 97.9 F Pulse Rate 64 Respiratory 18 Rate Blood Pressure 153/66 (mmHg) O2 Sat by Pulse 98 Oximetry Oxygen Devices in Use Now: Nasal Cannula Appearance: 83 yo F in NAD, AAOx3 Eyes: No Scleral Icterus, PERRLA Ears/Nose/Mouth/Throat: NL Teeth, Lips, Gums, Mucous Membranes Moist Neck: NL Appearance and Movements; NL JVP, Trachea Midline Respiratory: Symmetrical Chest Expansion and Respiratory Effort, Clear to Auscultation Cardiovascular: NL Sounds; No Murmurs; No JVD, RRR Abdominal: NL Sounds; No Tenderness; No Distention Lymphatic: No Cervical Adenopathy Extremities: No Edema, No Clubbing, Cyanosis Skin: No Rash or Ulcers, No Nodules or Sclerosis Neurological: Alert and Oriented x 3, NL Muscle Strength and Tone Result Diagrams: 06/29/18 07:20 06/29/18 07:20 Microbiology and Other Data: Microbiology 06/27/18 20:01 Aerobic Blood Culture - Preliminary Blood Venous No Growth Day 1 Anaerobic Blood Culture - Preliminary No Growth Day 1 06/27/18 20:18 Urine Culture - Final Urine Assess/Plan/Problems-Billing Assessment: 83 yo F with h/o HTN presented with lethargy and UTI - Patient Problems (1) UTI (urinary tract infection) Comment: cultures from outpatinent collected sample grew Klebsiella, cont Ceftriaxone Current cx are negative so far (2) Hypertension Comment: - Continue Atenolol, and Hydralazine, restarting losartan (3) Hypoxia Comment: pt is fluid overladed from IVF received during sepsis treated with IV Lasix 06/28/18. Today still with mild hypoxemia-will tx with Lasix PO (4) DANILO (acute kidney injury) Comment: due to UTI, sepsis. Resolved (5) DVT prophylaxis Comment: -HSQ Status and Disposition: inpatient
[2018-06-29] MEDS ORDERED: Potassium Chlor TAB* 20 MEQ TAB.ER PO ONE (14:33)
[2018-06-29] MEDS: Losartan TAB* 25 MG PO SCH ×2 (21:49→21:53)
[2018-06-30] MEDS: Heparin VIAL(*) 5000 UNITS/ML VIAL (FIVE THOUSAND) SUBCUT SCH (06:10)
[2018-06-30] MEDS: cefTRIAXone(*) 1 GM in NS 0.9% 50 ML* 50 ML IVPB SCH (06:10)
[2018-06-30] MEDS ORDERED: Furosemide TAB* 40 MG PO ONE (08:55)
[2018-06-30] MEDS: Losartan TAB* 25 MG PO SCH (10:54)
[2018-06-30] MEDS: Atorvastatin* 10 MG TAB PO SCH (10:54)
[2018-06-30] MEDS: Clopidogrel TAB* 75 MG PO SCH (10:54)
[2018-06-30] MEDS: hydrALAZINE TAB* 25 MG PO SCH (10:54)
[2018-06-30] MEDS: Atenolol TAB* 50 MG PO SCH (10:55)
[2018-06-30] MEDS: CMCS:Calcitonin NASAL(NF) 200 UNITS/SPRAY NASAL.SPR ALT NARE SCH (10:55)
[2018-06-30] MEDS ORDERED: Furosemide TAB* 20 MG PO ONE (12:22)
[2018-06-30 13:21] VITALS: BP 119/48
--- NOTE | 2018-06-30 13:45 | DS ---
CC: Yadi Linton MD * DISCHARGE SUMMARY: DATE OF ADMISSION: 06/28/18 DATE OF DISCHARGE: 06/30/18 PRIMARY CARE PROVIDER: Yadi Linton MD. DISCHARGE DIAGNOSES: 1. Sepsis due to urinary tract infection with urine cultures positive from 10/08 for Klebsiella pneumoniae. 2. Transient hypoxemia due to fluid overload after patient received intravenous fluids for sepsis resuscitation that resolved after diuresis. 3. Acute kidney injury. SECONDARY DIAGNOSES: 1. History of hypertension. 2. History of frequent urinary tract infections. 3. History of cerebrovascular accident and transient ischemic attacks in the past. MEDICATIONS AT DISCHARGE: Include: 1. Bactrim DS 1 tablet p.o. b.i.d. to be continued for 3 days and then stop. 2. Atenolol 50 mg daily. 3. Lipitor 10 mg daily. 4. Plavix 75 mg daily. 5. Hydralazine 50 mg b.i.d. 6. Cozaar 50 mg b.i.d. 7. Calcitonin nasal spray 1 spray 1 nostril daily, alternate nostrils. The patient was set up for [facility] at discharge. The patient is recommended to follow up with her primary care provider approximately 4 to 7 days after discharge. CONDITION: Stable. The patient is to ambulate as tolerated. Diet: Regular. LABORATORY DATA AND STUDIES PERFORMED DURING THE HOSPITAL STAY: Included: On 06/29/18, white blood cell count of 9.1, hemoglobin 10.4, hematocrit 31, and platelets of 221. On 06/29/18, sodium of 135, potassium 3.5, chloride 104, carbon dioxide 23, BUN 15, creatinine 0.98. Microbiology showed blood cultures that were negative for growth and urine culture that were negative for growth and obtained on 06/27/18. Please note that urine cultures obtained from 06/25/18 were positive for Klebsiella pneumoniae, resistant to ampicillin only. Abdomen and pelvis CT obtained on 06/27/18, impression: "Findings of cystitis. Bosniak type 1 renal cyst. No followup indicated. Distal colonic diverticulosis". HOSPITALIZATION COURSE: Bronwyn Tan is an 83-year-old female who presented to the hospital on 06/27/18 and was admitted early in the morning on 06/28/18 with altered mental status and hypotension. Upon the patient was diagnosed of UTI as outpatient, but she was unable to get her medications until the day of her revisit. At that point, she might have taken just 1 tablet of Bactrim that she was prescribed. She appeared very dehydrated and hypotensive at admission. She was diagnosis of sepsis, resuscitated with IV fluids, and started on ceftriaxone. Over the next couple of days of her hospitalization, did very well. She continues to be afebrile. Her mentation was back to normal within 12 hours of her hospital stay and her hypotension resolved after intravenous fluids. Unfortunately, due to that, that she received a fair amount of IV fluids during her initial sepsis resuscitating, she developed fluid overload and needed to be diuresed with IV Lasix with good results. Due to the fluid overload, she suffered from acute hypoxic respiratory failure, resolved by the time of discharge. At discharge, patient was back to oxygen saturation of 94% on room air. She is going to be discharged home with recommendation to continue her Bactrim as previously prescribed for a total of 3 days and then to stop. She is to follow up with her primary care provider as above mentioned. PHYSICAL EXAMINATION: Physical exam at the time of discharge, blood pressure 135 /61, heart rate of 61 and regular, respiratory rate 16, oxygen saturation 98 % on room air, temperature 97.8. General: The patient is very pleasant 83-year- old female who is in no acute distress. The patient is alert, awake, and oriented x3, although rather poor historian. HEENT: Head: Atraumatic, normocephalic. Eyes: Pupils are equal, reactive to light and accommodation. Oropharynx is clear. Mucosa moist. Neck: Supple. No JVD. No bruits bilaterally. Cardiovascular: Regular rate and rhythm. No murmur. Respiratory : Clear to auscultation bilaterally. Abdomen: Soft, nontender. Bowel sounds present in all 4 quadrants. Extremities: There is no edema. Pulses are +2 bilaterally. No clubbing or cyanosis. On neuro evaluation, speech is clear. Cranial nerves II through XII are grossly intact. Motor strength is 5/5 bilaterally. Please note that this is a short summary of the patient's hospitalization. Please refer to further medical records for details. TIME SPENT: Approximately 40 minutes was spent in preparation of patient's discharge. [id number]/[facility] #: [id number] [facility]TON HOSPITALGregory
== END 2018-06-30 13:35 | disposition home health service (06) | DRG 871 ==
LOC: ED 18:44 → MEDTELE 06-28 00:27
PROVIDERS: ADMIT Hospitalist; ATTEND Internal Medicine
DX: A41.9 Sepsis, unspecified organism (principal); R65.21 Severe sepsis with septic shock; J96.01 Acute respiratory failure with hypoxia; N39.0 Urinary tract infection, site not specified; N17.9 Acute kidney failure, unspecified; I47.2 Ventricular tachycardia; I47.1 Supraventricular tachycardia; I25.10 Atherosclerotic heart disease of native coronary artery without angina pectoris; I10 Essential (primary) hypertension; K21.9 Gastro-esophageal reflux disease without esophagitis; K57.30 Diverticulosis of large intestine without perforation or abscess without bleeding; N28.1 Cyst of kidney, acquired; E66.9 Obesity, unspecified; Z66 Do not resuscitate; M15.9 Polyosteoarthritis, unspecified; B96.1 Klebsiella pneumoniae [K. pneumoniae] as the cause of diseases classified elsewhere; E87.70 Fluid overload, unspecified; D64.9 Anemia, unspecified; H91.90 Unspecified hearing loss, unspecified ear; Z97.4 Presence of external hearing-aid; Z98.42 Cataract extraction status, left eye; Z98.41 Cataract extraction status, right eye; Z82.3 Family history of stroke; Z87.440 Personal history of urinary (tract) infections; Z88.8 Allergy status to other drugs, medicaments and biological substances; Z86.73 Personal history of transient ischemic attack (TIA), and cerebral infarction without residual deficits; Z80.8 Family history of malignant neoplasm of other organs or systems; Z68.34 Body mass index [BMI] 34.0-34.9, adult; Z79.02 Long term (current) use of antithrombotics/antiplatelets
CPT/HCPCS: 36415; 71045; 74176; 80048; 80053; 81003; 81015; 83605; 85025; 85027; 85060; 86140; 87040; 87086; 94640; 96365; 96372; 99285; A9270-GY; G8978-GP-CI; G8979-GP-CI; G8980-GP-CI; G8987-GO-CJ; G8988-GO-CJ; G8989-GO-CJ; J0696; J1200; J1644; J1940; J2543; J3475

== ENCOUNTER 2018-07-01 02:05 | Observation (INO) | payer MEDICARE ==
[2018-07-01] MEDS ORDERED: LORazepam TAB(*) 1 MG PO ONE (02:19)
[2018-07-01 02:48] LABS: ABS Basophils 0.1 10^3/ul (0-0.2); ABS Eosinophils 0.2 10^3/ul (0-0.6); ABS Lymphocytes 1.3 10^3/ul (1.0-4.8); ABS Monocytes 0.9 10^3/ul (0-0.8); ABS Neutrophils 14.3 10^3/ul (1.5-7.7); ABS Nucleated RBC 0 10^3/ul; Eosinophil % 1.4 %; Hematocrit 36 % (35-47); Hemoglobin 11.9 g/dl (12.0-16.0); Lymphocyte % 7.8 %; Mean Corpuscular HGB Conc 34 g/dl (31-36); Mean Corpuscular Hemoglobin 30 pg (27-31); Mean Corpuscular Volume 90 fL (80-97); Mean Platelet Volume 9.1 fL (7.4-10.4); Nucleated Red Blood Cells % 0; Platelet Count 292 10^3/ul (150-450); Red Blood Count 3.94 10^6/ul (4.00-5.40); Red Cell Distribution Width 14 % (10.5-15); White Blood Count 16.8 10^3/ul (3.5-10.8)
[2018-07-01 03:03] LABS: BUN/Creatinine Ratio 18.8 (8-20); Calcium 9.4 mg/dL (8.6-10.3); EGFR African American 66.8 (>60); EGFR Non-African American 55.2 (>60); Potassium 3.7 mmol/L (3.5-5.0)
[2018-07-01] MEDS ORDERED: Haloperidol TAB* 5 MG PO ONE (05:18)
[2018-07-01] MEDS ORDERED: Acetaminophen TAB* 325 MG PO ONE (06:27)
--- NOTE | 2018-07-01 06:34 | ED ---
Complex/Multi-Sys Presentation - HPI Summary HPI Summary: The patient is an 83 y/o F presenting to [facility] arriving by ambulance with a chief complaint of possible adverse reaction to medication accompanied by anxiety tonight. She states that she has been taking Bactrim for a UTI, and tonight when she took the medication, she had an anxiety attack, and she can't stay still. She additionally c/o low back pain. She was just discharged from the hospital yesterday after been admitted on 06/27/18. - History Of Current Complaint Chief Complaint: EDAllergicReaction Time Seen by Provider: 07/01/18 02:16 Hx Obtained From: Patient Onset/Duration: Sudden Onset, Lasting Hours, Still Present Timing: Hours Severity Currently: Moderate Severity Initially: Moderate Location: Pain At: - low back Aggravating Factor(s): nothing Alleviating Factor(s): nothing Associated Signs And Symptoms: Positive: Other - low back pain, anxiety attack Related History: Recent Hospitalization - on 06/27/18-06/30/18 - Allergies/Home Medications Allergies/Adverse Reactions: Allergies Allergy/AdvReac Type Severity Reaction Status Date / Time aspirin Allergy Abdominal Verified 05/11/18 18:25 Pain lisinopril Allergy Coughing Verified 05/11/18 18:25 sulfamethoxazole Allergy Fever Verified 07/01/18 12:49 [From Bactrim] trimethoprim [From Bactrim] Allergy Fever Verified 07/01/18 12:49 PMH/Surg Hx/FS Hx/Imm Hx Endocrine/Hematology History: Denies: Hx Diabetes Cardiovascular History: Reports: Hx Coronary Artery Disease - CHOLESTEROL CONTROL WITH MEDICATION, Hx Hypertension Denies: Hx Pacemaker/ICD Respiratory History: Denies: Hx Asthma, Hx Chronic Obstructive Pulmonary Disease (COPD) GI History: Reports: Hx Gastroesophageal Reflux Disease - ACID REFLUX OCCASIONALLY, USES TUMS History: Denies: Hx Renal Disease Musculoskeletal History: Reports: Hx Arthritis - GENERALIZED, Hx Back Problems - Fx May 07 2018 Denies: Hx Osteoporosis Sensory History: Reports: Hx Cataracts - BILATERAL, Hx Hearing Aid - pt does not wear them Denies: Hx Contacts or Glasses Opthamlomology History: Reports: Hx Cataracts - BILATERAL Denies: Hx Contacts or Glasses Neurological History: Denies: Hx Dementia - Pt alert and oriented Psychiatric History: Denies: Hx Panic Disorder - Cancer History Hx Chemotherapy: No Hx Radiation Therapy: No - Surgical History Surgery Procedure, Year, and Place: CATARACTS - [facility] Infectious Disease History: No Infectious Disease History: Denies: Traveled Outside the [place] in Last 30 Days - Family History Known Family History: Positive: Other - stroke and cancer - Social History Alcohol Use: None Hx Substance Use: No Substance Use Type: Reports: None Hx Tobacco Use: No Smoking Status (MU): Never Smoked Tobacco Review of Systems Positive: Other - low back pain Positive: Anxious All Other Systems Reviewed And Are Negative: Yes Physical Exam - Summary Physical Exam Summary: Appearance: Obese, elderly woman appears quite anxious Skin: Warm, dry, no obvious rash Eyes: sclera anicteric, no conjunctival pallor ENT: mucous membranes moist, pharynx appears normal Neck: Supple, nontender Respiratory: Clear to auscultation, no signs of respiratory distress Cardiovascular: Normal S1, S2. No murmurs. Normal distal pulses in tibial and radial bilaterally. Abdomen: Soft, nontender, normal active bowel sounds present Musculoskeletal: Normal, Strength/ROM Intact Neurological: A&Ox3, awake and alert, mentation is normal, speech is fluent and appropriate Psychiatric: affect is normal, does not appear anxious or depressed Triage Information Reviewed: Yes Vital Signs On Initial Exam: Initial Vitals Temp Pulse Resp BP Pulse Ox 98.1 F 85 28 189/145 93 07/01/18 02:10 07/01/18 02:10 07/01/18 02:10 07/01/18 02:10 07/01/18 02:10 Vital Signs Reviewed: Yes Diagnostics - Vital Signs Vital Signs Temp Pulse Resp BP Pulse Ox 07/01/18 06:25 101.3 F 90 94 07/01/18 06:24 88 113/98 92 07/01/18 05:42 81 125/81 100 07/01/18 05:11 89 153/85 96 07/01/18 05:09 84 149/111 96 07/01/18 05:01 93 88 07/01/18 04:12 148/84 07/01/18 03:58 137/87 07/01/18 03:12 89 191/120 92 07/01/18 03:10 83 91 07/01/18 02:42 86 197/98 93 07/01/18 02:26 28 07/01/18 02:12 83 189/145 96 07/01/18 02:10 98.1 F 83 28 189/145 94 - Laboratory Lab Results: Lab Results 07/01/18 07/01/18 07/01/18 Range/Units 02:41 02:41 02:41 WBC 16.8 H (3.5-10.8) 10^3/ul RBC 3.94 L (4.00-5.40) 10^6/ul Hgb 11.9 L (12.0-16.0) g/dl Hct 36 (35-47) % MCV 90 (80-97) fL MCH 30 (27-31) pg MCHC 34 (31-36) g/dl RDW 14 (10.5-15) % Plt Count 292 (150-450) 10^3/ul MPV 9.1 (7.4-10.4) fL Neut % (Auto) 85.0 % Lymph % (Auto) 7.8 % Dundy % (Auto) 5.5 % Eos % (Auto) 1.4 % Baso % (Auto) 0.3 % Absolute Neuts (auto) 14.3 H (1.5-7.7) 10^3/ul Absolute Lymphs (auto) 1.3 (1.0-4.8) 10^3/ul Absolute Monos (auto) 0.9 H (0-0.8) 10^3/ul Absolute Eos (auto) 0.2 (0-0.6) 10^3/ul Absolute Basos (auto) 0.1 (0-0.2) 10^3/ul Absolute Nucleated RBC 0 10^3/ul Nucleated RBC % 0 Sodium 133 L (135-145) mmol/L Potassium 3.7 (3.5-5.0) mmol/L Chloride 105 (101-111) mmol/L Carbon Dioxide 22 (22-32) mmol/L Anion Gap 6 (2-11) mmol/L BUN 18 (6-24) mg/dL Creatinine 0.96 H (0.51-0.95) mg/dL Est GFR ( Amer) 66.8 (>60) Est GFR (Non-Af Amer) 55.2 (>60) BUN/Creatinine Ratio 18.8 (8-20) Glucose 127 H (70-100) mg/dL Lactic Acid 1.6 (0.5-2.0) mmol/L Calcium 9.4 (8.6-10.3) mg/dL Result Diagrams: 07/01/18 02:41 07/01/18 02:41 Lab Statement: Any lab studies that have been ordered have been reviewed, and results considered in the medical decision making process. Complex Multi-Symp Course/Dx Course Of Treatment: The patient is an 83 y/o F arriving by ambulance with a chief complaint of possible adverse reaction to medication accompanied by anxiety tonight. She states that she has been taking Bactrim for a UTI, and tonight when she took the medication, she had an anxiety attack, and she can't stay still. She additionally c/o low back pain. She was just discharged from the hospital yesterday after been admitted on 06/27/18. Upon physical exam, the patient is an obese, elderly woman that appears quite anxious. In the ED course , the patient was given Tylenol, Ativan, and Haldol. I spoke with Dr. Fritz at 0645 for admission. He will speak to the next attending. The patient will be a sign-out to Dr. Mis Oconnor MD, from Dr. Dann Nunez MD, at change of shift at 0700 pending UA, CXR, and admission. - Diagnoses Differential Diagnoses/HQI/PQRI: Sepsis, Urinary Tract Infection Provider Diagnoses: PNA (pneumonia), Shortness of breath, DNR (do not resuscitate) - Physician Notifications Discussed Care Of Patient With: Robin Fritz - hospitalist Time Discussed With Above Provider: 06:45 Instructed by Provider To: Other - I spoke with Dr. Fritz, who will pass on admission orders to the next attending hospitalist at shift change. Discharge - Sign-Out/Discharge Documenting (check all that apply): Sign-Out Patient Signing out patient TO: Mis Oconnor - Patient will be a sign-out to Dr. Mis Oconnor MD, from Dr. Dann Nunez MD, at change of shift at 0700 pending UA, CXR, and admission. Patient Received Moderate/Deep Sedation with Procedure: No - Discharge Plan Condition: Stable Disposition: ADMITTED TO [facility] - Billing Disposition and Condition Condition: STABLE Disposition: Admitted to [facility] - Attestation Statements Document Initiated by Scribe: Yes Documenting Scribe: Yoselin Oshea Provider For Whom Jayne is Documenting (Include Credential): Dr. Dann Nunez MD Scribe Attestation: I, teetee Celayaibed for Dr. Dann Nunez MD on 07/02/18 at 0435. Scribe Documentation Reviewed: Yes Provider Attestation: The documentation as recorded by the Yoselin mosley accurately reflects the service I personally performed and the decisions made by me, Dr. Dann Nunez MD Status of Scribe Document: Viewed
[2018-07-01] MEDS ORDERED: Acetaminophen SUPP* 650 MG SUPP PR ONE (07:11)
[2018-07-01] MEDS ORDERED: Acetaminophen SUPP* 650 MG SUPP ONE (07:14)
--- NOTE | 2018-07-01 07:19 | ED ---
Progress - Progress Note Progress Note: RECEIVING SIGN OUT FROM DR. NUNEZ AT SHIFT CHANGE PENDING CXR, UA AND ADMISSION. An 83 y/o F presents to ED with c/o anxiety due to ABX. Pt was recently released for hospital for sepsis secondary to UTI. - Results/Orders Results/Orders: CXR as read by radiologist: IMPRESSION:RIGHT BASILAR CONSOLIDATION. RECOMMEND FOLLOW-UP UNTIL RESOLUTION TO EXCLUDE UNDERLYING PULMONARY PARENCHYMAL PATHOLOGY. ED provider has reviewed this report. UA results are unremarkable. Course/Dx - Course Course Of Treatment: RECEIVING SIGN OUT FROM DR. NUNEZ AT SHIFT CHANGE PENDING CXR, UA AND ADMISSION. An 83 y/o F presents to ED with c/o anxiety due to ABX. Pt was recently released for hospital for sepsis secondary to UTI. CXR shows "RIGHT BASILAR CONSOLIDATION. RECOMMEND FOLLOW-UP UNTIL RESOLUTION TO EXCLUDE UNDERLYING PULMONARY PARENCHYMAL PATHOLOGY." UA results are unremarkable. Prior to seeing the patient, the patient has admission orders in place by Dr Macias, hospitalist. Confirmed with Dr. Macias at 0820. - Diagnoses Provider Diagnoses: PNA (pneumonia) - Provider Notifications Discussed Care Of Patient With: Ag Macias - hospitalist Time Discussed With Above Provider: 08:20 Instructed by Provider To: Other - Confirmed that pt has been admitted to hospitalist services. Discharge - Sign-Out/Discharge Documenting (check all that apply): Patient Departure - ADMIT, Receiving Sign- Out Receiving patient FROM: Dann Nunez - pending CXR, UA, admission - Discharge Plan Condition: Stable Disposition: ADMITTED TO [facility] - Billing Disposition and Condition Condition: STABLE Disposition: Admitted to [facility] - Attestation Statements Document Initiated by Scribe: Yes Documenting Scribe: Luma Desai Provider For Whom Yoandyibe is Documenting (Include Credential): Dr. Mis Oconnor MD Scribe Attestation: Luma Dennis scribed for Dr. Mis Oconnor MD on 07/01/18 at 1446. Scribe Documentation Reviewed: Yes Provider Attestation: The documentation as recorded by the Luma mosley accurately reflects the service I personally performed and the decisions made by , Dr. Mis Oconnor MD Status of Scribe Document: Viewed
[2018-07-01] MEDS ORDERED: Ondansetron INJ* 2 MG/ML VIAL IV PRN (07:30)
[2018-07-01] MEDS ORDERED: NS 0.9% 1000 ML** 1,000 ML IV SCH (07:30)
[2018-07-01] MEDS ORDERED: Enoxaparin(*) 40 MG/0.4 ML SYR SUBCUT SCH (08:00)
[2018-07-01 08:06] LABS: Urine Appearance Clear; Urine Bilirubin Negative (Negative); Urine Blood Negative (Negative); Urine Color Straw; Urine Glucose Negative (Negative); Urine Ketones Negative (Negative); Urine Nitrite Negative (Negative); Urine Protein Negative (Negative); Urine Specific Gravity 1.011 (1.010-1.030); Urine Urobilinogen Negative (Negative)
[2018-07-01] MEDS ORDERED: ED Azithromycn 500 mg/250 ml 500 MG/250 ML PREMIX.SET IVPB ONE (08:13)
[2018-07-01] MEDS: cefTRIAXone(*) 1 GM in NS 0.9% 50 ML* 50 ML IVPB SCH (08:25)
[2018-07-01 09:27] LABS: Urine Bacteria Absent (Absent); Urine Red Blood Cell 1+(3-5/hpf) (Absent); Urine Squamous Epithelial Cell Present (Absent); Urine White Blood Cell 3+(>20/hpf) (Absent)
--- NOTE | 2018-07-01 11:34 | HP ---
CC: Dr. Yadi Rivas * HISTORY AND PHYSICAL: DATE OF ADMISSION: 07/01/18 PRIMARY CARE PROVIDER: Dr. Yadi Rivas. CHIEF COMPLAINT: Fever and altered mental status. HISTORY OF PRESENT ILLNESS: Bronwyn Tan is an 83-year-old female who was just discharged yesterday from a 4-day admission that began with altered mental status and fever that was presumed due to a UTI. Her urine from outpatient cultures grew Klebsiella pneumoniae and the patient was treated with 4 days of ceftriaxone. The patient was advised to continue Bactrim that was prescribed as outpatient and she took one dose prior to her admission and to continue for another 3 days and then stop. The patient went home and felt well. She took the Bactrim last night and today in the morning she developed fever, diarrhea, and was lethargic again. Her daughter brought her to the hospital again. Daughter states that the symptoms are very similar to the symptoms prior to patient's hospital stay after she took her first dose of Bactrim at that point. At this point, the suspicion is that the patient may have had an allergic reaction to Bactrim. She is going to be placed on overnight observation. She is going to be treated with ceftriaxone, which probably needs just 1 dose more to complete her 5 days treatment of her UTI. PAST MEDICAL HISTORY: 1. Please note that the patient was in fluid overload after initial IV fluid resuscitation during her last hospital stay and required multiple doses of Lasix during the hospital stay. 2. History of hypertension. 3. History of frequent UTIs. 4. History of CVA and TIAs. 5. History of being forgetful likely due to mild dementia. 6. Status post bilateral cataract extraction. MEDICATIONS AT HOME: Include: 1. Bactrim as mentioned above. 2. Calcitonin nasal spray 200 units daily. 3. Losartan 50 mg b.i.d. 4. Hydralazine 50 mg b.i.d. 5. Plavix 75 mg daily. 6. Lipitor 10 mg daily. 7. Atenolol 50 mg daily. ALLERGIES: ASPIRIN, LISINOPRIL. BACTRIM is going to be added to patient's allergy list now. FAMILY HISTORY: Positive for throat cancer in father. SOCIAL HISTORY: The patient denies any alcohol, tobacco, or drug use. Her surrogate decision maker is her daughter, Baylee. She lives close to her daughter, but she is fully independent at home. REVIEW OF SYSTEMS: Please see history of present illness. In addition to the above mentioned, the patient's family stated that she had 2 loose bowel movements today in the morning. Patient currently is lethargic. She wishes to sleep and she really does not want to answer to my questioning. She denied any pain currently. Remaining 12 systems were reviewed with the patient and apart from that was above mentioned and mentioned in history of present illness were negative. PHYSICAL EXAMINATION GENERAL: The patient is a pleasant 83-year-old female who is lying in the hospital bed. She is in no acute distress. She is alert and oriented x2. She is not very cooperative with exam. VITAL SIGNS: Blood pressure 142/64, heart rate of 81 and regular, respiratory rate 28, oxygen saturation 95% on room air, temperature maximum of 101.3. HEENT: Head: Atraumatic, normocephalic. Eyes: Pupils are equal, reactive to light and accommodation. Oropharynx clear. Mucosa dry. NECK: Supple. No JVD. No bruits bilaterally. RESPIRATORY: Faint crackles at bilateral bases, otherwise clear. CARDIOVASCULAR: Regular rate and rhythm. No murmur. ABDOMEN: Soft, nontender. Bowel sounds present in all 4 quadrants. There is no CVA tenderness bilaterally. EXTREMITIES: There is no edema. Pulses are +2 bilaterally. No clubbing or cyanosis. NEUROLOGIC: On neuro evaluation, speech is clear. Cranial nerves II through XII grossly intact. Motor strength is 5/5 bilaterally. The patient is oriented x2. She wishes to sleep. She does not want to cooperate with exam today. DIAGNOSTIC STUDIES/LAB DATA: Laboratory data showed white blood count of 16.8 , hemoglobin 11.9, hematocrit of 36, and platelets of 292. Sodium 133, potassium 3.7, chloride 105, carbon dioxide 22, BUN 18, creatinine 0.96. Lactic acid level was 1.6. Urinalysis was positive for +3 wbc's, trace rbc's, and squamous epithelial cells , absent bacteria, absent esterase and absent nitrite. That was obtained after straight catheterization. Portable chest x-ray, impression: "Right basilar consolidation. Recommend followup and resolution to exclude underlying pulmonary parenchymal pathology." ASSESSMENT AND PLAN: 1. Ms. Tan is an 83-year-old female who has recent diagnosis of Klebsiella pneumonia urinary tract infection. She was discharged from the hospital today and she took Bactrim, after which she developed fever, lethargy, and had two loose bowel movements. It was a very similar presentation to the hospital on , at what time she also took a dose of Bactrim prior to her admission. At this point, the differential includes most likely allergic reaction to Bactrim versus sepsis. She does have an infiltrate at the right chest, but she has no complaints of cough and she has history of recent hospitalization with fluid overload. The sepsis also could be related to recurrent urinary tract infection, although her urinalysis is not consistent with that. At this point, the patient is going to be observed on turnstile attendant bed. Ceftriaxone is going to be restarted to continue patient's remaining 1 day of antibiotics treatment for her urinary tract infection. Bactrim is going to be placed on allergy list. She is going to be placed on gentle intravenous hydration and not treated with a whole sepsis protocol with fluid boluses due to history of fluid overload and due to that likely currently the patient has an allergic reaction and not sepsis. Nevertheless, due to the infiltrate in the right lower lobe, she is going to be placed on azithromycin in addition to the ceftriaxone as mentioned above. Blood cultures were already obtained. 2. For patient's hypertension, we will continue the patient's antihypertensive medications from home and started them in the morning. 3. For DVT prophylaxis, the patient is going to be placed on heparin subcutaneously. 4. The patient's code status is do not resuscitate her daughter. TIME SPENT: Approximately 60 minutes was spent on admission of this patient, more than half of that time was spent [id number] with the patient during the interview and physical exam. [id number]/[facility] #: [id number] KAMRON
[2018-07-01] MEDS: Heparin VIAL(*) 5000 UNITS/ML VIAL (FIVE THOUSAND) SUBCUT SCH ×2 (16:05→22:35)
[2018-07-01] MEDS: Acetaminophen TAB* 325 MG PO PRN (16:05)
[2018-07-01] MEDS ORDERED: Furosemide IV* 10 MG/ML VIAL (40 MG) IV ONE (16:16)
[2018-07-01] MEDS ORDERED: hydrALAZINE TAB* 25 MG PO ONE (16:38)
[2018-07-01] MEDS ORDERED: Losartan TAB* 25 MG PO ONE (21:00)
[2018-07-02] MEDS: Acetaminophen TAB* 325 MG PO PRN (00:49)
[2018-07-02] MEDS: Heparin VIAL(*) 5000 UNITS/ML VIAL (FIVE THOUSAND) SUBCUT SCH ×3 (05:34→21:45)
[2018-07-02 05:49] LABS: ABS Basophils 0.1 10^3/ul (0-0.2); ABS Eosinophils 0.4 10^3/ul (0-0.6); ABS Lymphocytes 2.8 10^3/ul (1.0-4.8); ABS Neutrophils 6.1 10^3/ul (1.5-7.7); ABS Nucleated RBC 0 10^3/ul; Eosinophil % 4.1 %; Hematocrit 35 % (35-47); Hemoglobin 11.8 g/dl (12.0-16.0); Lymphocyte % 26.8 %; Mean Corpuscular HGB Conc 34 g/dl (31-36); Mean Corpuscular Hemoglobin 30 pg (27-31); Mean Corpuscular Volume 89 fL (80-97); Nucleated Red Blood Cells % 0; Platelet Count 315 10^3/ul (150-450); Red Blood Count 3.89 10^6/ul (4.00-5.40); Red Cell Distribution Width 14 % (10.5-15); White Blood Count 10.4 10^3/ul (3.5-10.8)
[2018-07-02 06:10] LABS: BUN/Creatinine Ratio 13.5 (8-20); CRP High Sensitivity 35.51 mg/L (<2.00); Calcium 9.1 mg/dL (8.6-10.3); EGFR African American 60.9 (>60); EGFR Non-African American 50.4 (>60); Potassium 3.6 mmol/L (3.5-5.0)
[2018-07-02] MEDS: hydrALAZINE TAB* 25 MG PO SCH ×2 (08:22→21:47)
[2018-07-02] MEDS: Clopidogrel TAB* 75 MG PO SCH (08:22)
[2018-07-02] MEDS: Atorvastatin* 10 MG TAB PO SCH (08:22)
[2018-07-02] MEDS: cefTRIAXone(*) 1 GM in NS 0.9% 50 ML* 50 ML IVPB SCH (08:30)
[2018-07-02] MEDS ORDERED: Losartan TAB* 25 MG PO SCH (09:00)
[2018-07-02] MEDS ORDERED: Atenolol TAB* 50 MG PO SCH (09:00)
[2018-07-02] MEDS ORDERED: Azithromycin IV(*) 500 MG in NS 0.9% 250 ML* 250 ML IVPB SCH (12:00)
[2018-07-02] MEDS ORDERED: Magnesium Hydroxide LIQ* 30 ML UDC PO ONE (14:35)
--- NOTE | 2018-07-02 14:40 | PN ---
Subjective Date of Service: 07/02/18 Interval History: "I feel terrible." She was dizzy when she got up earlier today. Constipated. Appetite OK. Objective Active Medications: Acetaminophen (Tylenol Tab*) 650 mg PO Q4H PRN PRN Reason: FEVER/PAIN Last Admin: 07/02/18 00:49 Dose: 650 mg Atenolol (Tenormin Tab*) 50 mg PO DAILY [facility] Last Admin: 07/02/18 08:22 Dose: 50 mg Atorvastatin Calcium (Lipitor*) 10 mg PO DAILY [facility] Last Admin: 07/02/18 08:22 Dose: 10 mg Clopidogrel Bisulfate (Plavix Tab*) 75 mg PO DAILY [facility] Last Admin: 07/02/18 08:22 Dose: 75 mg Heparin Sodium (Porcine) (Heparin Vial(*)) 5,000 units SUBCUT Q8HR [facility] Last Admin: 07/02/18 05:34 Dose: 5,000 units Hydralazine HCl (Apresoline Tab*) 50 mg PO BID [facility] Last Admin: 07/02/18 08:22 Dose: 50 mg Ceftriaxone Sodium 1 gm/ (Sodium Chloride) 50 mls @ 200 mls/hr IVPB Q24H [facility] Last Admin: 07/02/18 08:30 Dose: 200 mls/hr Azithromycin 500 mg/ Sodium (Chloride) 250 mls @ 250 mls/hr IVPB Q24H [facility] Last Admin: 07/02/18 12:32 Dose: 250 mls/hr Ondansetron HCl (Zofran Inj*) 4 mg IV Q6H PRN PRN Reason: NAUSEA Vital Signs - 8 hr 07/02/18 07/02/18 07/02/18 07:30 08:00 10:55 Temperature 97.9 F Pulse Rate 75 Respiratory 15 15 Rate Blood Pressure 112/64 85/43 (mmHg) O2 Sat by Pulse 98 Oximetry 07/02/18 07/02/18 11:05 14:00 Temperature Pulse Rate 55 Respiratory Rate Blood Pressure 97/45 87/39 (mmHg) O2 Sat by Pulse 99 Oximetry Oxygen Devices in Use Now: Nasal Cannula Appearance: Alert, supine in bed. In fair spirits. Looks comfortable. Eyes: No Scleral Icterus Respiratory: Symmetrical Chest Expansion and Respiratory Effort, Clear to Auscultation, Clear to Percussion Cardiovascular: NL Sounds; No Murmurs; No JVD, RRR, No Edema, - Skin: No Rash or Ulcers, No Nodules or Sclerosis, - Neurological: Alert and Oriented x 3, NL Sensation Result Diagrams: 07/02/18 05:01 07/02/18 05:01 Additional Lab and Data: Lab Results 07/01/18 07/01/18 07/01/18 Range/Units 02:41 02:41 02:41 WBC 16.8 H (3.5-10.8) 10^3/ul RBC 3.94 L (4.00-5.40) 10^6/ul Hgb 11.9 L (12.0-16.0) g/dl Hct 36 (35-47) % MCV 90 (80-97) fL MCH 30 (27-31) pg MCHC 34 (31-36) g/dl RDW 14 (10.5-15) % Plt Count 292 (150-450) 10^3/ul MPV 9.1 (7.4-10.4) fL Neut % (Auto) 85.0 % Lymph % (Auto) 7.8 % Mccone % (Auto) 5.5 % Eos % (Auto) 1.4 % Baso % (Auto) 0.3 % Absolute Neuts (auto) 14.3 H (1.5-7.7) 10^3/ul Absolute Lymphs (auto) 1.3 (1.0-4.8) 10^3/ul Absolute Monos (auto) 0.9 H (0-0.8) 10^3/ul Absolute Eos (auto) 0.2 (0-0.6) 10^3/ul Absolute Basos (auto) 0.1 (0-0.2) 10^3/ul Absolute Nucleated RBC 0 10^3/ul Nucleated RBC % 0 Sodium 133 L (135-145) mmol/L Potassium 3.7 (3.5-5.0) mmol/L Chloride 105 (101-111) mmol/L Carbon Dioxide 22 (22-32) mmol/L Anion Gap 6 (2-11) mmol/L BUN 18 (6-24) mg/dL Creatinine 0.96 H (0.51-0.95) mg/dL Est GFR ( Amer) 66.8 (>60) Est GFR (Non-Af Amer) 55.2 (>60) BUN/Creatinine Ratio 18.8 (8-20) Glucose 127 H (70-100) mg/dL Lactic Acid 1.6 (0.5-2.0) mmol/L Calcium 9.4 (8.6-10.3) mg/dL Microbiology and Other Data: Microbiology 07/01/18 06:38 Aerobic Blood Culture - Final Blood Venous Not Reportable Anaerobic Blood Culture - Final Not Reportable Blood Culture - Preliminary No Growth Day 1 07/01/18 07:05 Urine Culture - Final Urine No Growth (<1,000 CFU/mL) 07/01/18 08:15 Aerobic Blood Culture - Preliminary Blood Venous No Growth Day 1 Anaerobic Blood Culture - Preliminary No Growth Day 1 Assess/Plan/Problems-Billing Assessment: - Patient Problems (1) UTI (urinary tract infection) Current Visit: No Status: Inactive Comment: Finished 5 days IV ceftriaxone. (2) Lung infiltrate Current Visit: Yes Status: Acute Code(s): R91.8 - OTHER NONSPECIFIC ABNORMAL FINDING OF LUNG FIELD SNOMED Code(s): 567653671 Comment: Started on azith 07/01., will complete 5 day course with po. (3) History of CVA (cerebrovascular accident) Current Visit: No Status: Chronic Code(s): Z86.73 - PRSNL HX OF TIA (TIA), AND CEREB INFRC W/O RESID DEFICITS SNOMED Code(s): 192755089 Comment: - Continue Plavix (4) Hypertension Current Visit: No Status: Acute Code(s): I10 - ESSENTIAL (PRIMARY) HYPERTENSION SNOMED Code(s): 11570142 Comment: Reduce Atenolol, stop losartan 07/02.
[2018-07-02] MEDS: Polyethylene Glycol 3350* 17 GM PACKET PO SCH (21:47)
[2018-07-03] MEDS: Heparin VIAL(*) 5000 UNITS/ML VIAL (FIVE THOUSAND) SUBCUT SCH ×2 (06:10→14:16)
[2018-07-03] MEDS: cefTRIAXone(*) 1 GM in NS 0.9% 50 ML* 50 ML IVPB SCH (07:29)
[2018-07-03 07:43] LABS: ABS Basophils 0.1 10^3/ul (0-0.2); ABS Eosinophils 0.5 10^3/ul (0-0.6); ABS Lymphocytes 3.1 10^3/ul (1.0-4.8); ABS Monocytes 1.2 10^3/ul (0-0.8); ABS Neutrophils 7.4 10^3/ul (1.5-7.7); ABS Nucleated RBC 0 10^3/ul; Eosinophil % 3.8 %; Hematocrit 33 % (35-47); Hemoglobin 11.3 g/dl (12.0-16.0); Lymphocyte % 25.1 %; Mean Corpuscular HGB Conc 34 g/dl (31-36); Mean Corpuscular Hemoglobin 30 pg (27-31); Mean Corpuscular Volume 89 fL (80-97); Mean Platelet Volume 8.7 fL (7.4-10.4); Nucleated Red Blood Cells % 0; Platelet Count 308 10^3/ul (150-450); Red Blood Count 3.77 10^6/ul (4.00-5.40); Red Cell Distribution Width 14 % (10.5-15); White Blood Count 12.3 10^3/ul (3.5-10.8)
[2018-07-03 07:55] LABS: BUN/Creatinine Ratio 17.4 (8-20); Calcium 9.3 mg/dL (8.6-10.3); EGFR African American 54.3 (>60); EGFR Non-African American 44.8 (>60); Potassium 3.9 mmol/L (3.5-5.0)
--- NOTE | 2018-07-03 08:53 | DS ---
CC: Dr. Rivas * DISCHARGE SUMMARY: DATE OF ADMISSION: 07/01/18 DATE OF DISCHARGE: 07/03/18 HISTORY OF PRESENT ILLNESS: This 83-year-old woman was admitted the day after being discharged for treatment for urinary tract infection. She took Bactrim, but developed fever, diarrhea, and lethargy. She had taken Bactrim prior to the previous admission and presented with similar symptoms. There was a possibility that she is allergic to BACTRIM. She was placed on ceftriaxone. She finished 5 days' treatment with ceftriaxone , this was not interrupted. The patient was found to have a right lower lobe pneumonia. She was treated with azithromycin and will complete her treatment orally at home. Of note, urine culture on this admission was no growth. Blood pressure modification was reduced as her blood pressures were often under 100 systolic, this seemed to have improved her blood pressure. She was quite asymptomatic and felt much better at the time of discharge. FINAL DIAGNOSES: 1. Right lower lobe pneumonia. 2. Urinary tract infection. 3. History of cerebrovascular accident. 4. Hypertension. DISCHARGE MEDICATIONS: 1. Azithromycin 250 mg daily for 3 more days. 2. Polyethylene glycol 17 g daily. 3. Atenolol 25 mg daily. 4. Clopidogrel 75 mg daily. 5. Calcitonin nasal spray 200 units alternate nares. 6. Hydralazine 50 mg b.i.d. 7. Vitamin D 1000 units daily. 8. Calcium citrate 200 mg daily. 9. Cyclobenzaprine as prescribed. 10. Atorvastatin 10 mg h.s. 11. Fluticasone nasal spray 2 sprays both nares daily. 12. Tramadol 50 mg t.i.d. p.r.n. 13. Artificial tears every 2 hours p.r.n. 14. Acetaminophen 500 mg every 6 hours p.r.n. CONDITION ON DISCHARGE: Improved. DISPOSITION ON DISCHARGE: Discharged home. [id number]/[facility] #: [id number] MTDD
[2018-07-03] MEDS ORDERED: Atenolol TAB* 50 MG PO SCH (09:00)
[2018-07-03] MEDS ORDERED: Azithromycin TAB* 250 MG PO SCH (09:00)
[2018-07-03] MEDS ORDERED: Losartan TAB* 25 MG PO SCH (09:00)
[2018-07-03] MEDS: Polyethylene Glycol 3350* 17 GM PACKET PO SCH (10:30)
[2018-07-03] MEDS: Atorvastatin* 10 MG TAB PO SCH (10:30)
[2018-07-03] MEDS: hydrALAZINE TAB* 25 MG PO SCH (10:30)
[2018-07-03] MEDS: Clopidogrel TAB* 75 MG PO SCH (10:30)
[2018-07-03 16:14] VITALS: BP 112/50
== END 2018-07-03 16:35 | disposition home or self-care (01) ==
LOC: ED 02:05 → MED 07:25
PROVIDERS: ADMIT Internal Medicine; ATTEND Internal Medicine
DX: J18.9 Pneumonia, unspecified organism (principal); N39.0 Urinary tract infection, site not specified; Z86.73 Personal history of transient ischemic attack (TIA), and cerebral infarction without residual deficits; I10 Essential (primary) hypertension; R91.8 Other nonspecific abnormal finding of lung field
CPT/HCPCS: 36415; 71046; 80048; 81003; 82533; 83605; 85025; 86141; 87040; 87086; 93005; 96361; 96365; 96372; 96375; 99285; A9270-GY; G0378; J0456; J0696; J1644; J1650; J1940

== ENCOUNTER 2018-08-14 23:27 | Emergency (ER) | payer MEDICARE ==
[2018-08-14] MEDS ORDERED: NS 0.9% 1000 ML** 1,000 ML IV ONE (23:43)
--- NOTE | 2018-08-15 00:07 | ED ---
Syncope/Near Syncope - HPI Summary HPI Summary: Pt is an 83 y/o female who presents to the ED s/p syncope. Tonight she became lightheaded and near-syncopal after urinating, and fell over into her shower. Pt denies any head injury or LOC. Pt c/o bilateral leg weakness. She denies any CP or diarrhea. Pt took a Hydralazine this evening, and denies any alcohol use. PMHx HTN. BP while in room: 197/105. - History Of Current Complaint Chief Complaint: EDSyncope Time Seen by Provider: 08/15/18 00:01 Hx Obtained From: Patient Onset/Duration: Gradual Onset, Resolved Timing: Intermittent Episode Lasting Activity At Onset: Other - after urinating Associated Head Trauma: No Alleviating Factor(s): Spontaneous Resolution Associated Signs And Symptoms: Lightheadedness - Allergies/Home Medications Allergies/Adverse Reactions: Allergies Allergy/AdvReac Type Severity Reaction Status Date / Time aspirin Allergy Abdominal Verified 05/11/18 18:25 Pain lisinopril Allergy Coughing Verified 05/11/18 18:25 sulfamethoxazole Allergy Fever Verified 07/01/18 12:49 [From Bactrim] trimethoprim [From Bactrim] Allergy Fever Verified 07/01/18 12:49 PMH/Surg Hx/FS Hx/Imm Hx Endocrine/Hematology History: Denies: Hx Diabetes Cardiovascular History: Reports: Hx Coronary Artery Disease - CHOLESTEROL CONTROL WITH MEDICATION, Hx Hypertension Denies: Hx Pacemaker/ICD Respiratory History: Denies: Hx Asthma, Hx Chronic Obstructive Pulmonary Disease (COPD) GI History: Reports: Hx Gastroesophageal Reflux Disease - ACID REFLUX OCCASIONALLY, USES TUMS History: Denies: Hx Renal Disease Musculoskeletal History: Reports: Hx Arthritis - GENERALIZED, Hx Back Problems - Fx May 07 2018 Denies: Hx Osteoporosis Sensory History: Reports: Hx Cataracts - BILATERAL, Hx Hearing Aid - pt does not wear them Denies: Hx Contacts or Glasses Opthamlomology History: Reports: Hx Cataracts - BILATERAL Denies: Hx Contacts or Glasses Neurological History: Denies: Hx Dementia - Pt alert and oriented Psychiatric History: Denies: Hx Panic Disorder - Cancer History Hx Chemotherapy: No Hx Radiation Therapy: No - Surgical History Surgery Procedure, Year, and Place: CATARACTS - [facility] Infectious Disease History: No Infectious Disease History: Denies: Traveled Outside the [place] in Last 30 Days - Family History Known Family History: Positive: Other - stroke and cancer - Social History Alcohol Use: None Hx Substance Use: No Substance Use Type: Reports: None Hx Tobacco Use: No Smoking Status (MU): Never Smoked Tobacco Review of Systems Negative: Chest Pain Negative: Diarrhea Negative: Other - head injury Neurological: Other - Lightheadedness, NEGATIVE: LOC Positive: Weakness - bilateral legs, Syncope - near All Other Systems Reviewed And Are Negative: Yes Physical Exam - Summary Physical Exam Summary: Appearance: well appearing, no pain distress Skin: warm, dry, reflects adequate perfusion Head/face: normal Eyes: EOMI, RADHA ENT: mucous membranes moist Neck: supple, non-tender Respiratory: CTA, breath sounds present Cardiovascular: RRR, pulses symmetrical Abdomen: non-tender, soft Bowel Sounds: present Musculoskeletal: normal, strength/ROM intact Neuro: normal, sensory motor intact, A&Ox3 Triage Information Reviewed: Yes Vital Signs On Initial Exam: Initial Vitals Temp Pulse Resp BP Pulse Ox 97.2 F 67 18 208/125 96 08/14/18 23:34 08/14/18 23:34 08/14/18 23:34 08/14/18 23:34 08/14/18 23:34 Vital Signs Reviewed: Yes Diagnostics - Vital Signs Vital Signs Temp Pulse Resp BP Pulse Ox 08/14/18 23:34 97.2 F 67 18 208/125 96 - Laboratory Result Diagrams: 08/15/18 00:34 Lab Statement: Any lab studies that have been ordered have been reviewed, and results considered in the medical decision making process. - EKG 23:42 Cardiac Rate: NL - 61 bpm EKG Rhythm: Sinus Rhythm ST Segment: Normal Summary of EKG Findings: Nl axis, LVH criteria Re-Evaluation - Re-Evaluation First Eval Re-Evaluation Time: 01:20 Change: Unchanged Comment: Pt still feels "shakey inside". Course/Dx Course Of Treatment: Patient with multiple generalized/vague complaints. No injury with not even a full fall. She felt lightheaded after using the restroom. She is expressing the same concerns that she's had for many months. She is considering entering nursing facility or assisted living and is currently working on this outpatient. She was up and moving about the ER after hydration. Her TSH is noted to be elevated as it has been in the past. She is not currently taking any thyroid replacement. Her blood pressures have trended high of late but she states she is taking her medication. She is encouraged to follow up closely with her primary care physician morning for reevaluation of her thyroid and her blood pressure medication regimen. She was given a dose of labetalol here which helped her blood pressure but didn't alter any symptoms that she was having. - Diagnoses Differential Diagnosis/HQI/PQRI: Positive: Hyperventilation, Hypovolemia, Metabolic Reaction, Medication Reaction, Vasovagal Episode Provider Diagnoses: Hypothyroidism, Uncontrolled hypertension, Lightheadedness - Critical Care Time Critical Care Time: 30-74 min - Critical care time is exclusive of separately billable procedures. This includes multiple reevaluation's and long discussions with the patient regarding her wishes, disposition. Discharge - Sign-Out/Discharge Documenting (check all that apply): Patient Departure - Discharge Patient Received Moderate/Deep Sedation with Procedure: No - Discharge Plan Condition: Improved Disposition: HOME Patient Education Materials: Hypothyroidism (ED), Hypertension (ED), Lightheadedness (ED) Referrals: Yadi Cline MD [Primary Care Provider] - Additional Instructions: Call your doctor first thing in the morning and discuss with them ways to help you get into assisted living or nursing care. They will need to address her blood pressure and your thyroid. You likely need medication adjustments for both of these. Drink plenty of fluids. Return if worse, weakness, falls, new symptoms or other concerns as discussed. - Billing Disposition and Condition Condition: IMPROVED Disposition: Home - Attestation Statements Document Initiated by Jayne: Yes Documenting Scribe: Stephanie Allen Provider For Whom Jayne is Documenting (Include Credential): Nirmal Thompson MD Scribe Attestation: Stephanie Dennis scribed for Nirmal Thompson MD on 08/15/18 at 0327. Scribe Documentation Reviewed: Yes Provider Attestation: The documentation as recorded by the Stephanie mosley accurately reflects the service I personally performed and the decisions made by me, Nirmal Thompson MD Status of Scribe Document: Viewed
[2018-08-15] MEDS ORDERED: Labetalol IV* 5 MG/ML 20 ML VIAL IV PUSH ONE (00:12)
[2018-08-15 00:53] LABS: INR 1.03 (0.82-1.09)
[2018-08-15 01:14] LABS: Urine Appearance Clear; Urine Bacteria Absent (Absent); Urine Bilirubin Negative (Negative); Urine Blood Negative (Negative); Urine Color Straw; Urine Glucose Negative (Negative); Urine Ketones Negative (Negative); Urine Nitrite Negative (Negative); Urine Protein Negative (Negative); Urine Red Blood Cell Absent (Absent); Urine Specific Gravity 1.002 (1.010-1.030); Urine Squamous Epithelial Cell Present (Absent); Urine Urobilinogen Negative (Negative); Urine White Blood Cell 1+(6-10/hpf) (Absent)
[2018-08-15 01:22] LABS: Albumin 4.2 g/dL (3.2-5.2); Potassium 3.8 mmol/L (3.5-5.0); Total Bilirubin 0.7 mg/dL (0.2-1.0)
[2018-08-15 01:28] LABS: Albumin/Globulin Ratio 1.4 (1-3); BUN/Creatinine Ratio 17.2 (8-20); EGFR African American 69.3 (>60); EGFR Non-African American 57.3 (>60); Total Protein 7.2 g/dL (6.4-8.9)
[2018-08-15 01:29] LABS: Troponin I 0.01 ng/mL (<0.04)
[2018-08-15 01:40] LABS: TSH (Thyroid Stimulating Horm) 7.17 mcIU/mL (0.34-5.60)
[2018-08-15 02:58] VITALS: BP 189/87
== END 2018-08-15 02:57 | disposition home or self-care (01) ==
LOC: ED 23:27
DX: E03.9 Hypothyroidism, unspecified (principal); I10 Essential (primary) hypertension; R42 Dizziness and giddiness; R94.31 Abnormal electrocardiogram [ECG] [EKG]; I25.10 Atherosclerotic heart disease of native coronary artery without angina pectoris; J44.9 Chronic obstructive pulmonary disease, unspecified; K21.9 Gastro-esophageal reflux disease without esophagitis; M19.90 Unspecified osteoarthritis, unspecified site; Z88.6 Allergy status to analgesic agent; Z88.8 Allergy status to other drugs, medicaments and biological substances; Z88.2 Allergy status to sulfonamides; Z79.899 Other long term (current) drug therapy
CPT/HCPCS: 36415; 80053; 81003; 81015; 82550; 83735; 84443; 84484; 85610; 87086; 93005; 96361; 96374; 99283